=== PATIENT | male | born 1990 | race Caucasian/White ===

== ENCOUNTER 2021-02-02 08:26 | Emergency (ER) | payer OTHER, SELFPAY ==
--- NOTE | ~2021-02-02 | XR_ITS ---
EXAMINATION: XR CHEST CLINICAL INFORMATION: Cough. COMPARISON: Chest 01/11/2013. TECHNIQUE: 2 views of the chest were obtained. FINDINGS: The lungs are hyperinflated but clear of acute process at size and pulmonary vascularity is normal. No gross bony abnormality seen. XR/XR chest 2V IMPRESSION: Hyperinflated lungs without acute process.
[2021-02-02 08:33] VITALS: BP 107/57; PULSE 80; RESP 20; TEMP 36.8; O2SAT 98; BMI 20.1
--- NOTE | 2021-02-02 08:37 | ED_ITS ---
HPI - URI/Sore Throat General Chief Complaint: Upper Respiratory Symptoms Stated Complaint: covid symptoms Time Seen by Provider: 02/02/21 08:37 Source: patient Mode of arrival: ambulatory Limitations: no limitations History of Present Illness HPI Narrative: 30 yo male with longstanding GERD on 20mg omeprazole BID, HIV well controlled on Truvada also notes he takes ibuprofen 600mg BID for aches/pain c/o worsening GERD, chest wall ttp, acid in throat MD elicited complaint: other (increasing GERD symptoms) Pertinent past history: HIV Onset (ago): month(s) Consistency: intermittent Severity: severe Able to tolerate fluids by mouth: Yes Exacerbating factors: swallowing Relieving factors: nothing Associated symptoms: sore throat and chest pain Treatments prior to arrival: none Related Data Home Medications Medication Instructions Recorded Confirmed dolutegravir-lamivudine [Dovato] 1 tab PO DAILY 09/02/20 09/02/20 omeprazole 20 mg PO DAILY 09/02/20 09/02/20 Previous Rx's Medication Instructions Recorded sucralfate [Carafate] 10 ml PO TID 14 Days #420 ml 02/02/21 Allergies Allergy/AdvReac Type Severity Reaction Status Date / Time SEASONAL ALLERGIES Allergy Unknown HIVES Uncoded 07/10/20 15:55 Review of Systems Review of Systems: Constitutional : No Weight loss, No Fever, No Chills ENT/Mouth : pos sore throat, No Rhinorrhea Eyes: No Eye Pain, No Swelling Cardiovascular : pos Chest Pain, no SOB, no Dyspnea on Exertion, No Orthopnea, No Edema, No Palpitations Respiratory : No Cough, No Sputum Gastrointestinal : no Nausea, No Vomiting, No Diarrhea, No abdominal Pain, No Hematochezia, No Melena Genitourinary : No Dysuria, No Urinary Frequency Musculoskeletal : No joint pain, No Myalgias, No Joint Swelling Skin : No Skin Lesions, No rash Neuro : No Weakness, No Numbness, No Dizziness, No Headache Psych : No Anxiety/Panic, No Depression Heme/Lymph: No Bruising, No Lymphadenopathy Endocrine : No Polyuria, No Polydipsia All other systems reviewed and are negative [facility] Past Medical History Attestation statement: The following information was validated with the patient. Medical History GERD (gastroesophageal reflux disease) HIV (human immunodeficiency virus infection) Social History Social History Smoking Status: Current every day smoker Advance Directives: Yes Advance Directives Information Provided: Yes Advance Directives on File: No Physical Exam Vital Signs: Vital Signs: Last Vital Signs Temp 98.2 F 02/02/21 08:33 Pulse 80 02/02/21 08:33 Resp 20 02/02/21 08:33 BP 107/57 L 02/02/21 08:33 Pulse Ox 98 02/02/21 08:33 Body Mass Index 20.1 Appearance: Alert. Oriented X3. No acute distress. Eyes: Pupils equal, round and reactive to light. ENT: Pharynx normal. Neck: Normal inspection. Neck supple. CVS: Normal heart rate and rhythm. Pulses normal. Chest: ttp along entire chest wall Respiratory: No respiratory distress. Breath sounds normal. Abdomen: Soft and non-tender. Skin: Skin warm and dry. Normal skin color. Normal skin turgor. Extremities: No lower extremity edema. No calf ttp Neuro: Oriented X 3. No motor deficit. No sensory deficit. Course Course Course Narrative: COVID swab not sent off, chargemaster specialist to call patinet and notify if he wants testing to come back I have very low susp for COVID MDM - URI/Sore Throat MDM Narrative Medical decision making narrative: 30 yo male with GERD on omeprazole 20mg BID but also takes ibuprofen 600mg BID for various aches and pain has GI but did not get a recent endoscopy appointment, I suspect his symptoms are related to GERD exacerbated by NSAIDs, no other GI symptoms noted, not toxic, well controlled HIV doubt thrush - at this time will encourage no NSAIDs and start on carafate, CXR, COVID swab, GI cocktail ordered. Discharge Plan Discharge Clinical Impression: Chronic GERD Patient Disposition: Home, Self-Care Instructions: Diet for Stomach Ulcers and Gastritis (ED), Gastroesophageal Reflux Disease (ED) Additional Instructions: WE WILL CALL YOU WITH YOUR COVID RESULT YOUR CHEST XRAY WAS NORMAL STOP TAKING NSAIDS - IBUPROFEN, ASPIRIN, ALEVE, MOTRIN IT IS MAKING YOUR GERD WORSE PLEASE CALL YOUR MACHINE LOADER Prescriptions: New sucralfate [Carafate] 100 mg/mL suspension 10 ml PO TID 14 Days Qty: 420 RF: 0 No Action omeprazole 20 mg Tablet,Delayed Release (Dr/Ec) 20 mg PO DAILY RF: 0 Dovato 50-300 mg Tablet 1 tab PO DAILY RF: 0 Stand Alone Forms: Work/School Release Interventions: ED Discharge Assessment Last Done: 02/02/21 09:26 Discharge Date/Time: 02/02/21 09:26
[2021-02-02] MEDS: Lidocaine HCl Viscous 2 % 15 ML SOLUTION MUCOUS MEM (09:21)
[2021-02-02] MEDS: Magnesium Hydrox/Alum Hydrox 30 ML ORAL.SUSP PO (09:21)
== END 2021-02-02 09:26 | disposition home or self-care (01) ==
PROVIDERS: Emergency Provider Emergency Medicine
DX: K21.9 Gastro-esophageal reflux disease without esophagitis (principal); J02.9 Acute pharyngitis, unspecified; B20 Human immunodeficiency virus [HIV] disease; F17.200 Nicotine dependence, unspecified, uncomplicated; Z79.899 Other long term (current) drug therapy
CPT/HCPCS: 71046; 99283

== ENCOUNTER 2021-04-07 08:28 | Emergency (ER) | payer OTHER, SELFPAY ==
[2021-04-07 08:31] VITALS: BP 142/81; PULSE 63; RESP 18; TEMP 36.6; O2SAT 100; BMI 19.3
== END 2021-04-07 10:22 | disposition left against medical advice (07) ==
PROVIDERS: Emergency Provider Emergency Medicine; PCP Internal Medicine
DX: R07.9 Chest pain, unspecified (principal); R11.10 Vomiting, unspecified
CPT/HCPCS: 99281; 99282

== ENCOUNTER 2021-04-12 08:59 | Emergency (ER) | payer OTHER, SELFPAY ==
--- NOTE | 2021-04-12 | ECG_ITS ---
Test Reason : CHEST PAIN Blood Pressure : / mmHG Vent. Rate : 101 BPM Atrial Rate : 101 BPM P-R Int : 128 ms QRS Dur : 086 ms QT Int : 432 ms P-R-T Axes : 084 093 059 degrees QTc Int : 560 ms Sinus tachycardia Biatrial enlargement Rightward axis Prolonged QT Abnormal ECG No previous ECGs available Referred By: Generic ED Physician Electronically Signed By:ROWDY HENRIQUEZ
--- NOTE | ~2021-04-12 | XR_ITS ---
EXAMINATION: XR CHEST CLINICAL INFORMATION: Right-sided chest pain COMPARISON: Previous chest x-ray January 2021 TECHNIQUE: Frontal view of the chest was obtained. FINDINGS: No significant abnormality is noted involving the heart, lungs, mediastinum, bony thorax or soft tissues. XR/XR chest 1V IMPRESSION: Unremarkable examination.
[2021-04-12 09:19] VITALS: BP 124/77; PULSE 100; RESP 18; TEMP 35.8; O2SAT 100
[2021-04-12 09:52] VITALS: BP 144/85; PULSE 106; RESP 16; TEMP 36.6; O2SAT 100; BMI 18.3
[2021-04-12 09:54] VITALS: PULSE 101
--- NOTE | 2021-04-12 10:00 | ED.CHESTPAIN ---
HPI - Chest Pain General Chief Complaint: Chest Pain Stated Complaint: chest pain Time Seen by Provider: 04/12/21 09:12 Source: patient Mode of arrival: ambulatory Limitations: no limitations History of Present Illness HPI narrative: Patient presents to ED for vomiting, acid burning sensation in epigastric area going to the throat for the past 6 days and then for the past 2 days having right upper chest wall pain. Patient denies any fever or chills. Patient denies any blood in emesis, any diarrhea, blood in stool, dysuria, hematuria, flank pain, fever, chills, or any shortness of breath. Patient admits to cyclic vomiting due to smoking marijuana. Related Data Home Medications Medication Instructions Recorded Confirmed dolutegravir-lamivudine [Dovato] 1 tab PO DAILY 09/02/20 09/02/20 omeprazole 20 mg PO DAILY 09/02/20 09/02/20 Previous Rx's Medication Instructions Recorded sucralfate [Carafate] 10 ml PO TID 14 Days #420 ml 02/02/21 famotidine [Pepcid] 20 mg PO BID #40 tab 04/12/21 metoclopramide HCl [Reglan] 10 mg PO Q6H PRN #8 tab 04/12/21 Allergies Allergy/AdvReac Type Severity Reaction Status Date / Time SEASONAL ALLERGIES Allergy Unknown HIVES Uncoded 07/10/20 15:55 Review of Systems Review of Systems: Yes all other systems are reviewed and are negative Constitutional: Constitutional: Reports as per HPI and Reports no additional constitutional complaints Eyes: Eyes: Reports as per HPI and Reports no additional eye complaints ENT: Reports system reviewed and no additional complaints, except as documented and Reports as per HPI Cardiovascular: Cardiovascular: Reports as per HPI, Reports no additional cardiovascular complaints, Reports chest pain (Right-sided chest pain), Denies dyspnea and Denies dyspnea on exertion Respiratory: Respiratory: Reports as per HPI, Reports no additional respiratory complaints, Denies dyspnea and Denies dyspnea on exertion Gastrointestinal: Gastrointestinal: Reports as per HPI, Reports no additional gastrointestinal complaints, Reports heartburn, Reports nausea and Reports vomiting Genitourinary: Genitourinary: Reports no additional male genitourinary complaints and Reports as per HPI Musculoskeletal: Musculoskeletal: Reports no additional musculoskeletal complaints and Reports as per HPI Neurologic: Reports system reviewed and no additional complaints, except as documented and Reports as per HPI [facility] Past Medical History Medical History GERD (gastroesophageal reflux disease) HIV (human immunodeficiency virus infection) Social History Social History Patient Tobacco Use Status: Current everyday Tobacco user Use of substances other than those prescribed or required for medical reasons: Yes Substance Use Type: Marijuana Last Used Substance: Weeks (ago) Advance Directives: Yes Advance Directives Information Provided: Yes Advance Directives on File: No Physical Exam Vital Signs: Vital Signs: Last Vital Signs Temp 97.9 F 04/12/21 09:52 Pulse 93 04/12/21 10:36 Resp 18 04/12/21 10:36 BP 136/82 04/12/21 10:36 Pulse Ox 100 04/12/21 10:36 Body Mass Index 18.3 Const: General: cooperative, healthy appearing, comfortable, no acute distress, well developed, alert and awake Orientation/consciousness: patient oriented x3 HENMT: Head: Yes normal to inspection, Yes No palpable skull fracture present, Yes normocephalic and Yes atraumatic Eyes: General: appearance normal, both eyes and all related structures Neck: Neck: Yes normal visual inspection, Yes full ROM, Yes no lymphadenopathy, Yes no meningeal signs, Yes trachea midline, Yes supple and No tender Chest: Chest palpation & inspection: normal inspection of the chest and normal palpation of entire chest wall Chest/axillae images: 1. Area of tenderness on palpation. Negative for erythema, redness, mass on palpation, or crepitus. Pain also movement right upper extremity. Resp: Effort & Inspection: normal respiratory effort and able to speak in complete sentences Cardio: Jugular venous distension: no JVD Heart sounds: S1 normal heart sound present and S2 normal heart sound present GI: Inspection: Yes normal to inspection and No abdominal wall ecchymosis Palpation (GI): Soft to palpation, not firm, Tenderness to palpation present (GI) (mild) in the epigastrum; not in the LLQ, not in the RLQ, not in the LUQ, not in the RUQ, not at McBurney's point, not periumbilically, not suprapubicly, Fernandes's sign negative, obturator sign negative, psoas sign negative, with no rebound tenderness and Rovsing's sign negative, no guarding and not rigid : General: No CVA tenderness and Yes no CVA tenderness Back/Spine/Pelvis: Back: no CVA tenderness, No CVA tenderness and No back tenderness Skin: General skin exam: no rashes or lesions noted and elasticity normal Neuro: General: patient oriented x3, gait normal, no meningeal signs and CN's II-XI intact bilaterally Cranial nerves: Yes CN's II-XII intact bilaterally Extrem: General: Yes normal to inspection and Yes full ROM Psych: Appearance: grossly normal, well kempt and not disheveled Course Course Course Narrative: Right-sided chest pain most likely from continuous vomiting and vomiting heartburn but will do also cardiac evaluation and a D-dimer. Patient given GI cocktail. EKG shows prolonged QT wave will not give Zofran. Reevaluation(s) Reevaluation #1: Patient feeling better. LFTs are normal. Troponin 23. EKG negative for STEMI. Chest x-ray negative for pneumonia. Patient passed p.o. challenge. Anion gap is elevated slightly low potassium. Patient was infrorm due to troponin 23 will have to do a 2nd troponin out 1:30, but patient refused patient states he feels better like to be discharged. Patient informed due to troponin being slightly elevated he will have to sign out against medical advice. Patient informed risk of , dehydration, disability, decreased quality of life, or heart attack and patient still agreeable to sign against medical advice. Patient will come back to the ER immediately if he feels sick. D-dimer negative. Perc score 1. Bedside ultrasound negative for gallstones. Patient also refused repeat chemistry. Patient informed to eat bananas and drink plenty fluids at home. Time: 11:45 MDM - Chest Pain MDM Narrative Medical decision making narrative: GERD. Costochondritis Lab Data Result diagrams: 04/12/21 10:25 04/12/21 10:25 Labs: Lab Results 04/12/21 04/12/21 04/12/21 Range/Units 10:25 10:25 10:25 WBC 11.3 H (4.8-10.8) X10*3/uL RBC 5.52 (4.60-5.80) X10*6/uL Hgb 16.3 (14.0-18.0) g/dl Hct 46.1 (42-52) % MCV 83.5 (80-98) fL MCH 29.5 (27.0-33.0) pg MCHC 35.4 (31.0-36.0) g/dl RDW 12.3 (11.0-16.0) % Plt Count 275 (160-400) X10*3/uL MPV 10.9 (9.4-12.4) fL Immature Gran % (Auto) 0.4 (0.0-0.4) % Neut % (Auto) 79.3 H (45-73) % Lymph % (Auto) 12.3 L (20-40) % [place] % (Auto) 7.5 (2-11) % Eos % (Auto) 0.1 (0-4) % Baso % (Auto) 0.4 (0-2) % Lymph # (Auto) 1.4 (1.2-4.9) X10*3/uL [place] # (Auto) 0.9 (0.1-1.2) X10*3/uL Eos # (Auto) 0.0 (0.0-0.4) X10*3/uL Baso # (Auto) 0.0 (0.0-0.2) X10*3/uL Abs Immat Gran (auto) 0.05 H (0.00-0.03) X10*3/uL Absolute Neuts (auto) 8.9 H (2.0-8.3) X10*3/uL Absolute Nucleated RBC 0.000 (0.0-0.012) X10*3/uL Nucleated RBC % (auto) 0.0 (0.0-0.2) /100WBC PT (10.8-13.0) SEC INR (0.9-1.1) APTT (24.1-38.0) SEC D-Dimer NG/ML Sodium 136 (135-145) mmol/L Potassium 3.1 L (3.3-5.1) mmol/L Chloride 89 L (96-108) mmol/L Carbon Dioxide 24 (22-29) mmol/L Anion Gap 26 H (12-20) BUN 39 H (9-16) mg/dL Creatinine 1.40 (0.5-1.4) mg/dL Estim Creat Clear Calc 55.9 Estimated GFR 59 Random Glucose 113 (60-115) mg/dL Calcium 10.8 H (8.4-10.2) mg/dL Total Bilirubin 1.4 H (0.0-1.0) mg/dL Direct Bilirubin 0.5 (0.0-0.5) mg/dL AST 24 (5-37) U/L ALT 14 (0-40) U/L Alkaline Phosphatase 62 (39-117) U/L Troponin I High Sens 23.1 (<3.5-35.0) ng/L Total Protein 8.5 H (6.5-8.0) g/dL Albumin 5.5 H (3.5-5.0) g/dL Lipase 21 (8-78) U/L 04/12/21 Range/Units 10:25 WBC (4.8-10.8) X10*3/uL RBC (4.60-5.80) X10*6/uL Hgb (14.0-18.0) g/dl Hct (42-52) % MCV (80-98) fL MCH (27.0-33.0) pg MCHC (31.0-36.0) g/dl RDW (11.0-16.0) % Plt Count (160-400) X10*3/uL MPV (9.4-12.4) fL Immature Gran % (Auto) (0.0-0.4) % Neut % (Auto) (45-73) % Lymph % (Auto) (20-40) % [place] % (Auto) (2-11) % Eos % (Auto) (0-4) % Baso % (Auto) (0-2) % Lymph # (Auto) (1.2-4.9) X10*3/uL [place] # (Auto) (0.1-1.2) X10*3/uL Eos # (Auto) (0.0-0.4) X10*3/uL Baso # (Auto) (0.0-0.2) X10*3/uL Abs Immat Gran (auto) (0.00-0.03) X10*3/uL Absolute Neuts (auto) (2.0-8.3) X10*3/uL Absolute Nucleated RBC (0.0-0.012) X10*3/uL Nucleated RBC % (auto) (0.0-0.2) /100WBC PT 12.8 (10.8-13.0) SEC INR 1.1 (0.9-1.1) APTT 28.7 (24.1-38.0) SEC D-Dimer < 200 NG/ML Sodium (135-145) mmol/L Potassium (3.3-5.1) mmol/L Chloride (96-108) mmol/L Carbon Dioxide (22-29) mmol/L Anion Gap (12-20) BUN (9-16) mg/dL Creatinine (0.5-1.4) mg/dL Estim Creat Clear Calc Estimated GFR Random Glucose (60-115) mg/dL Calcium (8.4-10.2) mg/dL Total Bilirubin (0.0-1.0) mg/dL Direct Bilirubin (0.0-0.5) mg/dL AST (5-37) U/L ALT (0-40) U/L Alkaline Phosphatase (39-117) U/L Troponin I High Sens (<3.5-35.0) ng/L Total Protein (6.5-8.0) g/dL Albumin (3.5-5.0) g/dL Lipase (8-78) U/L ECG Data ECG #1: Interpretation: Sinus tachycardia. Ventricular rate 101. Pr interval 128. QRS 86. QTC 560. Discharge Plan Discharge Clinical Impression: Chronic GERD, Acute costochondritis Patient Disposition: Left Against Medical Advice Instructions: Costochondritis (ED), Gastroesophageal Reflux Disease (ED) Additional Instructions: Return to the ED for inability tolerate solid food/liquid, worsening chest pain, coughing up blood, vomiting blood, rectal bleeding, swelling of lower extremities, calf pain, shortness of breath, or any other concerning symptoms. Please follow-up with PCP Prescriptions: New famotidine [Pepcid] 20 mg tablet 20 mg PO BID Qty: 40 RF: 0 metoclopramide HCl [Reglan] 10 mg tablet 10 mg PO Q6H PRN (Reason: nausea) Qty: 8 RF: 0 No Action sucralfate [Carafate] 100 mg/mL suspension 10 ml PO TID 14 Days Qty: 420 RF: 0 omeprazole 20 mg Tablet,Delayed Release (Dr/Ec) 20 mg PO DAILY RF: 0 Dovato 50-300 mg Tablet 1 tab PO DAILY RF: 0 Stand Alone Forms: Against Medical Advice Interventions: ED Discharge Assessment Last Done: 04/12/21 12:00 Discharge Date/Time: 04/12/21 12:01 Print Language: [place]
[2021-04-12 10:31] LABS: MANUAL DIFF FLAG NO
[2021-04-12 10:34] LABS: Basophils Percent Auto 0.4 % (0-2); Eosinophils Percent Auto 0.1 % (0-4); Hematocrit 46.1 % (42-52); Hemoglobin 16.3 g/dl (14.0-18.0); Imm Gran Abs Auto 0.05 X10*3/uL (0.00-0.03); Imm Gran Pct Auto 0.4 % (0.0-0.4); Lymphocytes Absolute Auto 1.4 X10*3/uL (1.2-4.9); Lymphocytes Percent Auto 12.3 % (20-40); Mean Corpuscular HGB Conc 35.4 g/dl (31.0-36.0); Mean Corpuscular Hemoglobin 29.5 pg (27.0-33.0); Mean Corpuscular Volume 83.5 fL (80-98); Mean Platelet Volume 10.9 fL (9.4-12.4); Monocytes Absolute Auto 0.9 X10*3/uL (0.1-1.2); Monocytes Percent Auto 7.5 % (2-11); Neutrophils Absolute Auto 8.9 X10*3/uL (2.0-8.3); Neutrophils Percent Auto 79.3 % (45-73); Platelet Count 275 X10*3/uL (160-400); Red Blood Count 5.52 X10*6/uL (4.60-5.80); Red Cell Distribution Width 12.3 % (11.0-16.0); White Blood Count 11.3 X10*3/uL (4.8-10.8)
[2021-04-12] MEDS: Magnesium Hydrox/Alum Hydrox 30 ML ORAL.SUSP PO (10:34)
[2021-04-12] MEDS: Famotidine/PF 20 MG/2 ML VIAL IVPUSH (10:34)
[2021-04-12] MEDS: Lidocaine HCl Viscous 2 % 15 ML SOLUTION MUCOUS MEM (10:34)
[2021-04-12] MEDS: PHENobarb/Hyoscy/Atropine/Scop 10 ML ELIXIR PO (10:34)
[2021-04-12] MEDS: Metoclopramide HCl 10 MG/2 ML VIAL IVPUSH (10:34)
[2021-04-12] MEDS: 0.9 % Sodium Chloride 1,000 ML 999 ML IV (10:34)
[2021-04-12 10:36] VITALS: BP 136/82; PULSE 93; RESP 18; O2SAT 100
[2021-04-12 10:46] LABS: INTERNATIONAL NORM RATIO 1.1 (0.9-1.1); Prothrombin Time 12.8 SEC (10.8-13.0)
[2021-04-12 10:48] LABS: Partial Thromboplastin Time 28.7 SEC (24.1-38.0)
[2021-04-12 10:55] LABS: D Dimer < 200 NG/ML
[2021-04-12 11:04] LABS: Alanine Aminotransferase 14 U/L (0-40); Albumin Level 5.5 g/dL (3.5-5.0); Alkaline Phosphatase 62 U/L (39-117); Anion Gap 26 (12-20); Aspartate Amino Transferase 24 U/L (5-37); Bilirubin Direct 0.5 mg/dL (0.0-0.5); Bilirubin Total 1.4 mg/dL (0.0-1.0); Blood Urea Nitrogen 39 mg/dL (9-16); Calcium 10.8 mg/dL (8.4-10.2); Carbon Dioxide 24 mmol/L (22-29); Chloride 89 mmol/L (96-108); Creatinine Clr Calc Pharmacy 55.9; Estimated Glomerular Filt Rate 59; Glucose Random 113 mg/dL (60-115); Lipase 21 U/L (8-78); Potassium 3.1 mmol/L (3.3-5.1); Sodium 136 mmol/L (135-145); Total Protein 8.5 g/dL (6.5-8.0)
[2021-04-12 11:05] LABS: Troponin-I High Sensitivity 23.1 ng/L (<3.5-35.0)
== END 2021-04-12 12:01 | disposition left against medical advice (07) ==
PROVIDERS: Physician Assistant; Emergency Provider Emergency Medicine; PCP Internal Medicine
DX: M94.0 Chondrocostal junction syndrome [Tietze] (principal); K21.9 Gastro-esophageal reflux disease without esophagitis; E87.6 Hypokalemia; Z21 Asymptomatic human immunodeficiency virus [HIV] infection status; Z79.899 Other long term (current) drug therapy
CPT/HCPCS: 36415; 71045; 80053; 80076; 82248; 83690; 84484; 85025; 85379; 85610; 85730; 93005; 96361; 96374; 96375; 99284; 99285; J2765

== ENCOUNTER 2021-10-22 21:00 | Emergency (ER) | payer OTHER, SELFPAY ==
--- NOTE | 2021-10-22 21:29 | ECG_ITS ---
Test Reason : palpitation Blood Pressure : / mmHG Vent. Rate : 057 BPM Atrial Rate : 057 BPM P-R Int : 152 ms QRS Dur : 090 ms QT Int : 432 ms P-R-T Axes : 079 085 059 degrees QTc Int : 420 ms Sinus bradycardia Otherwise normal ECG When compared with ECG of 12-APR-2021 09:07, Vent. rate has decreased BY [address] no longer depressed in Inferior leads Nonspecific T wave abnormality now evident in Anterior leads QT has shortened Referred By: Generic ED Physician Electronically Signed By:Gary Hull
[2021-10-22 21:31] VITALS: BP 100/56; PULSE 63; RESP 18; TEMP 36.7; O2SAT 100; BMI 28.0
[2021-10-23 01:05] VITALS: BP 94/55; PULSE 63; RESP 63; TEMP 36.7; O2SAT 99
--- NOTE | 2021-10-23 02:37 | ED_ITS ---
HPI - General Adult General Chief complaint: General Medical Stated complaint: Palpitations Time Seen by Provider: 10/23/21 02:36 Source: patient Limitations: no limitations History of Present Illness HPI narrative: this is a 31-year-old male with history of HIV and GERD, who complains of hiccups for the last 5 days. The patient is on omeprazole 20 mg twice a day for GERD. He notes however he has had worsened GERD symptoms with feeling of burning in his chest at times. Has had hiccups for the consult a 4 5 days. He is also on gabapentin. He has tried using Tums without relief. He denies any vomiting, cough, shortness of breath, fever, abdominal pain. He does have some soreness in his lower chest which she believes is from hiccuping so much Related Data Home Medications Medication Instructions Recorded Confirmed dolutegravir 50 mg-lamivudine 300 1 tab PO DAILY 09/02/20 09/02/20 mg tablet (Dovato) omeprazole 20 mg tablet,delayed 20 mg PO DAILY 09/02/20 09/02/20 release Previous Rx's Medication Instructions Recorded sucralfate 100 mg/mL oral 10 ml PO TID 14 Days #420 ml 02/02/21 suspension (Carafate) famotidine 20 mg tablet (Pepcid) 20 mg PO BID #40 tab 04/12/21 metoclopramide HCl 10 mg tablet 10 mg PO Q6H PRN #8 tab 04/12/21 (Reglan) baclofen 10 mg tablet 10 mg PO TID #15 tab 10/23/21 Allergies Allergy/AdvReac Type Severity Reaction Status Date / Time SEASONAL ALLERGIES Allergy Unknown HIVES Uncoded 07/10/20 15:55 Review of Systems Constitutional: Constitutional: Denies chills and Denies fever(s) Cardiovascular: Cardiovascular: Reports chest pain Respiratory: Respiratory: Reports no additional respiratory complaints Gastrointestinal: Gastrointestinal: Reports nausea and Denies vomiting Neurologic: Denies Sensory deficit (Neuro) [facility] Past Medical History Medical History GERD (gastroesophageal reflux disease) HIV (human immunodeficiency virus infection) Social History Social History Patient Tobacco Use Status: Current everyday Tobacco user Substance Use Type: Marijuana Advance Directives: No Physical Exam Vital Signs: Vital Signs: Last Vital Signs Temp 98.1 F 10/23/21 01:05 Pulse 84 10/23/21 03:33 Resp 16 10/23/21 03:33 BP 112/67 10/23/21 03:33 Pulse Ox 98 10/23/21 03:33 BMI result Body Mass Index 28.0 Const: General: cooperative, no acute distress and alert Orientation/consciousness: patient oriented x3 HENMT: Head: Yes normal to inspection Eyes: General: appearance normal, both eyes and all related structures Eyelids: Yes eyelids normal Conjunctivae: conjunctivae normal Pupils: Equal, round and reactive pupils present Neck: Neck: Yes normal visual inspection and Yes supple Chest: Chest palpation & inspection: normal inspection of the chest Resp: Effort & Inspection: normal respiratory effort Auscultation: clear to auscultation bilaterally Cardio: Other: Mild lower chest wall tenderness Rate: regular rate Rhythm: regular rhythm Heart sounds: S1 normal heart sound present, S2 normal heart sound present, no gallops, no murmurs and no rubs GI: Palpation (GI): Soft to palpation, nontender and Other GI palpation findings present (Non-distended) Auscultation: normal bowel sounds Skin: General skin exam: no rashes or lesions noted Neuro: General: patient oriented x3, no focal motor deficits and CN's II-XI intact bilaterally Cranial nerves: Yes Equal, round and reactive pupils pr esent Cognition (Neuro): normal cognition Motor exam (neuro): 5/5 motor strength present throughout Sensory Exam: No Sensory deficit (Neuro) Extrem: General: Yes normal to inspection and Yes no pedal edema Psych: Appearance: grossly normal Affect: normal affect Medical Decision Making MDM Narrative Medical decision making narrative: Patient with intractable hiccups, does have a history of GERD and has GERD symptoms, which is likely contributing to the hiccups. Patient already is on gabapentin, as well as omeprazole 20 mg b.i.d.. Will start the patient on baclofen for 5 days to see if this resolves his hiccups. Patient was given Reglan 10 mg IM here in the ED. Patient with a benign abdomen, no concern for acute intra-abdominal pathology ECG Data Attestation: I personally reviewed and interpreted this ECG as follows: Interpretation: Sinus bradycardia with rate of 57. Otherwise normal EKG Discharge Plan Discharge Clinical Impression: Intractable hiccoughs Patient Disposition: Home, Self-Care Instructions: Hiccups (ED) Additional Instructions: Continue omeprazole and your other current medications. s hicups.Start the baclofen as prescribed to see if that will relieve your Hiccups. Follow-up with primary care physician. Prescriptions: New baclofen 10 mg tablet 10 mg PO TID Qty: 15 RF: 0 No Action sucralfate [Carafate] 100 mg/mL suspension 10 ml PO TID 14 Days Qty: 420 RF: 0 omeprazole 20 mg Tablet,Delayed Release (Dr/Ec) 20 mg PO DAILY RF: 0 Dovato 50-300 mg Tablet 1 tab PO DAILY RF: 0 famotidine [Pepcid] 20 mg tablet 20 mg PO BID Qty: 40 RF: 0 metoclopramide HCl [Reglan] 10 mg tablet 10 mg PO Q6H PRN (Reason: nausea) Qty: 8 RF: 0 Interventions: ED Discharge Assessment Last Done: 10/23/21 03:34 Discharge Date/Time: 10/23/21 03:34
[2021-10-23] MEDS: Famotidine 20 MG TABLET PO (03:05)
[2021-10-23] MEDS: Metoclopramide HCl 10 MG/2 ML VIAL IM (03:05)
[2021-10-23 03:33] VITALS: BP 112/67; PULSE 84; RESP 16; O2SAT 98
== END 2021-10-23 03:34 | disposition home or self-care (01) ==
PROVIDERS: Emergency Provider Emergency Medicine; PCP Internal Medicine
DX: R06.6 Hiccough (principal); B20 Human immunodeficiency virus [HIV] disease; K21.9 Gastro-esophageal reflux disease without esophagitis
CPT/HCPCS: 93005; 96372; 99284; J2765

== ENCOUNTER 2022-01-18 13:05 | Emergency (ER) | payer OTHER, SELFPAY ==
--- NOTE | ~2022-01-18 | XR_ITS ---
EXAMINATION: XR CHEST CLINICAL INFORMATION: Chest tightness COMPARISON: Previous chest x-ray March 2021 TECHNIQUE: Frontal view of the chest was obtained. FINDINGS: The cardiac and mediastinal contours are normal. The lungs are clear. The lungs are well inflated. There is no pleural effusion or pneumothorax. Bony structures are unremarkable. XR/XR chest 1V IMPRESSION: No evidence for acute disease in the chest.
[2022-01-18 14:08] VITALS: BP 127/74; PULSE 69; RESP 18; TEMP 36.6; O2SAT 99; BMI 19.3
--- NOTE | 2022-01-18 14:11 | ECG_ITS ---
Test Reason : PALPITATIONS Blood Pressure : / mmHG Vent. Rate : 063 BPM Atrial Rate : 063 BPM P-R Int : 144 ms QRS Dur : 084 ms QT Int : 412 ms P-R-T Axes : 077 084 068 degrees QTc Int : 421 ms Normal sinus rhythm Normal ECG When compared with ECG of 22-OCT-2021 21:47, No significant change was found Referred By: Generic ED Physician Electronically Signed By:ROWDY HENRIQUEZ
[2022-01-18 14:34] LABS: MANUAL DIFF FLAG NO
[2022-01-18 14:36] LABS: Basophils Percent Auto 0.3 % (0-2); Eosinophils Percent Auto 0.5 % (0-4); Hematocrit 36.2 % (42.0-52.0); Imm Gran Abs Auto 0.02 X10*3/uL (0.00-0.03); Imm Gran Pct Auto 0.3 % (0.0-0.4); Lymphocytes Percent Auto 26.8 % (20-40); Mean Corpuscular HGB Conc 33.1 g/dl (31.0-36.0); Mean Corpuscular Hemoglobin 29.6 pg (27.0-33.0); Mean Corpuscular Volume 89.4 fL (80.0-98.0); Mean Platelet Volume 9.8 fL (9.4-12.4); Monocytes Absolute Auto 0.5 X10*3/uL (0.1-1.2); Monocytes Percent Auto 6.3 % (2-11); Neutrophils Absolute Auto 4.9 x10*3/uL (2.0-8.3); Neutrophils Percent Auto 65.8 % (45-73); Platelet Count 252 X10*3/uL (160-400); Red Blood Count 4.05 X10*6/uL (4.60-5.80); Red Cell Distribution Width 13.7 % (11.0-16.0); White Blood Count 7.4 X10*3/uL (4.8-10.8)
[2022-01-18 14:51] LABS: Anion Gap 12 (12-20); Blood Urea Nitrogen 8 mg/dL (9-16); Calcium 9.4 mg/dL (8.4-10.2); Carbon Dioxide 22 mmol/L (22-29); Chloride 106 mmol/L (96-108); Creatinine Clr Calc Pharmacy 108.8; Estimated Glomerular Filt Rate > 60; Glucose Random 84 mg/dL (60-115); Potassium 4.1 mmol/L (3.3-5.1); Sodium 136 mmol/L (135-145)
[2022-01-18 14:59] LABS: Troponin-I High Sensitivity < 3.5 ng/L (<3.5-35.0)
== END 2022-01-18 19:50 | disposition left against medical advice (07) ==
PROVIDERS: Emergency Provider Emergency Medicine; PCP Internal Medicine
DX: R07.9 Chest pain, unspecified (principal); B20 Human immunodeficiency virus [HIV] disease; F17.200 Nicotine dependence, unspecified, uncomplicated; F12.90 Cannabis use, unspecified, uncomplicated
CPT/HCPCS: 36415; 71045; 80048; 84484; 85025; 93005; 99282; 99283

== ENCOUNTER 2022-01-26 05:51 | Emergency (ER) | payer OTHER, SELFPAY ==
[2022-01-26 06:10] VITALS: BP 142/85; PULSE 74; RESP 18; TEMP 35.8; O2SAT 100; BMI 19.3
[2022-01-26 07:15] VITALS: BP 121/99; PULSE 83; RESP 18; TEMP 36.6; O2SAT 99
--- NOTE | 2022-01-26 07:15 | PC.NURSE ---
contiues to complain of nausea. skin pwd. holding left lower back and abd. no vomiting noted by this rn while in wr.
[2022-01-26 08:05] LABS: Hematocrit 42.1 % (42.0-52.0); Hemoglobin 14.2 g/dl (14.0-18.0); Mean Corpuscular HGB Conc 33.7 g/dl (31.0-36.0); Mean Corpuscular Hemoglobin 30.1 pg (27.0-33.0); Mean Corpuscular Volume 89.2 fL (80.0-98.0); Mean Platelet Volume 11.5 fL (9.4-12.4); Platelet Count 299 X10*3/uL (160-400); Red Blood Count 4.72 X10*6/uL (4.60-5.80); Red Cell Distribution Width 13.6 % (11.0-16.0)
[2022-01-26 08:17] LABS: Alanine Aminotransferase 22 U/L (0-40); Albumin Level 6.1 g/dL (3.5-5.0); Alkaline Phosphatase 69 U/L (39-117); Anion Gap 24 (12-20); Aspartate Amino Transferase 23 U/L (5-37); Bilirubin Total 0.8 mg/dL (0.0-1.0); Blood Urea Nitrogen 21 mg/dL (9-16); Calcium 11.3 mg/dL (8.4-10.2); Carbon Dioxide 21 mmol/L (22-29); Chloride 100 mmol/L (96-108); Creatinine Clr Calc Pharmacy 51.3; Estimated Glomerular Filt Rate 51; Glucose Random 140 mg/dL (60-115); Potassium 3.9 mmol/L (3.3-5.1); Sodium 141 mmol/L (135-145); Total Protein 9.4 g/dL (6.5-8.0)
--- NOTE | 2022-01-26 08:39 | ED.NAVMDI ---
HPI - Nausea/Vomiting/Diarrhea General Chief complaint: Abdominal Pain Stated complaint: n/v Time Seen by Provider: 01/26/22 08:15 Source: patient Mode of arrival: ambulatory Limitations: no limitations History of Present Illness HPI Narrative: 31 y/o male with history of fibromyalgia, GERD, HIV, who presents to the ER with acute onset of nausea and vomiting that started last evening around 5pm after he ate a burger and fries at a restaurant. He thinks he has food poisoning. He states he has been vomiting all night. He has had several episodes of nonbloody, nonbilious vomiting. He has been unable to tolerate p.o.. He has not any bowel movements. He reports his last bowel movement was yesterday and was normal. He has intermittent diffuse abdominal pain and cramping usually right before he vomits. He denies any fever or chills. He denies any blood in his urine or stool. He feels weak and dehydrated. MD elicited complaint: nausea, vomiting and abdominal pain Onset (ago): hour(s) Description of vomiting: food contents Associated nausea: Yes Associated abdominal pain: Yes Location of pain: diffuse Radiation: diffuse Pain consistency: intermittent Severity: moderate Pain scale (0-10): 5 Quality: cramping and aching Exacerbating factors: eating Relieving factors: none Context: possible food poisoning Associated symptoms: loss of appetite, malaise, nausea/vomiting and weakness Related Data Home Medications Medication Instructions Recorded Confirmed dolutegravir 50 mg-lamivudine 300 1 tab PO DAILY 09/02/20 09/02/20 mg tablet (Dovato) omeprazole 20 mg tablet,delayed 20 mg PO DAILY 09/02/20 09/02/20 release Previous Rx's Medication Instructions Recorded sucralfate 100 mg/mL oral 10 ml PO TID 14 Days #420 ml 02/02/21 suspension (Carafate) famotidine 20 mg tablet (Pepcid) 20 mg PO BID #40 tab 04/12/21 metoclopramide HCl 10 mg tablet 10 mg PO Q6H PRN #8 tab 04/12/21 (Reglan) baclofen 10 mg tablet 10 mg PO TID #15 tab 10/23/21 ondansetron 4 mg disintegrating 4 mg PO Q8H PRN #7 tab 01/26/22 tablet Allergies Allergy/AdvReac Type Severity Reaction Status Date / Time SEASONAL ALLERGIES Allergy Unknown HIVES Uncoded 07/10/20 15:55 Review of Systems Review of Systems: Constitutional: No Fever, No Chills ENT/Mouth: No sore throat, No Rhinorrhea, No Swallowing Difficulty Eyes: No Eye Pain, No Swelling, No Redness Cardiovascular: No Chest Pain, No SOB, No Orthopnea, No Edema Respiratory: No Cough, No Sputum, No Wheezing, No dyspnea Gastrointestinal: + Nausea, + Vomiting, No Diarrhea, + abdominal Pain, No Hematochezia, No Melena Genitourinary: No Dysuria, No Urinary Frequency, No Hematuria Musculoskeletal: No joint pain, No Myalgias Skin: No Skin Lesions, No rash Neuro: + Weakness, No Numbness, + Dizziness, No Headache Psych: No Anxiety/Panic, No Depression Heme/Lymph: No Bruising, No Lymphadenopathy Endocrine: No Polyuria, No Polydipsia Gastrointestinal: Gastrointestinal: Reports nausea PMFSH Past Medical History Medical History GERD (gastroesophageal reflux disease) HIV (human immunodeficiency virus infection) Social History Social History Patient Tobacco Use Status: Current everyday Tobacco user Substance Use Type: Marijuana Advance Directives: No Advance Directives Information Provided: Yes Physical Exam Vital Signs: Vital Signs: Last Vital Signs Temp 97.6 F 01/26/22 12:20 Pulse 90 01/26/22 12:20 Resp 16 01/26/22 12:20 BP 134/80 01/26/22 12:20 Pulse Ox 98 01/26/22 12:20 BMI result Body Mass Index 19.3 Appearance: Alert. Oriented X3. No acute distress. Eyes: Pupils equal, round and reactive to light. ENT: Pharynx normal. Moist mucous membranes. Neck: Normal inspection. Neck supple. CVS: Normal heart rate and rhythm. Pulses normal. Respiratory: No respiratory distress. Breath sounds normal. Abdomen: Soft with mild diffuse tenderness throughout. No rebound or guarding. Hyperactive +BS x4 Skin: Skin warm and dry. Normal skin color. Normal skin turgor. No rashes. Extremities: No lower extremity edema. Neuro: Oriented X 3. No motor deficit. No sensory deficit. Course Course Course Narrative: 31 y/o male with history of HIV (viral load undetectable with CD4 1200) on HAART, hx GERD presents to the ER with what he feels is food poisoning. He developed acute onset N/V after eating a burger last evening with vomiting all night. No diarrhea. He reports diffuse abdominal discomfort, no focal pain. No fevers. Labs showing acute dehydration and anion gap of 24. Most likely due to elevated BUN. Will check lactic acid as well. WBC 19, most likely reactive from profuse vomiting. Will plan to hydrate with 2L IVF and repeat labs. IV zofran ordered as well. Reevaluation(s) Reevaluation #1: After 2L NS patient's LYSSA and dehydration improved, as did his leukocytosis. He is tolerating small sips of adilene samantha but still feels unwell. C/o ongoing nausea and was dry heaving prior, will give dose of IV reglan and reassess. 3rd liter of IVF ordered. Reevaluation #2: After 3 L fluid patient is feeling much better. He would like to be discharged home. He is tolerating p.o.. He is stable for DC, will prescribe p.r.n. Zofran. MDM - Nausea/Vomiting/Diarrhea Lab Data Result diagrams: 01/26/22 10:38 01/26/22 10:38 Labs: Lab Results 01/26/22 01/26/22 01/26/22 Range/Units 06:03 06:03 08:43 WBC 19.0 H (4.8-10.8) X10*3/uL RBC 4.72 (4.60-5.80) X10*6/uL Hgb 14.2 (14.0-18.0) g/dl Hct 42.1 (42.0-52.0) % MCV 89.2 (80.0-98.0) fL MCH 30.1 (27.0-33.0) pg MCHC 33.7 (31.0-36.0) g/dl RDW 13.6 (11.0-16.0) % Plt Count 299 (160-400) X10*3/uL MPV 11.5 (9.4-12.4) fL Immature Gran % (Auto) (0.0-0.4) % Neut % (Auto) (45-73) % Lymph % (Auto) (20-40) % Turner % (Auto) (2-11) % Eos % (Auto) (0-4) % Baso % (Auto) (0-2) % Lymph # (Auto) (1.2-4.9) X10*3/uL Turner # (Auto) (0.1-1.2) X10*3/uL Eos # (Auto) (0.0-0.4) X10*3/uL Baso # (Auto) (0.0-0.2) X10*3/uL Abs Immat Gran (auto) (0.00-0.03) X10*3/uL Absolute Neuts (auto) (2.0-8.3) x10*3/uL Absolute Nucleated RBC 0.000 (0.0-0.012) X10*3/uL Nucleated RBC % (auto) 0.0 (0.0-0.2) /100WBC Sodium 141 (135-145) mmol/L Potassium 3.9 (3.3-5.1) mmol/L Chloride 100 (96-108) mmol/L Carbon Dioxide 21 L (22-29) mmol/L Anion Gap 24 H (12-20) BUN 21 H D (9-16) mg/dL Creatinine 1.59 H (0.5-1.4) mg/dL Estim Creat Clear Calc 51.3 Estimated GFR 51 Random Glucose 140 H D (60-115) mg/dL Lactic Acid 1.2 (0.5-2.0) mmol/L Calcium 11.3 H D (8.4-10.2) mg/dL Total Bilirubin 0.8 (0.0-1.0) mg/dL AST 23 (5-37) U/L ALT 22 (0-40) U/L Alkaline Phosphatase 69 (39-117) U/L Total Protein 9.4 H (6.5-8.0) g/dL Albumin 6.1 H (3.5-5.0) g/dL COVID-19 (DEBORAH) (Negative) COVID-19 Clin Com 01/26/22 01/26/22 01/26/22 Range/Units 08:51 10:38 10:38 WBC 14.1 H (4.8-10.8) X10*3/uL RBC 4.16 L (4.60-5.80) X10*6/uL Hgb 12.2 L (14.0-18.0) g/dl Hct 36.7 L (42.0-52.0) % MCV 88.2 (80.0-98.0) fL MCH 29.3 (27.0-33.0) pg MCHC 33.2 (31.0-36.0) g/dl RDW 13.8 (11.0-16.0) % Plt Count 298 (160-400) X10*3/uL MPV 10.0 (9.4-12.4) fL Immature Gran % (Auto) 0.4 (0.0-0.4) % Neut % (Auto) 88.4 H (45-73) % Lymph % (Auto) 7.5 L (20-40) % Turner % (Auto) 3.5 (2-11) % Eos % (Auto) 0.1 (0-4) % Baso % (Auto) 0.1 (0-2) % Lymph # (Auto) 1.1 L (1.2-4.9) X10*3/uL Turner # (Auto) 0.5 (0.1-1.2) X10*3/uL Eos # (Auto) 0.0 (0.0-0.4) X10*3/uL Baso # (Auto) 0.0 (0.0-0.2) X10*3/uL Abs Immat Gran (auto) 0.05 H (0.00-0.03) X10*3/uL Absolute Neuts (auto) 12.5 H (2.0-8.3) x10*3/uL Absolute Nucleated RBC 0.000 (0.0-0.012) X10*3/uL Nucleated RBC % (auto) 0.0 (0.0-0.2) /100WBC Sodium 143 (135-145) mmol/L Potassium 4.2 (3.3-5.1) mmol/L Chloride 110 H (96-108) mmol/L Carbon Dioxide 22 (22-29) mmol/L Anion Gap 15 (12-20) BUN 22 H (9-16) mg/dL Creatinine 1.22 (0.5-1.4) mg/dL Estim Creat Clear Calc 66.9 Estimated GFR > 60 Random Glucose 109 (60-115) mg/dL Lactic Acid (0.5-2.0) mmol/L Calcium 9.2 D (8.4-10.2) mg/dL Total Bilirubin (0.0-1.0) mg/dL AST (5-37) U/L ALT (0-40) U/L Alkaline Phosphatase (39-117) U/L Total Protein (6.5-8.0) g/dL Albumin (3.5-5.0) g/dL COVID-19 (DEBORAH) Negative (Negative) COVID-19 Clin Com See Note Critical Care Time Critical Care Time Critical Care Time: Yes Total Critical Care Time: 35 Attestation: I have personally provided critical care time exclusive of time spent on separately billable procedures. Time includes review of lab data, radiology results, frequent bedside reassessment, trending of lab work and IVF resuscitation, and monitoring for potential decompensation. Intervention performed as documented. Discharge Plan Discharge Clinical Impression: Gastroenteritis, LYSSA (acute kidney injury), Acute dehydration Patient Disposition: Home, Self-Care Instructions: Dehydration (ED), Gastroenteritis (DC) Additional Instructions: You lab workup today showed dehydration that improved with IV fluids. You most likely have a viral GI bug also known as gastroenteritis vs possible food poisoning. Treatment is supportive care, symptoms usually resolve on their own in 48-72 hours. Recommend rest and plenty of oral hydration. Stick to a bland diet like soup and toast while you are not feeling well. Take the prescribed medication as needed for nausea. Recommend over the counter Pepto Bismol or Imodium for upset stomach and diarrhea. Follow up with your doctor as needed. If you develop new or worsening symptoms call 911 or come back to the ER for further evaluation. Prescriptions: New ondansetron 4 mg tablet,disintegrating 4 mg PO Q8H PRN (Reason: nausea and vomiting) Qty: 7 0RF No Action sucralfate [Carafate] 100 mg/mL suspension 10 ml PO TID 14 Days Qty: 420 0RF Rx Instructions: swish in mouth and swallow; use after food/drink omeprazole 20 mg Tablet,Delayed Release (Dr/Ec) 20 mg PO DAILY 0RF Dovato 50-300 mg Tablet 1 tab PO DAILY 0RF famotidine [Pepcid] 20 mg tablet 20 mg PO BID Qty: 40 0RF metoclopramide HCl [Reglan] 10 mg tablet 10 mg PO Q6H PRN (Reason: nausea) Qty: 8 0RF baclofen 10 mg tablet 10 mg PO TID Qty: 15 0RF Stand Alone Forms: Work/School Release
[2022-01-26] MEDS: ondansetron HCL 4 MG/2 ML VIAL IVPUSH (08:46)
[2022-01-26] MEDS: 0.9 % Sodium Chloride 1,000 ML 999 ML IVCONT ×2 (08:47)
[2022-01-26 08:58] LABS: Lactic Acid 1.2 mmol/L (0.5-2.0)
[2022-01-26 09:23] LABS: COVID-19 Test Negative (Negative)
[2022-01-26 10:00] VITALS: BP 144/68; PULSE 79; RESP 16; O2SAT 100
[2022-01-26 10:48] LABS: MANUAL DIFF FLAG NO
[2022-01-26 10:50] LABS: Basophils Percent Auto 0.1 % (0-2); Eosinophils Percent Auto 0.1 % (0-4); Hematocrit 36.7 % (42.0-52.0); Hemoglobin 12.2 g/dl (14.0-18.0); Imm Gran Abs Auto 0.05 X10*3/uL (0.00-0.03); Imm Gran Pct Auto 0.4 % (0.0-0.4); Lymphocytes Absolute Auto 1.1 X10*3/uL (1.2-4.9); Lymphocytes Percent Auto 7.5 % (20-40); Mean Corpuscular HGB Conc 33.2 g/dl (31.0-36.0); Mean Corpuscular Hemoglobin 29.3 pg (27.0-33.0); Mean Corpuscular Volume 88.2 fL (80.0-98.0); Monocytes Absolute Auto 0.5 X10*3/uL (0.1-1.2); Monocytes Percent Auto 3.5 % (2-11); Neutrophils Absolute Auto 12.5 x10*3/uL (2.0-8.3); Neutrophils Percent Auto 88.4 % (45-73); Platelet Count 298 X10*3/uL (160-400); Red Blood Count 4.16 X10*6/uL (4.60-5.80); Red Cell Distribution Width 13.8 % (11.0-16.0); White Blood Count 14.1 X10*3/uL (4.8-10.8)
[2022-01-26] MEDS: Metoclopramide HCl 10 MG/2 ML VIAL IVPUSH (10:54)
[2022-01-26 11:02] LABS: Anion Gap 15 (12-20); Blood Urea Nitrogen 22 mg/dL (9-16); Calcium 9.2 mg/dL (8.4-10.2); Carbon Dioxide 22 mmol/L (22-29); Chloride 110 mmol/L (96-108); Creatinine Clr Calc Pharmacy 66.9; Estimated Glomerular Filt Rate > 60; Glucose Random 109 mg/dL (60-115); Potassium 4.2 mmol/L (3.3-5.1); Sodium 143 mmol/L (135-145)
[2022-01-26] MEDS: Lactated Ringers 1,000 ML 999 ML IV (11:31)
[2022-01-26 12:20] VITALS: BP 134/80; PULSE 90; RESP 16; TEMP 36.4; O2SAT 98
== END 2022-01-26 12:45 | disposition home or self-care (01) ==
PROVIDERS: Physician Assistant; Emergency Provider Emergency Medicine
DX: K52.9 Noninfective gastroenteritis and colitis, unspecified (principal); N17.9 Acute kidney failure, unspecified; E86.0 Dehydration; Z20.822 Contact with and (suspected) exposure to COVID-19; R11.2 Nausea with vomiting, unspecified
CPT/HCPCS: 36415; 80048; 80053; 83605; 85025; 85027; 87040; 87147; 87205; 87635; 96361; 96374; 96375; 99284; 99291; J2405; J2765

== ENCOUNTER 2022-02-19 15:08 | Outpatient (REF) | payer OTHER, SELFPAY | END 2022-02-19 15:09 | disposition home or self-care (01) | LOC: HO.LNP 15:08 | PROVIDERS: Visit Provider Urology | DX: Z13.89 Encounter for screening for other disorder (principal) ==

== ENCOUNTER 2022-02-22 08:57 | Emergency (ER) | payer OTHER, SELFPAY ==
--- NOTE | ~2022-02-22 | XR_ITS ---
EXAMINATION: XR CHEST CLINICAL INFORMATION: Chest pain. Cough. COMPARISON: Chest x-ray 01/18/2022 TECHNIQUE: Frontal view of the chest was obtained. FINDINGS: Cardiac silhouette is normal in size. The lungs are well aerated. There is no lobar consolidation. No pleural effusion or pneumothorax. XR/XR chest 1V IMPRESSION: No acute pulmonary pathology.
[2022-02-22 09:02] VITALS: BP 119/75; PULSE 75; RESP 14; TEMP 36.5; O2SAT 99; BMI 19.3
[2022-02-22 09:31] LABS: COVID-19 Test Negative (Negative); IDNOW Serial# 16C4AD1C; Influenza A Negative (Negative); Influenza B2 Negative (Negative)
--- NOTE | 2022-02-22 11:09 | ED_ITS ---
HPI - URI/Sore Throat General Chief Complaint: Upper Respiratory Symptoms Stated Complaint: exposed to covid, throat pain body aches Time Seen by Provider: 02/22/22 10:20 Source: patient Mode of arrival: ambulatory History of Present Illness HPI Narrative: 31-year-old male with a past medical history of GERD, HIV, presenting to the ED complaining of body aches/diffuse myalgias, sore throat, productive cough, mild SOB since yesterday. Admits was in contact with COVID 19 positive person 2 days ago. Denies chest pain, fever, recent travel, ear pain, pedal edema MD elicited complaint: cough and sore throat Onset (ago): day(s) Related Data Home Medications Medication Instructions Recorded Confirmed dolutegravir 50 mg-lamivudine 300 1 tab PO DAILY 09/02/20 09/02/20 mg tablet (Dovato) omeprazole 20 mg tablet,delayed 20 mg PO DAILY 09/02/20 09/02/20 release Previous Rx's Medication Instructions Recorded sucralfate 100 mg/mL oral 10 ml PO TID 14 Days #420 ml 02/02/21 suspension (Carafate) famotidine 20 mg tablet (Pepcid) 20 mg PO BID #40 tab 04/12/21 metoclopramide HCl 10 mg tablet 10 mg PO Q6H PRN #8 tab 04/12/21 (Reglan) baclofen 10 mg tablet 10 mg PO TID #15 tab 10/23/21 ondansetron 4 mg disintegrating 4 mg PO Q8H PRN #7 tab 01/26/22 tablet amoxicillin 875 mg-potassium 1 tab PO BID 7 Days #14 tab 02/22/22 clavulanate 125 mg tablet Allergies Allergy/AdvReac Type Severity Reaction Status Date / Time SEASONAL ALLERGIES Allergy Unknown HIVES Uncoded 07/10/20 15:55 Review of Systems Review of Systems: Constitutional: No Fever, No Chills ENT/Mouth: No Ear Pain, No Nasal Congestion, No Sinus Pain, No Hoarseness, + sore throat, + Rhinorrhea, No Swallowing Difficulty Cardiovascular: No Chest Pain, + SOB Respiratory: + Cough, + Sputum, No Wheezing Gastrointestinal: No Nausea, No Vomiting, No Diarrhea, No Constipation, No Abdominal pain Genitourinary: No Dysuria, No Urinary Frequency, No Hematuria, No Flank Pain Musculoskeletal: No joint pain, + Myalgias, No Joint Swelling Skin: No Skin Lesions, No rash Neuro: No Weakness Yes all other systems are reviewed and are negative [facility] Past Medical History Attestation statement: The following information was validated with the patient. Medical History GERD (gastroesophageal reflux disease) HIV (human immunodeficiency virus infection) Social History Social History Patient Tobacco Use Status: Current everyday Tobacco user Substance Use Type: Marijuana Advance Directives: No Advance Directives Information Provided: No Physical Exam Vital Signs: Vital Signs: Last Vital Signs Temp 97.7 F 02/22/22 09:02 Pulse 75 02/22/22 09:02 Resp 14 02/22/22 09:02 BP 119/75 02/22/22 09:02 Pulse Ox 99 02/22/22 09:02 BMI result Body Mass Index 19.3 Const: General: cooperative, healthy appearing and no acute distress Orientation/consciousness: patient oriented x3 Limitations: no limitations HEENT: Other: + mild bilateral tonsillar erythema/swelling and exudates Head: Yes normal to inspection and Yes atraumatic Ears: hearing grossly normal bilaterally Gen eral nose exam: Normal external nose present Face and sinus: Yes normal facial exam Throat: No tonsils normal, Yes uvula midline, No uvula laterally displaced and No uvular edema Eyes: General: appearance normal, both eyes and all related structures EOM: EOMs intact bilaterally Neck: Neck: Yes normal visual inspection and Yes no meningeal signs Resp: Effort & Inspection: normal respiratory effort and no respiratory distress Cardio: Rate: regular rate Skin: Rashes: no rashes Wounds: no wounds Neuro: General: patient oriented x3, tone normal and no meningeal signs Gait exam (Neuro): Normal gait present Extrem: General: Yes normal to inspection Course Course Course Narrative: COVID-19/influenza negative. -rapid strep negative XR chest 1V IMPRESSION: No acute pulmonary pathology > results discussed with patient including worrisome signs and symptoms and strict return precautions and need to close follow-up with PCP MDM - URI/Sore Throat MDM Narrative Medical decision making narrative: 31-year-old male with a past medical history of GERD, HIV, presenting to the ED complaining of body aches/diffuse myalgias, sore throat, productive cough, mild SOB since yesterday. On exam vital signs stable, NAD/nontoxic-appearing, physical exam as above concerning for strep pharyngitis vs viral illness including COVID-19/influenza. Lower concern for pneumonia/ACS or PE Plan: CXR, influenza/COVID 19 testing, rapid strep Medical Records Attestation: I reviewed the patient's medical records. Lab Data Attestation: I reviewed the patient's lab results. Labs: Lab Results 02/22/22 02/22/22 02/22/22 Range/Units 09:07 09:07 10:40 COVID-19 (DEBORAH) Negative (Negative) COVID-19 Clin Com See Note Influenza Type A (HECTOR) Negative (Negative) Influenza Type B (HECTOR) Negative (Negative) Influenza A & B Note See Note S. pyogenes GrpA HECTOR Negative (Negative) Discharge Plan Discharge Clinical Impression: Viral infection, Pharyngitis Patient Disposition: Home, Self-Care Instructions: Pharyngitis (ED), Upper Respiratory Infection (DC) Additional Instructions: You tested negative for COVID-19 and the flu. Clinically you have strep throat. Augmentin is antibiotic please take as prescribed Take Tylenol and Motrin as needed. Rest. Please self isolate for 2 more days and get COVID-19 retested. If your symptoms persist or worsen, your shortness breath chest pain, or fever please return to the emergency department. Follow up with her doctor Prescriptions: New amoxicillin-pot clavulanate 875-125 mg tablet 1 tab PO BID 7 Days Qty: 14 0RF No Action sucralfate [Carafate] 100 mg/mL suspension 10 ml PO TID 14 Days Qty: 420 0RF Rx Instructions: swish in mouth and swallow; use after food/drink omeprazole 20 mg Tablet,Delayed Release (Dr/Ec) 20 mg PO DAILY 0RF Dovato 50-300 mg Tablet 1 tab PO DAILY 0RF famotidine [Pepcid] 20 mg tablet 20 mg PO BID Qty: 40 0RF metoclopramide HCl [Reglan] 10 mg tablet 10 mg PO Q6H PRN (Reason: nausea) Qty: 8 0RF baclofen 10 mg tablet 10 mg PO TID Qty: 15 0RF ondansetron 4 mg tablet,disintegrating 4 mg PO Q8H PRN (Reason: nausea and vomiting) Qty: 7 0RF Referrals: Physician,None [Primary Care Provider] - 3 days Stand Alone Forms: Work/School Release
[2022-02-22 11:17] LABS: Strep A Nucleic Acid Negative (Negative)
== END 2022-02-22 12:10 | disposition home or self-care (01) ==
PROVIDERS: Physician Assistant; Emergency Provider Emergency Medicine
DX: U07.1 COVID-19 (principal); R07.89 Other chest pain; R05.9 Cough, unspecified; M79.10 Myalgia, unspecified site; Z79.899 Other long term (current) drug therapy; F17.200 Nicotine dependence, unspecified, uncomplicated; Z71.6 Tobacco abuse counseling
CPT/HCPCS: 36415; 71045; 87502; 87635; 87651; 99283

== ENCOUNTER 2022-04-28 20:42 | Emergency (ER) | payer OTHER, SELFPAY ==
--- NOTE | ~2022-04-28 | XR_ITS ---
EXAMINATION: XR CHEST CLINICAL INFORMATION: Cough, chest pain. COMPARISON: 02/22/2022 chest radiograph. TECHNIQUE: Frontal view of the chest was obtained. FINDINGS: No significant abnormality is noted involving the heart, lungs, mediastinum, bony thorax or soft tissues. XR/XR chest 1V IMPRESSION: No acute cardiopulmonary process.
[2022-04-28 20:54] VITALS: BP 121/71; PULSE 75; RESP 18; TEMP 37.2; O2SAT 98; BMI 19.8
== END 2022-04-29 00:10 | disposition left against medical advice (07) ==
PROVIDERS: Emergency Provider Emergency Medicine
DX: R07.9 Chest pain, unspecified (principal); R51.9 Headache, unspecified; M79.10 Myalgia, unspecified site
CPT/HCPCS: 71045; 99281; 99283

== ENCOUNTER 2022-04-29 11:04 | Emergency (ER) | payer SELFPAY ==
[2022-04-29 11:10] VITALS: BP 121/69; PULSE 74; RESP 16; TEMP 36.7; O2SAT 98; BMI 18.6
[2022-04-29 11:47] LABS: COVID-19 Test Negative (Negative); IDNOW Serial# 9DB6401D
[2022-04-29] MEDS: Acetaminophen 325 MG TABLET 975 MG PO (14:02)
[2022-04-29 14:28] LABS: Strep A Nucleic Acid Negative (Negative)
[2022-04-29 14:33] LABS: IDNOW Serial# 16C4AD1C; Influenza A Negative (Negative); Influenza B2 Negative (Negative)
--- NOTE | 2022-04-29 19:45 | ED.URI ---
HPI - URI/Sore Throat General Chief Complaint: Upper Respiratory Symptoms Stated Complaint: chest pain, body aches, cough Time Seen by Provider: 04/29/22 13:35 Source: patient Mode of arrival: ambulatory Limitations: no limitations History of Present Illness HPI Narrative: 31-year-old male presents for 2 days of cough, headache, body aches, sweats and chills. No fevers, no nausea vomiting, no sore throat or ear pain. Patient is vaccinated for COVID. No sick contacts. Related Data Home Medications Medication Instructions Recorded Confirmed dolutegravir 50 mg-lamivudine 300 1 tab PO DAILY 09/02/20 09/02/20 mg tablet (Dovato) omeprazole 20 mg tablet,delayed 20 mg PO DAILY 09/02/20 09/02/20 release Previous Rx's Medication Instructions Recorded sucralfate 100 mg/mL oral 10 ml PO TID 14 days #420 mL 02/02/21 suspension (Carafate) famotidine 20 mg tablet (Pepcid) 20 mg PO BID #40 tabs 04/12/21 metoclopramide HCl 10 mg tablet 10 mg PO Q6H PRN nausea #8 tabs 04/12/21 (Reglan) baclofen 10 mg tablet 10 mg PO TID #15 tabs 10/23/21 ondansetron 4 mg disintegrating 4 mg PO Q8H PRN nausea and 01/26/22 tablet vomiting #7 tabs amoxicillin 875 mg-potassium 1 tab PO BID 7 days #14 tabs 02/22/22 clavulanate 125 mg tablet benzonatate 200 mg capsule 200 mg PO BID 5 days #10 caps 04/29/22 codeine 10 mg-guaifenesin 100 mg/5 5 ml PO Q4-6H PRN cough #120 mL 04/29/22 mL oral liquid Allergies Allergy/AdvReac Type Severity Reaction Status Date / Time SEASONAL ALLERGIES Allergy Unknown HIVES Uncoded 07/10/20 15:55 Review of Systems Constitutional: Constitutional: Reports body ache(s), Reports chills, Denies fatigue, Reports fever(s), Reports headache(s), Reports malaise and Denies weakness Eyes: Eyes: Denies diplopia ENT: Denies vertigo, Denies dizziness, Denies otalgia, Reports headache(s), Denies mouth pain, Reports nasal congestion, Denies post nasal drip, Denies sinus pain, Denies sinus pressure, Denies sore throat and Denies throat swelling Cardiovascular: Cardiovascular: Denies chest pain, Denies syncope, Denies leg edema, Denies lightheadedness, Denies Loss of Consciousness, Denies palpitations and Denies dyspnea Respiratory: Respiratory: Denies chest congestion, Reports cough and Denies dyspnea Gastrointestinal: Gastrointestinal: Denies abdominal pain, Denies hematochezia, Denies constipation, Denies diarrhea, Reports nausea and Denies vomiting Musculoskeletal: Musculoskeletal: Reports no additional musculoskeletal complaints Neurologic: Denies confusion, Denies vertigo, Denies dizziness, Denies syncope, Reports headache(s) and Denies weakness Psychiatric: Psychiatric: Denies anxiety, Denies confusion and Denies depression Endocrine: Endocrine: Denies fatigue and Denies palpitations Allergic/Immunologic: Allergic/Immunologic: Denies throat swelling PMFSH Past Medical History Medical History GERD (gastroesophageal reflux disease) HIV (human immunodeficiency virus infection) Social History Social History Patient Tobacco Use Status: Current everyday Tobacco user Substance Use Type: Marijuana Advance Directives: No Advance Directives Information Provided: No Physical Exam Vital Signs: Vital Signs: Last Vital Signs Temp 98.1 F 04/29/22 11:10 Pulse 74 04/29/22 11:10 Resp 16 04/29/22 11:10 BP 121/69 04/29/22 11:10 Pulse Ox 98 04/29/22 11:10 O2 Del Method 04/29/22 11:10 BMI result Body Mass Index 18.6 Const: General: No confusion Nutritional Appearance: well nourished Orientation/consciousness: No confusion Limitations: no limitations HEENT: Head: Yes normal to inspection, Yes normocephalic and Yes atraumatic Ears: hearing grossly normal bilaterally, external ears normal, TM's normal bilaterally and EAC's normal General nose exam: Normal external nose present Face and sinus: Yes normal facial exam and Yes sinuses nontender Mouth: Normal oral and palatal mucosa present Throat: Yes posterior oropharynx abnormal (Mild erythema) Eyes: Conjunctivae: conjunctivae normal Pupils: Equal, round and reactive pupils present EOM: EOMs intact bilaterally Neck: Neck: Yes full ROM, Yes no lymphadenopathy and Yes supple Resp: Effort & Inspection: normal respiratory effort and able to speak in complete sentences Auscultation: clear to auscultation bilaterally, no crackles, no rales, no rhonchi and no wheezes Cardio: Rate: regular rate Rhythm: regular rhythm Heart sounds: S1 normal heart sound present and S2 normal heart sound present GI: Inspection: Yes normal to inspection Palpation (GI): Soft to palpation, nontender, no guarding and not rigid Percussion: Yes normal to percussion Auscultation: normal bowel sounds Skin: General skin exam: no rashes or lesions noted Neuro: General: No confusion Cranial nerves: Yes Equal, round and reactive pupils present Extrem: General: Yes normal to inspection and Yes full ROM Psych: Appearance: grossly normal Affect: normal affect Attitude: cooperative Thought process: Normal thought process present Course Course Course Narrative: 31-year-old male presents for 2 days of viral-like symptoms. Patient is COVID, flu, strep negative. Lungs clear to auscultation bilaterally, no wheezes rales or rhonchi. Patient's physical is a exam is only remarkable for a mildly injected oropharynx. Will prescribe salt water gargles, Tessalon Perles, codeine cough syrup, alternating Tylenol and ibuprofen, increasing fluids. Patient verbalized agreement understanding of plan, return precautions given MDM - URI/Sore Throat Lab Data Labs: Lab Results 04/29/22 04/29/22 04/29/22 Range/Units 11:13 14:08 14:08 COVID-19 (DEBORAH) Negative (Negative) COVID-19 Clin Com See Note Influenza Type A (HECTOR) Negative (Negative) Influenza Type B (HECTOR) Negative (Negative) Influenza A & B Note See Note S. pyogenes GrpA HECTOR Negative (Negative) Discharge Plan Discharge Clinical Impression: Upper respiratory infection Patient Disposition: Home, Self-Care Instructions: Upper Respiratory Infection (ED) Additional Instructions: You tested negative for COVID today. If your symptoms persist, I would industrial relations counselor you to test herself for COVID again. Please push fluids, rest, take Tylenol and ibuprofen. I have prescribed benzonatate which is a cough medication for your cough, and codeine with cough syrup to take at night. Please return to the emergency room if you have worsening symptoms, chest pain, shortness of breath, abdominal pain, diarrhea vomiting, or any new or concerning symptoms Prescriptions: New benzonatate 200 mg capsule 200 mg PO BID 5 Days Qty: 10 0RF codeine-guaifenesin 10-100 mg/5 mL liquid 5 ml PO Q4-6H PRN (Reason: cough) Qty: 120 0RF No Action sucralfate [Carafate] 100 mg/mL suspension 10 ml PO TID 14 Days Qty: 420 0RF Rx Instructions: swish in mouth and swallow; use after food/drink omeprazole 20 mg Tablet,Delayed Release (Dr/Ec) 20 mg PO DAILY Dovato 50-300 mg Tablet 1 tab PO DAILY famotidine [Pepcid] 20 mg tablet 20 mg PO BID Qty: 40 0RF metoclopramide HCl [Reglan] 10 mg tablet 10 mg PO Q6H PRN (Reason: nausea) Qty: 8 0RF amoxicillin-pot clavulanate 875-125 mg tablet 1 tab PO BID 7 Days Qty: 14 0RF baclofen 10 mg tablet 10 mg PO TID Qty: 15 0RF ondansetron 4 mg tablet,disintegrating 4 mg PO Q8H PRN (Reason: nausea and vomiting) Qty: 7 0RF Stand Alone Forms: Work/School Release Interventions: ED Discharge Assessment Last Done: 04/29/22 15:13 Discharge Date/Time: 04/29/22 15:14
== END 2022-04-29 15:14 | disposition home or self-care (01) ==
PROVIDERS: Physician Assistant; Emergency Provider Emergency Medicine
DX: J06.9 Acute upper respiratory infection, unspecified (principal); R07.89 Other chest pain; M79.10 Myalgia, unspecified site; R05.9 Cough, unspecified; Z20.822 Contact with and (suspected) exposure to COVID-19; Z79.899 Other long term (current) drug therapy; F17.200 Nicotine dependence, unspecified, uncomplicated; Z71.6 Tobacco abuse counseling
CPT/HCPCS: 87502; 87635; 87651; 99283

== ENCOUNTER 2022-05-25 04:22 | Emergency (ER) | payer OTHER, SELFPAY ==
[2022-05-25 04:50] VITALS: BP 129/83; PULSE 58; RESP 18; O2SAT 99; BMI 19.3
[2022-05-25 05:04] LABS: Hematocrit 41.5 % (42.0-52.0); Hemoglobin 13.9 g/dl (14.0-18.0); Mean Corpuscular HGB Conc 33.5 g/dl (31.0-36.0); Mean Corpuscular Hemoglobin 29.8 pg (27.0-33.0); Mean Corpuscular Volume 89.1 fL (80.0-98.0); Mean Platelet Volume 10.7 fL (9.4-12.4); Platelet Count 276 X10*3/uL (160-400); Red Blood Count 4.66 X10*6/uL (4.60-5.80); Red Cell Distribution Width 13.6 % (11.0-16.0); White Blood Count 21.2 X10*3/uL (4.8-10.8)
[2022-05-25 05:18] LABS: Alanine Aminotransferase 10 U/L (0-40); Albumin Level 5.1 g/dL (3.5-5.0); Alkaline Phosphatase 71 U/L (39-117); Anion Gap 17 (12-20); Aspartate Amino Transferase 19 U/L (5-37); Bilirubin Total 0.4 mg/dL (0.0-1.0); Blood Urea Nitrogen 13 mg/dL (9-16); COVID-19 Test Negative (Negative); Carbon Dioxide 23 mmol/L (22-29); Chloride 105 mmol/L (96-108); Creatinine Clr Calc Pharmacy 78.5; Estimated Glomerular Filt Rate > 60; Glucose Random 141 mg/dL (60-115); Potassium 4.1 mmol/L (3.3-5.1); Sodium 141 mmol/L (135-145); Total Protein 7.9 g/dL (6.5-8.0)
== END 2022-05-25 07:10 | disposition left against medical advice (07) ==
PROVIDERS: Emergency Provider Emergency Medicine
DX: R11.10 Vomiting, unspecified (principal); Z20.822 Contact with and (suspected) exposure to COVID-19; R68.83 Chills (without fever)
CPT/HCPCS: 36415; 80053; 85025; 85027; 87635; 99281; 99283

== ENCOUNTER 2022-05-25 09:59 | Emergency (ER) | payer OTHER, SELFPAY ==
[2022-05-25 11:12] VITALS: BP 136/75; PULSE 55; RESP 18; TEMP 36.7; O2SAT 99; BMI 19.3
[2022-05-25] MEDS: Ondansetron ODT 4 MG TAB.RAPDIS SUBLINGUAL (11:17)
[2022-05-25 11:27] LABS: Basophils Percent Auto 0.2 % (0-2); Eosinophils Percent Auto 0.1 % (0-4); Hematocrit 43.7 % (42.0-52.0); Hemoglobin 14.4 g/dl (14.0-18.0); Imm Gran Abs Auto 0.08 X10*3/uL (0.00-0.03); Imm Gran Pct Auto 0.5 % (0.0-0.4); Lymphocytes Absolute Auto 0.9 X10*3/uL (1.2-4.9); MANUAL DIFF FLAG SCAN; Mean Corpuscular Hemoglobin 29.3 pg (27.0-33.0); Mean Platelet Volume 10.1 fL (9.4-12.4); Monocytes Absolute Auto 0.3 X10*3/uL (0.1-1.2); Monocytes Percent Auto 1.9 % (2-11); Neutrophils Percent Auto 92.3 % (45-73); Platelet Count 280 X10*3/uL (160-400); Red Blood Count 4.91 X10*6/uL (4.60-5.80); Red Cell Distribution Width 13.6 % (11.0-16.0); SCAN SMEAR FLAG 1; White Blood Count 17.3 X10*3/uL (4.8-10.8)
[2022-05-25 11:38] LABS: Alanine Aminotransferase 12 U/L (0-40); Albumin Level 5.7 g/dL (3.5-5.0); Alkaline Phosphatase 74 U/L (39-117); Anion Gap 20 (12-20); Aspartate Amino Transferase 16 U/L (5-37); Bilirubin Total 0.7 mg/dL (0.0-1.0); Blood Urea Nitrogen 15 mg/dL (9-16); Calcium 10.5 mg/dL (8.4-10.2); Carbon Dioxide 22 mmol/L (22-29); Chloride 105 mmol/L (96-108); Creatinine Clr Calc Pharmacy 71.6; Estimated Glomerular Filt Rate > 60; Glucose Random 145 mg/dL (60-115); Potassium 4.3 mmol/L (3.3-5.1); Sodium 143 mmol/L (135-145); Total Protein 8.7 g/dL (6.5-8.0)
[2022-05-25 11:51] LABS: SLIDE REVIEW VERIFIED
== END 2022-05-25 12:40 | disposition left against medical advice (07) ==
PROVIDERS: Emergency Provider Emergency Medicine
DX: R10.9 Unspecified abdominal pain (principal); R11.2 Nausea with vomiting, unspecified
CPT/HCPCS: 36415; 80053; 85025; 99281; 99283

== ENCOUNTER 2022-09-27 10:40 | Inpatient (IN) | payer OTHER, SELFPAY ==
--- NOTE | ~2022-09-27 | XR_ITS ---
EXAMINATION: XR CHEST CLINICAL INFORMATION: Shortness of breath, cough COMPARISON: Chest radiographs 04/28/2022, 02/22/2022 TECHNIQUE: Portable upright AP x2 views of the chest are obtained. FINDINGS: The lungs are clear. The vascularity is normal. There is no airspace consolidation or groundglass opacity or effusion. Heart size is normal. The costophrenic sulci are clear. The hilar and mediastinal contours and visualized bony structures are unremarkable. XR/XR chest 1V IMPRESSION: Lungs clear.
--- NOTE | ~2022-09-27 | CT_ITS ---
EXAMINATION: CT ABDOMEN AND PELVIS WITHOUT CONTRAST CLINICAL INFORMATION: Abdominal pain. Renal failure. COMPARISON: Previous CT of the abdomen and pelvis April 2020 TECHNIQUE: Multidetector volumetric imaging was performed from the superior aspect of the liver through the pubic symphysis. Sagittal and coronal reformatted images were obtained on the technologist's workstation. This CT examination was performed using dose optimization techniques as appropriate, variously including the following: *Automated exposure control *Adjustment of mA and/or kV according to patient size (this includes techniques or standardized protocols for targeted exams where dose is matched to indication/reason for exam; i.e. extremities or head) *Use of iterative reconstruction technique DLP: 247 mGy-cm FINDINGS: LUNG BASES: The visualized lung bases are unremarkable. LIVER, GALLBLADDER, AND BILIARY TREE: The liver is normal in size, shape, and attenuation. No focal hepatic lesion or biliary ductal dilatation is present. The gallbladder is unremarkable with no evidence of radiopaque gallstones, gallbladder wall thickening, or obvious pericholecystic inflammatory changes. PANCREAS: Unremarkable. SPLEEN: Unremarkable. ADRENAL GLANDS: Unremarkable. KIDNEYS AND URETERS: The kidneys are normal in size, shape, and attenuation. No hydronephrosis, hydroureter, or calculi seen. No perinephric stranding. BLADDER: Not optimally distended but appears unremarkable. GASTROINTESTINAL TRACT: There is stool throughout the colon suggestive of mild constipation. The small and large bowel are otherwise unremarkable. The appendix is not seen. No inflammatory changes in the right lower quadrant. ABDOMINAL WALL: No significant hernia is appreciated. LYMPH NODES: Normal. VASCULAR: Unremarkable. PELVIC VISCERA: Unremarkable. OSSEOUS STRUCTURES: Unremarkable. CT/CT abdomen pelvis wo IV con IMPRESSION: Stool throughout the colon suggestive of mild constipation otherwise unremarkable exam. Fleischner guidelines were followed.
[2022-09-27 10:55] VITALS: BP 106/66; PULSE 93; RESP 16; O2SAT 97; BMI 19.3
--- NOTE | 2022-09-27 10:57 | ECG_ITS ---
Test Reason : VOMITTING Blood Pressure : / mmHG Vent. Rate : 113 BPM Atrial Rate : 113 BPM P-R Int : 126 ms QRS Dur : 084 ms QT Int : 358 ms P-R-T Axes : 086 089 075 degrees QTc Int : 491 ms Sinus tachycardia Biatrial enlargement Nonspecific ST abnormality Abnormal ECG When compared with ECG of 18-JAN-2022 14:17, Vent. rate has increased BY [address] now depressed in Inferior leads T wave amplitude has increased in Anterior leads Referred By: Generic ED Physician Electronically Signed By:PAU ALEXANDRA MD
--- NOTE | 2022-09-27 11:48 | ED.GENADULT ---
HPI - General Adult General Chief complaint: General Medical Stated complaint: WEAKNESS, VOMITING Time Seen by Provider: 09/27/22 11:08 Source: EMS and old records reviewed Mode of arrival: EMS History of Present Illness HPI narrative: 32-year-old male with past medical history of HIV presents to the emergency department with nausea, vomiting, abdominal discomfort, fever and chills. Also complains of a cough and wheezing. This has been going on for approximately 24-36 hours. Went to a friend's house today to take a shower, and had some lightheadedness, possibly near syncope. Onset (ago): day(s) Severity: severe Relieving factors: none Exacerbating factors: none Related Data Home Medications Medication Instructions Recorded Confirmed dolutegravir 50 mg-lamivudine 300 1 tab PO DAILY 09/02/20 09/02/20 mg tablet (Dovato) omeprazole 20 mg tablet,delayed 20 mg PO DAILY 09/02/20 09/02/20 release Previous Rx's Medication Instructions Recorded sucralfate 100 mg/mL oral 10 ml PO TID 14 days #420 mL 02/02/21 suspension (Carafate) famotidine 20 mg tablet (Pepcid) 20 mg PO BID #40 tabs 04/12/21 metoclopramide HCl 10 mg tablet 10 mg PO Q6H PRN nausea #8 tabs 04/12/21 (Reglan) baclofen 10 mg tablet 10 mg PO TID #15 tabs 10/23/21 ondansetron 4 mg disintegrating 4 mg PO Q8H PRN nausea and 01/26/22 tablet vomiting #7 tabs amoxicillin 875 mg-potassium 1 tab PO BID 7 days #14 tabs 02/22/22 clavulanate 125 mg tablet benzonatate 200 mg capsule 200 mg PO BID 5 days #10 caps 04/29/22 codeine 10 mg-guaifenesin 100 mg/5 5 ml PO Q4-6H PRN cough #120 mL 04/29/22 mL oral liquid Allergies Allergy/AdvReac Type Severity Reaction Status Date / Time No Known Allergies Allergy Verified 09/27/22 11:58 Review of Systems Review of Systems: Constitutional: admits to chills and admits fever(s) Eyes: Denies blurry vision and Denies diplopia ENT: Denies nasal congestion and Denies sore throat Cardiovascular: Denies chest pain, Denies syncope and Denies rapid heart rate Respiratory: Admits to cough and Denies wheezing Gastrointestinal: Admits to diarrhea, Admits to nausea and Admits to vomiting Genitourinary: No dysuria, frequency or urgency. Musculoskeletal: Denies back pain and Denies myalgias Neuro: Admits to dizziness and Denies syncope Allergic/Immunologic: Denies wheezing, rash Neurologic: Denies Abnormal speech present [facility] Past Medical History Attestation statement: The following information was validated with the patient. Medical History GERD (gastroesophageal reflux disease) HIV (human immunodeficiency virus infection) Social History Social History Patient Tobacco Use Status: Current everyday Tobacco user Substance Use Type: Marijuana Advance Directives: No Advance Directives Information Provided: No Physical Exam ED Vital Signs: Vital Signs - 24 hr 09/27/22 10:55 09/27/22 14:11 Temperature 98.8 F Pulse Rate 93 88 Respiratory Rate 16 15 Blood Pressure 106/66 115/78 Pulse Oximetry 97 97 Oxygen Delivery Method Room Air Room Air BMI result Body Mass Index 19.3 Vital signs reviewed, within normal limits Const General: cooperative, acute distress, ill appearing and tired appearing Nutritional Appearance: underweight Orientation/consciousness: patient oriented x3 HENRI Head: Yes normal to inspection, Yes normocephalic and Yes atraumatic Ears: external ears normal General nose exam: Normal external nose present Face and sinus: Yes normal facial exam Mouth: mucous membranes dry Eyes Conjunctivae: conjunctivae normal Sclerae: sclerae normal Pupils: Equal, round and reactive pupils present EOM: EOMs intact bilaterally Neck Neck: Yes normal visual inspection and Yes full ROM Chest Chest palpation & inspection: normal inspection of the chest Resp Effort & Inspection: normal respiratory effort and no cough Auscultation: clear to auscultation bilaterally Cardio Rate: regular rate Rhythm: regular rhythm GI Inspection: Yes normal to inspection Palpation (GI): Tenderness to palpation present (GI) (generalized) Back/Spine/Pelvis Cervical Spine: normal cervical lordosis and cervical ROM normal Skin General skin exam: no jaundice, no mottling and no pallor Neuro General: patient oriented x3 and CN's II-XI intact bilaterally Cranial nerves: Yes Equal, round and reactive pupils present Speech: No Abnormal speech present Extrem General: Yes normal to inspection and Yes no clubbing, cyanosis or edema Medications Administered Discontinued Medications Generic Name Dose Route Start Last Admin Trade Name Sita PRN Reason Stop Dose Admin Sodium Chloride 1,000 mls @ 1,000 mls/hr 09/27/22 11:58 09/27/22 13:05 Ns IV 09/27/22 12:57 Infused .Q1H ONE Infusion Sodium Chloride 1,000 mls @ 1,000 mls/hr 09/27/22 13:37 09/27/22 13:55 Ns IV 09/27/22 14:36 1,000 mls/hr .Q1H ONE Administration Morphine Sulfate 4 mg 09/27/22 12:29 09/27/22 12:41 Morphine Sulfate 4 Mg/Ml Cartridge IVPUSH 09/27/22 12:30 4 mg ONCE ONE Administration Protocol Medical Decision Making Medical Decision Making MDM Narrative: 32-year-old male, history of HIV, presents with 1-2 days of gastrointestinal and respiratory illness, including vomiting, diarrhea cough and wheezing. Patient had lab work done here which is notable for a significantly elevated creatinine, elevated WBC, and elevated hematocrit (presumably indicating dehydration). The patient also has a positive COVID test. He will be given IV fluids. He is not hypoxic. He will be undergoing a CT of the abdomen secondary to abdominal pain. Independent interpretation of EKG, rhythm strip, radiology study: Independent interp EKG,rhythm strip, radiology study I performed an independent interpretation of the: Plain X-Ray My interpretation is no acute abnormalities noted Radiologist interpretation FINDINGS: The lungs are clear. The vascularity is normal. There is no airspace consolidation or groundglass opacity or effusion. Heart size is normal. The costophrenic sulci are clear. The hilar and mediastinal contours and visualized bony structures are unremarkable Discharge Plan Discharge Prescriptions: No Action sucralfate [Carafate] 100 mg/mL suspension 10 ml PO TID 14 Days Qty: 420 0RF Rx Instructions: swish in mouth and swallow; use after food/drink omeprazole 20 mg Tablet,Delayed Release (Dr/Ec) 20 mg PO DAILY Dovato 50-300 mg Tablet 1 tab PO DAILY famotidine [Pepcid] 20 mg tablet 20 mg PO BID Qty: 40 0RF metoclopramide HCl [Reglan] 10 mg tablet 10 mg PO Q6H PRN (Reason: nausea) Qty: 8 0RF amoxicillin-pot clavulanate 875-125 mg tablet 1 tab PO BID 7 Days Qty: 14 0RF benzonatate 200 mg capsule 200 mg PO BID 5 Days Qty: 10 0RF codeine-guaifenesin 10-100 mg/5 mL liquid 5 ml PO Q4-6H PRN (Reason: cough) Qty: 120 0RF baclofen 10 mg tablet 10 mg PO TID Qty: 15 0RF ondansetron 4 mg tablet,disintegrating 4 mg PO Q8H PRN (Reason: nausea and vomiting) Qty: 7 0RF
[2022-09-27 11:49] LABS: Hematocrit 52.4 % (42.0-52.0); Hemoglobin 17.6 g/dl (14.0-18.0); Mean Corpuscular HGB Conc 33.6 g/dl (31.0-36.0); Mean Corpuscular Hemoglobin 29.3 pg (27.0-33.0); Mean Corpuscular Volume 87.3 fL (80.0-98.0); Mean Platelet Volume 11.3 fL (9.4-12.4); NRBC Pct Auto 0.1 /100WBC (0.0-0.2); Platelet Count 255 X10*3/uL (160-400); Red Cell Distribution Width 14.4 % (11.0-16.0)
[2022-09-27 11:54] LABS: WBC ABN SCTR FOR CBC 1
[2022-09-27] MEDS: 0.9 % Sodium Chloride 1,000 ML 1000 ML IV ×2 (12:04→13:55)
[2022-09-27 12:18] LABS: Alanine Aminotransferase 21 U/L (0-40); Alkaline Phosphatase 87 U/L (39-117); Anion Gap 35 (12-20); Aspartate Amino Transferase 33 U/L (5-37); Bilirubin Total 0.4 mg/dL (0.0-1.0); Blood Urea Nitrogen 42 mg/dL (9-16); Calcium 11.3 mg/dL (8.4-10.2); Carbon Dioxide 18 mmol/L (22-29); Chloride 98 mmol/L (96-108); Creatinine Clr Calc Pharmacy 12.6; Estimated Glomerular Filt Rate 10; Glucose Random 180 mg/dL (60-115); Potassium 4.2 mmol/L (3.3-5.1); Sodium 147 mmol/L (135-145); Total Protein 11.6 g/dL (6.5-8.0)
[2022-09-27 12:19] LABS: Band Neutrophils Percent 8 % (3-5); Lymphocytes Percent Manual 8 % (20-40); Monocytes Percent Manual 4 % (2-11); Neutrophils Percent Manual 80 % (45-73); Nucleated Red Blood Cells 1 /100WBC (0-0)
[2022-09-27 12:20] LABS: Platelet Estimate NORMAL (NORMAL); Platelet Morphology Comment NORMAL; RBC Morphology NORMAL; Toxic Vacuolation PRESENT
[2022-09-27] MEDS: Morphine Sulfate 4 MG/ML CARTRIDGE IVPUSH (12:41)
[2022-09-27 12:50] LABS: Influenza A PCR NEGATIVE (Negative); Influenza B PCR NEGATIVE (Negative); Resp Syncy Virus RNA Qual PCR NEGATIVE (Negative); SARS COV2 PCR INHOUSE POSITIVE (Negative)
[2022-09-27 12:54] LABS: Lymphocytes Absolute Manual 1.8 X10*3/uL (1.2-4.9); Monocytes Absolute Manual 0.9 X10*3/uL (0.1-1.2); White Blood Count 22.7 X10*3/uL (4.8-10.8)
--- NOTE | 2022-09-27 13:47 | PC.NURSE ---
David Campbell called for update
[2022-09-27 14:11] VITALS: BP 115/78; PULSE 88; RESP 15; TEMP 37.1; O2SAT 97
--- NOTE | 2022-09-27 14:46 | PHA.MEDREC ---
Pharmacy Consult ? Medication Reconciliation Pharmacy has completed the medication reconciliation.
--- NOTE | 2022-09-27 16:03 | PM.IMHP ---
History of Present Illness Date of Service: 09/27/22 Chief Complaint: n/v 32M pmh HIV, presented with nausea vomiting, poor appetite, myalgias, subjective fevers, feeling unwell. Symptoms began 2 days prior to presentation. On day of presentation patient was at a friend's house and move felt very lightheaded so he came to the ED. he has also been complaining of sharp abdominal pain, diffuse, nonradiating, 8 of 10, relieved by morphine. Denies diarrhea. In ED lab significant for severe acute kidney injury with creatinine of 6.38, signs of severe dehydration with total protein of 11.6, albumin 7, calcium 11.3, hematocrit 52.4. COVID positive, Review of Systems Review of Systems: Constitutional: See HPI Eyes: denies blurry vision ENT: denies sore throat CVS: denies chest pain Respiratory: Denies dyspnea GI: abdominal pain : denies dysuria MSK: Myalgias Skin: denies rash Neuro: denies specific motor weakness Psych: denies suicidal ideation Endocrine: denies heat/cold intolerance Hematologic: denies easy bleeding Allergy: denies hives [facility] Medical History GERD (gastroesophageal reflux disease) HIV (human immunodeficiency virus infection) Family History Mother HIV (human immunodeficiency virus infection) Social History Alcohol intake: never Patient Tobacco Use Status: Current everyday Tobacco user Substance Use Type: Marijuana Advance Directives: No Advance Directives Information Provided: No Meds Allergies Allergy/AdvReac Type Severity Reaction Status Date / Time No Known Allergies Allergy Verified 09/27/22 11:58 Active Medications: Current Medications Dolutegravir Sodium (Dolutegravir Sodium 50 Mg Tablet) 50 mg PO DAILY WAYNE Lactated Ringer's (Lr) 1,000 mls @ 125 mls/hr IVCONT .Q8H WAYNE Lamivudine (Lamivudine 150 Mg Tablet) 300 mg PO DAILY WAYNE Morphine Sulfate (Morphine Sulfate 2 Mg/Ml Cartridge) 2 mg IVPUSH Q4H PRN; Protocol PRN Reason: moderate pain Pharmacy Consult (Consult Rx Perform Med Rec) 1 each MISCELLANE ONCE PRN PRN Reason: Consult order Sodium Chloride (0.9 % Sodium Chloride Flush 3 Ml Syringe) 3 ml IVFLUSH QSHIFT [facility] Home Medications Medication Instructions Recorded Confirmed Last Taken Type dolutegravir 50 mg-lamivudine 300 1 tab PO DAILY 09/02/20 09/27/22 09/26/22 History mg tablet (Dovato) Physical Exam Vital Signs and Narrative: Vital Signs: Last Vital Signs Temp 98.8 F 09/27/22 14:11 Pulse 88 09/27/22 14:11 Resp 15 09/27/22 14:11 BP 115/78 09/27/22 14:11 Pulse Ox 97 09/27/22 14:11 O2 Del Method 09/27/22 14:11 BMI result Body Mass Index 19.3 General: no acute distress HEENT: atraumatic Neck: normal to visual inspection CVS: S1, S2, RRR Resp: CTA bilateral Chest: non tender GI: soft, non tender, non distended : no CVA tenderness Skin: no rashes Extremities: no edema Neuro: Oriented X3, grossly intact Psych: cooperative Results Labs CBC and Chem 7: 09/27/22 11:41 09/27/22 11:41 Labs: Laboratory Results - last 24 hr 09/27/22 09/27/22 09/27/22 11:41 11:41 11:41 MCV 87.3 MCH 29.3 MCHC 33.6 RDW 14.4 Plt Count 255 MPV 11.3 Immature Gran % (Auto) Cancelled Neut % (Auto) Cancelled Lymph % (Auto) Cancelled Nance % (Auto) Cancelled Eos % (Auto) Cancelled Baso % (Auto) Cancelled Lymph # (Auto) Cancelled Nance # (Auto) Cancelled Eos # (Auto) Cancelled Baso # (Auto) Cancelled Abs Immat Gran (auto) Cancelled Absolute Neuts (auto) Cancelled Absolute Nucleated RBC 0.030 H Nucleated RBC % (auto) 0.1 Neutrophils % (Manual) 80 H Band Neutrophils % 8 H Lymphocytes % (Manual) 8 L Monocytes % (Manual) 4 Abs Neuts (Manual) 20.0 H Lymphocytes # (Manual) 1.8 Monocytes # (Manual) 0.9 Nucleated RBCs 1 H Toxic Vacuolation PRESENT Platelet Estimate NORMAL Plt Morphology Comment NORMAL RBC Morphology NORMAL Anion Gap 35 H Estim Creat Clear Calc 12.6 Estimated GFR 10 Random Glucose 180 H Calcium 11.3 H D Total Bilirubin 0.4 AST 33 ALT 21 Alkaline Phosphatase 87 Total Creatine Kinase 332 H Total Protein 11.6 H Albumin 7.0 H Influenza Type A (PCR) NEGATIVE Influenza Type B (PCR) NEGATIVE RSV RNA Qual (PCR) NEGATIVE SARS-CoV-2 RNA (RT-PCR) POSITIVE A Imaging Radiologist's Impressions: Impressions Chest X-Ray 09/27/22 12:05 IMPRESSION: Lungs clear. Abdomen/Pelvis CT 09/27/22 13:58 IMPRESSION: Stool throughout the colon suggestive of mild constipation otherwise unremarkable exam. Fleischner guidelines were followed. Assessment and Plan (1) HIV (human immunodeficiency virus infection): Status: Acute Plan 32-year-old male with past medical history of HIV presented with nausea vomiting found to have severe acute kidney injury and positive COVID Acute kidney injury Due to severe dehydration in setting of poor intake and nausea vomiting due to COVID Aggressive IV hydration, monitor labs, no indication for emergent dialysis Nephrology eval No evidence of urinary retention Check UA HIV Continue haart Low risk for DVT - encourage ambulation Full code Patient with severe acute kidney injury and large volume deficit, needs aggressive IV hydration and close lab monitoring, therefore, will require least 2 midnights inpatient in the hospital Quality Stroke Does the patient have a stroke diagnosis?: No VTE Prior VTE?: No VTE Risk Level:: Medical - low VTE Device Contraindication: Treatment Not Indicated VTE Drug Contraindication: Treatment Not Indicated
[2022-09-27] MEDS: Lactated Ringers 1,000 ML 125 ML IVCONT (16:55)
[2022-09-27] MEDS: Morphine Sulfate 2 MG/ML CARTRIDGE IVPUSH (16:59)
[2022-09-27 19:50] VITALS: BP 117/68; PULSE 91; RESP 20; TEMP 36.7; O2SAT 96
[2022-09-27 20:26] LABS: Appearance Urine Turbid; Color Urine Yellow; Glucose Urine UA Negative (Negative); Leukocyte Esterase Urine Negative (Negative); Nitrite Urine Negative (Negative); UMIC TRIGGER UA YES; Urine Blood Large (3+) (Negative); Urine Ketones Trace mg/dL (Negative); Urine Protein 300 (3+) mg/dL (Neg-Trace)
--- NOTE | 2022-09-27 20:38 | MHC.CM.PN ---
Attempted to meet with patient. Pt sleeping soundly. Covid positive. HIV positive. Admitted with [facility]. Employed. [employer]. No need for IMM. Will assess when patient wakes. CM to follow for d/c needs.
--- NOTE | 2022-09-27 20:41 | PC.NURSE ---
Report called to overflow RN.
[2022-09-27 20:46] LABS: Bacteria Urine None Seen (None Seen); Granular Casts Urine Present; Hyaline Casts Urine >20 /LPF (0-2); RBC Urine 0-2 /HPF (0-2)
[2022-09-27] MEDS: ondansetron HCL 4 MG/2 ML VIAL IVPUSH (23:33)
[2022-09-28] MEDS: Lactated Ringers 1,000 ML 125 ML IVCONT ×2 (04:15→14:32)
[2022-09-28 06:30] LABS: Hematocrit 41.7 % (42.0-52.0); Hemoglobin 14.1 g/dl (14.0-18.0); Mean Corpuscular HGB Conc 33.8 g/dl (31.0-36.0); Mean Corpuscular Hemoglobin 29.4 pg (27.0-33.0); Mean Corpuscular Volume 86.9 fL (80.0-98.0); Mean Platelet Volume 12.1 fL (9.4-12.4); Platelet Count 187 X10*3/uL (160-400); Red Cell Distribution Width 13.7 % (11.0-16.0); White Blood Count 16.6 X10*3/uL (4.8-10.8)
[2022-09-28 06:47] LABS: Anion Gap 15 (12-20); Blood Urea Nitrogen 46 mg/dL (9-16); Calcium 9.5 mg/dL (8.4-10.2); Carbon Dioxide 24 mmol/L (22-29); Chloride 106 mmol/L (96-108); Creatinine Clr Calc Pharmacy 27.2; Estimated Glomerular Filt Rate 25; Glucose Fasting 122 mg/dL (60-99); Potassium 4.1 mmol/L (3.3-5.1); Sodium 141 mmol/L (135-145)
[2022-09-28] MEDS: lamiVUDine 150 MG TABLET 300 MG PO (09:18)
[2022-09-28] MEDS: Dolutegravir Sodium 50 MG TABLET PO (09:25)
--- NOTE | 2022-09-28 10:03 | MHC.CM.PN ---
This script writer meet with patient @ bedside. From home, Independent @ [facility] [employer]. Currently employed @ [employer]. Vax'd not boosted. PCP @ [facility] but doesn't know the name, has up coming appt. Friend to transport @ d/c. D/C plan- [facility] no services. HCP completed and sent to medical records.
[2022-09-28 11:30] VITALS: BP 121/70; PULSE 86; RESP 17; TEMP 36.8; O2SAT 98
--- NOTE | 2022-09-28 11:54 | P.PNIM_ITS ---
Subjective Subjective Date of Service: 09/28/22 Interval History: cc: lethargy interval history:improving Cardiovascular Cardiovascular: Reports no additional cardiovascular complaints Respiratory Respiratory: Reports no additional respiratory complaints Physical Exam Vital Signs: Vital Signs: Last Vital Signs Temp 98.2 F 09/28/22 11:30 Pulse 86 09/28/22 11:30 Resp 17 09/28/22 11:30 BP 121/70 09/28/22 11:30 Pulse Ox 98 09/28/22 11:30 O2 Del Method 09/28/22 11:30 BMI result Body Mass Index 19.3 General: AO X 3, no acute distress Resp: CTA bilateral, no accessory muscles used CVS: S1,S2,RRR GI: soft, non tender, non distended Neuro: motor grossly intact, alert Psych: appropriate affect, appropriate insight Objective Data Active Medications Dolutegravir Sodium (Dolutegravir Sodium 50 Mg Tablet) 50 mg PO DAILY [facility] [place] Last Admin: 09/28/22 09:25 Dose: 50 mg Documented By: IQRA Lactated Ringer's (Lr) 1,000 mls @ 125 mls/hr IVCONT .Q8H [facility] [place] Last Admin: 09/28/22 04:15 Dose: 125 mls/hr Documented By: SATNAM Lamivudine (Lamivudine 150 Mg Tablet) 300 mg PO DAILY [facility] [place] Last Admin: 09/28/22 09:18 Dose: 300 mg Documented By: IQRA Morphine Sulfate (Morphine Sulfate 2 Mg/Ml Cartridge) 2 mg IVPUSH Q4H PRN; Protocol PRN Reason: moderate pain Last Admin: 09/27/22 16:59 Dose: 2 mg Documented By: EVELINE Ondansetron HCl (Ondansetron Hcl 4 Mg/2 Ml Vial) 4 mg IVPUSH Q8H PRN PRN Reason: nausea Last Admin: 09/27/22 23:33 Dose: 4 mg Documented By: SATNAM Pharmacy Consult (Consult Rx Perform Med Rec) 1 each MISCELLANE ONCE PRN PRN Reason: Consult order Sodium Chloride (0.9 % Sodium Chloride Flush 3 Ml Syringe) 3 ml IVFLUSH QSHIFT [facility] [place] Last Admin: 09/28/22 07:17 Dose: Not Given Documented By: IQRA Non-Admin Reason: IV Running Labs CBC & Chem 7: 09/28/22 05:46 12/06/22 05:46 Labs: Laboratory Results - last 24 hr 09/27/22 09/27/22 09/27/22 11:41 11:41 11:41 MCV 87.3 MCH 29.3 MCHC 33.6 RDW 14.4 Plt Count 255 MPV 11.3 Immature Gran % (Auto) Cancelled Neut % (Auto) Cancelled Lymph % (Auto) Cancelled [place] % (Auto) Cancelled Eos % (Auto) Cancelled Baso % (Auto) Cancelled Lymph # (Auto) Cancelled [place] # (Auto) Cancelled Eos # (Auto) Cancelled Baso # (Auto) Cancelled Abs Immat Gran (auto) Cancelled Absolute Neuts (auto) Cancelled Absolute Nucleated RBC 0.030 H Nucleated RBC % (auto) 0.1 Neutrophils % (Manual) 80 H Band Neutrophils % 8 H Lymphocytes % (Manual) 8 L Monocytes % (Manual) 4 Abs Neuts (Manual) 20.0 H Lymphocytes # (Manual) 1.8 Monocytes # (Manual) 0.9 Nucleated RBCs 1 H Toxic Vacuolation PRESENT Platelet Estimate NORMAL Plt Morphology Comment NORMAL RBC Morphology NORMAL Smear Path Review SEE NOTE Anion Gap 35 H Estim Creat Clear Calc 12.6 Estimated GFR 10 Random Glucose 180 H Fasting Glucose Lactic Acid Calcium 11.3 H D Total Bilirubin 0.4 AST 33 ALT 21 Alkaline Phosphatase 87 Total Creatine Kinase 332 H Total Protein 11.6 H Albumin 7.0 H Urine Color Urine Appearance Urine pH Ur Specific [place] Urine Protein Urine Glucose (UA) Urine Ketones Urine Blood Urine Nitrite Ur Leukocyte Esterase Urine RBC Urine WBC Ur Squamous Epith Cells Urine Bacteria Hyaline Casts Granular Casts Influenza Type A (PCR) NEGATIVE Influenza Type B (PCR) NEGATIVE RSV RNA Qual (PCR) NEGATIVE SARS-CoV-2 RNA (RT-PCR) POSITIVE A 09/27/22 09/27/22 09/28/22 18:14 20:16 05:46 MCV 86.9 MCH 29.4 MCHC 33.8 RDW 13.7 Plt Count 187 D MPV 12.1 Immature Gran % (Auto) Neut % (Auto) Lymph % (Auto) [place] % (Auto) Eos % (Auto) Baso % (Auto) Lymph # (Auto) [place] # (Auto) Eos # (Auto) Baso # (Auto) Abs Immat Gran (auto) Absolute Neuts (auto) Absolute Nucleated RBC 0.000 Nucleated RBC % (auto) 0.0 Neutrophils % (Manual) Band Neutrophils % Lymphocytes % (Manual) Monocytes % (Manual) Abs Neuts (Manual) Lymphocytes # (Manual) Monocytes # (Manual) Nucleated RBCs Toxic Vacuolation Platelet Estimate Plt Morphology Comment RBC Morphology Smear Path Review Anion Gap Estim Creat Clear Calc Estimated GFR Random Glucose Fasting Glucose Lactic Acid 1.0 Calcium Total Bilirubin AST ALT Alkaline Phosphatase Total Creatine Kinase Total Protein Albumin Urine Color Yellow Urine Appearance Turbid Urine pH 5.0 Ur Specific [place] 1.020 Urine Protein 300 (3+) H Urine Glucose (UA) Negative Urine Ketones Trace Urine Blood Large (3+) H Urine Nitrite Negative Ur Leukocyte Esterase Negative Urine RBC 0-2 Urine WBC 6-10 H Ur Squamous Epith Cells 6-10 Urine Bacteria None Seen Hyaline Casts >20 Granular Casts Present Influenza Type A (PCR) Influenza Type B (PCR) RSV RNA Qual (PCR) SARS-CoV-2 RNA (RT-PCR) 09/28/22 05:46 MCV MCH MCHC RDW Plt Count MPV Immature Gran % (Auto) Neut % (Auto) Lymph % (Auto) [place] % (Auto) Eos % (Auto) Baso % (Auto) Lymph # (Auto) [place] # (Auto) Eos # (Auto) Baso # (Auto) Abs Immat Gran (auto) Absolute Neuts (auto) Absolute Nucleated RBC Nucleated RBC % (auto) Neutrophils % (Manual) Band Neutrophils % Lymphocytes % (Manual) Monocytes % (Manual) Abs Neuts (Manual) Lymphocytes # (Manual) Monocytes # (Manual) Nucleated RBCs Toxic Vacuolation Platelet Estimate Plt Morphology Comment RBC Morphology Smear Path Review Anion Gap 15 Estim Creat Clear Calc 27.2 Estimated GFR 25 Random Glucose Fasting Glucose 122 H Lactic Acid Calcium 9.5 D Total Bilirubin AST ALT Alkaline Phosphatase Total Creatine Kinase Total Protein Albumin Urine Color Urine Appearance Urine pH Ur Specific [place] Urine Protein Urine Glucose (UA) Urine Ketones Urine Blood Urine Nitrite Ur Leukocyte Esterase Urine RBC Urine WBC Ur Squamous Epith Cells Urine Bacteria Hyaline Casts Granular Casts Influenza Type A (PCR) Influenza Type B (PCR) RSV RNA Qual (PCR) SARS-CoV-2 RNA (RT-PCR) Assessment and Plan (1) HIV (human immunodeficiency virus infection): Status: Acute Plan 32-year-old male with past medical history of HIV presented with nausea vomiting found to have severe acute kidney injury and positive COVID Acute kidney injury Due to severe dehydration in setting of poor intake and nausea vomiting due to COVID Aggressive IV hydration, monitor labs, improving Nephrology eval No evidence of urinary retention HIV Continue haart Low risk for DVT - encourage ambulation Full code reason for continued hospitalization: iv hydration Quality Stroke Does the patient have a stroke diagnosis?: No VTE Prior VTE?: No VTE Risk Level:: Medical - low VTE Device Contraindication: Treatment Not Indicated VTE Drug Contraindication: Treatment Not Indicated
--- NOTE | 2022-09-28 12:34 | PC.NURSE ---
Neurology office called to notify that nephrology consult was faxed to neurology office rather than nephrology. Dr. Garsia made aware.
[2022-09-28] MEDS: ondansetron HCL 4 MG/2 ML VIAL IVPUSH (14:32)
[2022-09-28 16:00] VITALS: BP 110/71; PULSE 74; RESP 16; TEMP 37.5; O2SAT 97
[2022-09-28 18:34] VITALS: BP 115/65; PULSE 78; RESP 19; TEMP 36.1; O2SAT 96
[2022-09-28 19:47] VITALS: BP 115/65; PULSE 80; RESP 19; TEMP 36.1; O2SAT 96
[2022-09-29 03:16] VITALS: BP 92/60; PULSE 62; RESP 18; TEMP 37; O2SAT 97
[2022-09-29] MEDS: Lactated Ringers 1,000 ML 125 ML IVCONT ×2 (04:24→09:07)
[2022-09-29 05:54] LABS: Hematocrit 38.8 % (42.0-52.0); Hemoglobin 13.1 g/dl (14.0-18.0); Mean Corpuscular HGB Conc 33.8 g/dl (31.0-36.0); Mean Corpuscular Hemoglobin 29.6 pg (27.0-33.0); Mean Corpuscular Volume 87.6 fL (80.0-98.0); Mean Platelet Volume 11.6 fL (9.4-12.4); Platelet Count 190 X10*3/uL (160-400); Red Blood Count 4.43 X10*6/uL (4.60-5.80); Red Cell Distribution Width 13.9 % (11.0-16.0); White Blood Count 10.6 X10*3/uL (4.8-10.8)
[2022-09-29 06:12] LABS: Anion Gap 11 (12-20); Blood Urea Nitrogen 20 mg/dL (9-16); Calcium 9.1 mg/dL (8.4-10.2); Carbon Dioxide 27 mmol/L (22-29); Chloride 107 mmol/L (96-108); Creatinine Clr Calc Pharmacy 81.7; Estimated Glomerular Filt Rate > 60; Glucose Fasting 88 mg/dL (60-99); Potassium 4.2 mmol/L (3.3-5.1); Sodium 141 mmol/L (135-145)
[2022-09-29 07:34] VITALS: BP 121/62; PULSE 64; RESP 14; TEMP 37.3; O2SAT 98
[2022-09-29] MEDS: Dolutegravir Sodium 50 MG TABLET PO (09:02)
[2022-09-29] MEDS: 0.9 % Sodium Chloride Flush 3 ML SYRINGE IVFLUSH (09:02)
[2022-09-29] MEDS: lamiVUDine 150 MG TABLET 300 MG PO (09:02)
--- NOTE | 2022-09-29 09:46 | PM.DS ---
DS: Providers Provider Date of Service: 09/29/22 Date of admission: 09/27/22 16:01 Primary care physician: None Physician DS: Diagnosis Discharge Diagnosis (1) HIV (human immunodeficiency virus infection): Status: Acute DS: Summary Hospital Course Hospital Course: from initial hpi: Chief Complaint: n/v 32M pmh HIV, presented with nausea vomiting, poor appetite, myalgias, subjective fevers, feeling unwell.? Symptoms began 2 days prior to presentation.? On day of presentation patient was at a friend's house and move felt very lightheaded so he came to the ED. he has also been complaining of sharp abdominal pain, diffuse, nonradiating, 8 of 10, relieved by morphine.? Denies diarrhea.? In ED lab significant for severe acute kidney injury with creatinine of 6.38, signs of severe dehydration with total protein of 11.6, albumin 7, calcium 11.3, hematocrit 52.4.? COVID positive, hospital course: Patient was admitted for acute kidney injury due to severe dehydration in the setting of poor intake and nausea vomiting due to COVID infection. Patient was treated with aggressive IV hydration and his renal function improved to normal. He is now feeling much better and having adequate p.o. intake. For his HIV he was continued on his HAART. Patient is feeling better will be discharged home. Time Spent with Patient Time attestation: Total time spent providing and/or coordinating discharge services: Discharge coordination time: Greater than 30 minutes Quality: Safe Use of Opioids Does Pt have an Active Cancer Diagnosis on the Problem List?: No Quality: Stroke Does the patient have a stroke diagnosis?: No Physical Exam Vital Signs: Vital Signs: Last Vital Signs Temp 99.2 F 09/29/22 07:34 Pulse 64 09/29/22 07:34 Resp 14 09/29/22 07:34 BP 121/62 09/29/22 07:34 Pulse Ox 98 09/29/22 07:34 O2 Del Method 09/29/22 07:34 BMI result Body Mass Index 19.3 General: AO X 3, no acute distress Resp: CTA bilateral, no accessory muscles used CVS: S1,S2,RRR GI: soft, non tender, non distended Neuro: motor grossly intact, alert Psych: appropriate affect, appropriate insight DS: Data Data Completed and Pending Labs on day of discharge: Laboratory Results - last 24 hr 09/27/22 09/29/22 09/29/22 11:41 05:34 05:34 WBC 10.6 RBC 4.43 L Hgb 13.1 L Hct 38.8 L MCV 87.6 MCH 29.6 MCHC 33.8 RDW 13.9 Plt Count 190 MPV 11.6 Absolute Nucleated RBC 0.000 Nucleated RBC % (auto) 0.0 Smear Path Review SEE NOTE Sodium 141 Potassium 4.2 Chloride 107 Carbon Dioxide 27 Anion Gap 11 L BUN 20 H Creatinine 0.99 Estim Creat Clear Calc 81.7 Estimated GFR > 60 Fasting Glucose 88 Calcium 9.1 Discharge Plan Discharge Anticipated Discharge Date/Time: 09/29/22 09:42 Patient Disposition: Home, Self-Care Discharge Diagnosis: jefe Referrals: Physician,None [Primary Care Provider] - 1 Week Discharge Medications: Continued Dovato 50-300 mg Tablet 1 tab PO DAILY Discharge Orders: Discharge Order (Routine); Ordered 09/29/22 Ordered By: Sunny Garsia Diet: Advance to usual diet Activity on Discharge: As tolerated Stand Alone Forms: Patient Portal Discharge page, Work/School Release Care Plan Goals: recovery Health Concerns: jefe Plan of Treatment: symptomatic management, avoid dehydration, isolation per cdc guidelines Assessment: see above
--- NOTE | 2022-09-29 10:58 | PM.PNNEP ---
Subjective Subjective Date of Service: 09/30/22 Interval history: cc: lethargy interval history:improving Events noted Physical Exam Vital Signs: Vital Signs: Last Vital Signs Temp 99.2 F 09/29/22 07:34 Pulse 64 09/29/22 07:34 Resp 14 09/29/22 07:34 BP 121/62 09/29/22 07:34 Pulse Ox 98 09/29/22 07:34 O2 Del Method 09/29/22 07:34 BMI result Body Mass Index 19.3 Objective Data Labs CBC & Chem 7: 09/29/22 05:34 09/29/22 05:34 Labs: Laboratory Results - last 24 hr 09/29/22 09/29/22 05:34 05:34 WBC 10.6 RBC 4.43 L Hgb 13.1 L Hct 38.8 L MCV 87.6 MCH 29.6 MCHC 33.8 RDW 13.9 Plt Count 190 MPV 11.6 Absolute Nucleated RBC 0.000 Nucleated RBC % (auto) 0.0 Sodium 141 Potassium 4.2 Chloride 107 Carbon Dioxide 27 Anion Gap 11 L BUN 20 H Creatinine 0.99 Estim Creat Clear Calc 81.7 Estimated GFR > 60 Fasting Glucose 88 Calcium 9.1 Procedures Date of Service Date of Service: 09/29/22 Assessment & Plan Assessment and plan (1) LYSSA (acute kidney injury): Status: Acute Plan LYSSA due to dehydratioin Renal function has significantly improved Keep I > O for now Time Spent With Patient Time: Total time spent is greater than 50% in coordination of care (as documented) at patient's floor/unit and/or counseling patient: Progress Note: Quality Stroke Does the patient have a stroke diagnosis?: No
[2022-09-29] MEDS: polyethylene glycoL 3350 17 GM POWD.PACK PO (11:14)
--- NOTE | 2022-09-29 11:26 | MHC.CM.PN ---
Patient is discharged today. Dispo Home self-care. The patient has arranged for transportation home.
--- NOTE | 2022-09-29 11:55 | CONS_ITS ---
DATE OF SERVICE: 09/28/2022 REASON FOR CONSULT: I was called to see this patient to assist in management of CVA and LYSSA. HISTORY OF PRESENT ILLNESS: To summarize, Darvin is a 32-year-old man with a history of HIV and essentially normal renal function, comes in because of nausea, vomiting, poor intake, and diffuse myalgia. He tested positive for COVID. At the time of an admission, he had a serum creatinine of 6.38 with a serum calcium of 11.3 and elevated hematocrit. He was given IV hydration. The creatinine is promptly decreased to 2.9. Consult has been requested for management of acute kidney injury. ONGOING MEDICAL PROBLEMS: Include CVA, GERD, and HIV. FAMILY HISTORY: Mother has HIV. SOCIAL HISTORY: No history of alcohol abuse. He uses marijuana. He also smokes cigarettes. ALLERGIES: NO KNOWN DRUG ALLERGIES HAVE BEEN DOCUMENTED. MEDICATIONS: At the time of admission included dolutegravir, lamivudine. REVIEW OF SYSTEMS: Positive for nausea, vomiting, poor p.o. intake. No urinary symptoms. No diarrhea or constipation. All other systems were reviewed. PHYSICAL EXAMINATION: GENERAL: Patient is a middle-aged man who appears ill. NECK: Supple. Mucosa dry. LUNGS: Air entry equal bilaterally. Scattered rhonchi. HEART: S1, S2 heard. No gallop. ABDOMEN: Soft, nontender. No edema. No new rash. VITAL SIGNS: Blood pressure was 117/68, pulse 91 per minute. LABORATORY DATA: Sodium 141, potassium 4.1, BUN 46, creatinine 2.97, calcium of 11.[address] abdomen and pelvis on admission showed mild constipation, otherwise unremarkable. Hemoglobin was 17.6 on admission, WBC 10.7. PROBLEMS: 1. Acute kidney injury, most likely due to severe volume depletion. Renal function improved with IV hydration. No signs or symptoms of anemia. No indication for dialysis. 2. Hypernatremia due to free water deficit. This is resolving with dehydration. 3. Hypercalcemia due to severe dehydration and this has also improved with hydration. 4. From a renal standpoint, we will continue IV hydration. Watch the urine output. No indication for dialysis. We will follow him as needed. Dell Odom MD BPA/MODL / [id number] [email or web address]
== END 2022-09-29 11:47 | disposition home or self-care (01) | DRG 469 ==
LOC: HO.ED 14:45 → HO.EDOVER 16:36 → HO.IMC 09-28 16:32
PROVIDERS: Admitting Provider Internal Medicine; Emergency Provider Emergency Medicine; Visit Provider Internal Medicine
DX: N17.9 Acute kidney failure, unspecified (principal); U07.1 COVID-19; E87.1 Hypo-osmolality and hyponatremia; E86.0 Dehydration; Z21 Asymptomatic human immunodeficiency virus [HIV] infection status; R63.6 Underweight; K21.9 Gastro-esophageal reflux disease without esophagitis; F17.210 Nicotine dependence, cigarettes, uncomplicated; Z71.6 Tobacco abuse counseling; Z68.1 Body mass index [BMI] 19.9 or less, adult; E83.52 Hypercalcemia; Z79.899 Other long term (current) drug therapy
CPT/HCPCS: 0241U; 36415; 71045; 74176; 80048; 80053; 81001; 82550; 83605; 85007; 85027; 93005; 99285; J2270; J2405

== ENCOUNTER 2022-11-03 19:10 | Inpatient (IN) | payer OTHER, SELFPAY ==
--- NOTE | 2022-11-03 | ECG_ITS ---
Test Reason : CHEST PAIN Blood Pressure : / mmHG Vent. Rate : 132 BPM Atrial Rate : 132 BPM P-R Int : 122 ms QRS Dur : 074 ms QT Int : 322 ms P-R-T Axes : 089 093 073 degrees QTc Int : 477 ms Sinus tachycardia Biatrial enlargement Rightward axis Pulmonary disease pattern Abnormal ECG When compared with ECG of 27-SEP-2022 11:09, No significant change was found Referred By: Virginie Henry Electronically Signed By:Gary Hull
--- NOTE | ~2022-11-03 | XR_ITS ---
EXAMINATION: XR CHEST CLINICAL INFORMATION: Chest pain COMPARISON: 09/27/2022 TECHNIQUE: Frontal view of the chest was obtained. FINDINGS: No significant abnormality is noted involving the heart, lungs, mediastinum, bony thorax or soft tissues. XR/XR chest 1V IMPRESSION: Unremarkable examination.
--- NOTE | ~2022-11-03 | NM_ITS ---
PULMONARY PERFUSION ONLY STUDY: CLINICAL INDICATION: Tachypnea. Chest pain. PROCEDURE: Following the intravenous administration of 4.0 millicuries technetium 99m MAA, images of the chest were obtained in multiple projections using a gamma scintiphotographic camera. COMPARISON: Chest radiograph done on 11/03/2022. PERFUSION IMAGES: No segmental perfusion defects or other perfusion abnormalities are noted. NM/NM pul perfusion IMPRESSION: Based on perfusion only modified PIOPED 2 criteria, pulmonary thromboembolism is considered absent.
--- NOTE | ~2022-11-03 | CT_ITS ---
EXAMINATION: CT ABDOMEN AND PELVIS WITHOUT CONTRAST CLINICAL INFORMATION: Abdominal pain COMPARISON: CT abdomen pelvis 09/27/2022 TECHNIQUE: Multidetector volumetric imaging was performed from the superior aspect of the liver through the pubic symphysis. Sagittal and coronal reformatted images were obtained on the technologist's workstation. Oral contrast was administered. This CT examination was performed using dose optimization techniques as appropriate, variously including the following: *Automated exposure control *Adjustment of mA and/or kV according to patient size (this includes techniques or standardized protocols for targeted exams where dose is matched to indication/reason for exam; i.e. extremities or head) *Use of iterative reconstruction technique DLP: 248 mGy-cm FINDINGS: LUNG BASES: The visualized lung bases are unremarkable. LIVER, GALLBLADDER, AND BILIARY TREE: The liver is normal in size, shape, and attenuation. No focal hepatic lesion or biliary ductal dilatation is present. The gallbladder is unremarkable with no evidence of radiopaque gallstones, gallbladder wall thickening, or obvious pericholecystic inflammatory changes. PANCREAS: Unremarkable. SPLEEN: Unremarkable. ADRENAL GLANDS: Unremarkable. KIDNEYS AND URETERS: The kidneys are normal in size, shape, and attenuation. No hydronephrosis, hydroureter, or calculi seen. No perinephric stranding. BLADDER: Unremarkable. GASTROINTESTINAL TRACT: The posterior gastric fundal diverticulum containing a small amount of contrast. Administered oral contrast has transited into the colon down to the level of the rectum. No dilated bowel loops are seen. Moderate colonic stool burden. The appendix is opacified with oral contrast and normal. No bowel wall thickening. No free air or ascites. ABDOMINAL WALL: No significant hernia is appreciated. LYMPH NODES: No lymphadenopathy identified. VASCULAR: Unremarkable. PELVIC VISCERA: Unremarkable. OSSEOUS STRUCTURES: Unremarkable. CT/CT abdomen pelvis wo IV con IMPRESSION: No acute intra-abdominal process identified.
[2022-11-03 19:17] VITALS: BP 136/84; BP 97/62; PULSE 136; RESP 32; TEMP 36.5; O2SAT 99; BMI 18.0
[2022-11-03] MEDS: 0.9 % Sodium Chloride 1,000 ML 999 ML IV ×2 (19:31→19:38)
[2022-11-03] MEDS: ondansetron HCL 4 MG/2 ML VIAL IVPUSH ×2 (19:32→21:47)
[2022-11-03] MEDS: Magnesium Hydrox/Alum Hydrox 30 ML ORAL.SUSP PO (19:32)
[2022-11-03] MEDS: Famotidine/PF 20 MG/2 ML VIAL IVPUSH (19:32)
--- NOTE | 2022-11-03 19:40 | ED_ITS ---
HPI - Chest Pain General Chief Complaint: Chest Pain Stated Complaint: SOB Time Seen by Provider: 11/03/22 19:17 Source: patient and EMS Mode of arrival: EMS Limitations: no limitations History of Present Illness HPI narrative: 32-year-old male past medical history significant for HIV came in for evaluation of flu-like symptoms and vomiting with possible dehydration. Patient been having nausea vomiting with epigastric pain when he vomits, patient been having also chest pain for the past 2 days, patient feels generalized body ache, generalized joint pain, feels like flu or COVID infection that the patient had in the past, no sick contacts, no recent travel. Patient had similar presentation in the past that required hospitalization for dehydration and acute renal failure. Related Data Home Medications Medication Instructions Recorded Confirmed dolutegravir 50 mg-lamivudine 300 1 tab PO DAILY 09/02/20 11/03/22 mg tablet (Dovato) Allergies Allergy/AdvReac Type Severity Reaction Status Date / Time No Known Allergies Allergy Verified 09/27/22 11:58 Review of Systems Review of Systems: All other systems are reviewed and are negative Constitutional: Reports as per HPI and Reports no additional constitutional complaints Eyes: Reports as per HPI and Reports no additional eye complaints Reports system reviewed and no additional complaints, except as documented Cardiovascular: Reports as per HPI and Reports no additional cardiovascular complaints Respiratory: Reports as per HPI and Reports no additional respiratory complaints Gastrointestinal: Reports as per HPI and Reports no additional gastrointestinal complaints Genitourinary: Reports no additional female genitourinary complaints Musculoskeletal: Reports no additional musculoskeletal complaints Skin/Breast: Reports system reviewed and no additional complaints, except as docu Psychiatric: Reports no additional psychiatric complaints Endocrine: Reports no additional endocrine complaints Hematologic/Lymphatic: Reports no additional hematologic/lymphatic complaints Allergic/Immunologic: Reports no additional allergic/immunologic complaints Reports system reviewed and no additional complaints, except as documented and Reports Abnormal speech present [facility] Past Medical History Medical History GERD (gastroesophageal reflux disease) HIV (human immunodeficiency virus infection) Family History Family History Mother HIV (human immunodeficiency virus infection) Social History Social History Household Members: None Housing: Apartment Do you presently have visiting nurse or other home services: No Alcohol intake: never Patient Tobacco Use Status: Former Tobacco user Tobacco use type: Cigarette Cigarettes Per Day: 0.5 Smoked in Last 30 Days: Yes e-Cigarette/Vaping Use: Never Used Second Hand Smoke Exposure: Yes Use of substances other than those prescribed or required for medical reasons: No Substance Use Type: Marijuana Advance Directives: Yes Advance Directives on File: Yes Advance Directives Date on File: 09/28/22 service: No Current occupational status: employed Physical Exam Vital Signs: Vital Signs: Last Vital Signs Temp 97.7 F 11/03/22 19:17 Pulse 108 H 11/03/22 21:35 Resp 20 11/03/22 21:35 BP 159/93 H 11/03/22 21:35 Pulse Ox 98 11/03/22 19:43 O2 Del Method 11/03/22 19:43 BMI result Body Mass Index 18.0 Vital signs have been reviewed as appeared to be correct. Blood pressure normal. Heart rate normal. Respiration rate normal. Temperature normal. Oxygen saturation normal. Appearance: Alert. Oriented X3. No acute distress. Mildly cachectic and dehydrated. Head: Normal external exam. Normocephalic. Atraumatic. No Whitney signs noted. No raccoon eyes noted Eyes: PERRLA. EOMI. Conjunctiva and sclera normal. Eyelids normal. ENT: TM's Normal. Pharynx normal. Uvula midline. Dry mucous membranes. No trismus noted. No drooling noted. No muffled voice noted. Neck: Normal inspection. Neck supple. FROM. No adenopathy. Thyroid Normal. No meningeal signs. No neck mass noted. CVS: Normal heart rate and rhythm. Heart sound normal. No murmurs noted. Pulses normal throughout. Respiratory: No respiratory distress. Painless inspiration. Breath sounds normal. No wheezes/rales/rhonchi noted. Chest nontender. No accessory muscle usage noted or decreased air movement noted. Abdomen: Soft, epigastric tenderness, no rebound tenderness, no guarding.. Bowel sounds normal in all 4 quadrants. No distention noted. No organomegaly noted. No visible injury noted. Back: No CVA tenderness. Full range of motion noted. Skin: Skin warm and dry. Normal skin color. Normal skin turgor. No rashes/lesions/lacerations noted. Extremities: No lower extremity edema. Extremities exhibit normal range of motion. Extremities nontender. Neuro: Oriented X 3. Cranial nerve exam: II-XII are grossly intact No motor deficit. No sensory deficit. Reflexes normal. Course Reevaluation(s) Reevaluation #1: Came in dehydrated, with a flu-like symptoms tachycardic, elevated troponin, AK I. 1. Elevated troponin repeat troponin is improving after IV hydration, the EKG was reviewed with Dr. Hull there is no ST-T change concern is more toward PE since the patient is revealing acute renal failure CT angio of the lungs is not indicated at this point will start the patient anticoagulation heparin until we rule PE by V/Q scan in the a.m. once the test is available in this facility. 2. Patient meet criteria for source with no source of infection patient still unable to give a urine sample show severe dehydration at this point there is no indication septic shock or severe sepsis patient received a dose of empirical Zosyn. 3. Lactic acidosis/elevated troponin due to dehydration and Lyssa will continue with IV hydration. 4. Repeat EKG showing much improvement of the tachycardia. Time: 22:30 Medications Administered Discontinued Medications Generic Name Dose Route Start Last Admin Trade Name Freq PRN Reason Stop Dose Admin Al Hydroxide/Mg Hydroxide 30 ml 11/03/22 19:25 11/03/22 19:32 Magnesium Hydrox/Alum Hydrox 30 Ml Oral.Susp PO 11/03/22 19:26 30 ml ONCE ONE Administration Famotidine 20 mg 11/03/22 19:25 11/03/22 19:32 Famotidine/Pf 20 Mg/2 Ml Vial IVPUSH 11/03/22 19:26 20 mg ONCE ONE Administration Sodium Chloride 1,000 mls @ 999 mls/hr 11/03/22 19:21 11/03/22 20:53 Ns IV 11/03/22 20:21 Infused .Q1H1M ONE Infusion Sodium Chloride 1,000 mls @ 999 mls/hr 11/03/22 19:26 11/03/22 20:53 Ns IV 11/03/22 20:26 Infused .Q1H1M ONE Infusion Sodium Chloride 1,518 mls @ 1,518 mls/hr 11/03/22 20:34 11/03/22 20:53 Ns 30 ml/kg infuse over 1 hr (1518 ml) 11/03/22 21:33 1,518 mls/hr IV Administration .Q1H STA Piperacillin Sod/Tazobactam 50 mls @ 100 mls/hr 11/03/22 20:34 11/03/22 21:11 Sod 3.375 gm/ Sodium Chloride IV 11/03/22 21:03 Infused ONCE ONE Infusion Ondansetron HCl 4 mg 11/03/22 19:25 11/03/22 19:32 Ondansetron Hcl 4 Mg/2 Ml Vial IVPUSH 11/03/22 19:26 4 mg ONCE ONE Administration Ondansetron HCl 4 mg 11/03/22 21:43 11/03/22 21:47 Ondansetron Hcl 4 Mg/2 Ml Vial IVPUSH 11/03/22 21:44 4 mg ONCE ONE Administration Medical Decision Making Differential Diagnosis Differential Diagnoses: The differential diagnosis associated with the presentation includes (Chest pain, ACS, pulmonary embolism, pneumonia, viral pneumonia, dehydration, severe sepsis.) Admission/Observation Consideration of admission/observation: Escalation of care including admission/observation considered Consult Healthcare Provider Management of the patient was discussed with: Hospitalist Lab Data MDM Lab Attestation statement: I reviewed the patient's lab results. 11/03/22 19:29 11/03/22 19:29 Labs: Lab Results 11/03/22 11/03/22 11/03/22 Range/Units 19:29 19:29 19:29 WBC 26.7 H (4.8-10.8) X10*3/uL RBC 6.19 H D (4.60-5.80) X10*6/uL Hgb 18.6 H D (14.0-18.0) g/dl Hct 53.3 H D (42.0-52.0) % MCV 86.1 (80.0-98.0) fL MCH 30.0 (27.0-33.0) pg MCHC 34.9 (31.0-36.0) g/dl RDW 14.0 (11.0-16.0) % Plt Count 366 D (160-400) X10*3/uL MPV 11.0 (9.4-12.4) fL Immature Gran % (Auto) 2.1 H (0.0-0.4) % Neut % (Auto) 87.5 H (45-73) % Lymph % (Auto) 4.2 L (20-40) % Sheridan % (Auto) 5.6 (2-11) % Eos % (Auto) 0.3 (0-4) % Baso % (Auto) 0.3 (0-2) % Lymph # (Auto) 1.1 L (1.2-4.9) X10*3/uL Sheridan # (Auto) 1.5 H (0.1-1.2) X10*3/uL Eos # (Auto) 0.1 (0.0-0.4) X10*3/uL Baso # (Auto) 0.1 (0.0-0.2) X10*3/uL Abs Immat Gran (auto) 0.55 H (0.00-0.03) X10*3/uL Absolute Neuts (auto) 23.4 H (2.0-8.3) x10*3/uL Absolute Nucleated RBC 0.000 (0.0-0.012) X10*3/uL Nucleated RBC % (auto) 0.0 (0.0-0.2) /100WBC Smear Tech's Comments VERIFIED Sodium (135-145) mmol/L Potassium (3.3-5.1) mmol/L Chloride (96-108) mmol/L Carbon Dioxide (22-29) mmol/L Anion Gap (12-20) BUN (9-16) mg/dL Creatinine (0.5-1.4) mg/dL Estim Creat Clear Calc Estimated GFR Random Glucose (60-115) mg/dL Lactic Acid (0.5-2.0) mmol/L Calcium (8.4-10.2) mg/dL Total Bilirubin (0.0-1.0) mg/dL Direct Bilirubin (0.0-0.5) mg/dL AST (5-37) U/L ALT (0-40) U/L Alkaline Phosphatase (39-117) U/L Total Creatine Kinase (38-174) U/L Troponin I High Sens 2717.3 H* D (<3.5-35.0) ng/L B-Natriuretic Peptide 121 H (<100) pg/mL Total Protein (6.5-8.0) g/dL Albumin (3.5-5.0) g/dL Lipase (8-78) U/L Influenza Type A (PCR) (Negative) Influenza Type B (PCR) (Negative) RSV RNA Qual (PCR) (Negative) SARS-CoV-2 RNA (RT-PCR) (Negative) 11/03/22 11/03/22 11/03/22 Range/Units 19:29 19:35 20:27 WBC (4.8-10.8) X10*3/uL RBC (4.60-5.80) X10*6/uL Hgb (14.0-18.0) g/dl Hct (42.0-52.0) % MCV (80.0-98.0) fL MCH (27.0-33.0) pg MCHC (31.0-36.0) g/dl RDW (11.0-16.0) % Plt Count (160-400) X10*3/uL MPV (9.4-12.4) fL Immature Gran % (Auto) (0.0-0.4) % Neut % (Auto) (45-73) % Lymph % (Auto) (20-40) % Sheridan % (Auto) (2-11) % Eos % (Auto) (0-4) % Baso % (Auto) (0-2) % Lymph # (Auto) (1.2-4.9) X10*3/uL Sheridan # (Auto) (0.1-1.2) X10*3/uL Eos # (Auto) (0.0-0.4) X10*3/uL Baso # (Auto) (0.0-0.2) X10*3/uL Abs Immat Gran (auto) (0.00-0.03) X10*3/uL Absolute Neuts (auto) (2.0-8.3) x10*3/uL Absolute Nucleated RBC (0.0-0.012) X10*3/uL Nucleated RBC % (auto) (0.0-0.2) /100WBC Smear Tech's Comments Sodium 142 (135-145) mmol/L Potassium 4.0 (3.3-5.1) mmol/L Chloride 97 (96-108) mmol/L Carbon Dioxide 20 L (22-29) mmol/L Anion Gap 29 H (12-20) BUN 51 H (9-16) mg/dL Creatinine 6.07 H* (0.5-1.4) mg/dL Estim Creat Clear Calc 12.3 Estimated GFR 11 Random Glucose 147 H (60-115) mg/dL Lactic Acid 7.0 H* (0.5-2.0) mmol/L Calcium 10.5 H D (8.4-10.2) mg/dL Total Bilirubin 0.3 (0.0-1.0) mg/dL Direct Bilirubin < 0.2 (0.0-0.5) mg/dL AST 32 (5-37) U/L ALT 19 (0-40) U/L Alkaline Phosphatase 80 (39-117) U/L Total Creatine Kinase 874 H (38-174) U/L Troponin I High Sens (<3.5-35.0) ng/L B-Natriuretic Peptide (<100) pg/mL Total Protein 9.7 H (6.5-8.0) g/dL Albumin 5.9 H (3.5-5.0) g/dL Lipase 26 (8-78) U/L Influenza Type A (PCR) NEGATIVE (Negative) Influenza Type B (PCR) NEGATIVE (Negative) RSV RNA Qual (PCR) NEGATIVE (Negative) SARS-CoV-2 RNA (RT-PCR) NEGATIVE (Negative) 11/03/22 11/03/22 11/03/22 Range/Units 21:28 21:28 21:28 WBC (4.8-10.8) X10*3/uL RBC (4.60-5.80) X10*6/uL Hgb (14.0-18.0) g/dl Hct (42.0-52.0) % MCV (80.0-98.0) fL MCH (27.0-33.0) pg MCHC (31.0-36.0) g/dl RDW (11.0-16.0) % Plt Count (160-400) X10*3/uL MPV (9.4-12.4) fL Immature Gran % (Auto) (0.0-0.4) % Neut % (Auto) (45-73) % Lymph % (Auto) (20-40) % Sheridan % (Auto) (2-11) % Eos % (Auto) (0-4) % Baso % (Auto) (0-2) % Lymph # (Auto) (1.2-4.9) X10*3/uL Sheridan # (Auto) (0.1-1.2) X10*3/uL Eos # (Auto) (0.0-0.4) X10*3/uL Baso # (Auto) (0.0-0.2) X10*3/uL Abs Immat Gran (auto) (0.00-0.03) X10*3/uL Absolute Neuts (auto) (2.0-8.3) x10*3/uL Absolute Nucleated RBC (0.0-0.012) X10*3/uL Nucleated RBC % (auto) (0.0-0.2) /100WBC Smear Tech's Comments Sodium 144 (135-145) mmol/L Potassium 4.0 (3.3-5.1) mmol/L Chloride 104 (96-108) mmol/L Carbon Dioxide 20 L (22-29) mmol/L Anion Gap 24 H (12-20) BUN 50 H (9-16) mg/dL Creatinine 5.65 H* (0.5-1.4) mg/dL Estim Creat Clear Calc 13.3 Estimated GFR 12 Random Glucose 91 (60-115) mg/dL Lactic Acid 3.4 H* (0.5-2.0) mmol/L Calcium 8.6 D (8.4-10.2) mg/dL Total Bilirubin (0.0-1.0) mg/dL Direct Bilirubin (0.0-0.5) mg/dL AST (5-37) U/L ALT (0-40) U/L Alkaline Phosphatase (39-117) U/L Total Creatine Kinase (38-174) U/L Troponin I High Sens 1810.1 H* (<3.5-35.0) ng/L B-Natriuretic Peptide (<100) pg/mL Total Protein (6.5-8.0) g/dL Albumin (3.5-5.0) g/dL Lipase (8-78) U/L Influenza Type A (PCR) (Negative) Influenza Type B (PCR) (Negative) RSV RNA Qual (PCR) (Negative) SARS-CoV-2 RNA (RT-PCR) (Negative) Independent Interpretation I performed an independent interpretation of an: EKG (Sinus tachycardia at 132 beats per minutes, normal intervals, no ST-T changes.) and Plain X-Ray (Chest: No acute intrathoracic pathology.) Radiology Impression Discussion of test interpretation with radiology: I have reviewed the radiologist's reading. Critical Care Time Critical Care Time Critical Care Time: Yes Total Critical Care Time: 60 Attestation: I spent 60 minutes providing critical care service to the patient, this inclu ding time spent at the bedside to evaluate the patient, reassess the patient, monitoring vital signs, review labs, and radiographic studies, counseling the patient/family, discussing the case with consultants, disposition the patient. Discharge Plan Discharge Clinical Impression: LYSSA (acute kidney injury), HIV (human immunodeficiency virus infection), Chest pain, Acidosis, lactic Patient Disposition: Admitted As Inpatient Prescriptions: No Action Dovato 50-300 mg Tablet 1 tab PO DAILY
[2022-11-03 19:43] VITALS: BP 115/67; PULSE 119; PULSE 124; RESP 18; O2SAT 98
[2022-11-03 19:46] LABS: Basophils Absolute Auto 0.1 X10*3/uL (0.0-0.2); Basophils Percent Auto 0.3 % (0-2); Eosinophils Absolute Auto 0.1 X10*3/uL (0.0-0.4); Eosinophils Percent Auto 0.3 % (0-4); Hematocrit 53.3 % (42.0-52.0); Hemoglobin 18.6 g/dl (14.0-18.0); Imm Gran Abs Auto 0.55 X10*3/uL (0.00-0.03); Imm Gran Pct Auto 2.1 % (0.0-0.4); Lymphocytes Absolute Auto 1.1 X10*3/uL (1.2-4.9); Lymphocytes Percent Auto 4.2 % (20-40); MANUAL DIFF FLAG SCAN; Mean Corpuscular HGB Conc 34.9 g/dl (31.0-36.0); Mean Corpuscular Volume 86.1 fL (80.0-98.0); Monocytes Absolute Auto 1.5 X10*3/uL (0.1-1.2); Monocytes Percent Auto 5.6 % (2-11); Neutrophils Absolute Auto 23.4 x10*3/uL (2.0-8.3); Neutrophils Percent Auto 87.5 % (45-73); Platelet Count 366 X10*3/uL (160-400); Red Blood Count 6.19 X10*6/uL (4.60-5.80); SCAN SMEAR FLAG 1; White Blood Count 26.7 X10*3/uL (4.8-10.8)
[2022-11-03 20:05] LABS: B Type Natriuretic Peptide 121 pg/mL (<100)
[2022-11-03 20:15] LABS: SLIDE REVIEW VERIFIED
[2022-11-03 20:17] LABS: Influenza A PCR NEGATIVE (Negative); Influenza B PCR NEGATIVE (Negative); Resp Syncy Virus RNA Qual PCR NEGATIVE (Negative); SARS COV2 PCR INHOUSE NEGATIVE (Negative)
[2022-11-03] MEDS: Piperacillin Sodium/Tazobactam 3.375 GM in 0.9 % Sodium Chloride 50 ML IV (20:49)
[2022-11-03] MEDS: SODIUM CHLORIDE 1518 ML IV (20:53)
[2022-11-03 21:02] LABS: Alanine Aminotransferase 19 U/L (0-40); Albumin Level 5.9 g/dL (3.5-5.0); Alkaline Phosphatase 80 U/L (39-117); Anion Gap 29 (12-20); Aspartate Amino Transferase 32 U/L (5-37); Bilirubin Direct < 0.2 mg/dL (0.0-0.5); Bilirubin Total 0.3 mg/dL (0.0-1.0); Blood Urea Nitrogen 51 mg/dL (9-16); Calcium 10.5 mg/dL (8.4-10.2); Carbon Dioxide 20 mmol/L (22-29); Chloride 97 mmol/L (96-108); Creatinine Clr Calc Pharmacy 12.3; Estimated Glomerular Filt Rate 11; Glucose Random 147 mg/dL (60-115); Lipase 26 U/L (8-78); Sodium 142 mmol/L (135-145); Total Protein 9.7 g/dL (6.5-8.0)
--- NOTE | 2022-11-03 21:02 | PC.NURSE ---
Pt aox3. Reports chest pain with N/V, 06/02. Sinus tach on monitor with HR 120. BP 137/99. MD aware.
--- NOTE | 2022-11-03 21:05 | PC.NURSE ---
Med req completed.
[2022-11-03 21:35] VITALS: BP 159/93; PULSE 108; RESP 20
[2022-11-03 21:38] LABS: Reflex Lactate? Lactic Acid Added
[2022-11-03 21:55] LABS: Lactic Acid 3.4 mmol/L (0.5-2.0)
[2022-11-03 21:56] LABS: Anion Gap 24 (12-20); Blood Urea Nitrogen 50 mg/dL (9-16); Calcium 8.6 mg/dL (8.4-10.2); Carbon Dioxide 20 mmol/L (22-29); Chloride 104 mmol/L (96-108); Creatinine Clr Calc Pharmacy 13.3; Estimated Glomerular Filt Rate 12; Glucose Random 91 mg/dL (60-115); Sodium 144 mmol/L (135-145)
[2022-11-03 22:01] LABS: Troponin-I High Sensitivity 1810.1 ng/L (<3.5-35.0)
--- NOTE | 2022-11-03 22:29 | ECG_ITS ---
Test Reason : REPEAT Blood Pressure : / mmHG Vent. Rate : 102 BPM Atrial Rate : 102 BPM P-R Int : 142 ms QRS Dur : 082 ms QT Int : 342 ms P-R-T Axes : 078 084 056 degrees QTc Int : 445 ms Sinus tachycardia Otherwise normal ECG When compared with ECG of 03-NOV-2022 19:13, Nonspecific T wave abnormality now evident in Inferior leads Referred By: Brayan Mejia Electronically Signed By:Gary Hull
[2022-11-03 22:36] VITALS: BMI 19.2
[2022-11-03 22:42] VITALS: BP 145/95; PULSE 95; RESP 18; O2SAT 98
[2022-11-03 22:47] LABS: Hematocrit 38.8 % (42.0-52.0); Hemoglobin 13.3 g/dl (14.0-18.0); Mean Corpuscular HGB Conc 34.3 g/dl (31.0-36.0); Mean Corpuscular Hemoglobin 30.2 pg (27.0-33.0); Mean Platelet Volume 10.3 fL (9.4-12.4); Platelet Count 261 X10*3/uL (160-400); Red Blood Count 4.41 X10*6/uL (4.60-5.80); Red Cell Distribution Width 13.9 % (11.0-16.0); White Blood Count 24.7 X10*3/uL (4.8-10.8)
[2022-11-03 22:54] LABS: INTERNATIONAL NORM RATIO 1.1 (0.9-1.1); Prothrombin Time 12.3 SEC (10.0-13.1)
[2022-11-03] MEDS: Heparin Sodium,Porcine/1/2NS 25,000 UNIT/250 ML IV.SOLN 7.8 UNIT IVCONT (23:27)
[2022-11-03 23:31] LABS: Reflex Lactate? Lactic Acid Added
--- NOTE | 2022-11-03 23:41 | PC.NURSE ---
Pt aox4. Heparin drip started at 14u on left ac. Pt aware of plan of care. Will continue to monitor.
[2022-11-03 23:43] LABS: Appearance Urine Cloudy; Color Urine Yellow; Glucose Urine UA Negative (Negative); Leukocyte Esterase Urine Negative (Negative); Nitrite Urine Negative (Negative); PH 5.5 (5.0-9.0); Specific Gravity - Urine >= 1.030 (1.005-1.025); UMIC TRIGGER UACC YES; Urine Blood Large (3+) (Negative); Urine Ketones 15 mg/dL (Negative); Urine Protein 100 (2+) mg/dL (Neg-Trace)
[2022-11-03 23:56] LABS: Bacteria Urine None Seen (None Seen); Granular Casts Urine Present; Hyaline Casts Urine >20 /LPF (0-2); Other Crystals Urine Present; RBC Urine >20 /HPF (0-2); UACC Culture Trigger YES
[2022-11-04] MEDS: Lactated Ringers 1,000 ML 150 ML IVCONT ×4 (00:25→20:08)
[2022-11-04 00:31] VITALS: BP 131/80; PULSE 81; RESP 15; TEMP 36.8; O2SAT 98
--- NOTE | 2022-11-04 00:59 | PC.NURSE ---
Pt aox4. Resting at the bedside in no apparent distress. Breaths are even and unlabored. NSR on the monitor. Reports chest pain 01/31, which has improved from earlier 06/02. Heparin running at 14u on the left ac. LR running on the right ac at 150ml/hr. Pt waiting for a bed assignment and aware of plan of care.
[2022-11-04 02:47] LABS: ~Lactic Acid-LAB USE ONLY 0.9 mmol/L (0.5-2.0)
--- NOTE | 2022-11-04 04:05 | PC.NURSE ---
pt sleeping in no apparent distress. Breaths are even and unlabored with equal chest rises. NSR on monitor with HR 90. Heparin running on left ac at 14u. LR running on right ac at 150ml/hr. Will continue to monitor.
--- NOTE | 2022-11-04 05:02 | P.HPHOSP_ITS ---
History of Present Illness Date of Service: 11/04/22 Chief Complaint: upper respiratory symptoms this is a 32-year-old male with past medical history of HIV, GERD who presents to the hospital with complaints of not feeling well for the past 2 days. Patient reports that he has been having upper respiratory symptoms including nasal congestion, runny nose, cough, And just feeling generally unwell for the past 2 days, has had nausea vomiting, pain in the abdomen specially when his vomiting, as well as chest pain that is reproducible on pressing on his chest for the same onetime, as well as poor oral intake has not been eating or drinking for the past 2 days as he is unable to keep anything down. Patient r eports no fever has chills, reports compliance with his HIV medications and reports no aids. Patient denies any diarrhea, no urinary symptoms and no lower extremity edema. On arrival to the ED patient found to have a heart rate of 119, vitals otherwise stable Labs are sig for WBC count of 24.7, hemoglobin of 13.3, hematocrit 38.3, has increased left shift on CBC, Initial BUN of 51 with a creatinine of 6.07 with a baseline of 1 in September, lactic acid of 7.0, improved after IV fluids, troponin of 2717, CPK of 874, BNP of 121, troponin dropped to 18 10 on repeat, COVID-19 RSV as well as influenza negative Chest x-ray is unremarkable EKG shows sinus tachycardia with a heart rate of 102, no significant abnormality in the T-wave or ST segment suggestive of ACS Review of Systems Review of Systems: Yes all other systems are reviewed and are negative [facility] Medical History GERD (gastroesophageal reflux disease) HIV (human immunodeficiency virus infection) Family History Mother HIV (human immunodeficiency virus infection) Social History Household Members: None Housing: Apartment Do you presently have visiting nurse or other home services: No Alcohol intake: never Patient Tobacco Use Status: Former Tobacco user Tobacco use type: Cigarette Cigarettes Per Day: 0.5 Smoked in Last 30 Days: Yes e-Cigarette/Vaping Use: Never Used Second Hand Smoke Exposure: Yes Use of substances other than those prescribed or required for medical reasons: No Substance Use Type: Marijuana Advance Directives: Yes Advance Directives on File: Yes Advance Directives Date on File: 09/28/22 service: No Current occupational status: employed Meds Allergies Allergy/AdvReac Type Severity Reaction Status Date / Time No Known Allergies Allergy Verified 09/27/22 11:58 Active Medications: Current Medications Acetaminophen (Acetaminophen 325 Mg Tablet) 650 mg PO Q6H PRN PRN Reason: Pain, Mild (Pain Scale 1-3) Heparin Sodium (Porcine) (Heparin Sodium,Porcine 5,000 Unit/Ml Vial) 2,200 unit 40 unit/kg (2200 unit) IVPUSH PROTOCOL BOLUS PRN; Protocol PRN Reason: 40 unit/kg - Heparin Protocol Heparin Sodium (Porcine) (Heparin Sodium,Porcine 5,000 Unit/Ml Vial) 4,500 unit 80 unit/kg (4500 unit) IVPUSH PROTOCOL BOLUS PRN; Protocol PRN Reason: 80 unit/kg - Heparin Protocol Heparin Sodium/Sodium Chloride (Heparin Sodium,Porcine/1/2ns) 25,000 unit in 250 mls @ 0 mls/hr IVCONT .Q0M [facility]; Protocol Last Admin: 11/03/22 23:27 Dose: 14 units/kg/hr, 7.8 mls/hr Lactated Ringer's (Lr) 1,000 mls @ 150 mls/hr IVCONT .Q6H40M [facility] Last Admin: 11/04/22 00:25 Dose: 150 mls/hr Ondansetron HCl (Ondansetron Hcl 4 Mg/2 Ml Vial) 4 mg IVPUSH Q8H PRN PRN Reason: Nausea and Vomiting Sodium Chloride (0.9 % Sodium Chloride Flush 3 Ml Syringe) [facility] Admin: 11/04/22 00:26 Dose: Not Given Home Medications Medication Instructions Recorded Confirmed Last Taken Type dolutegravir 50 mg-lamivudine 300 1 tab PO DAILY 09/02/20 11/03/22 11/03/22 05:30 History mg tablet (Dovato) Physical Exam Vital Signs and Narrative: Vital Signs: Last Vital Signs Temp 98.3 F 11/04/22 00:31 Pulse 81 11/04/22 00:31 Resp 15 11/04/22 00:31 BP 131/80 11/04/22 00:31 Pulse Ox 98 11/04/22 00:31 O2 Del Method 11/04/22 00:31 BMI result Body Mass Index 19.2 Const: General: cooperative and no acute distress Orientation/consciousness: patient oriented x3 HEENT: Other: rhinorrhea, upper respiratory congestion Eyes: General: appearance normal, both eyes and all related structures Resp: Effort & Inspection: normal respiratory effort Auscultation: clear to auscultation bilaterally Cardio: Rate: regular rate Rhythm: regular rhythm GI: Palpation (GI): Soft to palpation Auscultation: normal bowel sounds Skin: General skin exam: no rashes or lesions noted Neuro: General: patient oriented x3 Cognition (Neuro): normal cognition Extrem: General: Yes normal to inspection and Yes no pedal edema Results Labs 11/03/22 22:43 11/03/22 21:28 Labs: Laboratory Results - last 24 hr 11/03/22 11/03/22 11/03/22 19:29 19:29 19:29 MCV 86.1 MCH 30.0 MCHC 34.9 RDW 14.0 Plt Count 366 D MPV 11.0 Immature Gran % (Auto) 2.1 H Neut % (Auto) 87.5 H Lymph % (Auto) 4.2 L [place] % (Auto) 5.6 Eos % (Auto) 0.3 Baso % (Auto) 0.3 Lymph # (Auto) 1.1 L [place] # (Auto) 1.5 H Eos # (Auto) 0.1 Baso # (Auto) 0.1 Abs Immat Gran (auto) 0.55 H Absolute Neuts (auto) 23.4 H Absolute Nucleated RBC 0.000 Nucleated RBC % (auto) 0.0 Smear Tech's Comments VERIFIED PT INR aPTT Heparin Protocol Anion Gap Estim Creat Clear Calc Estimated GFR Random Glucose Lactic Acid Lactic Acid F/U @ 2Hr Calcium Total Bilirubin Direct Bilirubin AST ALT Alkaline Phosphatase Total Creatine Kinase Troponin I High Sens 2717.3 H* D B-Natriuretic Peptide 121 H Total Protein Albumin Lipase Urine Color Urine Appearance Urine pH Ur Specific [place] Urine Protein Urine Glucose (UA) Urine Ketones Urine Blood Urine Nitrite Ur Leukocyte Esterase Urine RBC Urine WBC Ur Squamous Epith Cells Other Crystals Urine Bacteria Hyaline Casts Granular Casts Influenza Type A (PCR) Influenza Type B (PCR) RSV RNA Qual (PCR) SARS-CoV-2 RNA (RT-PCR) 11/03/22 11/03/22 11/03/22 19:29 19:35 20:27 MCV MCH MCHC RDW Plt Count MPV Immature Gran % (Auto) Neut % (Auto) Lymph % (Auto) [place] % (Auto) Eos % (Auto) Baso % (Auto) Lymph # (Auto) [place] # (Auto) Eos # (Auto) Baso # (Auto) Abs Immat Gran (auto) Absolute Neuts (auto) Absolute Nucleated RBC Nucleated RBC % (auto) Smear Tech's Comments PT INR aPTT Heparin Protocol Anion Gap 29 H Estim Creat Clear Calc 12.3 Estimated GFR 11 Random Glucose 147 H Lactic Acid 7.0 H* Lactic Acid F/U @ 2Hr Calcium 10.5 H D Total Bilirubin 0.3 Direct Bilirubin < 0.2 AST 32 ALT 19 Alkaline Phosphatase 80 Total Creatine Kinase 874 H Troponin I High Sens B-Natriuretic Peptide Total Protein 9.7 H Albumin 5.9 H Lipase 26 Urine Color Urine Appearance Urine pH Ur Specific [place] Urine Protein Urine Glucose (UA) Urine Ketones Urine Blood Urine Nitrite Ur Leukocyte Esterase Urine RBC Urine WBC Ur Squamous Epith Cells Other Crystals Urine Bacteria Hyaline Casts Granular Casts Influenza Type A (PCR) NEGATIVE Influenza Type B (PCR) NEGATIVE RSV RNA Qual (PCR) NEGATIVE SARS-CoV-2 RNA (RT-PCR) NEGATIVE 11/03/22 11/03/22 11/03/22 21:28 21:28 21:28 MCV MCH MCHC RDW Plt Count MPV Immature Gran % (Auto) Neut % (Auto) Lymph % (Auto) [place] % (Auto) Eos % (Auto) Baso % (Auto) Lymph # (Auto) [place] # (Auto) Eos # (Auto) Baso # (Auto) Abs Immat Gran (auto) Absolute Neuts (auto) Absolute Nucleated RBC Nucleated RBC % (auto) Smear Tech's Comments PT INR aPTT Heparin Protocol Anion Gap 24 H Estim Creat Clear Calc 13.3 Estimated GFR 12 Random Glucose 91 Lactic Acid 3.4 H* Lactic Acid F/U @ 2Hr Calcium 8.6 D Total Bilirubin Direct Bilirubin AST ALT Alkaline Phosphatase Total Creatine Kinase Troponin I High Sens 1810.1 H* B-Natriuretic Peptide Total Protein Albumin Lipase Urine Color Urine Appearance Urine pH Ur Specific [place] Urine Protein Urine Glucose (UA) Urine Ketones Urine Blood Urine Nitrite Ur Leukocyte Esterase Urine RBC Urine WBC Ur Squamous Epith Cells Other Crystals Urine Bacteria Hyaline Casts Granular Casts Influenza Type A (PCR) Influenza Type B (PCR) RSV RNA Qual (PCR) SARS-CoV-2 RNA (RT-PCR) 11/03/22 11/03/22 11/03/22 22:43 22:43 23:32 MCV 88.0 MCH 30.2 MCHC 34.3 RDW 13.9 Plt Count 261 D MPV 10.3 Immature Gran % (Auto) Neut % (Auto) Lymph % (Auto) [place] % (Auto) Eos % (Auto) Baso % (Auto) Lymph # (Auto) [place] # (Auto) Eos # (Auto) Baso # (Auto) Abs Immat Gran (auto) Absolute Neuts (auto) Absolute Nucleated RBC 0.000 Nucleated RBC % (auto) 0.0 Smear Tech's Comments PT 12.3 INR 1.1 aPTT Heparin Protocol 31.0 L Anion Gap Estim Creat Clear Calc Estimated GFR Random Glucose Lactic Acid Lactic Acid F/U @ 2Hr Calcium Total Bilirubin Direct Bilirubin AST ALT Alkaline Phosphatase Total Creatine Kinase Troponin I High Sens B-Natriuretic Peptide Total Protein Albumin Lipase Urine Color Yellow Urine Appearance Cloudy Urine pH 5.5 Ur Specific [place] >= 1.030 H Urine Protein 100 (2+) H Urine Glucose (UA) Negative Urine Ketones 15 Urine Blood Large (3+) H Urine Nitrite Negative Ur Leukocyte Esterase Negative Urine RBC >20 H Urine WBC 6-10 H Ur Squamous Epith Cells 3-5 Other Crystals Present Urine Bacteria None Seen Hyaline Casts >20 Granular Casts Present Influenza Type A (PCR) Influenza Type B (PCR) RSV RNA Qual (PCR) SARS-CoV-2 RNA (RT-PCR) 11/04/22 02:30 MCV MCH MCHC RDW Plt Count MPV Immature Gran % (Auto) Neut % (Auto) Lymph % (Auto) [place] % (Auto) Eos % (Auto) Baso % (Auto) Lymph # (Auto) [place] # (Auto) Eos # (Auto) Baso # (Auto) Abs Immat Gran (auto) Absolute Neuts (auto) Absolute Nucleated RBC Nucleated RBC % (auto) Smear Tech's Comments PT INR aPTT Heparin Protocol Anion Gap Estim Creat Clear Calc Estimated GFR Random Glucose Lactic Acid Lactic Acid F/U @ 2Hr 0.9 Calcium Total Bilirubin Direct Bilirubin AST ALT Alkaline Phosphatase Total Creatine Kinase Troponin I High Sens B-Natriuretic Peptide Total Protein Albumin Lipase Urine Color Urine Appearance Urine pH Ur Specific [place] Urine Protein Urine Glucose (UA) Urine Ketones Urine Blood Urine Nitrite Ur Leukocyte Esterase Urine RBC Urine WBC Ur Squamous Epith Cells Other Crystals Urine Bacteria Hyaline Casts Granular Casts Influenza Type A (PCR) Influenza Type B (PCR) RSV RNA Qual (PCR) SARS-CoV-2 RNA (RT-PCR) Imaging Radiologist's Impressions: Impressions Chest X-Ray 11/03/22 20:05 IMPRESSION: Unremarkable examination. Assessment and Plan (1) Chest pain: Qualifiers: Chest pain type: intercostal pain Qualified Code(s): R07.82 - Inte rcostal pain Status: Acute (2) Elevated troponin: Status: Acute (3) Acidosis, lactic: Status: Acute (4) LYSSA (acute kidney injury): Status: Acute (5) Upper respiratory infection: Status: Acute (6) Nausea & vomiting: Status: Acute (7) Gastroenteritis: Status: Acute Plan 32-year-old male with past medical history of HIV compliant with his HIV medications presents to the hospital with complaints of dehydration, and upper respiratory symptoms as well as nausea vomiting for the past 2 days. # acute Nausea and vomiting - likely secondary to gastroenteritis - with evidence of dehydration, - will treat with antiemetics, IV fluids - monitor symptoms # LYSSA - likely secondary to dehydration - will treat with IV fluids - follow BMP # lactic acidosis - likely secondary to dehydration - continue IV fluids - trend # elevated CPK - secondary to above - IV fluids - follow CPK level # elevated troponin - possibly type 2 in the setting of dehydration versus PE less likely - no EKG changes suggestive of ACS - chest pain not typical of cardiac origin - will obtain nuclear medicine in a.m. to rule out PE - this case was discussed with Cardiology by ED physician who felt this possibly can be secondary to PE, - given high suspicion for PE in the setting of high troponin will start patient on heparin pending nuclear medicine study # chest pain - noncardiac - elevated troponin as above - pain medication - heparin started for possible PE # HIV - continue Dovato DVT ppx: Heparin ggt Time Spent With Patient Time: Total time managing care of this patient today ____ minutes. Quality Stroke Does the patient have a stroke diagnosis?: No VTE Prior VTE?: No VTE Risk Level:: Medical - moderate - high VTE Device Contraindication: Treatment Not Indicated VTE Drug Contraindication: N/A - Med Ordered
[2022-11-04 05:35] VITALS: BP 126/87; PULSE 92; RESP 15; TEMP 37.4; O2SAT 99; BMI 19.2
--- NOTE | 2022-11-04 05:36 | PC.NURSE ---
Pt aox3. Breaths even and unlabored. NSR on monitor with HR 92. Reports improvement in abd and chest pain, 3/10. Heparin and LR running as ordered. Pt aware of plan of care.
[2022-11-04 06:10] VITALS: BP 126/68; PULSE 103; RESP 16; O2SAT 98
[2022-11-04 06:42] LABS: Hematocrit 37.7 % (42.0-52.0); Mean Corpuscular HGB Conc 34.5 g/dl (31.0-36.0); Mean Corpuscular Hemoglobin 29.7 pg (27.0-33.0); Mean Corpuscular Volume 86.3 fL (80.0-98.0); Mean Platelet Volume 11.4 fL (9.4-12.4); Platelet Count 284 X10*3/uL (160-400); Red Blood Count 4.37 X10*6/uL (4.60-5.80); Red Cell Distribution Width 13.8 % (11.0-16.0); White Blood Count 27.6 X10*3/uL (4.8-10.8)
[2022-11-04 06:48] LABS: Alanine Aminotransferase 16 U/L (0-40); Albumin Level 4.3 g/dL (3.5-5.0); Alkaline Phosphatase 66 U/L (39-117); Anion Gap 17 (12-20); Aspartate Amino Transferase 37 U/L (5-37); Bilirubin Total 0.3 mg/dL (0.0-1.0); Blood Urea Nitrogen 45 mg/dL (9-16); Calcium 8.9 mg/dL (8.4-10.2); Carbon Dioxide 21 mmol/L (22-29); Chloride 108 mmol/L (96-108); Creatinine Clr Calc Pharmacy 22.4; Estimated Glomerular Filt Rate 19; Glucose Random 90 mg/dL (60-115); Potassium 3.6 mmol/L (3.3-5.1); Sodium 142 mmol/L (135-145); Total Protein 6.9 g/dL (6.5-8.0)
[2022-11-04 06:55] LABS: Prothrombin Time 11.4 SEC (10.0-13.1)
[2022-11-04] MEDS: 0.9 % Sodium Chloride Flush 3 ML SYRINGE IVFLUSH (07:16)
--- NOTE | 2022-11-04 07:32 | ECG_ITS ---
Test Reason : CP Blood Pressure : / mmHG Vent. Rate : 083 BPM Atrial Rate : 083 BPM P-R Int : 140 ms QRS Dur : 084 ms QT Int : 354 ms P-R-T Axes : 080 083 068 degrees QTc Int : 415 ms Normal sinus rhythm Normal ECG When compared with ECG of 03-NOV-2022 22:29, Fusion complexes are no longer Present Referred By: Virginie Henry Electronically Signed By:Gary Hull
--- NOTE | 2022-11-04 07:33 | PC.NURSE ---
Patient resting comfortably no distress noted reports improvement in symptoms chest pain has improved. Patient ambulatory to bathroom independently. Continues on IVF and heparin drip with no ill effect will CTM
[2022-11-04 07:39] LABS: Partial Thromboplastin Time 32.1 SEC (26.0-36.4)
[2022-11-04] MEDS: Heparin Sodium,Porcine 5,000 UNIT/ML VIAL 4500 UNIT IVPUSH (07:53)
[2022-11-04] MEDS: Heparin Sodium,Porcine/1/2NS 25,000 UNIT/250 ML IV.SOLN 10.03 UNIT IVCONT (07:54)
[2022-11-04] MEDS: ondansetron HCL 4 MG/2 ML VIAL IVPUSH ×2 (07:57→18:43)
--- NOTE | 2022-11-04 07:57 | PHA.MEDREC ---
Pharmacy Consult ? Medication Reconciliation Pharmacy has completed the medication reconciliation. Reviewed med rec done by nursing (Vesta).
--- NOTE | 2022-11-04 08:01 | PC.NURSE ---
Heparin drip verified with Wendy VIEIRA will CTM
[2022-11-04 09:04] LABS: Adenovirus PCR Not Detected (Not Detect.); Bordetella parapertussis PCR Not Detected (Not Detect.); Bordetella pertussis PCR Not Detected (Not Detect.); Chlamydia pneumoniae PCR Not Detected (Not Detect.); Coronavirus 229E PCR Not Detected (Not Detect.); Coronavirus HKU1 PCR Not Detected (Not Detect.); Coronavirus NL63 PCR Not Detected (Not Detect.); Coronavirus OC43 PCR Not Detected (Not Detect.); Human metapneumovirus PCR Not Detected (Not Detect.); Influenza A PCR Not Detected (Not Detect.); Influenza B PCR Not Detected (Not Detect.); Mycoplasma pneumoniae PCR Not Detected (Not Detect.); Parainfluenza 1 PCR Not Detected (Not Detect.); Parainfluenza 2 PCR Not Detected (Not Detect.); Parainfluenza 3 PCR Not Detected (Not Detect.); Parainfluenza 4 PCR Not Detected (Not Detect.); RSV PCR Not Detected (Not Detect.); Rhino/Enterovirus PCR Not Detected (Not Detect.); SARS-CoV-2 PCR Not Detected (Not Detect.)
[2022-11-04 09:43] VITALS: BP 117/73; PULSE 96; RESP 15; TEMP 37.4; O2SAT 96
--- NOTE | 2022-11-04 10:44 | P.CONCA_ITS ---
History of Present Illness History of Present Illness Date of Service: 11/04/22 Requesting physician: Brayan Mejia Chief complaint: LYSSA, Elevated Trop Narrative: 32-year-old gentleman who we are consulted for acute kidney injury and elevated troponin. Patient was having body aches and had diarrhea vomiting and dehydration. He also had leg weakness and was quite dehydrated. With these symptoms he presented to the emergency department. He was noticed to have acute kidney injury and had elevated troponin levels. He was complaining of chest pain which was sharp sensation over his chest and he said his chest felt sensitive to touch. He is also complaining abdominal pain. He said he also had some hematemesis at home. He is saying he had some blood streaked vomiting this morning too. It appears overnight his troponins were elevated and he was started on heparin drip and given tachycardia and positive troponin levels he was waiting to undergo V/Q scan to rule out PE. His creatinine has improved little bit with hydration. FOR[facility]LY [facility], LATER [facility] Past Medical History Medical History GERD (gastroesophageal reflux disease) HIV (human immunodeficiency virus infection) Family History Family History Mother HIV (human immunodeficiency virus infection) Social History Social History Household Members: None Housing: Apartment Do you presently have visiting nurse or other home services: No Alcohol intake: never Patient Tobacco Use Status: Former Tobacco user Tobacco use type: Cigarette Cigarettes Per Day: 0.5 Smoked in Last 30 Days: Yes e-Cigarette/Vaping Use: Never Used Second Hand Smoke Exposure: Yes Use of substances other than those prescribed or required for medical reasons: No Substance Use Type: Marijuana Advance Directives: Yes Advance Directives on File: Yes Advance Directives Date on File: 09/28/22 service: No Current occupational status: employed Meds Allergies Allergy/AdvReac Type Severity Reaction Status Date / Time No Known Allergies Allergy Verified 09/27/22 11:58 Active Medications: Current Medications Acetaminophen (Acetaminophen 325 Mg Tablet) 650 mg PO Q6H PRN PRN Reason: Pain, Mild (Pain Scale 1-3) Heparin Sodium (Porcine) (Heparin Sodium,Porcine 5,000 Unit/Ml Vial) 2,200 unit 40 unit/kg (2200 unit) IVPUSH PROTOCOL BOLUS PRN; Protocol PRN Reason: 40 unit/kg - Heparin Protocol Heparin Sodium (Porcine) (Heparin Sodium,Porcine 5,000 Unit/Ml Vial) 4,500 unit 80 unit/kg (4500 unit) IVPUSH PROTOCOL BOLUS PRN; Protocol PRN Reason: 80 unit/kg - Heparin Protocol Last Admin: 11/04/22 07:53 Dose: 4,500 unit Heparin Sodium/Sodium Chloride (Heparin Sodium,Porcine/1/2ns) 25,000 unit in 250 mls @ 0 mls/hr IVCONT .Q0M [facility]; Protocol Last Admin: 11/04/22 07:54 Dose: 18 units/kg/hr, 10.03 mls/hr Lactated Ringer's (Lr) 1,000 mls @ 150 mls/hr IVCONT .Q6H40M [facility] Last Admin: 11/04/22 06:41 Dose: 150 mls/hr Ondansetron HCl (Ondansetron Hcl 4 Mg/2 Ml Vial) 4 mg IVPUSH Q8H PRN PRN Reason: Nausea and Vomiting Last Admin: 11/04/22 07:57 Dose: 4 mg Sodium Chloride (0.9 % Sodium Chloride Flush 3 Ml Syringe) [facility] Admin: 11/04/22 07:16 Dose: 3 ml Home Medications Medication Instructions Recorded Confirmed Last Taken Type dolutegravir 50 mg-lamivudine 300 1 tab PO DAILY 09/02/20 11/03/22 11/03/22 05:30 History mg tablet (Dovato) Physical Exam Vital Signs: Vital Signs: Last Vital Signs Temp 99.3 F 11/04/22 09:43 Pulse 96 11/04/22 09:43 Resp 15 11/04/22 09:43 BP 117/73 11/04/22 09:43 Pulse Ox 96 11/04/22 09:43 O2 Del Method 11/04/22 09:43 BMI result Body Mass Index 19.2 GENERAL APPEARANCE: in no acute distress, pleasant. NECK: no carotid bruit, no jugular venous distention. SKIN: no suspicious lesions, warm and dry. HEART: no murmurs, regular rate and rhythm. LUNGS: clear to auscultation bilaterally. Chest wall tenderness. ABDOMEN: soft, nontender. EXTREMITIES: no edema. PERIPHERAL PULSES: equal. NEUROLOGIC: No gross deficits, AAO X 3 Objective Labs and Meds 11/04/22 05:28 11/04/22 05:28 Lab results: Laboratory Results - last 24 hr 11/03/22 11/03/22 11/03/22 19:29 19:29 19:29 WBC 26.7 H RBC 6.19 H D Hgb 18.6 H D Hct 53.3 H D MCV 86.1 MCH 30.0 MCHC 34.9 RDW 14.0 Plt Count 366 D MPV 11.0 Immature Gran % (Auto) 2.1 H Neut % (Auto) 87.5 H Lymph % (Auto) 4.2 L [place] % (Auto) 5.6 Eos % (Auto) 0.3 Baso % (Auto) 0.3 Lymph # (Auto) 1.1 L [place] # (Auto) 1.5 H Eos # (Auto) 0.1 Baso # (Auto) 0.1 Abs Immat Gran (auto) 0.55 H Absolute Neuts (auto) 23.4 H Absolute Nucleated RBC 0.000 Nucleated RBC % (auto) 0.0 Smear Tech's Comments VERIFIED PT INR APTT aPTT Heparin Protocol Sodium Potassium Chloride Carbon Dioxide Anion Gap BUN Creatinine Estim Creat Clear Calc Estimated GFR Random Glucose Lactic Acid Lactic Acid F/U @ 2Hr Calcium Total Bilirubin Direct Bilirubin AST ALT Alkaline Phosphatase Total Creatine Kinase Troponin I High Sens 2717.3 H* D B-Natriuretic Peptide 121 H Total Protein Albumin Lipase Urine Color Urine Appearance Urine pH Ur Specific [place] Urine Protein Urine Glucose (UA) Urine Ketones Urine Blood Urine Nitrite Ur Leukocyte Esterase Urine RBC Urine WBC Ur Squamous Epith Cells Other Crystals Urine Bacteria Hyaline Casts Granular Casts Respiratory Panel Tello Adenovirus (Rapid PCR) B.pert (TEM-PCR) B.parapertussis DNA PCR C. pneumoniae DNA (PCR) Coronavirus OC43 (PCR) Coronavirus HKU1 (PCR) Coronavirus 229E (PCR) Coronavirus NL63 (PCR) Human Metapneumovir PCR Influenza A (RT-PCR) Influenza Type A (PCR) Influenza B (RT-PCR) Influenza Type B (PCR) M. pneumoniae (PCR) Parainfluenza 1 (PCR) Parainfluenza 2 (PCR) Parainfluenza 3 (PCR) Parainfluenza 4 (PCR) RSV (PCR) RSV RNA Qual (PCR) Entero/Rhino (PCR) SARS-CoV-2 RNA (RT-PCR) 11/03/22 11/03/22 11/03/22 19:29 19:35 20:27 WBC RBC Hgb Hct MCV MCH MCHC RDW Plt Count MPV Immature Gran % (Auto) Neut % (Auto) Lymph % (Auto) [place] % (Auto) Eos % (Auto) Baso % (Auto) Lymph # (Auto) [place] # (Auto) Eos # (Auto) Baso # (Auto) Abs Immat Gran (auto) Absolute Neuts (auto) Absolute Nucleated RBC Nucleated RBC % (auto) Smear Tech's Comments PT INR APTT aPTT Heparin Protocol Sodium 142 Potassium 4.0 Chloride 97 Carbon Dioxide 20 L Anion Gap 29 H BUN 51 H Creatinine 6.07 H* Estim Creat Clear Calc 12.3 Estimated GFR 11 Random Glucose 147 H Lactic Acid 7.0 H* Lactic Acid F/U @ 2Hr Calcium 10.5 H D Total Bilirubin 0.3 Direct Bilirubin < 0.2 AST 32 ALT 19 Alkaline Phosphatase 80 Total Creatine Kinase 874 H Troponin I High Sens B-Natriuretic Peptide Total Protein 9.7 H Albumin 5.9 H Lipase 26 Urine Color Urine Appearance Urine pH Ur Specific [place] Urine Protein Urine Glucose (UA) Urine Ketones Urine Blood Urine Nitrite Ur Leukocyte Esterase Urine RBC Urine WBC Ur Squamous Epith Cells Other Crystals Urine Bacteria Hyaline Casts Granular Casts Respiratory Panel Tello Adenovirus (Rapid PCR) B.pert (TEM-PCR) B.parapertussis DNA PCR C. pneumoniae DNA (PCR) Coronavirus OC43 (PCR) Coronavirus HKU1 (PCR) Coronavirus 229E (PCR) Coronavirus NL63 (PCR) Human Metapneumovir PCR Influenza A (RT-PCR) Influenza Type A (PCR) NEGATIVE Influenza B (RT-PCR) Influenza Type B (PCR) NEGATIVE M. pneumoniae (PCR) Parainfluenza 1 (PCR) Parainfluenza 2 (PCR) Parainfluenza 3 (PCR) Parainfluenza 4 (PCR) RSV (PCR) RSV RNA Qual (PCR) NEGATIVE Entero/Rhino (PCR) SARS-CoV-2 RNA (RT-PCR) NEGATIVE 11/03/22 11/03/22 11/03/22 21:28 21:28 21:28 WBC RBC Hgb Hct MCV MCH MCHC RDW Plt Count MPV Immature Gran % (Auto) Neut % (Auto) Lymph % (Auto) [place] % (Auto) Eos % (Auto) Baso % (Auto) Lymph # (Auto) [place] # (Auto) Eos # (Auto) Baso # (Auto) Abs Immat Gran (auto) Absolute Neuts (auto) Absolute Nucleated RBC Nucleated RBC % (auto) Smear Tech's Comments PT INR APTT aPTT Heparin Protocol Sodium 144 Potassium 4.0 Chloride 104 Carbon Dioxide 20 L Anion Gap 24 H BUN 50 H Creatinine 5.65 H* Estim Creat Clear Calc 13.3 Estimated GFR 12 Random Glucose 91 Lactic Acid 3.4 H* Lactic Acid F/U @ 2Hr Calcium 8.6 D Total Bilirubin Direct Bilirubin AST ALT Alkaline Phosphatase Total Creatine Kinase Troponin I High Sens 1810.1 H* B-Natriuretic Peptide Total Protein Albumin Lipase Urine Color Urine Appearance Urine pH Ur Specific [place] Urine Protein Urine Glucose (UA) Urine Ketones Urine Blood Urine Nitrite Ur Leukocyte Esterase Urine RBC Urine WBC Ur Squamous Epith Cells Other Crystals Urine Bacteria Hyaline Casts Granular Casts Respiratory Panel Tello Adenovirus (Rapid PCR) B.pert (TEM-PCR) B.parapertussis DNA PCR C. pneumoniae DNA (PCR) Coronavirus OC43 (PCR) Coronavirus HKU1 (PCR) Coronavirus 229E (PCR) Coronavirus NL63 (PCR) Human Metapneumovir PCR Influenza A (RT-PCR) Influenza Type A (PCR) Influenza B (RT-PCR) Influenza Type B (PCR) M. pneumoniae (PCR) Parainfluenza 1 (PCR) Parainfluenza 2 (PCR) Parainfluenza 3 (PCR) Parainfluenza 4 (PCR) RSV (PCR) RSV RNA Qual (PCR) Entero/Rhino (PCR) SARS-CoV-2 RNA (RT-PCR) 11/03/22 11/03/22 11/03/22 22:43 22:43 23:32 WBC 24.7 H RBC 4.41 L D Hgb 13.3 L D Hct 38.8 L D MCV 88.0 MCH 30.2 MCHC 34.3 RDW 13.9 Plt Count 261 D MPV 10.3 Immature Gran % (Auto) Neut % (Auto) Lymph % (Auto) [place] % (Auto) Eos % (Auto) Baso % (Auto) Lymph # (Auto) [place] # (Auto) Eos # (Auto) Baso # (Auto) Abs Immat Gran (auto) Absolute Neuts (auto) Absolute Nucleated RBC 0.000 Nucleated RBC % (auto) 0.0 Smear Tech's Comments PT 12.3 INR 1.1 APTT aPTT Heparin Protocol 31.0 L Sodium Potassium Chloride Carbon Dioxide Anion Gap BUN Creatinine Estim Creat Clear Calc Estimated GFR Random Glucose Lactic Acid Lactic Acid F/U @ 2Hr Calcium Total Bilirubin Direct Bilirubin AST ALT Alkaline Phosphatase Total Creatine Kinase Troponin I High Sens B-Natriuretic Peptide Total Protein Albumin Lipase Urine Color Yellow Urine Appearance Cloudy Urine pH 5.5 Ur Specific [place] >= 1.030 H Urine Protein 100 (2+) H Urine Glucose (UA) Negative Urine Ketones 15 Urine Blood Large (3+) H Urine Nitrite Negative Ur Leukocyte Esterase Negative Urine RBC >20 H Urine WBC 6-10 H Ur Squamous Epith Cells 3-5 Other Crystals Present Urine Bacteria None Seen Hyaline Casts >20 Granular Casts Present Respiratory Panel Tello Adenovirus (Rapid PCR) B.pert (TEM-PCR) B.parapertussis DNA PCR C. pneumoniae DNA (PCR) Coronavirus OC43 (PCR) Coronavirus HKU1 (PCR) Coronavirus 229E (PCR) Coronavirus NL63 (PCR) Human Metapneumovir PCR Influenza A (RT-PCR) Influenza Type A (PCR) Influenza B (RT-PCR) Influenza Type B (PCR) M. pneumoniae (PCR) Parainfluenza 1 (PCR) Parainfluenza 2 (PCR) Parainfluenza 3 (PCR) Parainfluenza 4 (PCR) RSV (PCR) RSV RNA Qual (PCR) Entero/Rhino (PCR) SARS-CoV-2 RNA (RT-PCR) 11/04/22 11/04/22 11/04/22 02:30 05:28 05:28 WBC 27.6 H RBC 4.37 L Hgb 13.0 L Hct 37.7 L MCV 86.3 MCH 29.7 MCHC 34.5 RDW 13.8 Plt Count 284 MPV 11.4 Immature Gran % (Auto) Neut % (Auto) Lymph % (Auto) [place] % (Auto) Eos % (Auto) Baso % (Auto) Lymph # (Auto) [place] # (Auto) Eos # (Auto) Baso # (Auto) Abs Immat Gran (auto) Absolute Neuts (auto) Absolute Nucleated RBC 0.000 Nucleated RBC % (auto) 0.0 Smear Tech's Comments PT 11.4 INR 1.0 APTT 32.1 aPTT Heparin Protocol Sodium Potassium Chloride Carbon Dioxide Anion Gap BUN Creatinine Estim Creat Clear Calc Estimated GFR Random Glucose Lactic Acid Lactic Acid F/U @ 2Hr 0.9 Calcium Total Bilirubin Direct Bilirubin AST ALT Alkaline Phosphatase Total Creatine Kinase Troponin I High Sens B-Natriuretic Peptide Total Protein Albumin Lipase Urine Color Urine Appearance Urine pH Ur Specific [place] Urine Protein Urine Glucose (UA) Urine Ketones Urine Blood Urine Nitrite Ur Leukocyte Esterase Urine RBC Urine WBC Ur Squamous Epith Cells Other Crystals Urine Bacteria Hyaline Casts Granular Casts Respiratory Panel Tello Adenovirus (Rapid PCR) B.pert (TEM-PCR) B.parapertussis DNA PCR C. pneumoniae DNA (PCR) Coronavirus OC43 (PCR) Coronavirus HKU1 (PCR) Coronavirus 229E (PCR) Coronavirus NL63 (PCR) Human Metapneumovir PCR Influenza A (RT-PCR) Influenza Type A (PCR) Influenza B (RT-PCR) Influenza Type B (PCR) M. pneumoniae (PCR) Parainfluenza 1 (PCR) Parainfluenza 2 (PCR) Parainfluenza 3 (PCR) Parainfluenza 4 (PCR) RSV (PCR) RSV RNA Qual (PCR) Entero/Rhino (PCR) SARS-CoV-2 RNA (RT-PCR) 11/04/22 11/04/22 05:28 07:22 WBC RBC Hgb Hct MCV MCH MCHC RDW Plt Count MPV Immature Gran % (Auto) Neut % (Auto) Lymph % (Auto) [place] % (Auto) Eos % (Auto) Baso % (Auto) Lymph # (Auto) [place] # (Auto) Eos # (Auto) Baso # (Auto) Abs Immat Gran (auto) Absolute Neuts (auto) Absolute Nucleated RBC Nucleated RBC % (auto) Smear Tech's Comments PT INR APTT aPTT Heparin Protocol Sodium 142 Potassium 3.6 Chloride 108 Carbon Dioxide 21 L Anion Gap 17 BUN 45 H Creatinine 3.69 H Estim Creat Clear Calc 22.4 Estimated GFR 19 Random Glucose 90 Lactic Acid Lactic Acid F/U @ 2Hr Calcium 8.9 Total Bilirubin 0.3 Direct Bilirubin AST 37 ALT 16 Alkaline Phosphatase 66 Total Creatine Kinase Troponin I High Sens B-Natriuretic Peptide Total Protein 6.9 Albumin 4.3 Lipase Urine Color Urine Appearance Urine pH Ur Specific [place] Urine Protein Urine Glucose (UA) Urine Ketones Urine Blood Urine Nitrite Ur Leukocyte Esterase Urine RBC Urine WBC Ur Squamous Epith Cells Other Crystals Urine Bacteria Hyaline Casts Granular Casts Respiratory Panel Tello See Note Adenovirus (Rapid PCR) Not Detected B.pert (TEM-PCR) Not Detected B.parapertussis DNA PCR Not Detected C. pneumoniae DNA (PCR) Not Detected Coronavirus OC43 (PCR) Not Detected Coronavirus HKU1 (PCR) Not Detected Coronavirus 229E (PCR) Not Detected Coronavirus NL63 (PCR) Not Detected Human Metapneumovir PCR Not Detected Influenza A (RT-PCR) Not Detected Influenza Type A (PCR) Influenza B (RT-PCR) Not Detected Influenza Type B (PCR) M. pneumoniae (PCR) Not Detected Parainfluenza 1 (PCR) Not Detected Parainfluenza 2 (PCR) Not Detected Parainfluenza 3 (PCR) Not Detected Parainfluenza 4 (PCR) Not Detected RSV (PCR) Not Detected RSV RNA Qual (PCR) Entero/Rhino (PCR) Not Detected SARS-CoV-2 RNA (RT-PCR) Not Detected Imaging Radiologist's impression: Impressions Chest X-Ray 11/03/22 20:05 IMPRESSION: Unremarkable examination. Assessment and Plan (1) Elevated troponin: Status: Acute (2) Gastroenteritis: Status: Acute Plan 32-year-old gentleman who is presenting with positive troponin in the setting of dehydration from potential gastroenteritis. He has HIV and has been taking anti-retroviral therapy. I think his presentation is due to kidney injury from dehydration. He has elevated troponin levels in this setting. He is waiting to get V/Q scan. If the V/Q scan is normal then I think happen can be discontinued. We will do an echocardiogram to rule out any wall motion abnormality. He has epigastric pain and is complaining of hematemesis and I think GI should be involved. Continue hydration and monitor creatinine closely. If there is any concerns on echocardiography we will relate this to the medical team and give specific recommendation for that. For now stop heparin drip. Thank you for allowing me to participate in the care of your patient. Please feel free to contact me if you have any questions. Time Spent With Patient Time: Total time managing care of this patient today ____ minutes. Procedures Date of Service Date of Service: 11/04/22
--- NOTE | 2022-11-04 11:48 | PC.NURSE ---
Heparin held per cariology
--- NOTE | 2022-11-04 12:05 | PC.NURSE ---
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
[2022-11-04 12:42] LABS: PTT Heparin Drip 77.1 SEC (53-77.9)
--- NOTE | 2022-11-04 13:00 | CA_ITS ---
Transthoracic Echocardiogram Patient (Last, First, Middle): Darvin Loewry G Gender: Male Date of : 1990 Age: 32 Procedure Date: 11/04/2022 Procedure Type: Transthoracic Echocardiogram Location: ER Height: 170.18 cm Weight: 55.34 kg BSA: 1.64 m2 Heart Rate: bpm BP: 117 / 73 mmHg Fender Finisher: HANY Valdes MD: Gary Hull MD Symptoms: NSTEMI Study Quality: Fair Conclusions: - Normal left ventricular size, thickness, and systolic function. The visually estimated ejection fraction is between 55-60%. - Regional wall motion abnormalities can not be excluded due to suboptimal endocardial definition. Specifically cannot exclude inferior wall hypokinesis in some views. - Normal right ventricular cavity size and systolic function. Findings Left Ventricle Normal left ventricular size, thickness, and systolic function. The visually estimated ejection fraction is between 55-60%. Regional wall motion abnormalities can not be excluded due to suboptimal endocardial definition. Diastolic function is normal for age. Right Ventricle Normal right ventricular cavity size and systolic function. Atria Both atria are normal in size. Aortic Valve Normal aortic valve structure and function. There is no aortic valve stenosis. There is no aortic valve regurgitation. Mitral Valve Normal mitral valve structure and function. There is no mitral valve regurgitation. There is no mitral valve stenosis. Pulmonic Valve Normal pulmonic valve structure and function. Tricuspid Valve Normal tricuspid valve structure and function. There is no tricuspid valve regurgitation. Tricuspid regurgitation envelope is inadequate for calculation of right ventricular systolic pressure. Normal right atrial pressure. Great Vessels All visible segments of the aorta are normal in size. The visualized portions of the pulmonary artery and branches are normal. Venous The inferior vena cava is normal in size and collapses greater than 50% with inspiration. Pericardium/Pleural There is no evidence of pericardial effusion. Prior Study Comparison No prior study available for comparison. Measurements 2D Linear Measurements IVSd: 0.76 0.6-0.9/0.6-1.0 cm LVIDd: 4.64 3.9-5.3/4.2-5.9 cm LVIDd Index: 2.83 2.4-3.2/2.2-3.1 cm/m2 LVIDs: 3.38 2.0-3.6 cm LVPWd: 0.70 0.7-1.1 cm LA Diam: 2.70 2.7-3.8/3.0-4.0 cm LAIDs Index: 1.65 1.5-2.3 cm/m2 LV Mass: 132.05 67-162/88-224 g LV Mass Index: 80.52 43-95/49-115 g/m2 LVOT Diam: 2.20 3.0+(-)1.3 cm 2D Systolic Function EF 4C: 66.90 >55% EF 2C: 54.60 >55% EF BiP: 61.10 >55% Mitral Valve MV Pk E: 0.65 MV PK A: 0.53 MV Decel Time: 234.00 E/A: 1.20 E'Lateral: 10.80 E'Medial: 12.00 E/E' Med: 5.40 E/E' Lat: 6.00 PHT: 69.00 MVA PHT: 3.19 Decel Jennings: 2.78 Aortic Valve AoV Pk Hunter: 1.24 AoV Mn Hunter: 0.92 AoV VTI: 0.24 AoV Pk Grad: 6.00 Aov Mn Grad: 4.00 MELVIN Cont.VTI: 2.69 LVOT LVOT Pk [place]: 1.00 LVOT Mn Hunter: 0.71 LVOT VTI: 0.17 LVOT Pk Grad: 4.00 LVOT Mn Grad: 2.00 LVOT Diam: 2.20 LVOT Area: 3.80 Diastolic Function MV Pk E: 0.65 MV Pk A: 0.53 E/A: 1.20 E'Medial: 12.00 E/E' Med: 5.40 E' Laterial: 10.80 E/E' Lat: 6.00 Right Ventricle TAPSE (mm): 21.60 TVS' Hunter: 13.70 Tricuspid Valve RA Press: 3.00 Great Vessels Aorta Sinus of Valsalva: 3.30 2.0-3.5 cm Ao Asc: 3.30 2.1-3.4 cm Pulmonary Valve PV Pk Hunter: 0.88 Peak PV Grad: 3.00 Updated in Other Vendor System with Status of Final Gary Hull MD electronically signed on 11/04/2022 7:08:43 PM with status of Final
--- NOTE | 2022-11-04 13:12 | PC.NURSE ---
Inpatient provider messaged inquiring about heparin drip will await orders
[2022-11-04] MEDS: Pantoprazole Sodium 40 MG/10 ML VIAL IVPUSH (13:58)
--- NOTE | 2022-11-04 16:16 | PC.NURSE ---
Spoke with overflow RN. Pt does not currently have heparin drip running. drip dc'd. Drip stopped in computer
--- NOTE | 2022-11-04 17:03 | HO.PM.IMPN ---
Subjective Subjective Date of Service: 11/04/22 Interval History: seen and examined this morning Follow-up for LYSSA, vomiting, elevated troponin Vomiting resolved, feeling much better today no chest pain or shortness of breath at this time Review of Systems Review of Systems: Yes all other systems are reviewed and are negative Constitutional Constitutional: Denies chills and Denies fever(s) Cardiovascular Cardiovascular: Denies chest pain, Denies palpitations and Denies dyspnea Respiratory Respiratory: Denies cough and Denies dyspnea Gastrointestinal Gastrointestinal: Denies abdominal pain, Denies nausea and Denies vomiting Endocrine Endocrine: Denies palpitations Physical Exam Vital Signs: Vital Signs: Last Vital Signs Temp 99.3 F 11/04/22 09:43 Pulse 96 11/04/22 09:43 Resp 15 11/04/22 09:43 BP 117/73 11/04/22 09:43 Pulse Ox 96 11/04/22 09:43 O2 Del Method 11/04/22 09:43 BMI result Body Mass Index 19.2 Const: General: cooperative, comfortable, alert and awake Nutritional Appearance: average body habitus Orientation/consciousness: patient oriented x3 Resp: Effort & Inspection: normal respiratory effort and able to speak in complete sentences Cardio: Rate: regular rate Heart sounds: S1 normal heart sound present and S2 normal heart sound present GI: Inspection: No distended Palpation (GI): Soft to palpation and nontender Neuro: General: patient oriented x3 and CN's II-XI intact bilaterally Extrem: General: Yes no pedal edema Objective Data Active Medications Acetaminophen (Acetaminophen 325 Mg Tablet) 650 mg PO Q6H PRN PRN Reason: Pain, Mild (Pain Scale 1-3) Dolutegravir Sodium (Dolutegravir Sodium 50 Mg Tablet) 50 mg PO DAILY [facility] Lactated Ringer's (Lr) 1,000 mls @ 150 mls/hr IVCONT .Q6H40M [facility] Last Admin: 11/04/22 13:58 Dose: 150 mls/hr Documented By: RENETTA Lamivudine (Lamivudine 150 Mg Tablet) 150 mg PO DAILY [facility] Ondansetron HCl (Ondansetron Hcl 4 Mg/2 Ml Vial) 4 mg IVPUSH Q8H PRN PRN Reason: Nausea and Vomiting Last Admin: 11/04/22 07:57 Dose: 4 mg Documented By: RENETTA Pantoprazole Sodium (Pantoprazole Sodium 40 Mg/10 Ml Vial) 40 mg IVPUSH DAILY@0630 [facility] Last Admin: 11/04/22 13:58 Dose: 40 mg Documented By: RENETTA Sodium Chloride (0.9 % Sodium Chloride Flush 3 Ml Syringe) 3 ml IVFLUSH QSHIFT [facility] Last Admin: 11/04/22 16:17 Dose: Not Given Documented By: JIM Non-Admin Reason: IV Running Labs 11/04/22 05:28 11/04/22 05:28 Labs: Laboratory Results - last 24 hr 11/03/22 11/03/22 11/03/22 19:29 19:29 19:29 MCV 86.1 MCH 30.0 MCHC 34.9 RDW 14.0 Plt Count 366 D MPV 11.0 Immature Gran % (Auto) 2.1 H Neut % (Auto) 87.5 H Lymph % (Auto) 4.2 L [place] % (Auto) 5.6 Eos % (Auto) 0.3 Baso % (Auto) 0.3 Lymph # (Auto) 1.1 L [place] # (Auto) 1.5 H Eos # (Auto) 0.1 Baso # (Auto) 0.1 Abs Immat Gran (auto) 0.55 H Absolute Neuts (auto) 23.4 H Absolute Nucleated RBC 0.000 Nucleated RBC % (auto) 0.0 Smear Tech's Comments VERIFIED PT INR APTT aPTT Heparin Protocol Anion Gap Estim Creat Clear Calc Estimated GFR Random Glucose Lactic Acid Lactic Acid F/U @ 2Hr Calcium Total Bilirubin Direct Bilirubin AST ALT Alkaline Phosphatase Total Creatine Kinase Troponin I High Sens 2717.3 H* D B-Natriuretic Peptide 121 H Total Protein Albumin Lipase Urine Color Urine Appearance Urine pH Ur Specific [place] Urine Protein Urine Glucose (UA) Urine Ketones Urine Blood Urine Nitrite Ur Leukocyte Esterase Urine RBC Urine WBC Ur Squamous Epith Cells Other Crystals Urine Bacteria Hyaline Casts Granular Casts Respiratory Panel Tello Adenovirus (Rapid PCR) B.pert (TEM-PCR) B.parapertussis DNA PCR C. pneumoniae DNA (PCR) Coronavirus OC43 (PCR) Coronavirus HKU1 (PCR) Coronavirus 229E (PCR) Coronavirus NL63 (PCR) Human Metapneumovir PCR Influenza A (RT-PCR) Influenza Type A (PCR) Influenza B (RT-PCR) Influenza Type B (PCR) M. pneumoniae (PCR) Parainfluenza 1 (PCR) Parainfluenza 2 (PCR) Parainfluenza 3 (PCR) Parainfluenza 4 (PCR) RSV (PCR) RSV RNA Qual (PCR) Entero/Rhino (PCR) SARS-CoV-2 RNA (RT-PCR) 11/03/22 11/03/22 11/03/22 19:29 19:35 20:27 MCV MCH MCHC RDW Plt Count MPV Immature Gran % (Auto) Neut % (Auto) Lymph % (Auto) [place] % (Auto) Eos % (Auto) Baso % (Auto) Lymph # (Auto) [place] # (Auto) Eos # (Auto) Baso # (Auto) Abs Immat Gran (auto) Absolute Neuts (auto) Absolute Nucleated RBC Nucleated RBC % (auto) Smear Tech's Comments PT INR APTT aPTT Heparin Protocol Anion Gap 29 H Estim Creat Clear Calc 12.3 Estimated GFR 11 Random Glucose 147 H Lactic Acid 7.0 H* Lactic Acid F/U @ 2Hr Calcium 10.5 H D Total Bilirubin 0.3 Direct Bilirubin < 0.2 AST 32 ALT 19 Alkaline Phosphatase 80 Total Creatine Kinase 874 H Troponin I High Sens B-Natriuretic Peptide Total Protein 9.7 H Albumin 5.9 H Lipase 26 Urine Color Urine Appearance Urine pH Ur Specific [place] Urine Protein Urine Glucose (UA) Urine Ketones Urine Blood Urine Nitrite Ur Leukocyte Esterase Urine RBC Urine WBC Ur Squamous Epith Cells Other Crystals Urine Bacteria Hyaline Casts Granular Casts Respiratory Panel Tello Adenovirus (Rapid PCR) B.pert (TEM-PCR) B.parapertussis DNA PCR C. pneumoniae DNA (PCR) Coronavirus OC43 (PCR) Coronavirus HKU1 (PCR) Coronavirus 229E (PCR) Coronavirus NL63 (PCR) Human Metapneumovir PCR Influenza A (RT-PCR) Influenza Type A (PCR) NEGATIVE Influenza B (RT-PCR) Influenza Type B (PCR) NEGATIVE M. pneumoniae (PCR) Parainfluenza 1 (PCR) Parainfluenza 2 (PCR) Parainfluenza 3 (PCR) Parainfluenza 4 (PCR) RSV (PCR) RSV RNA Qual (PCR) NEGATIVE Entero/Rhino (PCR) SARS-CoV-2 RNA (RT-PCR) NEGATIVE 11/03/22 11/03/22 11/03/22 21:28 21:28 21:28 MCV MCH MCHC RDW Plt Count MPV Immature Gran % (Auto) Neut % (Auto) Lymph % (Auto) [place] % (Auto) Eos % (Auto) Baso % (Auto) Lymph # (Auto) [place] # (Auto) Eos # (Auto) Baso # (Auto) Abs Immat Gran (auto) Absolute Neuts (auto) Absolute Nucleated RBC Nucleated RBC % (auto) Smear Tech's Comments PT INR APTT aPTT Heparin Protocol Anion Gap 24 H Estim Creat Clear Calc 13.3 Estimated GFR 12 Random Glucose 91 Lactic Acid 3.4 H* Lactic Acid F/U @ 2Hr Calcium 8.6 D Total Bilirubin Direct Bilirubin AST ALT Alkaline Phosphatase Total Creatine Kinase Troponin I High Sens 1810.1 H* B-Natriuretic Peptide Total Protein Albumin Lipase Urine Color Urine Appearance Urine pH Ur Specific [place] Urine Protein Urine Glucose (UA) Urine Ketones Urine Blood Urine Nitrite Ur Leukocyte Esterase Urine RBC Urine WBC Ur Squamous Epith Cells Other Crystals Urine Bacteria Hyaline Casts Granular Casts Respiratory Panel Tello Adenovirus (Rapid PCR) B.pert (TEM-PCR) B.parapertussis DNA PCR C. pneumoniae DNA (PCR) Coronavirus OC43 (PCR) Coronavirus HKU1 (PCR) Coronavirus 229E (PCR) Coronavirus NL63 (PCR) Human Metapneumovir PCR Influenza A (RT-PCR) Influenza Type A (PCR) Influenza B (RT-PCR) Influenza Type B (PCR) M. pneumoniae (PCR) Parainfluenza 1 (PCR) Parainfluenza 2 (PCR) Parainfluenza 3 (PCR) Parainfluenza 4 (PCR) RSV (PCR) RSV RNA Qual (PCR) Entero/Rhino (PCR) SARS-CoV-2 RNA (RT-PCR) 11/03/22 11/03/22 11/03/22 22:43 22:43 23:32 MCV 88.0 MCH 30.2 MCHC 34.3 RDW 13.9 Plt Count 261 D MPV 10.3 Immature Gran % (Auto) Neut % (Auto) Lymph % (Auto) [place] % (Auto) Eos % (Auto) Baso % (Auto) Lymph # (Auto) [place] # (Auto) Eos # (Auto) Baso # (Auto) Abs Immat Gran (auto) Absolute Neuts (auto) Absolute Nucleated RBC 0.000 Nucleated RBC % (auto) 0.0 Smear Tech's Comments PT 12.3 INR 1.1 APTT aPTT Heparin Protocol 31.0 L Anion Gap Estim Creat Clear Calc Estimated GFR Random Glucose Lactic Acid Lactic Acid F/U @ 2Hr Calcium Total Bilirubin Direct Bilirubin AST ALT Alkaline Phosphatase Total Creatine Kinase Troponin I High Sens B-Natriuretic Peptide Total Protein Albumin Lipase Urine Color Yellow Urine Appearance Cloudy Urine pH 5.5 Ur Specific [place] >= 1.030 H Urine Protein 100 (2+) H Urine Glucose (UA) Negative Urine Ketones 15 Urine Blood Large (3+) H Urine Nitrite Negative Ur Leukocyte Esterase Negative Urine RBC >20 H Urine WBC 6-10 H Ur Squamous Epith Cells 3-5 Other Crystals Present Urine Bacteria None Seen Hyaline Casts >20 Granular Casts Present Respiratory Panel Tello Adenovirus (Rapid PCR) B.pert (TEM-PCR) B.parapertussis DNA PCR C. pneumoniae DNA (PCR) Coronavirus OC43 (PCR) Coronavirus HKU1 (PCR) Coronavirus 229E (PCR) Coronavirus NL63 (PCR) Human Metapneumovir PCR Influenza A (RT-PCR) Influenza Type A (PCR) Influenza B (RT-PCR) Influenza Type B (PCR) M. pneumoniae (PCR) Parainfluenza 1 (PCR) Parainfluenza 2 (PCR) Parainfluenza 3 (PCR) Parainfluenza 4 (PCR) RSV (PCR) RSV RNA Qual (PCR) Entero/Rhino (PCR) SARS-CoV-2 RNA (RT-PCR) 11/04/22 11/04/22 11/04/22 02:30 05:28 05:28 MCV 86.3 MCH 29.7 MCHC 34.5 RDW 13.8 Plt Count 284 MPV 11.4 Immature Gran % (Auto) Neut % (Auto) Lymph % (Auto) [place] % (Auto) Eos % (Auto) Baso % (Auto) Lymph # (Auto) [place] # (Auto) Eos # (Auto) Baso # (Auto) Abs Immat Gran (auto) Absolute Neuts (auto) Absolute Nucleated RBC 0.000 Nucleated RBC % (auto) 0.0 Smear Tech's Comments PT 11.4 INR 1.0 APTT 32.1 aPTT Heparin Protocol Anion Gap Estim Creat Clear Calc Estimated GFR Random Glucose Lactic Acid Lactic Acid F/U @ 2Hr 0.9 Calcium Total Bilirubin Direct Bilirubin AST ALT Alkaline Phosphatase Total Creatine Kinase Troponin I High Sens B-Natriuretic Peptide Total Protein Albumin Lipase Urine Color Urine Appearance Urine pH Ur Specific [place] Urine Protein Urine Glucose (UA) Urine Ketones Urine Blood Urine Nitrite Ur Leukocyte Esterase Urine RBC Urine WBC Ur Squamous Epith Cells Other Crystals Urine Bacteria Hyaline Casts Granular Casts Respiratory Panel Tello Adenovirus (Rapid PCR) B.pert (TEM-PCR) B.parapertussis DNA PCR C. pneumoniae DNA (PCR) Coronavirus OC43 (PCR) Coronavirus HKU1 (PCR) Coronavirus 229E (PCR) Coronavirus NL63 (PCR) Human Metapneumovir PCR Influenza A (RT-PCR) Influenza Type A (PCR) Influenza B (RT-PCR) Influenza Type B (PCR) M. pneumoniae (PCR) Parainfluenza 1 (PCR) Parainfluenza 2 (PCR) Parainfluenza 3 (PCR) Parainfluenza 4 (PCR) RSV (PCR) RSV RNA Qual (PCR) Entero/Rhino (PCR) SARS-CoV-2 RNA (RT-PCR) 11/04/22 11/04/22 11/04/22 05:28 07:22 12:17 MCV MCH MCHC RDW Plt Count MPV Immature Gran % (Auto) Neut % (Auto) Lymph % (Auto) [place] % (Auto) Eos % (Auto) Baso % (Auto) Lymph # (Auto) [place] # (Auto) Eos # (Auto) Baso # (Auto) Abs Immat Gran (auto) Absolute Neuts (auto) Absolute Nucleated RBC Nucleated RBC % (auto) Smear Tech's Comments PT INR APTT aPTT Heparin Protocol 77.1 D Anion Gap 17 Estim Creat Clear Calc 22.4 Estimated GFR 19 Random Glucose 90 Lactic Acid Lactic Acid F/U @ 2Hr Calcium 8.9 Total Bilirubin 0.3 Direct Bilirubin AST 37 ALT 16 Alkaline Phosphatase 66 Total Creatine Kinase Troponin I High Sens B-Natriuretic Peptide Total Protein 6.9 Albumin 4.3 Lipase Urine Color Urine Appearance Urine pH Ur Specific [place] Urine Protein Urine Glucose (UA) Urine Ketones Urine Blood Urine Nitrite Ur Leukocyte Esterase Urine RBC Urine WBC Ur Squamous Epith Cells Other Crystals Urine Bacteria Hyaline Casts Granular Casts Respiratory Panel Tello See Note Adenovirus (Rapid PCR) Not Detected B.pert (TEM-PCR) Not Detected B.parapertussis DNA PCR Not Detected C. pneumoniae DNA (PCR) Not Detected Coronavirus OC43 (PCR) Not Detected Coronavirus HKU1 (PCR) Not Detected Coronavirus 229E (PCR) Not Detected Coronavirus NL63 (PCR) Not Detected Human Metapneumovir PCR Not Detected Influenza A (RT-PCR) Not Detected Influenza Type A (PCR) Influenza B (RT-PCR) Not Detected Influenza Type B (PCR) M. pneumoniae (PCR) Not Detected Parainfluenza 1 (PCR) Not Detected Parainfluenza 2 (PCR) Not Detected Parainfluenza 3 (PCR) Not Detected Parainfluenza 4 (PCR) Not Detected RSV (PCR) Not Detected RSV RNA Qual (PCR) Entero/Rhino (PCR) Not Detected SARS-CoV-2 RNA (RT-PCR) Not Detected Microbiology Microbiology Results: Microbiology 11/03/22 19:40 Blood Culture - Final Blood - Venous 11/03/22 19:40 Blood Culture - Final Blood - Venous Assessment and Plan (1) Elevated troponin: Status: Acute (2) Gastroenteritis: Status: Acute Plan 32-year-old male with past medical history of HIV compliant with his HIV medications presents to the hospital with complaints of dehydration, and upper respiratory symptoms as well as nausea vomiting for the past 2 days. # acute Nausea and vomiting resolved - likely secondary to gastroenteritis - will treat with antiemetics, IV fluids - monitor symptoms ? episode of hematemsis, not witnessed by nurse or any provider. no further episodes noted H/H stable IV PPI if has further episodes will consider GI consult at that time PE study negative, will DC heparin drip # LYSSA - likely secondary to dehydration creatinine down from 3.07 to 3.69 can not IV fluids - follow BMP # lactic acidosis - likely secondary to dehydration resolved with IV fluid # elevated CPK - secondary to above - IV fluids - follow CPK level # elevated troponin - possibly type 2 in the setting of dehydration/renal failure - no EKG changes suggestive of ACS - chest pain not typical of cardiac origin - perfusion scan negative for PE - seen by Cardiology -echo pending to assess for wall motion # HIV - continue formulary equivalent for home medication DVT ppx: mechanical devices attending-Dr. Castellanos Time Spent With Patient Time: Total time managing care of this patient today ____ minutes. Quality Stroke Does the patient have a stroke diagnosis?: No VTE Prior VTE?: No VTE Risk Level:: Medical - moderate - high VTE Device Contraindication: Treatment Not Indicated VTE Drug Contraindication: N/A - Med Ordered
[2022-11-04 18:28] LABS: PTT Heparin Drip 25.5 SEC (53-77.9)
[2022-11-04 19:48] VITALS: BP 120/80; PULSE 86; RESP 16; TEMP 36.9; O2SAT 94
[2022-11-04 23:53] VITALS: BP 102/55; PULSE 97; RESP 14; TEMP 37.2; O2SAT 96
[2022-11-05] MEDS: Lactated Ringers 1,000 ML 150 ML IVCONT ×2 (02:46→09:19)
[2022-11-05] MEDS: Pantoprazole Sodium 40 MG/10 ML VIAL IVPUSH (04:53)
[2022-11-05 06:34] LABS: Hemoglobin 11.3 g/dl (14.0-18.0); Mean Corpuscular HGB Conc 34.2 g/dl (31.0-36.0); Mean Corpuscular Hemoglobin 30.5 pg (27.0-33.0); Mean Corpuscular Volume 88.9 fL (80.0-98.0); Mean Platelet Volume 10.7 fL (9.4-12.4); Platelet Count 224 X10*3/uL (160-400); Red Blood Count 3.71 X10*6/uL (4.60-5.80); Red Cell Distribution Width 14.1 % (11.0-16.0); White Blood Count 13.2 X10*3/uL (4.8-10.8)
[2022-11-05 06:55] LABS: Anion Gap 12 (12-20); Blood Urea Nitrogen 25 mg/dL (9-16); Calcium 8.7 mg/dL (8.4-10.2); Carbon Dioxide 24 mmol/L (22-29); Chloride 109 mmol/L (96-108); Creatinine Clr Calc Pharmacy 70.1; Estimated Glomerular Filt Rate > 60; Glucose Random 106 mg/dL (60-115); Potassium 4.2 mmol/L (3.3-5.1); Sodium 141 mmol/L (135-145)
[2022-11-05 07:49] VITALS: BP 114/73; PULSE 72; RESP 17; TEMP 37.5; O2SAT 100
--- NOTE | 2022-11-05 08:23 | P.CNGI_ITS ---
History of Present Illness Data of Consult Service Date: 11/05/22 Requesting physician: Virginie Henry Primary Care Provider: Unknown Physician HPI Reason for consult: abdominal pain 32-year-old male with past medical history of HIV, GERD who I am seeing for assessment for abdominal pain. He had 2 d of runny nose, nasal congestion, dry cough and poor appetite with malaise. He also noted worsening acute on chronic epigastric pain which is like a bruise sensation. He has had epigastric pain for few yeas most days but this was worse than normal for last 4 days. The pain is worse with food and better with hot water. He has also had chronic nausea and vomiting for last few years u sually of undigested food several hours after ingestion, He also noted on and off black stools. Of note he has also noted left flank discomfort. He admits to heartburn but no dysphagia. Never really tried PPI. Patient reports no fever has chills, reports compliance with his HIV medications ? Denies urinary symptoms and no lower extremity edema.? TESTS: Labs: WBC count of 24.7, hemoglobin of 13.3, hematocrit 38.3, BUN of 51 with a creatinine of 6.07 now 1.18, lactic acid of 7.0, improved after IV fluids, troponin of 2717, CPK of 874, BNP of 121, troponin dropped to? 18 10 on repeat, COVID-19 RSV as well as influenza negative, lipase neg, LFT nml UA with large blood with 2+ protein ?EKG shows? sinus tachycardia with a heart rate of 102, no significant abnormality in the T-wave or ST segment suggestive of ACS Imaging: Chest x-ray is? unremarkable ECHO with no acute changes. CT A/P; no acute changes Review of Systems Review of Systems: Constitutional : + Weight loss, No Fever, No Chills ENT/Mouth : No sore throat, + Rhinorrhea Eyes: No Swelling, No Redness Cardiovascular : No Chest Pain, No SOB, No Edema Respiratory : + Cough, No Sputum, No Wheezing Gastrointestinal : see HPI Genitourinary : NO Dysuria, No Urinary Frequency, No Hematuria, No Urgency Musculoskeletal : No joint pain, No Myalgias, No Joint Swelling Skin : No Skin Lesions, No rash Neuro : No Weakness, No Numbness, No Dizziness, No Headache Psych : No Anxiety/Panic, No Depression Heme/Lymph: No Bruising, No Lymphadenopathy Endocrine : No Polyuria, No Polydipsia All other systems reviewed and are negative. [facility] Past Medical History Medical History GERD (gastroesophageal reflux disease) HIV (human immunodeficiency virus infection) Family History Family History Mother HIV (human immunodeficiency virus infection) Social History Social History Household Members: None Housing: Apartment Do you presently have visiting nurse or other home services: No Alcohol intake: never Patient Tobacco Use Status: Former Tobacco user Tobacco use type: Cigarette Cigarettes Per Day: 0.5 e-Cigarette/Vaping Use: Never Used Second Hand Smoke Exposure: Yes Substance Use Type: Marijuana Advance Directives Date on File: 09/28/22 service: No Current occupational status: employed Meds Allergies Allergy/AdvReac Type Severity Reaction Status Date / Time No Known Allergies Allergy Verified 09/27/22 11:58 Active Medications: Current Medications Acetaminophen (Acetaminophen 325 Mg Tablet) 650 mg PO Q6H PRN PRN Reason: Pain, Mild (Pain Scale 1-3) Dolutegravir Sodium (Dolutegravir Sodium 50 Mg Tablet) 50 mg PO DAILY [facility] Lactated Ringer's (Lr) 1,000 mls @ 150 mls/hr IVCONT .Q6H40M [facility] Last Admin: 11/05/22 02:46 Dose: 150 mls/hr Lamivudine (Lamivudine 150 Mg Tablet) 150 mg PO DAILY [facility] Ondansetron HCl (Ondansetron Hcl 4 Mg/2 Ml Vial) 4 mg IVPUSH Q8H PRN PRN Reason: Nausea and Vomiting Last Admin: 11/04/22 18:43 Dose: 4 mg Pantoprazole Sodium (Pantoprazole Sodium 40 Mg/10 Ml Vial) 40 mg IVPUSH ANDREA Y@0630 [facility] Last Admin: 11/05/22 04:53 Dose: 40 mg Sodium Chloride (0.9 % Sodium Chloride Flush 3 Ml Syringe) 3 ml IVFLUSH QSHIFT [facility] Last Admin: 11/04/22 23:44 Dose: Not Given Home Medications Medication Instructions Recorded Confirmed Last Taken Type dolutegravir 50 mg-lamivudine 300 1 tab PO DAILY 09/02/20 11/03/22 11/03/22 0 5:30 History mg tablet (Dovato) Physical Exam Vital Signs: Vital Signs: Last Vital Signs Temp 99.5 F 11/05/22 07:49 Pulse 72 11/05/22 07:49 Resp 17 11/05/22 07:49 BP 114/73 11/05/22 07:49 Pulse Ox 100 11/05/22 07:49 O2 Del Method 11/05/22 07:49 BMI result Body Mass Index 19.2 EXAM: GENERAL: The patient is well developed and nontoxic. VITAL SIGNS:see workflow HEENT: Nonicteric sclerae, PERRLA, EOMI. Oropharynx clear. Moist mucous membranes. Conjunctivae appear well perfused. No thyroid mass. CHEST: Chest wall is nontender. HEART: Regular rate and rhythm without murmurs. LUNGS: Clear to auscultation bilaterally. ABDOMEN: Soft, positive bowel sounds, tender epigastrium, no organomegaly.no flank tenderness SKIN: No rash, no excessive bruising, petechiae, or purpura. NEUROLOGIC: Cranial nerves II-XII intact without motor/sensory deficit. Results Labs 11/05/22 05:48 11/05/22 05:48 Labs: Short CBC 11/05/22 Range/Units 05:48 WBC 13.2 H (4.8-10.8) X10*3/uL Hgb 11.3 L (14.0-18.0) g/dl Hct 33.0 L (42.0-52.0) % Plt Count 224 (160-400) X10*3/uL BMP 11/05/22 05:48 Sodium 141 Potassium 4.2 Chloride 109 H Carbon Dioxide 24 BUN 25 H Creatinine 1.18 Calcium 8.7 Cardiac Enzymes 11/05/22 Range/Units 05:48 Total Creatine Kinase 711 H (38-174) U/L Microbiology Microbiology Results: Microbiology 11/03/22 19:51 Blood - Venous Blood Culture - Preliminary No growth after 24 hours. 11/03/22 19:35 Blood - Venous Blood Culture - Preliminary No growth after 24 hours. 11/03/22 19:40 Blood - Venous Blood Culture - Final 11/03/22 19:40 Blood - Venous Blood Culture - Final Imaging CT scan - abdomen: Attestation: I personally reviewed and interpreted this imaging study as follows: (bulky kidneys, stool++ with distended colon) Assessment and Plan (1) LYSSA (acute kidney injury): Status: Acute (2) Nausea & vomiting: Status: Acute (3) Hematuria: Status: Acute Plan 1/ Acute on chronic abdominal pain with nausea and vomiting possibly exacerbated by viral syndrome, lab indices have improved with hydration and he feels improved. He may have underlying gastroparesis, PUD, gastritis, medication related pain and SE, vascular syndromes 2/ Chronic microscopic hematuria, maybe related to interstitial nephritis, vascular syndrome e.g nutcracker syndrome, myoglobinuria bladder lesion, amyloidosis PLAN: 1/ EGD as outpatient after his nasal and URTI sx have improved, maybe colonoscopy as well 2/ US kidneys and Duplex of renal veins, SMA< celiac art axis 3/ urine eosinophils 4/ check BHAVANA and ANCA< ant GBM Ab, urine cytology Time Spent With Patient Time: Total time managing care of this patient today ____ minutes. Procedures Date of Service Date of Service: 11/05/22
--- NOTE | 2022-11-05 09:17 | MHC.CM.PN ---
CM met with Patient at bedside. 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 Home self care is the goal and CM has initiated and will follow for dc planning. Patient has received Moderna/Covid vax x2 and his new PCP is from [facility]- Dr. West.
[2022-11-05] MEDS: lamiVUDine 150 MG TABLET PO (09:18)
[2022-11-05] MEDS: Dolutegravir Sodium 50 MG TABLET PO (09:18)
[2022-11-05 11:42] VITALS: BP 112/68; PULSE 73; RESP 16; TEMP 37.6; O2SAT 98
--- NOTE | 2022-11-05 12:15 | MHC.CLN ---
RE; CONSULT PREVIOUS WT HX REVEALS WT IS STABLE X 6 MONTHS NO SIGNIFICANT CHANGES WILL ADD ENSURE BID TO INCREASE KCALS MONITOR PO
[2022-11-05] MEDS: Barium Sulfate Oral (Vanilla) 450 ML ORAL.SUSP 900 ML PO (13:54)
[2022-11-05] MEDS: ondansetron HCL 4 MG/2 ML VIAL IVPUSH (13:58)
--- NOTE | 2022-11-05 14:33 | HO.PM.IMPN ---
Subjective Subjective Date of Service: 11/05/22 Interval History: seen and examined this morning follow up for lyssa tolerating diet, no chest pain, no further vomiting Review of Systems Review of Systems: Yes all other systems are reviewed and are negative Constitutional Constitutional: Denies chills and Denies fever(s) Cardiovascular Cardiovascular: Denies chest pain, Denies palpitations and Denies dyspnea Respiratory Respiratory: Denies cough and Denies dyspnea Gastrointestinal Gastrointestinal: Denies diarrhea, Denies nausea and Denies vomiting Endocrine Endocrine: Denies palpitations Physical Exam Vital Signs: Vital Signs: Last Vital Signs Temp 99.6 F 11/05/22 11:42 Pulse 73 11/05/22 11:42 Resp 16 11/05/22 11:42 BP 112/68 11/05/22 11:42 Pulse Ox 98 11/05/22 11:42 O2 Del Method 11/05/22 11:42 BMI result Body Mass Index 19.2 Const: General: cooperative, comfortable, alert and awake Nutritional Appearance: average body habitus Orientation/consciousness: patient oriented x3 Resp: Effort & Inspection: normal respiratory effort and able to speak in complete sentences Cardio: Rate: regular rate Heart sounds: S1 normal heart sound present and S2 normal heart sound present GI: Inspection: No distended Palpation (GI): Soft to palpation and nontender Neuro: General: patient oriented x3 and CN's II-XI intact bilaterally Extrem: General: Yes no pedal edema Objective Data Active Medications Acetaminophen (Acetaminophen 325 Mg Tablet) 650 mg PO Q6H PRN PRN Reason: Pain, Mild (Pain Scale 1-3) Dolutegravir Sodium (Dolutegravir Sodium 50 Mg Tablet) 50 mg PO DAILY [facility] Last Admin: 11/05/22 09:18 Dose: 50 mg Documented By: GARTH Lactated Ringer's (Lr) 1,000 mls @ 150 mls/hr IVCONT .Q6H40M [facility] Last Admin: 11/05/22 09:19 Dose: 150 mls/hr Documented By: GARTH Lamivudine (Lamivudine 150 Mg Tablet) 150 mg PO DAILY [facility] Last Admin: 11/05/22 09:18 Dose: 150 mg Documented By: GARTH Metoprolol Tartrate (Metoprolol Tartrate 12.5 Mg Halftab) 12.5 mg PO BID [facility]; Protocol Ondansetron HCl (Ondansetron Hcl 4 Mg/2 Ml Vial) 4 mg IVPUSH Q8H PRN PRN Reason: Nausea and Vomiting Last Admin: 11/05/22 13:58 Dose: 4 mg Documented By: GARTH Pantoprazole Sodium (Pantoprazole Sodium 40 Mg/10 Ml Vial) 40 mg IVPUSH DAILY@0630 [facility] Last Admin: 11/05/22 04:53 Dose: 40 mg Documented By: BYRON Sodium Chloride (0.9 % Sodium Chloride Flush 3 Ml Syringe) 3 ml IVFLUSH QSHIFT [facility] Last Admin: 11/05/22 09:05 Dose: Not Given Documented By: GARTH Non-Admin Reason: IV Running Labs 11/05/22 05:48 11/05/22 05:48 Labs: Laboratory Results - last 24 hr 11/04/22 11/05/22 11/05/22 18:02 05:48 05:48 MCV 88.9 MCH 30.5 MCHC 34.2 RDW 14.1 Plt Count 224 MPV 10.7 Absolute Nucleated RBC 0.000 Nucleated RBC % (auto) 0.0 aPTT Heparin Protocol 25.5 L D Anion Gap 12 Estim Creat Clear Calc 70.1 Estimated GFR > 60 Random Glucose 106 Calcium 8.7 Total Creatine Kinase 711 H Microbiology Microbiology Results: Microbiology 11/03/22 00:00 Urine Culture - Final Urine clean catch - Urine diaz top No growth. 11/03/22 19:51 Blood Culture - Preliminary Blood - Venous No growth after 24 hours. 11/03/22 19:35 Blood Culture - Preliminary Blood - Venous No growth after 24 hours. Assessment and Plan (1) Elevated troponin: Status: Acute (2) Gastroenteritis: Status: Acute Plan 32-year-old male with past medical history of HIV compliant with his HIV medications presents to the hospital with complaints of dehydration, and upper respiratory symptoms as well as nausea vomiting for the past 2 days. acute Nausea and vomiting resolved likely secondary to gastroenteritis episode of hematemsis likely r/t vomiting ?neptali sofia. no further episodes seen by GI - chronic abdominal pain, plan for ct abdomen now and outpatient EGD continue IV PPI elevated troponin PE study negative no EKG changes suggestive of ACS echo done, can't rule out WMA seen by Cardiology ?mild myocarditis - plan to start BB and outpatient workup no exercise until follow up with cardiology LYSSA prerenal likely secondary to dehydration creatinine down from 3.07 to 1.18 lactic acidosis likely secondary to dehydration resolved with IV fluid elevated CPK secondary to above continue IV fluids trending down somewhat microscopic hematuria no gross hematuria no urinary symptoms recommend repeat UA as outpatient after acute illness has resolved HIV continue formulary equivalent for home medication DVT ppx: mechanical devices attending-Dr. Castellanos Time Spent With Patient Time: Total time managing care of this patient today ____ minutes. Quality Stroke Does the patient have a stroke diagnosis?: No VTE Prior VTE?: No VTE Risk Level:: Medical - moderate - high VTE Device Contraindication: Treatment Not Indicated VTE Drug Contraindication: N/A - Med Ordered
--- NOTE | 2022-11-05 14:56 | PM.PNCARD ---
Subjective Subjective Date of Service: 11/05/22 Interval history: Seen and examined at bedside. Clinically improving. Creatinine has normalized. Atypical sharp chest pain still present. Physical Exam Vital Signs: Last Vital Signs Temp 99.6 F 11/05/22 11:42 Pulse 73 11/05/22 11:42 Resp 16 11/05/22 11:42 BP 112/68 11/05/22 11:42 Pulse Ox 98 11/05/22 11:42 O2 Del Method 11/05/22 11:42 BMI result Body Mass Index 19.2 GENERAL APPEARANCE: in no acute distress, pleasant. NECK: no carotid bruit, no jugular venous distention. SKIN: no suspicious lesions, warm and dry. HEART: no murmurs, regular rate and rhythm. LUNGS: clear to auscultation bilaterally. Chest wall tenderness. ABDOMEN: soft, nontender. EXTREMITIES: no edema. PERIPHERAL PULSES: equal. NEUROLOGIC: No gross deficits, AAO X 3 Objective Labs and Meds 11/05/22 05:48 11/05/22 05:48 Lab results: Laboratory Results - last 24 hr 11/04/22 11/05/22 11/05/22 18:02 05:48 05:48 WBC 13.2 H RBC 3.71 L Hgb 11.3 L Hct 33.0 L MCV 88.9 MCH 30.5 MCHC 34.2 RDW 14.1 Plt Count 224 MPV 10.7 Absolute Nucleated RBC 0.000 Nucleated RBC % (auto) 0.0 aPTT Heparin Protocol 25.5 L D Sodium 141 Potassium 4.2 Chloride 109 H Carbon Dioxide 24 Anion Gap 12 BUN 25 H Creatinine 1.18 Estim Creat Clear Calc 70.1 Estimated GFR > 60 Random Glucose 106 Calcium 8.7 Total Creatine Kinase 711 H Progress Note: A&P Assessment and plan (1) Chest pain: Status: Acute (2) Elevated troponin: Status: Acute Plan 32-year-old gentleman presenting with gastroenteritis and acute renal failure. He was noticed to have significantly elevated troponin levels. Echocardiography has shown normal ejection fraction but in some views the inferior wall appears mildly hypokinetic. With this presentation with viral gastroenteritis it is possible that he had mild myocarditis at the same time. He does not have any features of pericarditis currently. In any case if no bleeding concerns then baby aspirin is recommended till we can do ischemic evaluation which I plan to do as outpatient with stress testing. Start low-dose beta-ce. We will do outpatient echocardiography with contrast and reassess the wall motion. May consider MRI in the future. Thank you for allowing me to participate in the care of your patient. Please feel free to contact me if you have any questions. Time Spent With Patient Time: Total time managing care of this patient today ____ minutes. Progress Note: Quality Stroke Does the patient have a stroke diagnosis?: No Procedures Date of Service Date of Service: 11/05/22
[2022-11-05 15:35] VITALS: BP 130/84; PULSE 91; RESP 15; TEMP 36.9; O2SAT 94
--- NOTE | 2022-11-05 16:01 | PM.DS ---
DS: Providers Provider Date of Service: 11/05/22 Date of admission: 11/03/22 23:51 Date of discharge: 11/05/22 Primary care physician: Unknown Physician Consults: 11/04/22 08:44 Consult to Cardiology Routine Consulting Provider: Gary Hull Reason for consultation: elevated trop, chest pain Has provider been notified: No 11/05/22 07:37 Consult to Gastroenterology Routine Consulting Provider: Violet Avila Reason for consultation: abdominal pain, hemetemesis Has provider been notified: No Attending physician on discharge: Nicolas Castellanos Discharging clinician: Virginie Henry DS: Diagnosis Discharge Diagnosis (1) Chest pain: Status: Acute (2) Elevated troponin: Status: Acute (3) Nausea & vomiting: Status: Acute (4) LYSSA (acute kidney injury): Status: Acute DS: Summary Hospital Course Hospital Course: From H&P on day of admission ?this is a 32-year-old male with past medical history of HIV, GERD who presents to the hospital with complaints of not feeling well for the past 2 days.? Patient reports that he has been having upper respiratory symptoms including nasal congestion, runny nose, cough,? And just feeling generally unwell for the past 2 days, has had nausea vomiting, pain in the abdomen specially when his vomiting, as well as chest pain that is reproducible on pressing on his chest for the same onetime, as well as poor oral intake has not been eating or drinking for the past 2 days as he is unable to keep anything down.? Patient reports no fever has chills, reports compliance with his HIV medications and reports no aids. ? Patient denies any diarrhea, no urinary symptoms and no lower extremity edema.? On arrival to the ED patient found to have a heart rate of 119, vitals otherwise stable Labs are sig for WBC count of 24.7, hemoglobin of 13.3, hematocrit 38.3, has increased left shift on CBC, Initial BUN of 51 with a creatinine of 6.07 with a baseline of 1 in September, lactic acid of 7.0, improved after IV fluids, troponin of 2717, CPK of 874, BNP of 121, troponin dropped to 1810 on repeat, COVID-19 RSV as well as influenza negative Chest x-ray is? unremarkable EKG shows? sinus tachycardia with a heart rate of 102, no significant abnormality in the T-wave or ST segment suggestive of ACS Hospital course by problem: acute Nausea and vomiting resolved likely secondary to gastroenteritis episode of hematemsis likely r/t vomiting ?neptali sofia. no further episodes seen by GI - chronic abdominal pain, plan for ct abdomen now and outpatient EGD. CT scan was completed however, the patient requested to leave AMA prior to results returning. recommended to follow up in outpatient setting to review results. elevated troponin PE study negative no EKG changes suggestive of ACS echo done, can't rule out WMA seen by Cardiology ?mild myocarditis - plan to start low dose BB and follow up with cardiology for further outpatient workup including possible stress test no exercise until follow up with cardiology LYSSA prerenal likely secondary to dehydration creatinine down from 3.07 to 1.18 lactic acidosis likely secondary to dehydration resolved with IV fluid elevated CPK secondary to above continue IV fluids trending down somewhat microscopic hematuria no gross hematuria no urinary symptoms recommend repeat UA as outpatient after acute illness has resolved Time Spent with Patient Time attestation: Total time managing care of this patient today ____ minutes. Discharge coordination time: Greater than 30 minutes Quality: Safe Use of Opioids Does Pt have an Active Cancer Diagnosis on the Problem List?: No Quality: Stroke Does the patient have a stroke diagnosis?: No Physical Exam Vital Signs: Vital Signs: Last Vital Signs Temp 98.4 F 11/05/22 15:35 Pulse 91 11/05/22 15:35 Resp 15 11/05/22 15:35 BP 130/84 11/05/22 15:35 Pulse Ox 94 11/05/22 15:35 O2 Del Method 11/05/22 15:35 BMI result Body Mass Index 19.2 Const: General: cooperative, comfortable, alert and awake Nutritional Appearance: average body habitus Orientation/consciousness: patient oriented x3 Resp: Effort & Inspection: normal respiratory effort and able to speak in complete sentences Cardio: Rate: regular rate Heart sounds: S1 normal heart sound present and S2 normal heart sound present GI: Inspection: No distended Palpation (GI): Soft to palpation and nontender Neuro: General: patient oriented x3 and CN's II-XI intact bilaterally Extrem: General: Yes no pedal edema DS: Data Data Completed and Pending Labs on day of discharge: Laboratory Results - last 24 hr 11/04/22 11/05/22 11/05/22 18:02 05:48 05:48 WBC 13.2 H RBC 3.71 L Hgb 11.3 L Hct 33.0 L MCV 88.9 MCH 30.5 MCHC 34.2 RDW 14.1 Plt Count 224 MPV 10.7 Absolute Nucleated RBC 0.000 Nucleated RBC % (auto) 0.0 aPTT Heparin Protocol 25.5 L D Sodium 141 Potassium 4.2 Chloride 109 H Carbon Dioxide 24 Anion Gap 12 BUN 25 H Creatinine 1.18 Estim Creat Clear Calc 70.1 Estimated GFR > 60 Random Glucose 106 Calcium 8.7 Total Creatine Kinase 711 H Preliminary micro results at discharge 11/03/22 19:51 Blood Culture - Preliminary Blood - Venous No growth after 24 hours. 11/03/22 19:35 Blood Culture - Preliminary Blood - Venous No growth after 24 hours. Discharge Plan Discharge Patient Disposition: Left Against Medical Advice Discharge Diagnosis: LYSSA N/V abdominal pain chest pain Referrals: Violet Avila MD [Physician] - 1 Week Gary Hull MD [Physician] - 1 Week Physician,Gerson J [Primary Care Provider] - 1 Week Discharge Medications: New metoprolol tartrate 25 mg tablet 12.5 mg PO BID 30 Days Qty: 30 0RF Continued Dovato 50-300 mg Tablet 1 tab PO DAILY Discharge Orders: Discharge Order (Routine); Ordered 11/05/22 Ordered By: Virginie Henry Care Plan Goals: see below Health Concerns: LYSSA possible myocarditis N/V abdominal pain elevated cardiac enzymes microscopic hematuria Plan of Treatment: start taking metoprolol as prescribed call to schedule follow-up with GI to schedule outpatient EGD call to schedule follow-up appointment with Cardiology for further workup. do NOT exercise/do any strenuous activity until follow up with cardiology will need repeat urinalysis to follow up on microscopic hematuria - call PCP Assessment: admitted for dehydration, LYSSA related to nausea, vomiting found to have elevated cardiac enzymes and CPK. CT scan of the abdomen is pending - opted to leave AMA prior to results of CT scan - please follow up with GI to review results
--- NOTE | 2022-11-05 16:13 | PC.NURSE ---
Expected discharge home today depending on abd CT results which are pending at this time.Patient is alert and oriented, anxious, stating can only get a ride home within next one hr and will leave AMA because he does not want to be here for the weekend. Virginie JAY at bedside explaining the situation and can not safely discharge patient with out CT results. Nursing breakfast supervisor Cierra aware, patient signed AMA form and informed to follow up with cardiology and GI . pvc monitor and IV removed, patient aware of risks of leaving AMA.
--- NOTE | 2022-11-05 16:20 | MHC.CM.PN ---
Patient left AMA.
[2022-11-08 04:40] LABS: HBc Num1 0.12 S/CO (0.00-0.79); HBsAGNum1 0.42 S/CO (0.00-0.99); Hepatitis A Antibody IgM 0.22 Index (0-0.79); Hepatitis B Core Antibody Nonreactive (Nonreactive); Hepatitis B Surface Antigen Negative (Negative); ~HepC Num1 0.09 S/CO (0.00-0.79); ~Hepatitis A Antibody IgM Nonreactive (Nonreactive); ~Hepatitis B Surface Antibody REACTIVE (Nonreactive); ~Hepatitis C Antibody Nonreactive (Nonreactive)
== END 2022-11-05 16:10 | disposition left against medical advice (07) | DRG 249 ==
LOC: HO.ED 22:38 → HO.EDOVER 11-04 05:16 → HO.IMC 11-04 15:31
PROVIDERS: Internal Medicine Gastroenterology; Student in an Organized Health Care Education/Training Program; Admitting Provider Internal Medicine; Emergency Provider Emergency Medicine; Visit Provider Physician Assistant Medical
DX: K52.9 Noninfective gastroenteritis and colitis, unspecified (principal); N17.9 Acute kidney failure, unspecified; K22.6 Gastro-esophageal laceration-hemorrhage syndrome; E87.20 Acidosis, unspecified; I51.4 Myocarditis, unspecified; E86.0 Dehydration; Z21 Asymptomatic human immunodeficiency virus [HIV] infection status; K21.9 Gastro-esophageal reflux disease without esophagitis; R31.29 Other microscopic hematuria; Z87.891 Personal history of nicotine dependence; Z20.822 Contact with and (suspected) exposure to COVID-19; Z79.899 Other long term (current) drug therapy
CPT/HCPCS: 0241U; 36415; 71045; 74176; 78580; 80048; 80053; 80076; 81001; 82550; 83605; 83690; 83880; 84484; 85025; 85027; 85610; 85730; 86704; 86706; 86709; 86803; 87040; 87086; 87340; 87633; 93005; 93306; 99285; A9540; J1643; J2405; J2543; Q9957

== ENCOUNTER 2023-01-16 09:43 | Emergency (ER) | payer MEDICAID, SELFPAY ==
[2023-01-16 09:50] VITALS: BP 141/75; PULSE 96; RESP 18; TEMP 36.6; O2SAT 98; BMI 19.3
[2023-01-16] MEDS: Ondansetron ODT 4 MG TAB.RAPDIS TRANSLINGU (10:31)
[2023-01-16 10:32] VITALS: BP 126/79; PULSE 84; RESP 22; O2SAT 100
[2023-01-16 10:55] LABS: MANUAL DIFF FLAG NO
[2023-01-16 10:57] LABS: Basophils Absolute Auto 0.1 X10*3/uL (0.0-0.2); Basophils Percent Auto 0.4 % (0-2); Eosinophils Percent Auto 0.1 % (0-4); Hematocrit 41.3 % (42.0-52.0); Hemoglobin 14.2 g/dl (14.0-18.0); Imm Gran Abs Auto 0.04 X10*3/uL (0.00-0.03); Imm Gran Pct Auto 0.3 % (0.0-0.4); Lymphocytes Percent Auto 16.8 % (20-40); Mean Corpuscular HGB Conc 34.4 g/dl (31.0-36.0); Mean Corpuscular Hemoglobin 29.3 pg (27.0-33.0); Mean Corpuscular Volume 85.2 fL (80.0-98.0); Mean Platelet Volume 10.3 fL (9.4-12.4); Monocytes Absolute Auto 0.6 X10*3/uL (0.1-1.2); Monocytes Percent Auto 5.4 % (2-11); Neutrophils Absolute Auto 9.1 x10*3/uL (2.0-8.3); Platelet Count 343 X10*3/uL (160-400); Red Blood Count 4.85 X10*6/uL (4.60-5.80); White Blood Count 11.8 X10*3/uL (4.8-10.8)
[2023-01-16 11:26] LABS: Alanine Aminotransferase 12 U/L (0-40); Albumin Level 4.9 g/dL (3.5-5.0); Alkaline Phosphatase 61 U/L (39-117); Anion Gap 21 (12-20); Aspartate Amino Transferase 18 U/L (5-37); Bilirubin Direct 0.3 mg/dL (0.0-0.5); Blood Urea Nitrogen 21 mg/dL (9-16); Calcium 10.6 mg/dL (8.4-10.2); Carbon Dioxide 17 mmol/L (22-29); Chloride 104 mmol/L (96-108); Creatinine Clr Calc Pharmacy 88.8; Estimated Glomerular Filt Rate > 60; Glucose Random 175 mg/dL (60-115); Lipase 21 U/L (8-78); Potassium 3.4 mmol/L (3.3-5.1); Sodium 139 mmol/L (135-145); Total Protein 7.8 g/dL (6.5-8.0)
[2023-01-16 12:15] LABS: Influenza A PCR NEGATIVE (Negative); Influenza B PCR NEGATIVE (Negative); Resp Syncy Virus RNA Qual PCR NEGATIVE (Negative); SARS COV2 PCR INHOUSE NEGATIVE (Negative)
== END 2023-01-16 14:15 | disposition left against medical advice (07) ==
PROVIDERS: Emergency Provider Emergency Medicine
DX: R07.89 Other chest pain (principal); R06.02 Shortness of breath; Z20.822 Contact with and (suspected) exposure to COVID-19; Z20.828 Contact with and (suspected) exposure to other viral communicable diseases; Z79.899 Other long term (current) drug therapy
CPT/HCPCS: 0241U; 36415; 80048; 80076; 83690; 85025; 99282

== ENCOUNTER 2023-01-18 11:49 | Emergency (ER) | payer MEDICAID, SELFPAY ==
--- NOTE | ~2023-01-18 | XR_ITS ---
EXAMINATION: XR CHEST CLINICAL INFORMATION: Chest pain. COMPARISON: 11/03/2022 chest radiograph. TECHNIQUE: 2 views of the chest were obtained. FINDINGS: No significant abnormality is noted involving the heart, lungs, mediastinum, bony thorax or soft tissues. XR/XR chest 2V IMPRESSION: No acute cardiopulmonary process.
[2023-01-18 12:01] VITALS: BP 130/82; PULSE 75; RESP 18; TEMP 36.9; O2SAT 100; BMI 19.3
--- NOTE | 2023-01-18 12:10 | ED.NAVMDI ---
HPI - Nausea/Vomiting/Diarrhea General Chief complaint: Nausea/Vomiting/Diarrhea Stated complaint: nausea vomiting Time Seen by Provider: 01/18/23 12:00 Source: patient, RN notes reviewed and old records reviewed Mode of arrival: EMS Limitations: no limitations History of Present Illness HPI Narrative: This is a 32-year-old male, with a past medical history of HIV and GERD, who presents emergency department today, via EMS, with complaints of ongoing nausea, vomiting, and abdominal pain x 5 days. Patient reports that he was seen at [facility]'s Emergency Department because of these symptoms, was given IV fluids, and antiemetics, felt better and was discharged. He states that his symptoms resolved until Tuesday where he developed these symptoms again. Patient reports that he woke up this morning at 6:00 a.m. with abdominal pain, chest pain, nausea and vomiting. He states that he is unable to quantify how many episodes of vomiting he has had since this morning. He describes his chest pain as a burning midsternal chest pain that is constant radiates into his right axilla. He reports that the chest pain occurs prior to and after vomiting. Last bowel movement was yesterday and was normal. He was then seen at [facility]'s ER on tuesday (01/16/23) where he was given IV fluids and was discharged yesterday morning. Denies any hematuria, dysuria, bloody or black stool. He admits to feeling anxious. No other complaints or concerns at this time. MD elicited complaint: nausea and vomiting Onset (ago): day(s) Description of vomiting: watery Associated nausea: Yes Associated abdominal pain: Yes Location of pain: diffuse Radiation: does not radiate Pain consistency: constant Severity: moderate Exacerbating factors: none Relieving factors: none Associated symptoms: loss of appetite and nausea/vomiting Treatment prior to arrival: none Related Data Home Medications Medication Instructions Recorded Confirmed dolutegravir 50 mg-lamivudine 300 1 tab PO DAILY 09/02/20 11/03/22 mg tablet (Dovato) Previous Rx's Medication Instructions Recorded hydroxyzine HCl 25 mg tablet 25 mg PO TID PRN anxiety #15 tabs 01/18/23 ondansetron 4 mg disintegrating 4 mg PO Q6H PRN nausea and 01/18/23 tablet vomiting #10 tabs pantoprazole 40 mg tablet,delayed 40 mg PO DAILY #30 tabs 01/18/23 release (Protonix) sucralfate 1 gram tablet (Carafate) 1 g PO TID #90 tabs 01/18/23 Allergies Allergy/AdvReac Type Severity Reaction Status Date / Time No Known Allergies Allergy Verified 09/27/22 11:58 Review of Systems Constitutional: Constitutional: Reports chills and Denies fever(s) ENT: Denies dysphagia and Denies facial pain Gastrointestinal: Gastrointestinal: Denies dysphagia and Reports nausea PMFSH Past Medical History Medical History GERD (gastroesophageal reflux disease) HIV (human immunodeficiency virus infection) Family History Family History Mother HIV (human immunodeficiency virus infection) Social History Social History Household Members: None Housing: Apartment Do you presently have visiting nurse or other home services: No Alcohol intake: never Patient Tobacco Use Status: Former Tobacco user Tobacco use type: Cigarette Cigarettes Per Day: 0.5 e-Cigarette/Vaping Use: Never Used Second Hand Smoke Exposure: Yes Substance Use Type: Marijuana Advance Directives: Yes Advance Directives on File: Yes Advance Directives Date on File: 09/28/22 service: No Current occupational status: employed Physical Exam Vital Signs: Vital Signs: Last Vital Signs Temp 98.5 F 01/18/23 12:01 Pulse 75 01/18/23 12:01 Resp 18 01/18/23 12:01 BP 130/82 01/18/23 12:01 Pulse Ox 100 01/18/23 12:01 O2 Del Method Room Air 01/18/23 12:01 BMI result Body Mass Index 19.3 Const: General: cooperative, alert and awake Orientation/consciousness: patient oriented x3 Limitations: no limitations HEENT: Head: Yes normal to inspection, Yes normocephalic and Yes atraumatic Ears: external ears normal and TM's normal bilaterally General nose exam: Normal external nose present and Normal nares present Face and sinus: Yes normal facial exam Mouth: mucous membranes dry (dry) Teeth and gingiva: dentition normal Throat: Yes posterior oropharynx normal Eyes: General: appearance normal, both eyes and all related structures Conjunctivae: conjunctivae normal Sclerae: sclerae normal Pupils: Equal, round and reactive pupils present EOM: EOMs intact bilaterally Neck: Neck: Yes full ROM and Yes no lymphadenopathy Chest: Chest palpation & inspection: normal inspection of the chest Resp: Effort & Inspection: normal respiratory effort and able to speak in complete sentences Auscultation: clear to auscultation bilaterally, no crackles, no rales, no rhonchi and no wheezes Cardio: Rate: regular rate Rhythm: regular rhythm Heart sounds: S1 normal heart sound present and S2 normal heart sound present GI: Other: Abdomen is soft, diffuse tenderness throughout the abdomen with no point tenderness. No rebound or guarding. Normal active bowel sounds. Inspection: Yes normal to inspection and No abdominal wall ecchymosis Skin: General skin exam: no rashes or lesions noted Neuro: General: patient oriented x3 Cranial nerves: Yes Equal, round and reactive pupils present Extrem: General: Yes normal to inspection Right upper extremity: normal to inspection and full ROM Course Reevaluation(s) Reevaluation #1: Patient is resting comfortably in stretcher. Currently receiving 1 L of IV fluids. Reviewed patient's [facility] emergency department visit from 01/16, and his presentation was very similar. Patient had received IV fluids and IV Ativan and was discharged as he was feeling much better. Time: 13:56 Reevaluation #2: Patient re-evaluated. Patient is feeling much better and wanting to go home. P.o. trial, patient able to tolerate fluids and crackers without any difficulty. He denies any abdominal pain or chest pain as they had resolved with fluid hydration and zofran, morphine. Patient requesting to go home. Will treat as a gastroenteritis with zofran, protonix, and carafate. Patient requesting anxiety medications, discharged with hydroxyzine. Advised to return with any new or worsening symptoms. Patient understands and agrees with plan. Time: 14:45 Medications Administered Discontinued Medications Generic Name Dose Route Start Last Admin Trade Name Freq PRN Reason Stop Dose Admin Sodium Chloride 1,000 mls @ 999 mls/hr 01/18/23 12:21 01/18/23 12:42 Ns IV 01/18/23 13:21 999 mls/hr .Q1H1M STA Administration Morphine Sulfate 4 mg 01/18/23 12:21 01/18/23 12:41 Morphine Sulfate 4 Mg/Ml Cartridge IVPUSH 01/18/23 12:22 4 mg ONCE ONE Administration Protocol Ondansetron HCl 4 mg 01/18/23 12:21 01/18/23 12:41 Ondansetron Hcl 4 Mg/2 Ml Vial IVPUSH 01/18/23 12:22 4 mg ONCE ONE Administration Medical Decision Making Medical Decision Making [facility] Narrative: 32 yo M, hx of HIV and GERD, presents today with nausea, vomiting, diarrhea, abdominal pain, chest pain and shortness of breath since this morning. Was seen at [facility]'s ER on 01/12 and [facility]'s ER on 01/16 for these symptoms, was given fluids and symptoms improved. On examination, patient's mucus membranes are dry. Abdomen is soft, but diffusely tender. Normoactive bowel sounds appreciated. Plan: Labs, EKG, chest x-ray, UA ordered. Patient medicated with 1L IV fluids, zofran 4mg and morphine 4mg. Pt placed on monitor. VSS in department. Will try to obtain records from [facility] and [facility]. Differential Diagnosis Differential Diagnoses: The differential diagnosis associated with the presentation includes Gastritis, gastroentritis, LYSSA, UTI, boorhave's, ACS unlikely Lab Data [facility] Lab Attestation statement: I reviewed the patient's lab results. 01/18/23 12:33 01/18/23 12:33 Labs: Lab Results 01/18/23 01/18/23 01/18/23 Range/Units 12:31 12:32 12:33 WBC 13.2 H (4.8-10.8) X10*3/uL RBC 4.78 (4.60-5.80) X10*6/uL Hgb 14.1 (14.0-18.0) g/dl Hct 41.5 L (42.0-52.0) % MCV 86.8 (80.0-98.0) fL MCH 29.5 (27.0-33.0) pg MCHC 34.0 (31.0-36.0) g/dl RDW 13.2 (11.0-16.0) % Plt Count 362 (160-400) X10*3/uL MPV 10.2 (9.4-12.4) fL Immature Gran % (Auto) 0.6 H (0.0-0.4) % Neut % (Auto) 80.5 H (45-73) % Lymph % (Auto) 15.1 L (20-40) % Grainger % (Auto) 3.2 (2-11) % Eos % (Auto) 0.2 (0-4) % Baso % (Auto) 0.4 (0-2) % Lymph # (Auto) 2.0 (1.2-4.9) X10*3/uL Grainger # (Auto) 0.4 (0.1-1.2) X10*3/uL Eos # (Auto) 0.0 (0.0-0.4) X10*3/uL Baso # (Auto) 0.1 (0.0-0.2) X10*3/uL Abs Immat Gran (auto) 0.08 H (0.00-0.03) X10*3/uL Absolute Neuts (auto) 10.6 H (2.0-8.3) x10*3/uL Absolute Nucleated RBC 0.000 (0.0-0.012) X10*3/uL Nucleated RBC % (auto) 0.0 (0.0-0.2) /100WBC Sodium (135-145) mmol/L Potassium (3.3-5.1) mmol/L Chloride (96-108) mmol/L Carbon Dioxide (22-29) mmol/L Anion Gap (12-20) BUN (9-16) mg/dL Creatinine (0.5-1.4) mg/dL Estim Creat Clear Calc Estimated GFR Random Glucose (60-115) mg/dL Calcium (8.4-10.2) mg/dL Magnesium (1.6-2.6) mg/dL Total Bilirubin (0.0-1.0) mg/dL Direct Bilirubin (0.0-0.5) mg/dL AST (5-37) U/L ALT (0-40) U/L Alkaline Phosphatase (39-117) U/L Troponin I High Sens (<3.5-35.0) ng/L Total Protein (6.5-8.0) g/dL Albumin (3.5-5.0) g/dL Lipase (8-78) U/L Urine Color Yellow Urine Appearance Clear Urine pH >= 9.0 (5.0-9.0) Ur Specific [place] 1.025 (1.005-1.025) Urine Protein 100 (2+) H (Neg-Trace) mg/dL Urine Glucose (UA) 100 H (Negative) mg/dL Urine Ketones 15 (Negative) mg/dL Urine Blood Negative (Negative) Urine Nitrite Negative (Negative) Ur Leukocyte Esterase Negative (Negative) Urine RBC 3-5 H (0-2) /HPF Urine WBC 0-5 (0-5) /HPF Ur Squamous Epith Cells 0-2 (0-2) /HPF Urine Bacteria None Seen (None Seen) Hyaline Casts 0-2 (0-2) /LPF Influenza Type A (PCR) NEGATIVE (Negative) Influenza Type B (PCR) NEGATIVE (Negative) RSV RNA Qual (PCR) NEGATIVE (Negative) SARS-CoV-2 RNA (RT-PCR) NEGATIVE (Negative) 01/18/23 01/18/23 Range/Units 12:33 12:33 WBC (4.8-10.8) X10*3/uL RBC (4.60-5.80) X10*6/uL Hgb (14.0-18.0) g/dl Hct (42.0-52.0) % MCV (80.0-98.0) fL MCH (27.0-33.0) pg MCHC (31.0-36.0) g/dl RDW (11.0-16.0) % Plt Count (160-400) X10*3/uL MPV (9.4-12.4) fL Immature Gran % (Auto) (0.0-0.4) % Neut % (Auto) (45-73) % Lymph % (Auto) (20-40) % Grainger % (Auto) (2-11) % Eos % (Auto) (0-4) % Baso % (Auto) (0-2) % Lymph # (Auto) (1.2-4.9) X10*3/uL Grainger # (Auto) (0.1-1.2) X10*3/uL Eos # (Auto) (0.0-0.4) X10*3/uL Baso # (Auto) (0.0-0.2) X10*3/uL Abs Immat Gran (auto) (0.00-0.03) X10*3/uL Absolute Neuts (auto) (2.0-8.3) x10*3/uL Absolute Nucleated RBC (0.0-0.012) X10*3/uL Nucleated RBC % (auto) (0.0-0.2) /100WBC Sodium 142 (135-145) mmol/L Potassium 3.5 (3.3-5.1) mmol/L Chloride 106 (96-108) mmol/L Carbon Dioxide 24 (22-29) mmol/L Anion Gap 16 (12-20) BUN 16 (9-16) mg/dL Creatinine 0.99 (0.5-1.4) mg/dL Estim Creat Clear Calc 81.7 Estimated GFR > 60 Random Glucose 113 (60-115) mg/dL Calcium 10.4 H (8.4-10.2) mg/dL Magnesium 1.9 (1.6-2.6) mg/dL Total Bilirubin 0.5 (0.0-1.0) mg/dL Direct Bilirubin 0.2 (0.0-0.5) mg/dL AST 17 (5-37) U/L ALT 13 (0-40) U/L Alkaline Phosphatase 69 (39-117) U/L Troponin I High Sens < 3.5 D (<3.5-35.0) ng/L Total Protein 7.7 (6.5-8.0) g/dL Albumin 4.9 (3.5-5.0) g/dL Lipase 22 (8-78) U/L Urine Color Urine Appearance Urine pH (5.0-9.0) Ur Specific [place] (1.005-1.025) Urine Protein (Neg-Trace) mg/dL Urine Glucose (UA) (Negative) mg/dL Urine Ketones (Negative) mg/dL Urine Blood (Negative) Urine Nitrite (Negative) Ur Leukocyte Esterase (Negative) Urine RBC (0-2) /HPF Urine WBC (0-5) /HPF Ur Squamous Epith Cells (0-2) /HPF Urine Bacteria (None Seen) Hyaline Casts (0-2) /LPF Influenza Type A (PCR) (Negative) Influenza Type B (PCR) (Negative) RSV RNA Qual (PCR) (Negative) SARS-CoV-2 RNA (RT-PCR) (Negative) Independent Interpretation I performed an independent interpretation of an: EKG Interpretation: EKG is normal sinus rhythm at a ventricular rate of 72 BPM, normal FL interval, normal QRS duration, QT/QTC 410/448. Radiology Impression Discussion of test interpretation with radiology: I have reviewed the radiologist's reading. Radiologist Impression: FINDINGS: No significant abnormality is noted involving the heart, lungs, mediastinum, bony thorax or soft tissues. XR/XR chest 2V IMPRESSION: No acute cardiopulmonary process. Independent Historian Clinical information obtained from an independent historian. History obtained from or confirmed by: EMS External Record Review External record reviewed: Outpatient record, Prior outpatient labs and Outside ED record Review of [facility] ER visit. Critical Care Time Critical Care Time Critical Care Time: No Discharge Plan Discharge Clinical Impression: Gastroenteritis Patient Disposition: Home, Self-Care Instructions: Gastroenteritis (ED) Additional Instructions: Take prescribed medications as directed. Please drink plenty of fluids and get plenty of rest. Eat a bland diet for the next several days (rice, bananas, toast, etc.) Please follow up with your primary care physician regarding this visit. If any new or worsening symptoms occur, please return for re-evaluation. Prescriptions: New ondansetron 4 mg tablet,disintegrating 4 mg PO Q6H PRN (Reason: nausea and vomiting) Qty: 10 0RF sucralfate [Carafate] 1 gram tablet 1 g PO TID Qty: 90 0RF pantoprazole [Protonix] 40 mg tablet,delayed release (DR/EC) 40 mg PO DAILY Qty: 30 0RF hydroxyzine HCl 25 mg tablet 25 mg PO TID PRN (Reason: anxiety) Qty: 15 0RF No Action Dovato 50-300 mg Tablet 1 tab PO DAILY Referrals: Physician,None [Primary Care Provider] - Interventions: ED Discharge Assessment Last Done: 01/18/23 15:15 Discharge Date/Time: 01/18/23 15:16
--- NOTE | 2023-01-18 12:11 | ECG_ITS ---
Test Reason : CHEST PAIN Blood Pressure : / mmHG Vent. Rate : 072 BPM Atrial Rate : 072 BPM P-R Int : 146 ms QRS Dur : 086 ms QT Int : 410 ms P-R-T Axes : 000 086 062 degrees QTc Int : 448 ms Artifact in tracing Normal sinus rhythm Cannot assess anteroseptal T wave changes due to artifact When compared with ECG of 04-NOV-2022 07:37, due to quality, cannot compare Referred By: Azalea Nguyen Electronically Signed By:ROWDY HENRIQUEZ
[2023-01-18 12:38] LABS: MANUAL DIFF FLAG NO
[2023-01-18 12:40] LABS: Basophils Absolute Auto 0.1 X10*3/uL (0.0-0.2); Basophils Percent Auto 0.4 % (0-2); Eosinophils Percent Auto 0.2 % (0-4); Hematocrit 41.5 % (42.0-52.0); Hemoglobin 14.1 g/dl (14.0-18.0); Imm Gran Abs Auto 0.08 X10*3/uL (0.00-0.03); Imm Gran Pct Auto 0.6 % (0.0-0.4); Lymphocytes Percent Auto 15.1 % (20-40); Mean Corpuscular Hemoglobin 29.5 pg (27.0-33.0); Mean Corpuscular Volume 86.8 fL (80.0-98.0); Mean Platelet Volume 10.2 fL (9.4-12.4); Monocytes Absolute Auto 0.4 X10*3/uL (0.1-1.2); Monocytes Percent Auto 3.2 % (2-11); Neutrophils Absolute Auto 10.6 x10*3/uL (2.0-8.3); Neutrophils Percent Auto 80.5 % (45-73); Platelet Count 362 X10*3/uL (160-400); Red Blood Count 4.78 X10*6/uL (4.60-5.80); Red Cell Distribution Width 13.2 % (11.0-16.0); White Blood Count 13.2 X10*3/uL (4.8-10.8)
[2023-01-18 12:41] LABS: Appearance Urine Clear; Color Urine Yellow; Glucose Urine UA 100 mg/dL (Negative); Leukocyte Esterase Urine Negative (Negative); Nitrite Urine Negative (Negative); PH >= 9.0 (5.0-9.0); Specific Gravity - Urine 1.025 (1.005-1.025); UMIC TRIGGER UACC YES; Urine Blood Negative (Negative); Urine Ketones 15 mg/dL (Negative); Urine Protein 100 (2+) mg/dL (Neg-Trace)
[2023-01-18] MEDS: ondansetron HCL 4 MG/2 ML VIAL IVPUSH (12:41)
[2023-01-18] MEDS: Morphine Sulfate 4 MG/ML CARTRIDGE IVPUSH (12:41)
[2023-01-18] MEDS: 0.9 % Sodium Chloride 1,000 ML 999 ML IV (12:42)
[2023-01-18 12:43] LABS: Bacteria Urine None Seen (None Seen); Hyaline Casts Urine 0-2 /LPF (0-2); Squamous Epithelial Cell Urine 0-2 /HPF (0-2); WBC Urine 0-5 /HPF (0-5)
[2023-01-18 12:58] LABS: Alanine Aminotransferase 13 U/L (0-40); Albumin Level 4.9 g/dL (3.5-5.0); Alkaline Phosphatase 69 U/L (39-117); Anion Gap 16 (12-20); Aspartate Amino Transferase 17 U/L (5-37); Bilirubin Direct 0.2 mg/dL (0.0-0.5); Bilirubin Total 0.5 mg/dL (0.0-1.0); Blood Urea Nitrogen 16 mg/dL (9-16); Calcium 10.4 mg/dL (8.4-10.2); Carbon Dioxide 24 mmol/L (22-29); Chloride 106 mmol/L (96-108); Creatinine Clr Calc Pharmacy 81.7; Estimated Glomerular Filt Rate > 60; Glucose Random 113 mg/dL (60-115); Lipase 22 U/L (8-78); Magnesium 1.9 mg/dL (1.6-2.6); Potassium 3.5 mmol/L (3.3-5.1); Sodium 142 mmol/L (135-145); Total Protein 7.7 g/dL (6.5-8.0)
[2023-01-18 13:02] LABS: Troponin-I High Sensitivity < 3.5 ng/L (<3.5-35.0)
[2023-01-18 13:19] LABS: Influenza A PCR NEGATIVE (Negative); Influenza B PCR NEGATIVE (Negative); Resp Syncy Virus RNA Qual PCR NEGATIVE (Negative); SARS COV2 PCR INHOUSE NEGATIVE (Negative)
== END 2023-01-18 15:16 | disposition home or self-care (01) ==
PROVIDERS: Physician Assistant Medical; Emergency Provider Emergency Medicine
DX: K52.9 Noninfective gastroenteritis and colitis, unspecified (principal); R11.2 Nausea with vomiting, unspecified; Z20.822 Contact with and (suspected) exposure to COVID-19; Z20.828 Contact with and (suspected) exposure to other viral communicable diseases; Z87.891 Personal history of nicotine dependence
CPT/HCPCS: 0241U; 71046; 80048; 80076; 81001; 83690; 83735; 84484; 85025; 93005; 96374; 96375; 99284; J2270; J2405

== ENCOUNTER 2023-08-30 22:37 | Inpatient (IN) | payer OTHER, SELFPAY ==
--- NOTE | 2023-08-30 | ECG_ITS ---
Test Reason : CP Blood Pressure : / mmHG Vent. Rate : 089 BPM Atrial Rate : 089 BPM P-R Int : 140 ms QRS Dur : 092 ms QT Int : 374 ms P-R-T Axes : 087 095 080 degrees QTc Int : 455 ms Normal sinus rhythm Right atrial enlargement Rightward axis Pulmonary disease pattern Abnormal ECG When compared with ECG of 18-JAN-2023 12:22, T wave amplitude has increased in Inferior leads Nonspecific T wave abnormality no longer evident in Anterior leads Referred By: Generic ED Physician Electronically Signed By:LATASHA JOHNSON MD
--- NOTE | ~2023-08-30 | XR_ITS ---
EXAMINATION: XR CHEST CLINICAL INFORMATION: Pain. COMPARISON: 01/18/2023. TECHNIQUE: Frontal view of the chest was obtained. FINDINGS: No significant abnormality is noted involving the heart, lungs, mediastinum, bony thorax or soft tissues. XR/XR chest 1V IMPRESSION: Unremarkable examination.
[2023-08-30 22:42] VITALS: BP 110/70; PULSE 116; O2SAT 98; BMI 19.5
[2023-08-30 22:46] VITALS: BP 122/86; PULSE 100; RESP 20; O2SAT 99
--- NOTE | 2023-08-30 22:57 | ED.NAVMDI ---
HPI - Nausea/Vomiting/Diarrhea General Chief complaint: Nausea/Vomiting/Diarrhea Stated complaint: FLU LIKE SYMPTOMS,WEAKNESS,VOMITING Time Seen by Provider: 08/30/23 22:45 Source: patient and old records reviewed Mode of arrival: EMS Limitations: no limitations History of Present Illness HPI Narrative: 33 yo male with PMH of HIV and GERD who has been seen here, [facility] for vomiting, chest pain, abdominal pain in the past - hx of LYSSA and elevated troponin during these episodes responds to fluids and medications last admitted for same complaint back in Oct 2022. He comes in with abdominal pain n/v, weakness, abdominal pain, chest tightness and inability to eat or drink after eating fried fish on Tuesday. He states this feels similar to prior episodes in the past MD elicited complaint: nausea, vomiting and abdominal pain Pertinent past history: other (hx of recurrent vomiting in the past) Onset (ago): day(s) (3) Description of vomiting: food contents, watery and bilious Associated nausea: Yes Associated abdominal pain: Yes Location of pain: diffuse Radiation: diffuse Pain consistency: intermittent Severity: moderate Quality: aching Exacerbating factors: eating Relieving factors: none Context: possible food poisoning Associated symptoms: myalgias, headaches, loss of appetite, malaise, nausea/vomiting, weakness and other (chest pain) Related Data Home Medications Medication Instructions Recorded Confirmed dolutegravir 50 mg-lamivudine 300 1 tab PO DAILY 09/02/20 11/03/22 mg tablet (Dovato) Previous Rx's Medication Instructions Recorded hydroxyzine HCl 25 mg tablet 25 mg PO TID PRN anxiety #15 tabs 01/18/23 ondansetron 4 mg disintegrating 4 mg PO Q6H PRN nausea and 01/18/23 tablet vomiting #10 tabs pantoprazole 40 mg tablet,delayed 40 mg PO DAILY #30 tabs 01/18/23 release (Protonix) sucralfate 1 gram tablet (Carafate) 1 g PO TID #90 tabs 01/18/23 Allergies Allergy/AdvReac Type Severity Reaction Status Date / Time No Known Allergies Allergy Verified 09/27/22 11:58 Review of Systems Review of Systems: Constitutional : No Weight loss, No Fever, No Chills ENT/Mouth : No sore throat, No Rhinorrhea Eyes: No Swelling, No Redness Cardiovascular : pos Chest Pain, No SOB, NoEdema Respiratory : No Cough, No Sputum, No Wheezing Gastrointestinal : Positive Nausea, Positive Vomiting, no Diarrhea, positive abdominal Pain, No Hematochezia, No Melena Genitourinary : No Dysuria, No Urinary Frequency, No Hematuria, No Urgency Musculoskeletal : No joint pain, No Myalgias, No Joint Swelling Skin : No Skin Lesions, No rash Neuro : pos Weakness, No Numbness, No Dizziness, No Headache Psych : No Anxiety/Panic, No Depression Heme/Lymph: No Bruising, No Lymphadenopathy Endocrine : No Polyuria, No Polydipsia All other systems reviewed and are negative. Gastrointestinal: Gastrointestinal: Reports nausea PMFSH Past Medical History Medical History GERD (gastroesophageal reflux disease) HIV (human immunodeficiency virus infection) Family History Family History Mother HIV (human immunodeficiency virus infection) Social History Social History Household Members: None Housing: Apartment Do you presently have visiting nurse or other home services: No Alcohol intake: never Patient Tobacco Use Status: Former Tobacco user Tobacco use type: Cigarette Cigarettes Per Day: 0.5 Smoked in Last 30 Days: Yes e-Cigarette/Vaping Use: Never Used Second Hand Smoke Exposure: Yes Use of substances other than those prescribed or required for medical reasons: No Substance Use Type: Marijuana Advance Directives Date on File: 09/28/22 service: No Current occupational status: employed Physical Exam Vital Signs: Vital Signs: Last Vital Signs Temp 97.9 F 08/31/23 00:10 Pulse 115 H 08/31/23 00:10 Resp 12 08/31/23 00:10 BP 125/80 08/31/23 00:10 Pulse Ox 97 08/31/23 00:10 O2 Del Method Room Air 08/31/23 00:10 BMI result Body Mass Index 19.5 Appearance: Alert. Oriented X3. Mild acute distress. Eyes: Pupils equal, round and reactive to light. ENT: Pharynx moderately dry MM Neck: Normal inspection. Neck supple. CVS: Normal heart rate and rhythm. Pulses normal. Respiratory: No respiratory distress. Breath sounds normal. Abdomen: Soft and mild diffuse ttp no rebound or guarding Skin: Skin warm and dry. pale skin color. poor skin turgor. Extremities: No lower extremity edema. No calf ttp Neuro: Oriented X 3. No motor deficit. No sensory deficit. Course Course Course Narrative: WBC elevated due to vomiting and not infection or severe sepsis Cr elevated due to dehydration and not infection or severe sepsis Medications Administered Discontinued Medications Generic Name Dose Route Start Last Admin Trade Name Errolq PRN Reason Stop Dose Admin Droperidol 1.25 mg 08/30/23 22:46 08/30/23 23:18 Droperidol 5 Mg/2 Ml Vial IVPUSH 08/30/23 22:47 1.25 mg ONCE ONE Administration Sodium Chloride 1,000 mls @ 999 mls/hr 08/30/23 23:00 08/30/23 23:18 Ns IVCONT 08/31/23 00:00 999 mls/hr .Q1H1M WAYNE Administration Sodium Chloride 1,000 mls @ 999 mls/hr 08/30/23 23:15 08/30/23 23:18 Ns IV 08/31/23 00:15 999 mls/hr .Q1H1M WAYNE Administration Medical Decision Making Medical Decision Making [facility] Narrative: 33 yo male with PMH of HIV compliant with medications, GERD, hx of vomiting in the past here with c/o n/v abdominal pain and chest pain after eating fried fish. He has hx of vomiting like this in the past with chest pain adn abdominal pain - hx of LYSSA. At this time will need basic labs, IVF x 2L, CXR, EKG, anti-emetics, possible admission pending labs and PO challenge. Has hx of elevated troponin in this setting. Differential Diagnosis Differential Diagnoses: The differential diagnosis associated with the presentation includes viral syndrome, food toxicity, THC use, cyclical vomiting, LYSSA Admission/Observation Consideration of admission/observation: Escalation of care including admission/observation considered given LYSSA will admit for further management Consult Healthcare Provider Management of the patient was discussed with: Hospitalist (agrees to admit) Lab Data [facility] Lab Attestation statement: I reviewed the patient's lab results. 08/30/23 23:16 08/30/23 23:39 Labs: Lab Results 08/30/23 08/30/23 Range/Units 23:16 23:39 WBC 18.8 H (4.8-10.8) X10*3/uL RBC 6.21 H D (4.60-5.80) X10*6/uL Hgb 17.9 D (14.0-18.0) g/dl Hct 52.7 H D (42.0-52.0) % MCV 84.9 (80.0-98.0) fL MCH 28.8 (27.0-33.0) pg MCHC 34.0 (31.0-36.0) g/dl RDW 13.4 (11.0-16.0) % Plt Count 327 (160-400) X10*3/uL MPV 10.8 (9.4-12.4) fL Immature Gran % (Auto) Cancelled Neut % (Auto) Cancelled Lymph % (Auto) Cancelled [place] % (Auto) Cancelled Eos % (Auto) Cancelled Baso % (Auto) Cancelled Lymph # (Auto) Cancelled [place] # (Auto) Cancelled Eos # (Auto) Cancelled Baso # (Auto) Cancelled Abs Immat Gran (auto) Cancelled Absolute Neuts (auto) Cancelled Absolute Nucleated RBC 0.000 (0.0-0.012) X10*3/uL Nucleated RBC % (auto) 0.0 (0.0-0.2) /100WBC Neutrophils % (Manual) 84 H (45-73) % Band Neutrophils % 3 (3-5) % Lymphocytes % (Manual) 9 L (20-40) % Atypical Lymphs % (Man) 2 (0-6) % Monocytes % (Manual) 2 (2-11) % Abs Neuts (Manual) 16.4 H (2.0-8.3) X10*3/uL Lymphocytes # (Manual) 1.7 (1.2-4.9) X10*3/uL Atyp Lymphs # (Manual) 0.4 x10*3/uL Monocytes # (Manual) 0.4 (0.1-1.2) X10*3/uL Toxic Vacuolation PRESENT Platelet Estimate NORMAL (NORMAL) Large Platelets PRESENT Plt Morphology Comment NORMAL RBC Morphology NOTED Ovalocytes 1+ (5-14) /OIF Sodium 141 (135-145) mmol/L Potassium 3.3 (3.3-5.1) mmol/L Chloride 97 (96-108) mmol/L Carbon Dioxide 18 L (22-29) mmol/L Anion Gap 29 H (12-20) BUN 45 H (9-16) mg/dL Creatinine 3.74 H (0.5-1.4) mg/dL Estim Creat Clear Calc 21.6 Estimated GFR 19 Random Glucose 240 H (60-115) mg/dL Calcium 12.0 H D (8.4-10.2) mg/dL Magnesium 2.8 H (1.6-2.6) mg/dL Total Bilirubin 0.5 (0.0-1.0) mg/dL Direct Bilirubin 0.3 (0.0-0.5) mg/dL AST 21 (5-37) U/L ALT 15 (0-40) U/L Alkaline Phosphatase 95 (39-117) U/L Troponin I High Sens 4.6 (<3.5-35.0) ng/L Total Protein 11.8 H (6.5-8.0) g/dL Albumin 6.6 H (3.5-5.0) g/dL Lipase 30 (8-78) U/L COVID-19 (DEBORAH) Negative (Negative) COVID-19 Clin Com See Note Independent Interpretation I performed an independent interpretation of an: EKG and Plain X-Ray (no pneumonia) Interpretation: Rate: 89 Rhythm: NSR [place]: normal Normal P waves. Normal HUNTER. Normal QRS complex. ST T wave : inverted t waves aVL, no RAUL qTC: normal prior studies: no acute ischemia The study has been interpreted contemporaneously by me. . Radiology Impression Discussion of test interpretation with radiology: I have reviewed the radiologist's reading. External Record Review External record reviewed: Inpatient record Critical Care Time Critical Care Time Critical Care Time: Yes Total Critical Care Time: 45 Attestation: 2L of IVF, admission, review of records I attest to this time spent taking care of the patient Discharge Plan Discharge Clinical Impression: LYSSA (acute kidney injury) Vomiting Qualifiers: Vomiting type: unspecified Nausea presence: with nausea Qualified Code(s): R11.2 - Nausea with vomiting, unspecified Elevated WBC count Qualifiers: Leukocytosis type: unspecified Qualified Code(s): D72.829 - Elevated white blood cell count, unspecified Patient Disposition: Admitted As Inpatient Prescriptions: No Action Dovato 50-300 mg Tablet 1 tab PO DAILY ondansetron 4 mg tablet,disintegrating 4 mg PO Q6H PRN (Reason: nausea and vomiting) Qty: 10 0RF sucralfate [Carafate] 1 gram tablet 1 g PO TID Qty: 90 0RF pantoprazole [Protonix] 40 mg tablet,delayed release (DR/EC) 40 mg PO DAILY Qty: 30 0RF hydroxyzine HCl 25 mg tablet 25 mg PO TID PRN (Reason: anxiety) Qty: 15 0RF
[2023-08-30] MEDS: droPERidol 5 MG/2 ML VIAL 1.25 MG IVPUSH (23:18)
[2023-08-30] MEDS: 0.9 % Sodium Chloride 1,000 ML 999 ML IV (23:18)
[2023-08-30] MEDS: 0.9 % Sodium Chloride 1,000 ML 999 ML IVCONT (23:18)
[2023-08-30 23:28] LABS: Hematocrit 52.7 % (42.0-52.0); Hemoglobin 17.9 g/dl (14.0-18.0); Mean Corpuscular Hemoglobin 28.8 pg (27.0-33.0); Mean Corpuscular Volume 84.9 fL (80.0-98.0); Mean Platelet Volume 10.8 fL (9.4-12.4); Platelet Count 327 X10*3/uL (160-400); Red Blood Count 6.21 X10*6/uL (4.60-5.80); Red Cell Distribution Width 13.4 % (11.0-16.0)
[2023-08-30 23:29] LABS: WBC ABN SCTR FOR CBC 1
[2023-08-30 23:46] LABS: COVID-19 Test Negative (Negative); IDNOW Serial# 08D9AD1C
[2023-08-30 23:57] LABS: Atypical Lymphs Percent Manual 2 % (0-6); Band Neutrophils Percent 3 % (3-5); Lymphocytes Percent Manual 9 % (20-40); Monocytes Percent Manual 2 % (2-11); Neutrophils Percent Manual 84 % (45-73)
[2023-08-30 23:58] LABS: Large Platelet PRESENT; Ovalocytes 1+ (5-14) /OIF; Platelet Estimate NORMAL (NORMAL); Platelet Morphology Comment NORMAL; RBC Morphology NOTED; Toxic Vacuolation PRESENT
[2023-08-30 23:59] LABS: Atypical Lymph Absolute Manual 0.4 x10*3/uL; Lymphocytes Absolute Manual 1.7 X10*3/uL (1.2-4.9); Monocytes Absolute Manual 0.4 X10*3/uL (0.1-1.2); Neutrophils Absolute Manual 16.4 X10*3/uL (2.0-8.3); White Blood Count 18.8 X10*3/uL (4.8-10.8)
[2023-08-31 00:01] LABS: Anion Gap 29 (12-20)
[2023-08-31 00:08] LABS: Troponin-I High Sensitivity 4.6 ng/L (<3.5-35.0)
[2023-08-31 00:10] VITALS: BP 125/80; PULSE 115; RESP 12; TEMP 36.6; O2SAT 97
[2023-08-31 00:15] LABS: Alanine Aminotransferase 15 U/L (0-40); Albumin Level 6.6 g/dL (3.5-5.0); Alkaline Phosphatase 95 U/L (39-117); Aspartate Amino Transferase 21 U/L (5-37); Bilirubin Direct 0.3 mg/dL (0.0-0.5); Bilirubin Total 0.5 mg/dL (0.0-1.0); Blood Urea Nitrogen 45 mg/dL (9-16); Carbon Dioxide 18 mmol/L (22-29); Chloride 97 mmol/L (96-108); Glucose Random 240 mg/dL (60-115); Lipase 30 U/L (8-78); Magnesium 2.8 mg/dL (1.6-2.6); Potassium 3.3 mmol/L (3.3-5.1); Sodium 141 mmol/L (135-145); Total Protein 11.8 g/dL (6.5-8.0)
[2023-08-31 00:59] LABS: Creatinine Clr Calc Pharmacy 21.6; Estimated Glomerular Filt Rate 19
--- NOTE | 2023-08-31 01:16 | P.HPHOSP_ITS ---
History of Present Illness Date of Service: 08/31/23 Chief Complaint: Nausea/vomiting This is a 33-year-old male with pertinent history of HIV on dovato, unknown CD4 count who presents to the emergency department for nausea and vomiting. Patient states it started on the day of presentation. He had 3-4 episodes of nonbloody emesis. Also has been having nonbloody diarrhea. States he started having stomach upset after he ate fried fish 2 days prior to presentation. Previous UDS positive for marijuana but denies smoking marijuana or IV drug use. Denies alcohol use. Also has been having generalized abdominal discomfort, intermittent and not without any relief. No fever, chills, chest discomfort, palpitations, shortness of breath, changes in urinary habits. In the emergency department, creatinine found to be elevated Review of Systems 2 Constitutional: Constitutional: Reports fatigue and Reports lethargy Cardiovascular: Cardiovascular: Reports no additional cardiovascular complaints Respiratory: Respiratory: Reports no additional respiratory complaints Gastrointestinal: Gastrointestinal: Reports loose stools, Reports nausea and Reports vomiting Genitourinary: Genitourinary: Reports no additional male genitourinary complaints Endocrine: Endocrine: Reports fatigue [facility] Medical History HIV (human immunodeficiency virus infection) GERD (gastroesophageal reflux disease) Family History Mother HIV (human immunodeficiency virus infection) Social History Household Members: None Housing: Apartment Do you presently have visiting nurse or other home services: No Alcohol intake: never Patient Tobacco Use Status: Former Tobacco user Tobacco use type: Cigarette Cigarettes Per Day: 0.5 Smoked in Last 30 Days: Yes e-Cigarette/Vaping Use: Never Used Second Hand Smoke Exposure: Yes Use of substances other than those prescribed or required for medical reasons: No Substance Use Type: Marijuana Advance Directives: Yes Advance Directives on File: Yes Advance Directives Date on File: 09/28/22 service: No Current occupational status: employed Meds Allergies Allergy/AdvReac Type Severity Reaction Status Date / Time No Known Allergies Allergy Verified 09/27/22 11:58 Home Medications Medication Instructions Recorded Confirmed Last Taken Type dolutegravir 50 mg-lamivudine 300 1 tab PO DAILY 09/02/20 11/03/22 11/03/22 05:30 History mg tablet (Dovato) Physical Exam 2 Vital Signs and Narrative: Vital Signs: Last Vital Signs Temp 97.9 F 08/31/23 00:10 Pulse 115 H 08/31/23 00:10 Resp 12 08/31/23 00:10 BP 125/80 08/31/23 00:10 Pulse Ox 97 08/31/23 00:10 O2 Del Method Room Air 08/31/23 00:10 BMI result Body Mass Index 19.5 Middle-aged male lying in bed in no distress Neck supple, no JVD Tachycardic with regular rhythm, S1-S2 heard Regular breath sounds bilaterally, no wheezing or crackles appreciated Abdomen soft nontender, no guarding, no rigidity Patient is awake, alert and oriented to self, place, time and person ; no focal motor deficit Psych: Normal mood No pedal edema Results Labs 08/30/23 23:16 08/30/23 23:39 Labs: Laboratory Results - last 24 hr 08/30/23 08/30/23 23:16 23:39 MCV 84.9 MCH 28.8 MCHC 34.0 RDW 13.4 Plt Count 327 MPV 10.8 Immature Gran % (Auto) Cancelled Neut % (Auto) Cancelled Lymph % (Auto) Cancelled [place] % (Auto) Cancelled Eos % (Auto) Cancelled Baso % (Auto) Cancelled Lymph # (Auto) Cancelled [place] # (Auto) Cancelled Eos # (Auto) Cancelled Baso # (Auto) Cancelled Abs Immat Gran (auto) Cancelled Absolute Neuts (auto) Cancelled Absolute Nucleated RBC 0.000 Nucleated RBC % (auto) 0.0 Neutrophils % (Manual) 84 H Band Neutrophils % 3 Lymphocytes % (Manual) 9 L Atypical Lymphs % (Man) 2 Monocytes % (Manual) 2 Abs Neuts (Manual) 16.4 H Lymphocytes # (Manual) 1.7 Atyp Lymphs # (Manual) 0.4 Monocytes # (Manual) 0.4 Toxic Vacuolation PRESENT Platelet Estimate NORMAL Large Platelets PRESENT Plt Morphology Comment NORMAL RBC Morphology NOTED Ovalocytes 1+ (5-14) Anion Gap 29 H Estim Creat Clear Calc 21.6 Estimated GFR 19 Random Glucose 240 H Calcium 12.0 H D Magnesium 2.8 H Total Bilirubin 0.5 Direct Bilirubin 0.3 AST 21 ALT 15 Alkaline Phosphatase 95 Total Protein 11.8 H Albumin 6.6 H Lipase 30 COVID-19 (DEBORAH) Negative COVID-19 Clin Com See Note Imaging Radiologist's Impressions: Impressions Chest X-Ray 08/30/23 22:52 IMPRESSION: Unremarkable examination. Assessment and Plan (1) LYSSA (acute kidney injury): Status: Acute (2) Vomiting: Qualifiers: Nausea presence: with nausea Vomiting type: unspecified Qualified Code(s): R11.2 - Nausea with vomiting, unspecified Status: Acute Plan This is a 33-year-old male with pertinent history of HIV on dovato, unknown CD4 count who presents to the emergency department for nausea and vomiting. #. Intractable nausea/vomiting and diarrhea: ?gastroenteritis. Symptomatic treatment with IV crystalloid resuscitation and antiemetics. Defer antibiotics. GI panel pending #. Acute kidney injury, stage III: Likely prerenal in the setting of above. Monitor creatinine and urine output with crystalloid resuscitation. Avoid nephrotoxins #. History of marijuana use disorder: Denies smoking marijuana currently. UDS pending #. HIV: Continue dovato. Unknown last CD4 count #. Reactive leukocytosis #. Hyperglycemia: Initiating Accu-Cheks with sliding scale insulin. Obtain A1c Med rec pending DVT prophylaxis: Lovenox Admit as inpatient and will require two night minimum hospital stay for close monitoring of kidney function and GI symptoms which is not possible in a lesser acute setting Quality Stroke Does the patient have a stroke diagnosis?: No VTE Prior VTE?: No VTE Risk Level:: Medical - moderate - high VTE Device Contraindication: Treatment Not Indicated VTE Drug Contraindication: N/A - Med Ordered
[2023-08-31] MEDS: Lactated Ringers 1,000 ML 125 ML IVCONT (02:17)
[2023-08-31 03:39] LABS: Appearance Urine Cloudy; Color Urine Yellow; Glucose Urine UA Negative (Negative); Leukocyte Esterase Urine Negative (Negative); Nitrite Urine Negative (Negative); PH 5.5 (5.0-9.0); Specific Gravity - Urine 1.025 (1.005-1.025); UMIC TRIGGER UACC YES; Urine Blood Large (3+) (Negative); Urine Ketones Trace mg/dL (Negative); Urine Protein 100 (2+) mg/dL (Neg-Trace)
[2023-08-31 03:46] LABS: Amphetamine Screen Urine Not Detected (Not Detect); Barbiturates, Urine Not Detected (Not Detect); Benzodiazepines Screen Urine Not Detected (Not Detect); Cannabinoid Screen Urine POSITIVE (Not Detect); Cocaine Screen Urine Not Detected (Not Detect); Fentanyl, urine Not Detected (Not Detect); Opiate Screen Urine Not Detected (Not Detect); Phencyclidine Screen Urine Not Detected (Not Detect)
[2023-08-31 03:55] LABS: Bacteria Urine None Seen (None Seen); Hyaline Casts Urine >20 /LPF (0-2); WBC Urine 0-5 /HPF (0-5)
[2023-08-31 05:37] LABS: Estimated Average Glucose 100 mg/dL; Hemoglobin A1c % 5.1 % (<6.0)
[2023-08-31 06:14] LABS: Basophils Percent Auto 0.2 % (0-2); Eosinophils Percent Auto 0.1 % (0-4); Hematocrit 43.3 % (42.0-52.0); Hemoglobin 14.5 g/dl (14.0-18.0); Imm Gran Abs Auto 0.16 X10*3/uL (0.00-0.03); Imm Gran Pct Auto 0.8 % (0.0-0.4); Lymphocytes Absolute Auto 0.7 X10*3/uL (1.2-4.9); Lymphocytes Percent Auto 3.3 % (20-40); MANUAL DIFF FLAG SCAN; Mean Corpuscular HGB Conc 33.5 g/dl (31.0-36.0); Mean Corpuscular Hemoglobin 28.9 pg (27.0-33.0); Mean Corpuscular Volume 86.3 fL (80.0-98.0); Mean Platelet Volume 10.6 fL (9.4-12.4); Monocytes Absolute Auto 0.6 X10*3/uL (0.1-1.2); Monocytes Percent Auto 2.8 % (2-11); Neutrophils Absolute Auto 18.5 x10*3/uL (2.0-8.3); Neutrophils Percent Auto 92.8 % (45-73); Platelet Count 320 X10*3/uL (160-400); Red Blood Count 5.02 X10*6/uL (4.60-5.80); Red Cell Distribution Width 13.4 % (11.0-16.0); SCAN SMEAR FLAG 1
--- NOTE | 2023-08-31 06:17 | PM.EVENT ---
Event Note Date of Service: 08/31/23 Event Note: Was informed by the nurse that patient eloped. Time Spent With Patient Time: Total time managing care of this patient today ____ minutes.
--- NOTE | 2023-08-31 06:17 | PM.DS ---
DS: Providers Provider Date of Service: 08/31/23 Date of admission: 08/31/23 01:15 Date of discharge: 08/31/23 Primary care physician: Unknown Physician DS: Diagnosis Discharge Diagnosis (1) LYSSA (acute kidney injury): Status: Acute (2) Vomiting: Status: Acute DS: Summary Hospital Course Hospital Course: HPI: This is a 33-year-old male with pertinent history of HIV on dovato, unknown CD4 count who presents to the emergency department for nausea and vomiting. Patient states it started on the day of presentation. He had 3-4 episodes of nonbloody emesis. Also has been having nonbloody diarrhea. States he started having stomach upset after he ate fried fish 2 days prior to presentation. Previous UDS positive for marijuana but denies smoking marijuana or IV drug use. Denies alcohol use. Also has been having generalized abdominal discomfort, intermittent and not without any relief. No fever, chills, chest discomfort, palpitations, shortness of breath, changes in urinary habits. In the emergency department, creatinine found to be elevated Hospital course: Patient was being resuscitated with IV crystalloids in the ER. UDS positive for marijuana. Intractable nausea and vomiting likely due to marijuana use disorder. Was informed by the nurse that patient eloped soon after admission. Status at Discharge Functional status at discharge: independent ambulation Time Attestation Discharge coordination time: Less than 30 minutes Quality: Safe Use of Opioids Does Pt have an Active Cancer Diagnosis on the Problem List?: No Quality: Stroke Does the patient have a stroke diagnosis?: No Physical Exam Vital Signs: Vital Signs: Last Vital Signs Temp 97.9 F 08/31/23 00:10 Pulse 115 H 08/31/23 00:10 Resp 12 08/31/23 00:10 BP 125/80 08/31/23 00:10 Pulse Ox 97 08/31/23 00:10 O2 Del Method Room Air 08/31/23 00:10 BMI result Body Mass Index 19.5 Middle-aged male lying in bed in no distress Neck supple, no JVD Tachycardic with regular rhythm, S1-S2 heard Regular breath sounds bilaterally, no wheezing or crackles appreciated Abdomen soft nontender, no guarding, no rigidity Patient is awake, alert and oriented to self, place, time and person ; no focal motor deficit Psych: Normal mood No pedal edema DS: Data Data Completed and Pending Labs on day of discharge: Laboratory Results - last 24 hr 08/30/23 08/30/23 08/30/23 02:01 23:16 23:39 WBC 18.8 H RBC 6.21 H D Hgb 17.9 D Hct 52.7 H D MCV 84.9 MCH 28.8 MCHC 34.0 RDW 13.4 Plt Count 327 MPV 10.8 Immature Gran % (Auto) Cancelled Neut % (Auto) Cancelled Lymph % (Auto) Cancelled [place] % (Auto) Cancelled Eos % (Auto) Cancelled Baso % (Auto) Cancelled Lymph # (Auto) Cancelled [place] # (Auto) Cancelled Eos # (Auto) Cancelled Baso # (Auto) Cancelled Abs Immat Gran (auto) Cancelled Absolute Neuts (auto) Cancelled Absolute Nucleated RBC 0.000 Nucleated RBC % (auto) 0.0 Neutrophils % (Manual) 84 H Band Neutrophils % 3 Lymphocytes % (Manual) 9 L Atypical Lymphs % (Man) 2 Monocytes % (Manual) 2 Abs Neuts (Manual) 16.4 H Lymphocytes # (Manual) 1.7 Atyp Lymphs # (Manual) 0.4 Monocytes # (Manual) 0.4 Toxic Vacuolation PRESENT Platelet Estimate NORMAL Large Platelets PRESENT Plt Morphology Comment NORMAL RBC Morphology NOTED Ovalocytes 1+ (5-14) Sodium 141 Potassium 3.3 Chloride 97 Carbon Dioxide 18 L Anion Gap 29 H BUN 45 H Creatinine 3.74 H Estim Creat Clear Calc 21.6 Estimated GFR 19 Random Glucose 240 H Estimat Average Glucose 100 Hemoglobin A1c % 5.1 Calcium 12.0 H D Magnesium 2.8 H Total Bilirubin 0.5 Direct Bilirubin 0.3 AST 21 ALT 15 Alkaline Phosphatase 95 Troponin I High Sens 4.6 Total Protein 11.8 H Albumin 6.6 H Lipase 30 Urine Color Urine Appearance Urine pH Ur Specific [place] Urine Protein Urine Glucose (UA) Urine Ketones Urine Blood Urine Nitrite Ur Leukocyte Esterase Urine RBC Urine WBC Ur Squamous Epith Cells Urine Bacteria Hyaline Casts Urine Opiates Screen Urine Fentanyl Screen Ur Barbiturates Screen Ur Phencyclidine Scrn Ur Amphetamines Screen U Benzodiazepines Scrn Urine Cocaine Screen U Marijuana (THC) Screen COVID-19 (DEBORAH) Negative COVID-19 Clin Com See Note 08/31/23 08/31/23 03:33 04:43 WBC 20.0 H RBC 5.02 Hgb 14.5 Hct 43.3 MCV 86.3 MCH 28.9 MCHC 33.5 RDW 13.4 Plt Count 320 MPV 10.6 Immature Gran % (Auto) Neut % (Auto) Lymph % (Auto) [place] % (Auto) Eos % (Auto) Baso % (Auto) Lymph # (Auto) [place] # (Auto) Eos # (Auto) Baso # (Auto) Abs Immat Gran (auto) Absolute Neuts (auto) Absolute Nucleated RBC Nucleated RBC % (auto) Neutrophils % (Manual) Band Neutrophils % Lymphocytes % (Manual) Atypical Lymphs % (Man) Monocytes % (Manual) Abs Neuts (Manual) Lymphocytes # (Manual) Atyp Lymphs # (Manual) Monocytes # (Manual) Toxic Vacuolation Platelet Estimate Large Platelets Plt Morphology Comment RBC Morphology Ovalocytes Sodium Potassium Chloride Carbon Dioxide Anion Gap BUN Creatinine Estim Creat Clear Calc Estimated GFR Random Glucose Estimat Average Glucose Hemoglobin A1c % Calcium Magnesium Total Bilirubin Direct Bilirubin AST ALT Alkaline Phosphatase Troponin I High Sens Total Protein Albumin Lipase Urine Color Yellow Urine Appearance Cloudy Urine pH 5.5 Ur Specific [place] 1.025 Urine Protein 100 (2+) H Urine Glucose (UA) Negative Urine Ketones Trace Urine Blood Large (3+) H Urine Nitrite Negative Ur Leukocyte Esterase Negative Urine RBC 6-10 H Urine WBC 0-5 Ur Squamous Epith Cells 11-20 Urine Bacteria None Seen Hyaline Casts >20 Urine Opiates Screen Not Detected Urine Fentanyl Screen Not Detected Ur Barbiturates Screen Not Detected Ur Phencyclidine Scrn Not Detected Ur Amphetamines Screen Not Detected U Benzodiazepines Scrn Not Detected Urine Cocaine Screen Not Detected U Marijuana (THC) Screen POSITIVE H COVID-19 (DEBORAH) COVID-19 Clin Com Imaging Chest x-ray: Radiologist's impression: ITS Impressions Chest X-Ray 08/30/23 22:52 IMPRESSION: Unremarkable examination. Discharge Plan Discharge Patient Disposition: Left Against Medical Advice Discharge Diagnosis: Intractable nausea and vomiting likely due to marijuana use disorder Referrals: Physician,Unknown J [Primary Care Provider] - 1 Week Discharge Medications: No Action Dovato 50-300 mg Tablet 1 tab PO DAILY Discharge Orders: Discharge Order (Routine); Ordered 08/31/23 Ordered By: Jamil Wang Diet: Advance to usual diet Activity on Discharge: As tolerated Care Plan Goals: Follow-up with PCP to monitor creatinine Health Concerns: Marijuana use disorder Plan of Treatment: Patient left AMA Assessment: As above
--- NOTE | 2023-08-31 06:19 | PC.NURSE ---
This nurse was informed by the Marcio eastman, that pt is not at the bedside. Charge nurse and Dr. Wang made aware. Dr. Wang, Marcio, and this nurse searched for the pt. No sign of pt in the ED. Multiple attempts made by charge nurse and this RN to reach pt via telephone with no success. Voicemail left for pt to return to the ED or return the phone call. This report writer called [facility] and notified that pt is no longer in the ED and left without informing anyone. Pt has a 20G IV line on the R AC that needs to be removed. [facility] will visit pt at his home. Dr Wang and charge nurse aware.
[2023-08-31 06:29] LABS: Anion Gap 19 (12-20); Blood Urea Nitrogen 37 mg/dL (9-16); Calcium 9.6 mg/dL (8.4-10.2); Carbon Dioxide 19 mmol/L (22-29); Chloride 108 mmol/L (96-108); Creatinine Clr Calc Pharmacy 43.2; Estimated Glomerular Filt Rate 42; Glucose Random 196 mg/dL (60-115); Potassium 3.8 mmol/L (3.3-5.1); Sodium 142 mmol/L (135-145)
--- NOTE | 2023-08-31 07:13 | PHA.MEDREC ---
Pharmacy Consult ? Medication Reconciliation Pharmacy has reviewed the medication reconciliation completed by RN, no issues Elliot
[2023-08-31 08:12] LABS: SLIDE REVIEW VERIFIED
--- NOTE | 2023-09-01 08:47 | MHC.CM.PN ---
Patient left AMA before being seen by case management.
== END 2023-08-31 07:00 | disposition left against medical advice (07) | DRG 249 ==
LOC: HO.ED 08-31 01:08 → HO.EDOVER 08-31 01:19
PROVIDERS: Admitting Provider Student in an Organized Health Care Education/Training Program; Emergency Provider Emergency Medicine; PCP Internal Medicine; Visit Provider Internal Medicine
DX: R11.2 Nausea with vomiting, unspecified (principal); N17.9 Acute kidney failure, unspecified; F12.90 Cannabis use, unspecified, uncomplicated; Z20.822 Contact with and (suspected) exposure to COVID-19; Z21 Asymptomatic human immunodeficiency virus [HIV] infection status; Z87.81 Personal history of (healed) traumatic fracture; Z79.899 Other long term (current) drug therapy
CPT/HCPCS: 36415; 71045; 80048; 80076; 80307; 81001; 83036; 83690; 83735; 84484; 85007; 85025; 85027; 87635; 92950; 93005; 99285; J1790

== ENCOUNTER → 2023-08-31 01:15 | Outpatient (BNV) | payer OTHER, SELFPAY | PROVIDERS: Admitting Provider Student in an Organized Health Care Education/Training Program; Emergency Provider Emergency Medicine; Visit Provider Student in an Organized Health Care Education/Training Program | DX: N17.9 Acute kidney failure, unspecified (principal); R11.2 Nausea with vomiting, unspecified; Z53.29 Procedure and treatment not carried out because of patient's decision for other reasons | CPT/HCPCS: 99222; 99499 ==

== ENCOUNTER 2023-10-17 17:05 | Inpatient (IN) | payer OTHER, SELFPAY ==
--- NOTE | ~2023-10-17 | CT_ITS ---
EXAMINATION: CT ABDOMEN AND PELVIS WITHOUT CONTRAST CLINICAL INFORMATION: Right lower quadrant abdominal pain COMPARISON: CT abdomen pelvis 11/05/2022 TECHNIQUE: Multidetector volumetric imaging was performed from the superior aspect of the liver through the pubic symphysis. Sagittal and coronal reformatted images were obtained on the technologist's workstation. This CT examination was performed using dose optimization techniques as appropriate, variously including the following: *Automated exposure control *Adjustment of mA and/or kV according to patient size (this includes techniques or standardized protocols for targeted exams where dose is matched to indication/reason for exam; i.e. extremities or head) *Use of iterative reconstruction technique DLP: 277 mGy-cm FINDINGS: LUNG BASES: The visualized lung bases are unremarkable. LIVER, GALLBLADDER, AND BILIARY TREE: The liver is normal in size, shape, and attenuation. No focal hepatic lesion or biliary ductal dilatation is present. The gallbladder is unremarkable with no evidence of radiopaque gallstones, gallbladder wall thickening, or obvious pericholecystic inflammatory changes. PANCREAS: Unremarkable. SPLEEN: Unremarkable. ADRENAL GLANDS: Unremarkable. KIDNEYS AND URETERS: The kidneys are normal in size, shape, and attenuation. No hydronephrosis, hydroureter, or calculi seen. No perinephric stranding. BLADDER: Unremarkable. GASTROINTESTINAL TRACT: The small and large bowel are unremarkable. The appendix is identified and there is no evidence of appendicitis. ABDOMINAL WALL: No significant hernia is appreciated. LYMPH NODES: No retroperitoneal lymphadenopathy. VASCULAR: Unremarkable. PELVIC VISCERA: The prostate and seminal vesicles are unremarkable. No free intraperitoneal fluid. OSSEOUS STRUCTURES: Unremarkable. CT/CT abdomen pelvis wo IV con IMPRESSION: No significant abnormality. A cause for the patient's right lower quadrant pain has not been found. The appendix is identified and there is no evidence of appendicitis. Fleischner guidelines were followed.
[2023-10-17 17:15] VITALS: BP 108/60; BP 116/73; PULSE 120; PULSE 128; RESP 18; TEMP 37.1; O2SAT 100; O2SAT 98; BMI 19.4
--- NOTE | 2023-10-17 17:19 | ECG_ITS ---
Test Reason : CP Blood Pressure : / mmHG Vent. Rate : 088 BPM Atrial Rate : 088 BPM P-R Int : 140 ms QRS Dur : 090 ms QT Int : 398 ms P-R-T Axes : 000 148 146 degrees QTc Int : 481 ms Artifact in tracing Normal sinus rhythm Left posterior fascicular block Nonspecific ST and T wave abnormality Prolonged QT Abnormal ECG When compared with ECG of 30-AUG-2023 22:47, No significant changes seen Referred By: Brayan Mejia Electronically Signed By:ROWDY HENRIQUEZ
[2023-10-17] MEDS: 0.9 % Sodium Chloride 1,000 ML 999 ML IV ×2 (17:21→19:07)
--- NOTE | 2023-10-17 17:23 | ED_ITS ---
HPI - Abdominal Pain General Chief Complaint: Abdominal Pain Stated Complaint: ABD PAIN Time Seen by Provider: 10/17/23 17:14 Source: patient and EMS Mode of arrival: EMS Limitations: no limitations History of Present Illness HPI narrative: 33-year-old male came in by ambulance for evaluation of abdominal pain with nausea and vomiting. Patient's symptoms started since this morning with abdominal pain nausea, vomiting, becoming diaphoresis, no clear aggravating or relieving factors, no associated diarrhea, no fever, no chills. Patient also feels generalized weakness and generalized body ache. Decline using alcohol recently, no exposure to a bad food, no recent travel. Related Data Home Medications Medication Instructions Recorded Confirmed dolutegravir 50 mg-lamivudine 300 1 tab PO DAILY 09/02/20 08/31/23 mg tablet (Dovato) Allergies Allergy/AdvReac Type Severity Reaction Status Date / Time No Known Allergies Allergy Verified 10/17/23 17:19 Review of Systems Review of Systems All other systems are reviewed and are negative Constitutional: Reports as per HPI and Reports no additional constitutional complaints Eyes: Reports as per HPI and Reports no additional eye complaints Reports system reviewed and no additional complaints, except as documented Cardiovascular: Reports as per HPI and Reports no additional cardiovascular complaints Respiratory: Reports as per HPI and Reports no additional respiratory complaints Gastrointestinal: Reports as per HPI and Reports no additional gastrointestinal complaints Genitourinary: Reports no additional female genitourinary complaints Musculoskeletal: Reports no additional musculoskeletal complaints Skin/Breast: Reports system reviewed and no additional complaints, except as docu Psychiatric: Reports no additional psychiatric complaints Endocrine: Reports no additional endocrine complaints Hematologic/Lymphatic: Reports no additional hematologic/lymphatic complaints Allergic/Immunologic: Reports no additional allergic/immunologic complaints Reports system reviewed and no additional complaints, except as documented and Reports Abnormal speech present [facility] Past Medical History Medical History HIV (human immunodeficiency virus infection) GERD (gastroesophageal reflux disease) Family History Family History Mother HIV (human immunodeficiency virus infection) Social History Social History Household Members: None Housing: Apartment Do you presently have visiting nurse or other home services: No Alcohol intake: never Patient Tobacco Use Status: Former Tobacco user Tobacco use type: Cigarette Cigarettes Per Day: 0.5 Smoked in Last 30 Days: No e-Cigarette/Vaping Use: Never Used Second Hand Smoke Exposure: Yes Use of substances other than those prescribed or required for medical reasons: No Substance Use Type: Marijuana Advance Directives: Yes Advance Directives on File: Yes Advance Directives Date on File: 09/29/22 service: No Current occupational status: employed Physical Exam ED Vital Signs: Vital Signs - 24 hr 10/17/23 17:15 Temperature 98.7 F Pulse Rate 120 H Respiratory Rate 18 Blood Pressure 116/73 Pulse Oximetry 100 Oxygen Delivery Method Room Air BMI result Body Mass Index 19.4 Vital signs have been reviewed and appear to be correct. Blood pressure elevated. Heart rate normal. Respiratory rate normal. Temperature normal. Oxygen saturation normal. Appearance: Alert. Oriented X3. No acute distress. Head: Normal external exam. Normocephalic. Atraumatic. No Whitney signs noted. No raccoon eyes noted Eyes: PERRLA. EOMI. Conjunctiva and sclera normal. Eyelids normal. ENT: TM's Normal. Pharynx normal. Uvula midline. Moist mucous membranes. No trismus noted. No drooling noted. No muffled voice noted. Neck: Normal inspection. Neck supple. FROM. No adenopathy. Thyroid Normal. No meningeal signs. No neck mass noted. CVS: Normal heart rate and rhythm. Heart sound normal. No murmurs noted. Pulses normal throughout. Respiratory: No respiratory distress. Painless inspiration. Breath sounds normal. No wheezes/rales/rhonchi noted. Chest nontender. No accessory muscle usage noted or decreased air movement noted. Abdomen: Soft and nontender. Bowel sounds normal in all 4 quadrants. No distention noted. No organomegaly noted. No visible injury noted. Back: No CVA tenderness. Full range of motion noted. Skin: Skin warm and dry. Normal skin color. Normal skin turgor. No rashes/lesions/lacerations noted. Extremities: No lower extremity edema. Extremities exhibit normal range of motion. Extremities nontender. Neuro: Oriented X 3. Cranial nerve exam: II-XII are grossly intact No motor deficit. No sensory deficit. Reflexes normal. Course Reevaluation(s) Reevaluation #1: 33-year-old male came in with abdominal pain, nausea vomiting, labs revealed hypercalcemia patient received 2 L of fluid and pamidronate, the case also discussed with Dr. Odom. PTH to check her and will admit for further hydration and serial calcium check. Time: 19:33 Medical Decision Making Differential Diagnosis Differential Diagnoses: The differential diagnosis associated with the presentation includes (Acute appendicitis, colitis, small-bowel obstruction, electrolyte abnormality, dehydration, severe anemia.) Admission/Observation Consideration of admission/observation: Escalation of care including admission/observation considered Consult Healthcare Provider Management of the patient was discussed with: Hospitalist (Dr. De La Fuente) and Medical Office Supervisor (Dr. Dell Odom) Lab Data MDM Lab Attestation statement: I reviewed the patient's lab results. 10/17/23 17:25 10/17/23 17:25 Labs: Lab Results 10/17/23 Range/Units 17:25 WBC 19.2 H (4.8-10.8) X10*3/uL RBC 6.35 H D (4.60-5.80) X10*6/uL Hgb 19.1 H D (14.0-18.0) g/dl Hct 54.7 H D (42.0-52.0) % MCV 86.1 (80.0-98.0) fL MCH 30.1 (27.0-33.0) pg MCHC 34.9 (31.0-36.0) g/dl RDW 14.3 (11.0-16.0) % Plt Count 320 (160-400) X10*3/uL MPV 10.9 (9.4-12.4) fL Immature Gran % (Auto) 0.8 H (0.0-0.4) % Neut % (Auto) 80.6 H (45-73) % Lymph % (Auto) 13.0 L (20-40) % [place] % (Auto) 5.0 (2-11) % Eos % (Auto) 0.1 (0-4) % Baso % (Auto) 0.5 (0-2) % Lymph # (Auto) 2.5 (1.2-4.9) X10*3/uL [place] # (Auto) 1.0 (0.1-1.2) X10*3/uL Eos # (Auto) 0.0 (0.0-0.4) X10*3/uL Baso # (Auto) 0.1 (0.0-0.2) X10*3/uL Abs Immat Gran (auto) 0.16 H (0.00-0.03) X10*3/uL Absolute Neuts (auto) 15.5 H (2.0-8.3) x10*3/uL Absolute Nucleated RBC 0.000 (0.0-0.012) X10*3/uL Nucleated RBC % (auto) 0.0 (0.0-0.2) /100WBC Sodium 140 (135-145) mmol/L Potassium 3.1 L (3.3-5.1) mmol/L Chloride 97 (96-108) mmol/L Carbon Dioxide 17 L (22-29) mmol/L Anion Gap 29 H (12-20) BUN 38 H (9-16) mg/dL Creatinine 3.62 H (0.5-1.4) mg/dL Estim Creat Clear Calc 22.1 Estimated GFR 19 Random Glucose 211 H (60-115) mg/dL Calcium 13.0 H* D (8.4-10.2) mg/dL Total Bilirubin 1.0 (0.0-1.0) mg/dL Direct Bilirubin 0.3 (0.0-0.5) mg/dL AST 26 (5-37) U/L ALT 17 (0-40) U/L Alkaline Phosphatase 99 (39-117) U/L Troponin I High Sens 16.8 D (<3.5-35.0) ng/L Total Protein 12.5 H (6.5-8.0) g/dL Albumin 7.1 H (3.5-5.0) g/dL Lipase 37 (8-78) U/L Independent Interpretation I performed an independent interpretation of an: CT Scan (Abdomen pelvis:No significant abnormality. A cause for the patient's right lower quadrant pain has not been found. The appendix is identified and there is no evidence of appendicitis.) Radiology Impression Discussion of test interpretation with radiology: I have reviewed the radiologist's reading. Medications Administered Generic Name Dose Route Start Last Admin Trade Name Freq PRN Reason Stop Dose Admin Sodium Chloride 1,000 mls @ 999 mls/hr 10/17/23 18:38 10/17/23 19:07 Ns IV 10/17/23 19:38 999 mls/hr .Q1H1M ONE Administration Discontinued Medications Generic Name Dose Route Start Last Admin Trade Name Sita PRN Reason Stop Dose Admin Al Hydroxide/Mg Hydroxide 30 ml 10/17/23 17:21 10/17/23 17:34 Magnesium Hydrox/Alum Hydrox 30 Ml Oral.Susp PO 10/17/23 17:22 30 ml ONCE ONE Administration Famotidine 20 mg 10/17/23 17:21 10/17/23 17:34 Famotidine/Pf 20 Mg/2 Ml Vial IVPUSH 10/17/23 17:22 20 mg ONCE ONE Administration Sodium Chloride 1,000 mls @ 999 mls/hr 10/17/23 17:19 10/17/23 19:05 Ns IV 10/17/23 18:19 Infused .Q1H1M ONE Infusion Morphine Sulfate 2 mg 10/17/23 18:38 10/17/23 19:07 Morphine Sulfate 2 Mg/Ml Cartridge IVPUSH 10/17/23 18:39 2 mg ONCE ONE Administration Protocol Ondansetron HCl 4 mg 10/17/23 17:21 10/17/23 17:34 Ondansetron Hcl 4 Mg/2 Ml Vial IVPUSH 10/17/23 17:22 4 mg ONCE ONE Administration Ondansetron HCl 4 mg 10/17/23 18:38 10/17/23 19:08 Ondansetron Hcl 4 Mg/2 Ml Vial IVPUSH 10/17/23 18:39 4 mg ONCE ONE Administration Discharge Plan Discharge Clinical Impression: Hypercalcemia, Acute kidney injury, Dehydration Patient Disposition: Admitted As Inpatient
[2023-10-17] MEDS: Famotidine/PF 20 MG/2 ML VIAL IVPUSH (17:34)
[2023-10-17] MEDS: Magnesium Hydrox/Alum Hydrox 30 ML ORAL.SUSP PO (17:34)
[2023-10-17] MEDS: ondansetron HCL 4 MG/2 ML VIAL IVPUSH ×2 (17:34→19:08)
[2023-10-17 17:35] LABS: MANUAL DIFF FLAG NO
[2023-10-17 17:38] LABS: Basophils Absolute Auto 0.1 X10*3/uL (0.0-0.2); Basophils Percent Auto 0.5 % (0-2); Eosinophils Percent Auto 0.1 % (0-4); Hematocrit 54.7 % (42.0-52.0); Hemoglobin 19.1 g/dl (14.0-18.0); Imm Gran Abs Auto 0.16 X10*3/uL (0.00-0.03); Imm Gran Pct Auto 0.8 % (0.0-0.4); Lymphocytes Absolute Auto 2.5 X10*3/uL (1.2-4.9); Mean Corpuscular HGB Conc 34.9 g/dl (31.0-36.0); Mean Corpuscular Hemoglobin 30.1 pg (27.0-33.0); Mean Corpuscular Volume 86.1 fL (80.0-98.0); Mean Platelet Volume 10.9 fL (9.4-12.4); Neutrophils Absolute Auto 15.5 x10*3/uL (2.0-8.3); Neutrophils Percent Auto 80.6 % (45-73); Platelet Count 320 X10*3/uL (160-400); Red Blood Count 6.35 X10*6/uL (4.60-5.80); Red Cell Distribution Width 14.3 % (11.0-16.0); White Blood Count 19.2 X10*3/uL (4.8-10.8)
[2023-10-17 18:00] LABS: Troponin-I High Sensitivity 16.8 ng/L (<3.5-35.0)
[2023-10-17 18:02] LABS: Alanine Aminotransferase 17 U/L (0-40); Albumin Level 7.1 g/dL (3.5-5.0); Alkaline Phosphatase 99 U/L (39-117); Anion Gap 29 (12-20); Aspartate Amino Transferase 26 U/L (5-37); Bilirubin Direct 0.3 mg/dL (0.0-0.5); Blood Urea Nitrogen 38 mg/dL (9-16); Carbon Dioxide 17 mmol/L (22-29); Chloride 97 mmol/L (96-108); Creatinine Clr Calc Pharmacy 22.1; Estimated Glomerular Filt Rate 19; Glucose Random 211 mg/dL (60-115); Lipase 37 U/L (8-78); Potassium 3.1 mmol/L (3.3-5.1); Sodium 140 mmol/L (135-145); Total Protein 12.5 g/dL (6.5-8.0)
[2023-10-17] MEDS: Morphine Sulfate 2 MG/ML CARTRIDGE IVPUSH ×2 (19:07→21:18)
--- NOTE | 2023-10-17 19:16 | PC.NURSE ---
spoke with Gisel in pharmacy will mix pamidronate for admin as it is not in the ED pykenys
[2023-10-17 19:32] VITALS: BP 151/59; PULSE 75; RESP 16; TEMP 36.8; O2SAT 99
[2023-10-17 19:51] LABS: Magnesium 3.1 mg/dL (1.6-2.6)
[2023-10-17] MEDS: Pamidronate Disodium 60 MG in 0.9 % Sodium Chloride 250 ML 130 MG IV (20:01)
[2023-10-17 20:07] LABS: Magnesium 2.4 mg/dL (1.6-2.6)
[2023-10-17 20:13] LABS: Influenza A PCR NEGATIVE (Negative); Influenza B PCR NEGATIVE (Negative); Resp Syncy Virus RNA Qual PCR NEGATIVE (Negative); SARS COV2 PCR INHOUSE NEGATIVE (Negative)
--- NOTE | 2023-10-17 20:40 | PM.EVENT ---
Event Note Date of Service: 10/18/23 Event Note: 33 yr old man with h/o HIV and multiple episodes of GUY Now with severe hypercalcemia /Guy / and Elevated Hemoglobin and serum Albumin of 7.1 !! Clinically volume depleted Has already received Pamidronate Check iPTH /Spep IV hydration with NS at 100 cc/hr Follow calcium. Repeat Hct and Albumin Replace K and recheck Monitor I/O s closely No indication for dialysis yet Shall follow with team Thank you Time Spent With Patient Time: Total time managing care of this patient today ____ minutes.
[2023-10-17] MEDS: diphenhydrAMINE HCL 50 MG/ML VIAL 25 MG IVPUSH (21:19)
[2023-10-17] MEDS: HYDROmorphone HCl 0.5 MG/0.5 ML SYRINGE IVPUSH (21:21)
--- NOTE | 2023-10-17 21:32 | P.HPHOSP_ITS ---
History of Present Illness Date of Service: 10/17/23 Attending physician on admission: Filemon De La Fuente Chief Complaint: Abdominal pain with nausea and vomiting x1 day Patient is a 33-year-old male with history of GERD, fibromyalgia, HIV (on Dovato) and previous episode of acute kidney injury who presented to the ED via EMS complaining of abdominal pain with associated nausea,vomiting, diaphoresis and generalized body aches since this morning. No clear cause of his symptoms. He has not smoked marijuana in months and reports eating a meal of rice and beans that he prepared at home last night. He denies any recent travel or sick contacts. Initial work up in the ED was notable for elevated WBC count at 19.2 k/mm3, acute renal failure with a BUN of 38 and creatinine of 3.62 and hypercalcemia with a serum calcium of 13k. He was started on anti-emetics, analgesics, IV fluids and IV Pamidronate and admission requested for further care. Review of Systems 2 Review of Systems: Yes all other systems are reviewed and are negative [facility] Medical History Acute renal failure Fibromyalgia HIV (human immunodeficiency virus infection) GERD (gastroesophageal reflux disease) Family History Mother HIV (human immunodeficiency virus infection) Social History Household Members: None Housing: Apartment Do you presently have visiting nurse or other home services: No Alcohol intake: never Patient Tobacco Use Status: Former Tobacco user Tobacco use type: Cigarette Cigarettes Per Day: 0.5 Smoked in Last 30 Days: No e-Cigarette/Vaping Use: Never Used Second Hand Smoke Exposure: Yes Use of substances other than those prescribed or required for medical reasons: No Substance Use Type: Marijuana Advance Directives: Yes Advance Directives on File: Yes Advance Directives Date on File: 09/29/22 Nutrition Risks: No Nutritional Risk service: No Current occupational status: employed Meds Allergies Allergy/AdvReac Type Severity Reaction Status Date / Time No Known Allergies Allergy Verified 10/17/23 17:19 Home Medications Medication Instructions Recorded Confirmed Last Taken Type dolutegravir 50 mg-lamivudine 300 1 tab PO DAILY 09/02/20 08/31/23 11/03/22 05:30 History mg tablet (Dovato) Physical Exam 2 Vital Signs and Narrative: Vital Signs: Last Vital Signs Temp 98.3 F 10/17/23 19:32 Pulse 75 10/17/23 19:32 Resp 16 10/17/23 19:32 BP 151/59 H 10/17/23 19:32 Pulse Ox 99 10/17/23 19:32 O2 Del Method Room Air 10/17/23 19:32 BMI result Body Mass Index 19.4 General: Thin appearing male. Awake and alert in bed. In no apparent distress Eyes: No pallor or jaundice. PERRLA, EOMI HENT: Moist oral mucus membranes. No oropharyngeal lesions. Neck: Supple. No cervical adenopathy. No JVD Cardiovascular: Regular rate and rhythm. Normal heart sounds. No murmurs, rubs or gallops. No JVD. No peripheral edema. Respiratory: Normal respiratory effort with no accessory muscle use. CTAB. Gastrointestinal: Abdomen is soft, non-tender, non-distended. NABS. No hepatosplenomegaly Extremities: No edema. No calf tenderness. Good peripheral pulses Skin: Warm/Dry. No rashes. No mottling. Capillary refill is < 2 seconds Neurological: AAOx4. Intact speech & cognition. Normal gait & balance. CN II - XII grossly intact but not individually tested. No motor or sensory deficits Hematologic: No bleeding. No ecchymosis. No swollen or tender lymph nodes. Psychiatric: Cooperative. Appropriate mood and affect. Results Labs 10/17/23 17:25 10/17/23 17:25 Labs: Laboratory Results - last 24 hr 10/17/23 10/17/23 10/17/23 17:25 19:30 19:37 MCV 86.1 MCH 30.1 MCHC 34.9 RDW 14.3 Plt Count 320 MPV 10.9 Immature Gran % (Auto) 0.8 H Neut % (Auto) 80.6 H Lymph % (Auto) 13.0 L [place] % (Auto) 5.0 Eos % (Auto) 0.1 Baso % (Auto) 0.5 Lymph # (Auto) 2.5 [place] # (Auto) 1.0 Eos # (Auto) 0.0 Baso # (Auto) 0.1 Abs Immat Gran (auto) 0.16 H Absolute Neuts (auto) 15.5 H Absolute Nucleated RBC 0.000 Nucleated RBC % (auto) 0.0 Anion Gap 29 H Estim Creat Clear Calc 22.1 Estimated GFR 19 Random Glucose 211 H Calcium 13.0 H* D Magnesium 3.1 H 2.4 Total Bilirubin 1.0 Direct Bilirubin 0.3 AST 26 ALT 17 Alkaline Phosphatase 99 Total Protein 12.5 H Albumin 7.1 H Lipase 37 Influenza Type A (PCR) NEGATIVE Influenza Type B (PCR) NEGATIVE RSV RNA Qual (PCR) NEGATIVE SARS-CoV-2 RNA (RT-PCR) NEGATIVE ECG ECG interpretation date: 10/18/23 ECG interpretation time: 02:42 Interpretation: NSR at 88 bpm with prolonged QTc but with no acute ischemic changes Imaging Radiologist's Impressions: Impressions Abdomen/Pelvis CT 10/17/23 17:51 IMPRESSION: No significant abnormality. A cause for the patient's right lower quadrant pain has not been found. The appendix is identified and there is no evidence of appendicitis. Fleischner guidelines were followed. Assessment and Plan (1) Acute kidney injury: Status: Acute (2) Hypercalcemia: Status: Acute (3) Dehydration: Status: Acute (4) Elevated WBC count: Qualifiers: Leukocytosis type: unspecified Qualified Code(s): D72.829 - Elevated white blood cell count, unspecified Status: Acute Plan 33-year-old male with history of GERD, fibromyalgia, HIV (on Dovato) and previous episode of acute kidney injury here with 1. Acute (on chronic) renal failure - with BUN of 38 and Creatinine of 3.62 - last creatinine was 1.87 mg/dl - likely pre-renal due to volume loss through vomiting - admit and continue with IV hydration 2. Hypercalcemia - unclear cause - s/p IV Pamidronate - continue to rehydrate 3. Dehydration - appears to be clinically dehydrated - continue with IV fluids 4. Gastroenteritis - symptoms appear to be improving - monitor 5. Hypokalemia - mild at 3.1 - already repleted - recheck DVT: SC Lovenox CODE STATUS: Full code Admission for at least 2 midnights for management of acute renal failure and hypercalcemia Total time managing care of this patient today: 75 minutes. Quality Stroke Does the patient have a stroke diagnosis?: No VTE Prior VTE?: No VTE Risk Level:: Medical - moderate - high VTE Device Contraindication: Treatment Not Indicated VTE Drug Contraindication: N/A - Med Ordered
--- NOTE | 2023-10-17 21:57 | PC.NURSE ---
belongings list complete
[2023-10-17 22:28] VITALS: BP 124/77; PULSE 86; RESP 14; TEMP 36.8; O2SAT 99
[2023-10-17] MEDS: KCl 20 mEq in 0.9 % Sodium ChL 20 MEQ/1,000 ML IV.SOLN 500 MEQ IVCONT (22:53)
--- NOTE | 2023-10-17 23:14 | PC.NURSE ---
Pt is A/OX3 and ambulatory at baseline . Came in with N/V and abd pain along with weakness. PMH HIV and GERD. CT of ABD was wnl Labs- wbd 19.2 Calcium 13.0 ( Pamidronate Disodium ) given BUN 38 Creatinine 3.6 IV 20 RAC.
[2023-10-17] MEDS: 0.9 % Sodium Chloride Flush 3 ML SYRINGE IVFLUSH (23:54)
[2023-10-17] MEDS: Temazepam 15 MG CAPSULE PO (23:59)
[2023-10-18 00:05] LABS: Appearance Urine Cloudy; Color Urine Yellow; Glucose Urine UA Negative (Negative); Leukocyte Esterase Urine Negative (Negative); Nitrite Urine Negative (Negative); Specific Gravity - Urine >= 1.030 (1.005-1.025); UMIC TRIGGER UACC YES; Urine Blood Moderate (2+) (Negative); Urine Ketones 15 mg/dL (Negative); Urine Protein 300 (3+) mg/dL (Neg-Trace)
[2023-10-18 00:13] LABS: Amphetamine Screen Urine Not Detected (Not Detect); Barbiturates, Urine Not Detected (Not Detect); Benzodiazepines Screen Urine Not Detected (Not Detect); Cannabinoid Screen Urine POSITIVE (Not Detect); Cocaine Screen Urine POSITIVE (Not Detect); Fentanyl, urine Not Detected (Not Detect); Opiate Screen Urine POSITIVE (Not Detect); Phencyclidine Screen Urine Not Detected (Not Detect)
[2023-10-18 00:17] LABS: Bacteria Urine None Seen (None Seen); Hyaline Casts Urine >20 /LPF (0-2); Squamous Epithelial Cell Urine 0-2 /HPF (0-2); WBC Urine 0-5 /HPF (0-5)
[2023-10-18] MEDS: KCl 20 mEq in 0.9 % Sodium ChL 20 MEQ/1,000 ML IV.SOLN 500 MEQ IVCONT (00:59)
[2023-10-18] MEDS: LORazepam 1 MG TABLET 2 MG PO (01:25)
[2023-10-18 01:27] VITALS: BP 152/76; PULSE 82; RESP 16; O2SAT 100
--- NOTE | 2023-10-18 02:16 | PC.NURSE ---
pt would like to to sign out AMA as he states feeling better and getting claustrophobic . Administered 2 mg Ativan at 0121 and Pt denies relief. Messaged the provider and he wrote back to let him sign out AMA if that is what the patient still requests after multiple conversations of the importance of him staying to monitor his health.
--- NOTE | 2023-10-18 02:26 | PC.NURSE ---
pt sign ama form, self removed his IV
--- NOTE | 2023-10-18 02:52 | MHC.EDTECH ---
Patient refused EKG at this time RN is notified Plan of care is ongoing
[2023-10-18 03:19] LABS: MANUAL DIFF FLAG NO
[2023-10-18 03:22] LABS: Basophils Percent Auto 0.1 % (0-2); Eosinophils Percent Auto 0.2 % (0-4); Hematocrit 43.2 % (42.0-52.0); Hemoglobin 14.7 g/dl (14.0-18.0); Imm Gran Abs Auto 0.06 X10*3/uL (0.00-0.03); Imm Gran Pct Auto 0.4 % (0.0-0.4); Lymphocytes Absolute Auto 1.1 X10*3/uL (1.2-4.9); Lymphocytes Percent Auto 7.9 % (20-40); Mean Corpuscular Hemoglobin 29.1 pg (27.0-33.0); Mean Corpuscular Volume 85.5 fL (80.0-98.0); Mean Platelet Volume 10.4 fL (9.4-12.4); Monocytes Absolute Auto 0.6 X10*3/uL (0.1-1.2); Monocytes Percent Auto 4.5 % (2-11); Neutrophils Absolute Auto 12.4 x10*3/uL (2.0-8.3); Neutrophils Percent Auto 86.9 % (45-73); Platelet Count 274 X10*3/uL (160-400); Red Blood Count 5.05 X10*6/uL (4.60-5.80); Red Cell Distribution Width 13.9 % (11.0-16.0); White Blood Count 14.3 X10*3/uL (4.8-10.8)
[2023-10-18 03:49] LABS: Alanine Aminotransferase 14 U/L (0-40); Albumin Level 5.2 g/dL (3.5-5.0); Alkaline Phosphatase 67 U/L (39-117); Anion Gap 21 (12-20); Aspartate Amino Transferase 18 U/L (5-37); Bilirubin Total 0.4 mg/dL (0.0-1.0); Blood Urea Nitrogen 42 mg/dL (9-16); Carbon Dioxide 18 mmol/L (22-29); Chloride 107 mmol/L (96-108); Creatinine Clr Calc Pharmacy 39.4; Estimated Glomerular Filt Rate 38; Glucose Random 129 mg/dL (60-115); Potassium 3.8 mmol/L (3.3-5.1); Sodium 142 mmol/L (135-145); Total Protein 8.7 g/dL (6.5-8.0)
--- NOTE | 2023-10-18 06:51 | P.DS_ITS ---
DS: Providers Provider Date of Service: 10/18/23 Date of admission: 10/17/23 21:17 Primary care physician: Unknown Physician DS: Diagnosis Discharge Diagnosis (1) Acute kidney injury: Status: Acute (2) Hypercalcemia: Status: Acute (3) Dehydration: Status: Acute (4) Elevated WBC count: Status: Acute DS: Summary Hospital Course Hospital Course: Initial HPI 33-year-old male with history of GERD, fibromyalgia, HIV (on Dovato) and previous episode of acute kidney injury who presented to the ED via EMS complaining of abdominal pain with associated nausea,vomiting, diaphoresis and generalized body aches since this morning. No clear cause of his symptoms. He has not smoked marijuana in months and reports eating a meal of rice and beans that he prepared at home last night. He denies any recent travel or sick contacts. Initial work up in the ED was notable for elevated WBC count at 19.2 k/mm3, acute renal failure with a BUN of 38 and creatinine of 3.62 and hypercalcemia with a serum calcium of 13k. He was started on anti-emetics, analgesics, IV fluids and IV Pamidronate and admission requested for further ca re. Hospital Course Patient received symptomatic care with antiemetics, analgesics, IV fluids and IV Pamidronate while he was in the emergency room. He felt well and decided to leave the hospital against medical advice. He was cautioned on the seriousness of his ailment and risk of serious adverse outocomes including (this was riley by myself and Dr. Mejia the ED provider) but he still chose to leave the facility. No prescriptions or follow up appointments were made. Time spent discussing smoking cessation with patient: more than 10 minutes Status at Discharge Functional status at discharge: independent ambulation Overall status at discharge: patient is not back to baseline Time Attestation Total time managing care of this patient today: 35 mintues. Discharge coordination time: Greater than 30 minutes Quality: Safe Use of Opioids Does Pt have an Active Cancer Diagnosis on the Problem List?: No Quality: Stroke Does the patient have a stroke diagnosis?: No Physical Exam Vital Signs: Vital Signs: Last Vital Signs Temp 98.3 F 10/17/23 22:28 Pulse 82 10/18/23 01:27 Resp 16 10/18/23 01:27 BP 152/76 H 10/18/23 01:27 Pulse Ox 100 10/18/23 01:27 O2 Del Method Room Air 10/18/23 01:27 BMI result Body Mass Index 19.4 General: Thin appearing male. Awake and alert in bed. In no apparent distress Eyes: No pallor or jaundice. PERRLA, EOMI HENT: Moist oral mucus membranes. No oropharyngeal lesions. Neck: Supple. No cervical adenopathy. No JVD Cardiovascular: Regular rate and rhythm. Normal heart sounds. No murmurs, rubs or gallops. No JVD. No peripheral edema. Respiratory: Normal respiratory effort with no accessory muscle use. CTAB. Gastrointestinal: Abdomen is soft, non-tender, non-distended. NABS. No hepatosplenomegaly Extremities: No edema. No calf tenderness. Good peripheral pulses Skin: Warm/Dry. No rashes. No mottling. Capillary refill is < 2 seconds Neurological: AAOx4. Intact speech & cognition. Normal gait & balance. CN II - XII grossly intact but not individually tested. No motor or sensory deficits Hematologic: No bleeding. No ecchymosis. No swollen or tender lymph nodes. Psychiatric: Cooperative. Appropriate mood and affect. DS: Data Data Completed and Pending Labs on day of discharge: Laboratory Results - last 24 hr 10/17/23 10/17/23 10/17/23 00:00 17:25 19:30 WBC 19.2 H RBC 6.35 H D Hgb 19.1 H D Hct 54.7 H D MCV 86.1 MCH 30.1 MCHC 34.9 RDW 14.3 Plt Count 320 MPV 10.9 Immature Gran % (Auto) 0.8 H Neut % (Auto) 80.6 H Lymph % (Auto) 13.0 L [place] % (Auto) 5.0 Eos % (Auto) 0.1 Baso % (Auto) 0.5 Lymph # (Auto) 2.5 [place] # (Auto) 1.0 Eos # (Auto) 0.0 Baso # (Auto) 0.1 Abs Immat Gran (auto) 0.16 H Absolute Neuts (auto) 15.5 H Absolute Nucleated RBC 0.000 Nucleated RBC % (auto) 0.0 Sodium 140 Potassium 3.1 L Chloride 97 Carbon Dioxide 17 L Anion Gap 29 H BUN 38 H Creatinine 3.62 H Estim Creat Clear Calc 22.1 Estimated GFR 19 Random Glucose 211 H Calcium 13.0 H* D Magnesium 3.1 H Total Bilirubin 1.0 Direct Bilirubin 0.3 AST 26 ALT 17 Alkaline Phosphatase 99 Troponin I High Sens 16.8 D Total Protein 12.5 H Albumin 7.1 H Lipase 37 Urine Color Urine Appearance Urine pH Ur Specific [place] Urine Protein Urine Glucose (UA) Urine Ketones Urine Blood Urine Nitrite Ur Leukocyte Esterase Urine RBC Urine WBC Ur Squamous Epith Cells Urine Bacteria Hyaline Casts Urine Opiates Screen POSITIVE H Urine Fentanyl Screen Not Detected Ur Barbiturates Screen Not Detected Ur Phencyclidine Scrn Not Detected Ur Amphetamines Screen Not Detected U Benzodiazepines Scrn Not Detected Urine Cocaine Screen POSITIVE H U Marijuana (THC) Screen POSITIVE H Influenza Type A (PCR) NEGATIVE Influenza Type B (PCR) NEGATIVE RSV RNA Qual (PCR) NEGATIVE SARS-CoV-2 RNA (RT-PCR) NEGATIVE 10/17/23 10/17/23 10/18/23 19:37 23:53 03:14 WBC 14.3 H RBC 5.05 D Hgb 14.7 D Hct 43.2 D MCV 85.5 MCH 29.1 MCHC 34.0 RDW 13.9 Plt Count 274 MPV 10.4 Immature Gran % (Auto) 0.4 Neut % (Auto) 86.9 H Lymph % (Auto) 7.9 L [place] % (Auto) 4.5 Eos % (Auto) 0.2 Baso % (Auto) 0.1 Lymph # (Auto) 1.1 L [place] # (Auto) 0.6 Eos # (Auto) 0.0 Baso # (Auto) 0.0 Abs Immat Gran (auto) 0.06 H Absolute Neuts (auto) 12.4 H Absolute Nucleated RBC 0.000 Nucleated RBC % (auto) 0.0 Sodium 142 Potassium 3.8 D Chloride 107 Carbon Dioxide 18 L Anion Gap 21 H BUN 42 H Creatinine 2.03 H Estim Creat Clear Calc 39.4 Estimated GFR 38 Random Glucose 129 H Calcium 10.0 D Magnesium 2.4 Total Bilirubin 0.4 Direct Bilirubin AST 18 ALT 14 Alkaline Phosphatase 67 Troponin I High Sens Total Protein 8.7 H Albumin 5.2 H Lipase Urine Color Yellow Urine Appearance Cloudy Urine pH 5.0 Ur Specific Gilman >= 1.030 H Urine Protein 300 (3+) H Urine Glucose (UA) Negative Urine Ketones 15 Urine Blood Moderate (2+) H Urine Nitrite Negative Ur Leukocyte Esterase Negative Urine RBC 3-5 H Urine WBC 0-5 Ur Squamous Epith Cells 0-2 Urine Bacteria None Seen Hyaline Casts >20 Urine Opiates Screen Urine Fentanyl Screen Ur Barbiturates Screen Ur Phencyclidine Scrn Ur Amphetamines Screen U Benzodiazepines Scrn Urine Cocaine Screen U Marijuana (THC) Screen Influenza Type A (PCR) Influenza Type B (PCR) RSV RNA Qual (PCR) SARS-CoV-2 RNA (RT-PCR) Discharge Plan Discharge Patient Disposition: Left Against Medical Advice Discharge Diagnosis: Acut renal failure; Hypercalcemia; Dehydration; Gastreoenteritis Referrals: Physician,Unknown J [Primary Care Provider] - 1 Week Discharge Medications: No Action Dovato 50-300 mg Tablet 1 tab PO DAILY Discharge Orders: Discharge Order (Routine); Ordered 10/18/23 Ordered By: Filemon De La Fuente Diet: Not discussed Activity on Discharge: Not discussed Care Plan Goals: N/A Health Concerns: N/A Plan of Treatment: N/A Assessment: N/A Discharge Date/Time: 10/18/23 04:00
[2023-10-18 07:12] LABS: Parathyroid Hormone Intact 161.2 pg/mL (8.7-77.1)
--- NOTE | 2023-10-18 08:34 | MHC.CM.ED ---
Patient left AMA before being seen by case management.
[2023-10-20 16:03] LABS: Calcium, Ionized 4.9 mg/dL (4.7-5.5)
== END 2023-10-18 04:00 | disposition left against medical advice (07) | DRG 425 ==
LOC: HO.ED 19:30 → HO.EDOVER 21:34
PROVIDERS: Admitting Provider Internal Medicine; Emergency Provider Emergency Medicine; PCP Internal Medicine; Visit Provider Internal Medicine
DX: E83.52 Hypercalcemia (principal); N17.9 Acute kidney failure, unspecified; E86.0 Dehydration; M79.7 Fibromyalgia; E87.6 Hypokalemia; K52.9 Noninfective gastroenteritis and colitis, unspecified; Z21 Asymptomatic human immunodeficiency virus [HIV] infection status; Z20.822 Contact with and (suspected) exposure to COVID-19; Z79.82 Long term (current) use of aspirin; Z87.891 Personal history of nicotine dependence; Z79.899 Other long term (current) drug therapy
CPT/HCPCS: 0241U; 36415; 74176; 80048; 80053; 80076; 80307; 81001; 82330; 83690; 83735; 83970; 84484; 85025; 93005; 99285; J1170; J1200; J2270; J2405; J2430; J3480

== ENCOUNTER → 2023-10-17 17:19 | Outpatient (BNV) | payer OTHER, SELFPAY | PROVIDERS: Admitting Provider Internal Medicine; Emergency Provider Emergency Medicine; PCP Internal Medicine; Visit Provider Internal Medicine | DX: I45.81 Long QT syndrome (principal) | CPT/HCPCS: 93010 ==

== ENCOUNTER → 2023-10-17 21:17 | Outpatient (BNV) | payer OTHER, SELFPAY | PROVIDERS: Admitting Provider Internal Medicine; Emergency Provider Emergency Medicine; Visit Provider Internal Medicine | DX: N17.9 Acute kidney failure, unspecified (principal); E83.52 Hypercalcemia; E86.0 Dehydration; D72.829 Elevated white blood cell count, unspecified | CPT/HCPCS: 99223 ==

== ENCOUNTER 2023-10-18 17:58 | Observation (INO) | payer OTHER, SELFPAY ==
--- NOTE | ~2023-10-18 | XR_ITS ---
EXAMINATION: XR CHEST CLINICAL INFORMATION: Chest pain COMPARISON: 08/30/2023 TECHNIQUE: 2 views of the chest were obtained. FINDINGS: No significant abnormality is noted involving the heart, lungs, mediastinum, bony thorax or soft tissues. XR/XR chest 2V IMPRESSION: Unremarkable examination.
--- NOTE | 2023-10-18 18:00 | ECG_ITS ---
Test Reason : CHEST PAIN Blood Pressure : / mmHG Vent. Rate : 096 BPM Atrial Rate : 096 BPM P-R Int : 132 ms QRS Dur : 086 ms QT Int : 338 ms P-R-T Axes : 086 088 034 degrees QTc Int : 427 ms Normal sinus rhythm Possible Left atrial enlargement Borderline ECG When compared with ECG of 17-OCT-2023 19:15, No significant changes seen Referred By: Meghan Maldonado Electronically Signed By:ROWDY HENRIQUEZ
[2023-10-18 18:06] VITALS: BP 120/82; PULSE 110; RESP 20; TEMP 36.8; O2SAT 97; BMI 20.2
--- NOTE | 2023-10-18 18:08 | ED.GENADULT ---
HPI - General Adult General Chief complaint: Chest Pain Stated complaint: chest pains Time Seen by Provider: 10/18/23 18:43 Source: patient Mode of arrival: ambulatory Limitations: no limitations History of Present Illness HPI narrative: Patient is a 33-year-old male who presents emergency department reporting sudden onset of diffuse anterior chest pain described as a pressure that radiates from the substernal region to the left and right side. Onset upon awakening from a nap at 17:00 and has been constant since then. It is reproducible to movement, deep inspiration. Denies dizziness, lightheadedness, neck pain, shortness of breath, URI symptoms, abdominal pain nausea, vomiting, numbness or tingling of the extremities, extremity edema. He states that he left AMA from the hospital earlier this morning as he was feeling well, states he was told he needed to stay because he was dehydrated and his kidney labs were abnormal. He reports going home drinking water throughout the day and eating without complication and overall feeling well until awakening this evening. Related Data Home Medications Medication Instructions Recorded Confirmed dolutegravir 50 mg-lamivudine 300 1 tab PO DAILY 09/02/20 08/31/23 mg tablet (Dovato) Allergies Allergy/AdvReac Type Severity Reaction Status Date / Time No Known Allergies Allergy Verified 10/18/23 18:10 Review of Systems Review of Systems: Yes all other systems are reviewed and are negative PMFSH Past Medical History Attestation statement: The following information was validated with the patient. Source: old records reviewed Medical History Acute renal failure Fibromyalgia HIV (human immunodeficiency virus infection) GERD (gastroesophageal reflux disease) Family History Family History Mother HIV (human immunodeficiency virus infection) Social History Social History Household Members: None Housing: Apartment Do you presently have visiting nurse or other home services: No Alcohol intake: never Patient Tobacco Use Status: Former Tobacco user Tobacco use type: Cigarette Cigarettes Per Day: 0.5 Smoked in Last 30 Days: Yes e-Cigarette/Vaping Use: Never Used Second Hand Smoke Exposure: Yes Use of substances other than those prescribed or required for medical reasons: No Substance Use Type: Marijuana Advance Directives: Yes Advance Directives on File: Yes Advance Directives Date on File: 09/29/22 service: No Current occupational status: employed Physical Exam ED Vital Signs: Vital Signs - 24 hr 10/18/23 18:06 10/18/23 18:24 10/18/23 20:25 Temperature 98.2 F 98 F 99.0 F Pulse Rate 110 H 98 100 Respiratory Rate 20 18 14 Blood Pressure 120/82 111/75 114/65 Pulse Oximetry 97 97 98 Oxygen Delivery Method Room Air Room Air Room Air 10/18/23 21:20 Temperature Pulse Rate Respiratory Rate 18 Blood Pressure Pulse Oximetry Oxygen Delivery Method BMI result Body Mass Index 20.2 Appearance: Alert.?Oriented to person, place and time. No acute distress.?Normal affect. Eyes: Pupils equal, round and reactive to light.? ENT: Pharynx normal.?? Neck: Normal inspection.? Neck supple.?? CVS: Heart sounds normal. Normal heart rate and rhythm.? Pulses normal.?? Respiratory: No respiratory distress.? Lung sounds clear to auscultation bilaterally?? Abdomen: Soft and non-tender. Normoactive bowel sounds. No pulsatile mass.?? Skin: Skin warm and dry.? Normal skin color.? Extremities: No lower extremity edema.? No calf ttp? Neuro: Moves all extremities spontaneously. Sensation intact bilaterally. No focal neuro deficits. Ambulates with normal steady gait. Course Course Course Narrative: RME:?33 yo male hx of cocaine use here w/ chest pain. Seen here yesterday with hypercalcemia and LYSSA pending admission. States he left AMA this morning as he was feeling anxious. Took a nap and woke up with substernal chest pains radiating across the chest. Positive cocaine use. Initial calcium 15 yesterday. Calcium this morning 10. Plan for ekg, trop, labs Full HPI, ROS and PE to be performed by the primary ED provider. Reevaluation(s) Reevaluation #1: CBC reveals a leukocytosis with a left shift down trending when compared to yesterday. Renal function at this time appears to have normalized with BUN 31 creatinine 1.10, and calcium of 9.8. Hypokalemia 3.1 High sensitive troponin elevated at 46.5, given symptom onset will obtain delta troponin for comparison, EKG revealing 96, QTC 427, no ST elevation, no ST depression, no T-wave inversion. Time: 19:22 Reevaluation #2: Delta troponin flat. Review this case with ED attending Dr. Mejia who took care patient yesterday. He also of evaluated patient at bedside. Reports chest pain only with unchanged despite aspirin and morphine. He began actively vomiting again while in the emergency department, received Zofran as well as Reglan without significant improvement. At this time plan for admission to medicine service for intractable vomiting and further evaluation/management. Accepted for admission by hospitalist Dr. De La Fuente Medications Administered Generic Name Dose Route Start Last Admin Trade Name Freq PRN Reason Stop Dose Admin Dextrose/Sodium Chloride 1,000 mls @ 100 mls/hr 10/18/23 23:45 10/19/23 00:25 D5ns IVCONT 100 mls/hr .Q10H WAYNE Administration Sodium Chloride 3 ml 10/19/23 00:00 10/19/23 00:15 0.9 % Sodium Chloride Flush 3 Ml Syringe IVFLUSH 3 ml QSHIFT WAYNE Administration Discontinued Medications Generic Name Dose Route Start Last Admin Trade Name Freq PRN Reason Stop Dose Admin Aspirin 324 mg 10/18/23 20:49 10/18/23 21:14 Aspirin 81 Mg Tab.Chew PO 10/18/23 20:50 324 mg ONCE ONE Administration Metoclopramide HCl 10 mg 10/18/23 23:57 10/19/23 00:15 Metoclopramide Hcl 10 Mg/2 Ml Vial IVPUSH 10/18/23 23:58 10 mg ONCE ONE Administration Morphine Sulfate 2 mg 10/18/23 21:13 10/18/23 21:20 Morphine Sulfate 2 Mg/Ml Cartridge IVPUSH 10/18/23 21:14 2 mg ONCE ONE Administration Protocol Ondansetron HCl 4 mg 10/18/23 23:14 10/18/23 23:22 Ondansetron Hcl 4 Mg/2 Ml Vial IVPUSH 10/18/23 23:15 4 mg ONCE ONE Administration Medical Decision Making Medical Decision Making [facility] Narrative: Patient is a 33-year-old male presents emergency department for evaluation of chest pain as per HPI. Patient was seen in the emergency department yesterday 10/17/2023, he was noted to have hypercalcemia for which he was treated with 2 L of IV fluid and pamidronate Nephrology was consulted, advised to have PTH checked as well and admission for hydration and serial calcium levels. He was admitted and last against medical advice earlier this morning reporting that he was feeling well. Will obtain CBC to evaluate for leukocytosis/ anemia, CMP and lipase to evaluate for abnormal electrolytes /abnormal renal function/ abnormal hepatic/biliary function, EKG and troponin to evaluate for ischemia/ACS. Chest x-ray to evaluate for consolidation/ infiltrate/ mass/ pulmonary congestion. Differential Diagnosis Differential Diagnoses: The differential diagnosis associated with the presentation includes (ACS, electrolyte abnormality, dehydration, LYSSA) Admission/Observation Consideration of admission/observation: Escalation of care including admission/observation considered (See narrative above and course narrative for further detail) Lab Data MDM Lab Attestation statement: I reviewed the patient's lab results. (See course narrative for further detail) 10/18/23 18:30 10/18/23 18:30 Labs: Lab Results 10/18/23 10/18/23 Range/Units 18:30 20:29 WBC 13.0 H (4.8-10.8) X10*3/uL RBC 5.00 (4.60-5.80) X10*6/uL Hgb 14.8 (14.0-18.0) g/dl Hct 43.2 (42.0-52.0) % MCV 86.4 (80.0-98.0) fL MCH 29.6 (27.0-33.0) pg MCHC 34.3 (31.0-36.0) g/dl RDW 13.9 (11.0-16.0) % Plt Count 269 (160-400) X10*3/uL MPV 10.9 (9.4-12.4) fL Immature Gran % (Auto) 0.5 H (0.0-0.4) % Neut % (Auto) 82.6 H (45-73) % Lymph % (Auto) 11.3 L (20-40) % Person % (Auto) 4.8 (2-11) % Eos % (Auto) 0.3 (0-4) % Baso % (Auto) 0.5 (0-2) % Lymph # (Auto) 1.5 (1.2-4.9) X10*3/uL Person # (Auto) 0.6 (0.1-1.2) X10*3/uL Eos # (Auto) 0.0 (0.0-0.4) X10*3/uL Baso # (Auto) 0.1 (0.0-0.2) X10*3/uL Abs Immat Gran (auto) 0.06 H (0.00-0.03) X10*3/uL Absolute Neuts (auto) 10.8 H (2.0-8.3) x10*3/uL Absolute Nucleated RBC 0.000 (0.0-0.012) X10*3/uL Nucleated RBC % (auto) 0.0 (0.0-0.2) /100WBC Sodium 136 (135-145) mmol/L Potassium 3.1 L (3.3-5.1) mmol/L Chloride 102 (96-108) mmol/L Carbon Dioxide 23 (22-29) mmol/L Anion Gap 14 (12-20) BUN 31 H (9-16) mg/dL Creatinine 1.10 (0.5-1.4) mg/dL Estim Creat Clear Calc 75.8 Estimated GFR > 60 Random Glucose 116 H (60-115) mg/dL Calcium 9.8 (8.4-10.2) mg/dL Magnesium 2.7 H (1.6-2.6) mg/dL Total Bilirubin 0.8 (0.0-1.0) mg/dL AST 21 (5-37) U/L ALT 14 (0-40) U/L Alkaline Phosphatase 64 (39-117) U/L Troponin I High Sens 46.5 H D 45.2 H (<3.5-35.0) ng/L Total Protein 8.6 H (6.5-8.0) g/dL Albumin 5.1 H (3.5-5.0) g/dL Lipase 24 (8-78) U/L Independent Interpretation I performed an independent interpretation of an: Plain X-Ray (I personally interpreted chest x-ray and agree with radiologist impression.) Radiology Impression Discussion of test interpretation with radiology: I have reviewed the radiologist's reading. External Record Review External record reviewed: Inpatient record Discharge Plan Discharge Clinical Impression: Intractable vomiting, Chest pain Patient Disposition: Admitted As Inpatient
[2023-10-18 18:21] VITALS: PULSE 100
[2023-10-18 18:24] VITALS: BP 111/75; PULSE 98; RESP 18; TEMP 36.6; O2SAT 97
--- NOTE | 2023-10-18 18:33 | PC.NURSE ---
Patient reports he left ama this am thinking he would go home and feel better. Reports he then started having chest pain that extended across his entire chest. Patient anxious stating he hopes nothing is wrong. Denies sob or other pain. NSR on monitor vss. 20g IV placed in right arm, bloodwork obtained
[2023-10-18 18:37] LABS: MANUAL DIFF FLAG NO
[2023-10-18 18:54] LABS: Alanine Aminotransferase 14 U/L (0-40); Albumin Level 5.1 g/dL (3.5-5.0); Alkaline Phosphatase 64 U/L (39-117); Anion Gap 14 (12-20); Aspartate Amino Transferase 21 U/L (5-37); Bilirubin Total 0.8 mg/dL (0.0-1.0); Blood Urea Nitrogen 31 mg/dL (9-16); Calcium 9.8 mg/dL (8.4-10.2); Carbon Dioxide 23 mmol/L (22-29); Chloride 102 mmol/L (96-108); Creatinine Clr Calc Pharmacy 75.8; Estimated Glomerular Filt Rate > 60; Glucose Random 116 mg/dL (60-115); Lipase 24 U/L (8-78); Magnesium 2.7 mg/dL (1.6-2.6); Potassium 3.1 mmol/L (3.3-5.1); Sodium 136 mmol/L (135-145); Total Protein 8.6 g/dL (6.5-8.0)
[2023-10-18 18:57] LABS: Basophils Absolute Auto 0.1 X10*3/uL (0.0-0.2); Basophils Percent Auto 0.5 % (0-2); Eosinophils Percent Auto 0.3 % (0-4); Hematocrit 43.2 % (42.0-52.0); Hemoglobin 14.8 g/dl (14.0-18.0); Imm Gran Abs Auto 0.06 X10*3/uL (0.00-0.03); Imm Gran Pct Auto 0.5 % (0.0-0.4); Lymphocytes Absolute Auto 1.5 X10*3/uL (1.2-4.9); Lymphocytes Percent Auto 11.3 % (20-40); Mean Corpuscular HGB Conc 34.3 g/dl (31.0-36.0); Mean Corpuscular Hemoglobin 29.6 pg (27.0-33.0); Mean Corpuscular Volume 86.4 fL (80.0-98.0); Mean Platelet Volume 10.9 fL (9.4-12.4); Monocytes Absolute Auto 0.6 X10*3/uL (0.1-1.2); Monocytes Percent Auto 4.8 % (2-11); Neutrophils Absolute Auto 10.8 x10*3/uL (2.0-8.3); Neutrophils Percent Auto 82.6 % (45-73); Platelet Count 269 X10*3/uL (160-400); Red Cell Distribution Width 13.9 % (11.0-16.0)
[2023-10-18 19:02] LABS: Troponin-I High Sensitivity 46.5 ng/L (<3.5-35.0)
[2023-10-18 20:25] VITALS: BP 114/65; PULSE 100; RESP 14; TEMP 37.2; O2SAT 98
[2023-10-18 20:58] LABS: Troponin-I High Sensitivity 45.2 ng/L (<3.5-35.0)
[2023-10-18] MEDS: Aspirin 81 MG TAB.CHEW 324 MG PO (21:14)
[2023-10-18 21:20] VITALS: RESP 18
[2023-10-18] MEDS: Morphine Sulfate 2 MG/ML CARTRIDGE IVPUSH (21:20)
[2023-10-18] MEDS: ondansetron HCL 4 MG/2 ML VIAL IVPUSH (23:22)
--- NOTE | 2023-10-18 23:45 | PC.NURSE ---
Pt having N/V, provider Speedy made aware, new order given per MAR.
--- NOTE | 2023-10-18 23:56 | P.HPHOSP_ITS ---
History of Present Illness Date of Service: 10/18/23 Attending physician on admission: Filemon De La Fuente Chief Complaint: Nausea and vomiting Patient is a 33-year-old male with history of GERD, fibromyalgia, HIV (on Dovato) and previous episode of acute kidney injury who presented to the ED via EMS yesterday complaining of abdominal pain with associated nausea, vomiting, diaphoresis and generalized bodyaches and was diagnosed with acute renal failure (BUN of 38 and creatinine of 3.62) and hypercalcemia (serum calcium of 13k). He was started on anti-emetics, analgesics, IV fluids and IV Pamidronate and admission requested but he left the hospital AGAINST MEDICAL ADVICE only to return to the emergency room this evening complaining of sudden onset of diffuse anterior chest pain described as a pressure that radiates from the substernal region to the both sides of the chest. This pain started when he woke up from a nap at 17:00 and has been constant since then. It is reproducible with movement and on deep inspiration. He denied any associated dizziness, lightheadedness, neck pain, shortness of breath, URI symptoms, abdominal pain nausea, vomiting. Initial work up revealed a mild leucocytosis of 13 k (which is an improvement from last night), mild hypokalemia (3.1), mild hypermagnesemia (2.7) and slightly elevated HSTnI with normal EKG. Admission was requested for continued care Review of Systems 2 Review of Systems: Yes all other systems are reviewed and are negative [facility] Medical History Acute renal failure Fibromyalgia HIV (human immunodeficiency virus infection) GERD (gastroesophageal reflux disease) Family History Mother HIV (human immunodeficiency virus infection) Social History Household Members: None Housing: Apartment Do you presently have visiting nurse or other home services: No Alcohol intake: never Patient Tobacco Use Status: Former Tobacco user Tobacco use type: Cigarette Cigarettes Per Day: 0.5 Smoked in Last 30 Days: Yes e-Cigarette/Vaping Use: Never Used Second Hand Smoke Exposure: Yes Use of substances other than those prescribed or required for medical reasons: No Substance Use Type: Marijuana Advance Directives: Yes Advance Directives on File: Yes Advance Directives Date on File: 09/29/22 Nutrition Risks: No Nutritional Risk service: No Current occupational status: employed Meds Allergies Allergy/AdvReac Type Severity Reaction Status Date / Time No Known Allergies Allergy Verified 10/18/23 18:10 Home Medications Medication Instructions Recorded Confirmed Last Taken Type dolutegravir 50 mg-lamivudine 300 1 tab PO DAILY 09/02/20 08/31/23 11/03/22 05:30 History mg tablet (Dovato) Physical Exam 2 Vital Signs and Narrative: Vital Signs: Last Vital Signs Temp 99.0 F 10/18/23 20:25 Pulse 100 10/18/23 20:25 Resp 18 10/18/23 21:20 BP 114/65 10/18/23 20:25 Pulse Ox 98 10/18/23 20:25 O2 Del Method Room Air 10/18/23 20:25 BMI result Body Mass Index 20.2 General: Well nourished. Awake, alert and oriented x 4. No apparent distress Eyes: No pallor or jaundice. PERRLA, EOMI HENT: Moist oral mucus membranes. No oropharyngeal lesions. Neck: Supple. No cervical adenopathy. No JVD Cardiovascular: Regular rate and rhythm. Normal heart sounds. No murmurs, rubs or gallops. No JVD. No peripheral edema. Respiratory: Normal respiratory effort with no accessory muscle use. CTAB. Gastrointestinal: Abdomen is soft, non-tender, non-distended. NABS. No hepatosplenomegaly Extremities: No edema. No calf tenderness. Good peripheral pulses Skin: Warm/Dry. No rashes. No mottling. Capillary refill is < 2 seconds Neurological: AAOx4. Intact speech & cognition. Normal gait & balance. CN II - XII grossly intact but not individually tested. No motor or sensory deficits Hematologic: No bleeding. No ecchymosis. No swollen or tender lymph nodes. Psychiatric: Cooperative. Appropriate mood and affect. Results Labs 10/18/23 18:30 10/18/23 18:30 Labs: Laboratory Results - last 24 hr 10/18/23 18:30 MCV 86.4 MCH 29.6 MCHC 34.3 RDW 13.9 Plt Count 269 MPV 10.9 Immature Gran % (Auto) 0.5 H Neut % (Auto) 82.6 H Lymph % (Auto) 11.3 L [place] % (Auto) 4.8 Eos % (Auto) 0.3 Baso % (Auto) 0.5 Lymph # (Auto) 1.5 [place] # (Auto) 0.6 Eos # (Auto) 0.0 Baso # (Auto) 0.1 Abs Immat Gran (auto) 0.06 H Absolute Neuts (auto) 10.8 H Absolute Nucleated RBC 0.000 Nucleated RBC % (auto) 0.0 Anion Gap 14 Estim Creat Clear Calc 75.8 Estimated GFR > 60 Random Glucose 116 H Calcium 9.8 Magnesium 2.7 H Total Bilirubin 0.8 AST 21 ALT 14 Alkaline Phosphatase 64 Total Protein 8.6 H Albumin 5.1 H Lipase 24 ECG ECG interpretation date: 10/19/23 ECG interpretation time: 05:32 Interpretation: NSR at 96 bpm with normal intervals, normal QTc and no acute ischemic changes Imaging Radiologist's Impressions: Impressions Chest X-Ray 10/18/23 19:16 IMPRESSION: Unremarkable examination. Assessment and Plan (1) Chest pain: Qualifiers: Chest pain type: unspecified Qualified Code(s): R07.9 - Chest pain, unspecified Status: Acute (2) Hypokalemia: Status: Acute (3) Elevated troponin: Status: Acute (4) Elevated WBC count: Qualifiers: Leukocytosis type: unspecified Qualified Code(s): D72.829 - Elevated white blood cell count, unspecified Status: Acute Plan 33-year-old male with history of GERD, fibromyalgia, HIV (on Dovato) and previous episode of acute kidney injury here with 1. Chest pain - atypical for ACS - has mildly elevated Troponin but likely due to stress - he is still with some chest pain so will admit for closer monitoring 2. Hypokalemia - mild at 3.1 - replace orally 3. Hypermagnesemia - also mild - recheck in AM 4. Elevated WBC count - likely reactive due to vomiting - monitor 5. HIV - states viral counts are undetectable and his CD4 count s are normal. - resume Dovato DVT: Low risk, encourage ambulation. CODE STATUS: Full code Total time managing care of this patient today: 55 minutes. Quality Stroke Does the patient have a stroke diagnosis?: No VTE Prior VTE?: No VTE Risk Level:: Medical - low VTE Device Contraindication: Treatment Not Indicated VTE Drug Contraindication: Treatment Not Indicated
[2023-10-19] VITALS (8 sets, daily range): BP systolic 112–141; BP diastolic 72–85; PULSE 77–95; RESP 12–20; TEMP 36.2–37; O2SAT 97–100
[2023-10-19] MEDS: Metoclopramide HCl 10 MG/2 ML VIAL IVPUSH (00:15)
[2023-10-19] MEDS: 0.9 % Sodium Chloride Flush 3 ML SYRINGE IVFLUSH ×3 (00:15→14:23)
[2023-10-19] MEDS: Dextrose 5 % and 0.9 % NaCl 1,000 ML 100 ML IVCONT ×2 (00:25→11:46)
[2023-10-19 00:52] LABS: Troponin-I High Sensitivity 38.6 ng/L (<3.5-35.0)
--- NOTE | 2023-10-19 03:40 | MHC.EDTECH ---
patient up to BR. ambulated independently. VSS
--- NOTE | 2023-10-19 03:41 | PC.NURSE ---
This medical writer assumed care of this Pt at 1900. Pt A&Ox3, reports 10/10 all over CP radiated to lower extremity and worsens with movement. Pt ambulates to BR with slow steady gait.
[2023-10-19] MEDS: HYDROmorphone HCl 1 MG/ML SYRINGE 0.5 MG IVPUSH ×3 (03:55→14:23)
[2023-10-19 05:52] LABS: MANUAL DIFF FLAG NO
[2023-10-19] MEDS: Magnesium Hydrox/Alum Hydrox 30 ML ORAL.SUSP PO ×2 (05:52→11:52)
[2023-10-19 05:55] LABS: Basophils Percent Auto 0.3 % (0-2); Eosinophils Absolute Auto 0.1 X10*3/uL (0.0-0.4); Eosinophils Percent Auto 0.6 % (0-4); Hematocrit 40.9 % (42.0-52.0); Imm Gran Abs Auto 0.04 X10*3/uL (0.00-0.03); Imm Gran Pct Auto 0.4 % (0.0-0.4); Lymphocytes Absolute Auto 0.6 X10*3/uL (1.2-4.9); Lymphocytes Percent Auto 6.9 % (20-40); Mean Corpuscular HGB Conc 34.2 g/dl (31.0-36.0); Mean Corpuscular Hemoglobin 29.2 pg (27.0-33.0); Mean Corpuscular Volume 85.2 fL (80.0-98.0); Mean Platelet Volume 10.5 fL (9.4-12.4); Monocytes Absolute Auto 0.6 X10*3/uL (0.1-1.2); Monocytes Percent Auto 6.5 % (2-11); Neutrophils Absolute Auto 7.7 x10*3/uL (2.0-8.3); Neutrophils Percent Auto 85.3 % (45-73); Platelet Count 250 X10*3/uL (160-400); Red Cell Distribution Width 13.5 % (11.0-16.0)
[2023-10-19] MEDS: Potassium Chloride ER 20 MEQ TAB.ER.PRT 40 MEQ PO (05:57)
[2023-10-19 06:12] LABS: Alanine Aminotransferase 12 U/L (0-40); Albumin Level 4.9 g/dL (3.5-5.0); Alkaline Phosphatase 63 U/L (39-117); Anion Gap 16 (12-20); Aspartate Amino Transferase 19 U/L (5-37); Bilirubin Total 0.6 mg/dL (0.0-1.0); Blood Urea Nitrogen 25 mg/dL (9-16); Carbon Dioxide 23 mmol/L (22-29); Chloride 101 mmol/L (96-108); Creatinine Clr Calc Pharmacy 85.1; Estimated Glomerular Filt Rate > 60; Glucose Random 135 mg/dL (60-115); Magnesium 2.6 mg/dL (1.6-2.6); Potassium 3.4 mmol/L (3.3-5.1); Sodium 137 mmol/L (135-145)
[2023-10-19] MEDS: ondansetron HCL 4 MG/2 ML VIAL IVPUSH ×2 (06:45→14:23)
--- NOTE | 2023-10-19 06:58 | PC.NURSE ---
Pt reports nausea with one episode of vomiting, Pt medicated per MAR.
--- NOTE | 2023-10-19 07:06 | MHC.CM.PN ---
Met with patient in regards to discharge planning. Patient lives alone, ambulates indepedently and had no services prior to coming to the hospital. No services anticipated to be needed because patient is not homebound. Patient received 2 Moderna vaccines. PCP verified. Copy of HCP verified to be on file. Obs notice explained and signed. Patient has a friend that will transport him home when medically stable. Continue to monitor for d/c needs.
--- NOTE | 2023-10-19 08:32 | PHA.MEDREC ---
Pharmacy Consult ? Medication Reconciliation Pharmacy has completed the medication reconciliation.
[2023-10-19] MEDS: Lidocaine 4 % Patch ADH..PATCH 1 PATCH TRANSDERMA (10:15)
--- NOTE | 2023-10-19 10:17 | PC.NURSE ---
pt still actively vomiting despite medication administration. pt c/o 05/02 substernal chest pain at this time - medication administered per provider order for pain prn - will reassess. lidocaine patch applied to affected area. pt hiccupping at this time. no sob/wob noted. respirations even and unlabored. family bedside. call shi placed within reach.
--- NOTE | 2023-10-19 11:27 | PC.NURSE ---
admission worksheet completed. tech transporting pt upstairs at this time.
--- NOTE | 2023-10-19 17:04 | P.PNIM_ITS ---
Subjective Subjective Date of Service: 10/19/23 Interval History: persistent Nausea and vomiting Review of Systems still has nausea /vomitin chest pain seems improved. no fever Physical Exam 2 Vital Signs: Vital Signs: Last Vital Signs Temp 98.6 F 10/19/23 15:32 Pulse 85 10/19/23 15:32 Resp 18 10/19/23 15:32 BP 122/81 10/19/23 15:32 Pulse Ox 99 10/19/23 15:32 O2 Del Method Room Air 10/19/23 15:32 BMI result Body Mass Index 20.2 Appearance: Alert.? Oriented X3.? Persistent nausea vomiting, unable to eat cvs: rrr, [id number] . res: clear to auscultation ,no rhonchii or wheezing abd: no rebound or guarding ,nt, bs present. ext pulses present , no cyanosis . neuro: axo3 , nonfocal. Objective Data Active Medications Acetaminophen (Acetaminophen 325 Mg Tablet) 650 mg PO Q6H PRN PRN Reason: Pain, Mild (Pain Scale 1-3) Al Hydroxide/Mg Hydroxide (Magnesium Hydrox/Alum Hydrox 30 Ml Oral.Susp) 30 ml PO Q4H PRN PRN Reason: Heartburn/Nausea Last Admin: 10/19/23 11:52 Dose: 30 ml Documented By: COTEMA Al Hydroxide/Mg Hydroxide (Magnesium Hydrox/Alum Hydrox 30 Ml Oral.Susp) 30 ml PO Q4H PRN PRN Reason: Dyspepsia Hydromorphone HCl (Hydromorphone Hcl 1 Mg/Ml Syringe) 0.5 mg IVPUSH Q4H PRN; Protocol PRN Reason: Pain, Severe (Pain Scale 7-10) Last Admin: 10/19/23 14:23 Dose: 0.5 mg Documented By: COTSESAR Dextrose/Sodium Chloride (D5ns) 1,000 mls @ 100 mls/hr IVCONT .Q10H WAYNE Last Admin: 10/19/23 15:50 Dose: Not Given Documented By: COTEMA Non-Admin Reason: IV Running Promethazine HCl 6.25 mg/ (Sodium Chloride) 50.25 mls @ 201 mls/hr IV Q6H PRN PRN Reason: Nausea and Vomiting Last Admin: 10/19/23 16:52 Dose: 201 mls/hr Documented By: HO.COTEMA Lidocaine (Lidocaine 4 % Patch Adh..Patch) 1 patch TRANSDERMA DAILY [facility]; Protocol Last Admin: 10/19/23 10:15 Dose: 1 patch Documented By: CÉSAR Melatonin (Melatonin 3 Mg Tablet) 6 mg PO BEDTIME PRN PRN Reason: Insomnia Ondansetron HCl (Ondansetron Hcl 4 Mg/2 Ml Vial) 4 mg IVPUSH Q8H PRN PRN Reason: Nausea and Vomiting Last Admin: 10/19/23 14:23 Dose: 4 mg Documented By: MARILYN Sodium Chloride (0.9 % Sodium Chloride Flush 3 Ml Syringe) 3 ml IVFLUSH QSHIFT [facility] Last Admin: 10/19/23 14:23 Dose: 3 ml Documented By: MARILYN Labs 10/19/23 05:20 10/19/23 05:19 Labs: Laboratory Results - last 24 hr 10/18/23 10/19/23 10/19/23 18:30 05:19 05:20 MCV 86.4 85.2 MCH 29.6 29.2 MCHC 34.3 34.2 RDW 13.9 13.5 Plt Count 269 250 MPV 10.9 10.5 Immature Gran % (Auto) 0.5 H 0.4 Neut % (Auto) 82.6 H 85.3 H Lymph % (Auto) 11.3 L 6.9 L [place] % (Auto) 4.8 6.5 Eos % (Auto) 0.3 0.6 Baso % (Auto) 0.5 0.3 Lymph # (Auto) 1.5 0.6 L [place] # (Auto) 0.6 0.6 Eos # (Auto) 0.0 0.1 Baso # (Auto) 0.1 0.0 Abs Immat Gran (auto) 0.06 H 0.04 H Absolute Neuts (auto) 10.8 H 7.7 Absolute Nucleated RBC 0.000 0.000 Nucleated RBC % (auto) 0.0 0.0 Anion Gap 14 16 Estim Creat Clear Calc 75.8 85.1 Estimated GFR > 60 > 60 Random Glucose 116 H 135 H Calcium 9.8 9.0 D Magnesium 2.7 H 2.6 Total Bilirubin 0.8 0.6 AST 21 19 ALT 14 12 Alkaline Phosphatase 64 63 Total Creatine Kinase 84 Total Protein 8.6 H 8.0 Albumin 5.1 H 4.9 Lipase 24 Assessment and Plan (1) Chest pain: Status: Acute (2) Intractable vomiting: Status: Acute Assessment and Plan: 33-year-old male with history of GERD, fibromyalgia, HIV (on Dovato) and previous episode of acute kidney injury here with Persistent nausea vomiting: Unable to eat Possible related to marijuana use Continue IV hydration and antiemetic, lidocaine patch Chest pain Troponin flat atypical and improved (also positive for cocaine) Discuss the Cardiology patient was previously recommended to follow-up with Cardiology outpatient for further outpatient workup but patient did not go. Strongly encouraged to follow-up out patiently this time with cardiology Hypokalemia Repleted and resolved. Hypermagnesemia Improved Elevated WBC count - likely reactive due to vomiting -improved HIV - states viral counts are undetectable and his CD4 count s are normal. - resume Dovato DVT: Low risk, encourage ambulation. Ongoing need for hospitalization: Patient will benefit from 48 hour stay because patient has sec please vomiting secondary to marijuana use: Unable to eat, need IV hydration and IV antiemetics. Quality Stroke Does the patient have a stroke diagnosis?: No VTE Prior VTE?: No VTE Risk Level:: Medical - low VTE Device Contraindication: Treatment Not Indicated VTE Drug Contraindication: Treatment Not Indicated
[2023-10-20] MEDS: Dextrose 5 % and 0.9 % NaCl 1,000 ML 100 ML IVCONT (00:59)
[2023-10-20 05:44] LABS: Anion Gap 10 (12-20); Blood Urea Nitrogen 14 mg/dL (9-16); Calcium 7.8 mg/dL (8.4-10.2); Carbon Dioxide 26 mmol/L (22-29); Chloride 105 mmol/L (96-108); Creatinine Clr Calc Pharmacy 111.2; Estimated Glomerular Filt Rate > 60; Glucose Random 110 mg/dL (60-115); Potassium 3.3 mmol/L (3.3-5.1); Sodium 138 mmol/L (135-145)
[2023-10-20 07:31] VITALS: BP 114/67; PULSE 77; RESP 16; TEMP 36.1; O2SAT 99
[2023-10-20] MEDS: Lidocaine 4 % Patch ADH..PATCH 1 PATCH TRANSDERMA (07:57)
[2023-10-20] MEDS: Potassium Chloride/H20 10 MEQ/100 ML PIGGYBACK 100 MEQ IV ×2 (07:58→09:06)
[2023-10-20] MEDS: Aspirin Enteric Coated 81 MG TABLET.DR PO (09:06)
--- NOTE | 2023-10-20 10:30 | MHC.CM.PN ---
ERNIE 10/19/23 Patient is discharged to home today self care. He has arranged for transport home.
--- NOTE | 2023-10-20 11:36 | P.DS_ITS ---
DS: Providers Provider Date of Service: 10/20/23 Date of admission: 10/18/23 23:57 Date of discharge: 10/20/23 Primary care physician: Art Ludwig MD Attending physician on discharge: Clement May Discharging clinician: Clement May DS: Diagnosis Discharge Diagnosis (1) Chest pain: Status: Acute (2) Intractable vomiting: Status: Acute DS: Summary Hospital Course Hospital Course: 33-year-old male with history of GERD, fibromyalgia, HIV (on Dovato) and previous episode of acute kidney injury who presented to the ED via EMS yesterday complaining of abdominal pain with associated nausea, vomiting, diaphoresis and generalized bodyaches and was diagnosed with acute renal failure (BUN of 38 and creatinine of 3.62) and hypercalcemia (serum calcium of 13k). He was started on anti-emetics, analgesics, IV fluids and IV Pamidronate and admission requested but he left the hospital AGAINST MEDICAL ADVICE only to return to the emergency room this evening complaining of sudden onset of diffuse anterior chest pain described as a pressure that radiates from the substernal region to the both sides of the chest. This pain started when he woke up from a nap at 17:00 and has been constant since then. It is reproducible with movement and on deep inspiration. He denied any associated dizziness, lightheadedness, neck pain, shortness of breath, URI symptoms, abdominal pain nausea, vomiting. Initial work up revealed a mild leucocytosis of 13 k (which is an improvement from last night), mild hypokalemia (3.1), mild hypermagnesemia (2.7) and slightly elevated HSTnI with normal EKG. Admission was requested for continued care. Hospital course: Patient came with persistent nausea vomiting, chest discomfort: Persistent erasmo sea vomiting possibly related to marijuana use-improved with hydration, antiemetics. Patient was strongly advised to abstain from substance use including marijuana and cocaine. Hypokalemia repleted and resolved. Atypical chest tightness which resolved spontaneously, mild elevated troponin in the setting of cocaine use/stress: Patient was previously advised to follow-up with Cardiology. Patient is saying that he will follow-up cup will Cardiology outpatient for further workup, currently continue baby aspirin until seen by Cardiology. plan: Patient was strongly advised to abstain from substance use including marijuana and cocaine. Cardiology outpatient for further workup, currently continue baby aspirin until seen by Cardiology. Above management discussed with patient detail and she understand in agreement with the plan, time spent 50 minute. Time Attestation Discharge coordination time: Greater than 30 minutes Quality: Safe Use of Opioids Does Pt have an Active Cancer Diagnosis on the Problem List?: No Quality: Stroke Does the patient have a stroke diagnosis?: No Physical Exam Vital Signs: Vital Signs: Last Vital Signs Temp 96.9 F 10/20/23 07:31 Pulse 77 10/20/23 07:31 Resp 16 10/20/23 07:31 BP 114/67 10/20/23 07:31 Pulse Ox 99 10/20/23 07:31 O2 Del Method Room Air 10/20/23 07:31 BMI result Body Mass Index 20.2 Appearance: Alert.? Oriented X3.? Eyes: Pupils equal, round and reactive to light.? Sclera nonicteric.? ENT: Pharynx normal.? Moist mucous membranes. cvs: rrr, [id number]. res: clear to auscultation ,no rhonchii or wheezing abd: no rebound or guarding ,nt, bs present. ext pulses present , no cyanosis . neuro: axo3 , nonfocal. DS: Data Data Completed and Pending Labs on day of discharge: Laboratory Results - last 24 hr 10/20/23 05:01 Sodium 138 Potassium 3.3 Chloride 105 Carbon Dioxide 26 Anion Gap 10 L BUN 14 Creatinine 0.75 Estim Creat Clear Calc 111.2 Estimated GFR > 60 Random Glucose 110 Calcium 7.8 L D Imaging Chest x-ray: Radiologist's impression: ITS Impressions Chest X-Ray 10/18/23 19:16 IMPRESSION: Unremarkable examination. Discharge Plan Discharge Anticipated Discharge Date/Time: 10/20/23 11:30 Patient Disposition: Home, Self-Care Discharge Diagnosis: Cyclic vomiting, hypokalemia, atypical chest discomfort. Referrals: Art Ludwig MD [Primary Care Provider] - 1 Week Discharge Medications: New aspirin 81 mg capsule 81 mg PO DAILY Qty: 30 0RF omeprazole 20 mg capsule,delayed release(DR/EC) 20 mg PO DAILY Qty: 30 0RF ondansetron HCl 4 mg tablet 4 mg PO Q12H PRN (Reason: nausea and vomiting) 4 Days Qty: 7 0RF Continued Dovato 50-300 mg Tablet 1 tab PO DAILY Discharge Orders: Discharge Order (Routine); Ordered 10/20/23 Ordered By: Clement May Diet: Advance to usual diet Activity on Discharge: As tolerated Stand Alone Forms: Patient Portal Discharge page Care Plan Goals: Patient came with persistent nausea vomiting, chest discomfort: Persistent nausea vomiting possibly related to marijuana use-improved with hydration, antiemetics. Patient was strongly advised to abstain from substance use including marijuana and cocaine. Hypokalemia repleted and resolved. Atypical chest tightness which resolved spontaneously, mild elevated troponin in the setting of cocaine use/stress: Patient was previously advised to follow-up with Cardiology. Patient is saying that he will follow-up cup will Cardiology outpatient for further workup, currently continue baby aspirin until seen by Cardiology. Above management discussed with patient detail and she understand in agreement with the plan, time spent 50 minute. Health Concerns: As above. Plan of Treatment: Follow-up with Cardiology out patiently. Some strongly advised to abstain from substance use. Assessment: As above.
[2023-10-20] MEDS: Acetaminophen 325 MG TABLET 650 MG PO (12:05)
== END 2023-10-20 13:29 | disposition home or self-care (01) ==
LOC: HO.ED 19:02 → HO.EDOVER 10-19 00:01 → HO.S3 10-19 11:13
PROVIDERS: Nurse Practitioner Family; Physician Assistant Medical; Admitting Provider Internal Medicine; Emergency Provider Emergency Medicine; PCP Internal Medicine; Visit Provider Internal Medicine
DX: R11.15 Cyclical vomiting syndrome unrelated to migraine (principal); E87.6 Hypokalemia; R07.9 Chest pain, unspecified; E83.41 Hypermagnesemia; D72.829 Elevated white blood cell count, unspecified; R77.8 Other specified abnormalities of plasma proteins; B20 Human immunodeficiency virus [HIV] disease; R11.10 Vomiting, unspecified; K21.9 Gastro-esophageal reflux disease without esophagitis; E83.52 Hypercalcemia; N17.9 Acute kidney failure, unspecified; F14.90 Cocaine use, unspecified, uncomplicated; R11.2 Nausea with vomiting, unspecified; Z79.899 Other long term (current) drug therapy
CPT/HCPCS: 36415; 71046; 80048; 80053; 82550; 83690; 83735; 84484; 85025; 93005; 96361; 96365; 96366; 96367; 96375; 96376; 99221; 99285; J1170; J2270; J2405; J2550; J2765; J3480

== ENCOUNTER → 2023-10-18 18:00 | Outpatient (BNV) | payer OTHER, SELFPAY | PROVIDERS: Admitting Provider Internal Medicine; Emergency Provider Emergency Medicine; PCP Internal Medicine; Visit Provider Internal Medicine | DX: R07.9 Chest pain, unspecified (principal); R94.31 Abnormal electrocardiogram [ECG] [EKG] | CPT/HCPCS: 93010 ==

== ENCOUNTER → 2023-10-18 23:57 | Outpatient (BNV) | payer OTHER, SELFPAY | PROVIDERS: Admitting Provider Internal Medicine; Emergency Provider Emergency Medicine; PCP Internal Medicine; Visit Provider Internal Medicine | DX: R07.9 Chest pain, unspecified (principal); E87.6 Hypokalemia; R77.8 Other specified abnormalities of plasma proteins; D72.829 Elevated white blood cell count, unspecified; R11.10 Vomiting, unspecified | CPT/HCPCS: 99232; 99233; 99239 ==

== ENCOUNTER 2023-12-21 13:49 | Emergency (ER) | payer OTHER, SELFPAY ==
[2023-12-21 13:56] VITALS: BP 130/90; PULSE 77; O2SAT 99
--- NOTE | 2023-12-21 14:00 | ECG_ITS ---
Test Reason : CHEST PAIN Blood Pressure : / mmHG Vent. Rate : 062 BPM Atrial Rate : 062 BPM P-R Int : 136 ms QRS Dur : 086 ms QT Int : 410 ms P-R-T Axes : -10 091 079 degrees QTc Int : 416 ms Normal sinus rhythm Rightward axis T wave abnormality, consider lateral ischemia Abnormal ECG When compared with ECG of 18-OCT-2023 18:03, Vent. rate has decreased BY 34 BPM T wave inversion now evident in Anterolateral leads Referred By: Generic ED Physician Electronically Signed By:ROWDY HENRIQUEZ
[2023-12-21 14:03] VITALS: BP 127/73; PULSE 70; RESP 16; TEMP 36.8; O2SAT 99; BMI 18.8
--- NOTE | 2023-12-21 14:12 | PC.NURSE ---
offered to do ecg- pt declined stating i will pee all over myself if he doesn't go to bathroom- declined urinal on offer- walked to b. room. md romero aware at bedside having cp.
--- NOTE | 2023-12-21 14:13 | ED.NAVMDI ---
HPI - Nausea/Vomiting/Diarrhea General Chief complaint: Nausea/Vomiting/Diarrhea Stated complaint: VOMITING/DIARRHEA Time Seen by Provider: 12/21/23 14:05 Source: patient and old records reviewed Mode of arrival: EMS Limitations: no limitations History of Present Illness HPI Narrative: 33 yo male with PMH of intractable n/v, prior elevated troponin in setting of gastroenteritis and myocarditis, LYSSA, gastroenteritis, HIV with undetectable viral load reports he ate [place] food last night for dinner then woke up in the middle of the night with diffuse abdominal pain n/v/d and now since he has vomiting he developed chest pain and heartburn symptoms. He has no sick contacts, travel hx. He has had this several times before. MD elicited complaint: nausea, vomiting, diarrhea and abdominal pain Pertinent past history: cyclical vomiting Onset (ago): hour(s) (several) Description of vomiting: food contents and watery Description of diarrhea: watery Associated nausea: Yes Associated abdominal pain: Yes Location of pain: diffuse and epigastric Radiation: chest Pain consistency: constant Severity: severe Quality: aching Exacerbating factors: eating Relieving factors: none Context: possible food poisoning Associated symptoms: headaches, loss of appetite, malaise, nausea/vomiting and anxiety Related Data Home Medications Medication Instructions Recorded Confirmed dolutegravir 50 mg-lamivudine 300 1 tab PO DAILY 09/02/20 10/19/23 mg tablet (Dovato) Previous Rx's Medication Instructions Recorded aspirin 81 mg capsule 81 mg PO DAILY #30 caps 10/20/23 omeprazole 20 mg capsule,delayed 20 mg PO DAILY #30 caps 10/20/23 release ondansetron HCl 4 mg tablet 4 mg PO Q12H PRN nausea and 10/20/23 vomiting 4 days #7 tabs Allergies Allergy/AdvReac Type Severity Reaction Status Date / Time No Known Allergies Allergy Verified 10/18/23 18:10 Review of Systems Review of Systems: Constitutional : No Weight loss, No Fever, No Chills ENT/Mouth : No sore throat, No Rhinorrhea Eyes: No Swelling, No Redness Cardiovascular : pos Chest Pain, No SOB, NoEdema Respiratory : No Cough, No Sputum, No Wheezing Gastrointestinal : Positive Nausea, Positive Vomiting, positive Diarrhea, positive abdominal Pain, No Hematochezia, No Melena Genitourinary : No Dysuria, No Urinary Frequency, No Hematuria, No Urgency Musculoskeletal : No joint pain, No Myalgias, No Joint Swelling Skin : No Skin Lesions, No rash Neuro : No Weakness, No Numbness, No Dizziness, No Headache Psych : No Anxiety/Panic, No Depression Heme/Lymph: No Bruising, No Lymphadenopathy Endocrine : No Polyuria, No Polydipsia All other systems reviewed and are negative. Gastrointestinal: Gastrointestinal: Reports nausea PMFSH Past Medical History Attestation statement: The following information was validated with the patient. Source: old records reviewed Medical History Acute renal failure Fibromyalgia HIV (human immunodeficiency virus infection) GERD (gastroesophageal reflux disease) Family History Family History Mother HIV (human immunodeficiency virus infection) Social History Social History Household Members: None Housing: Apartment Do you presently have visiting nurse or other home services: No Alcohol intake: never Patient Tobacco Use Status: Former Tobacco user Tobacco use type: Cigarette Cigarettes Per Day: 0.5 e-Cigarette/Vaping Use: Never Used Second Hand Smoke Exposure: Yes Substance Use Type: Marijuana Advance Directives Date on File: 09/29/22 service: No Current occupational status: employed Physical Exam Vital Signs: Vital Signs: Last Vital Signs Temp 98.3 F 12/21/23 14:03 Pulse 70 12/21/23 14:03 Resp 16 12/21/23 14:03 BP 127/73 12/21/23 14:03 Pulse Ox 99 12/21/23 14:03 O2 Del Method Room Air 12/21/23 14:03 BMI result Body Mass Index 18.8 Appearance: Alert. Oriented X3. anxious vomiting mild acute distress. Eyes: Pupils equal, round and reactive to light. ENT: Pharynx dry MM Neck: Normal inspection. Neck supple. CVS: Normal heart rate and rhythm. Pulses normal. Respiratory: No respiratory distress. Breath sounds normal. Abdomen: Soft and moderate diffuse ttp no rebound or guarding Skin: Skin warm and dry. Normal skin color. Normal skin turgor. Extremities: No lower extremity edema. No calf ttp Neuro: Oriented X 3. No motor deficit. No sensory deficit. Course Course Course Narrative: wbc elevated likely due to vomiting and not infection or severe sepsis Reevaluation(s) Reevaluation #1: signed out to DDr. Montoya pending further eval and workup Medications Administered Generic Name Dose Route Start Last Admin Trade Name Freq PRN Reason Stop Dose Admin Sodium Chloride 1,000 mls @ 999 mls/hr 12/21/23 14:45 12/21/23 14:48 Ns IV 12/21/23 15:45 999 mls/hr .Q1H1M WAYNE Administration Sodium Chloride 1,000 mls @ 999 mls/hr 12/21/23 14:45 12/21/23 14:49 Ns IV 12/21/23 15:45 999 mls/hr .Q1H1M WAYNE Administration Discontinued Medications Generic Name Dose Route Start Last Admin Trade Name Freq PRN Reason Stop Dose Admin Diphenhydramine HCl 25 mg 12/21/23 14:35 12/21/23 14:49 Diphenhydramine Hcl 50 Mg/Ml Vial IVPUSH 12/21/23 14:36 25 mg ONCE ONE Administration Famotidine 20 mg 12/21/23 14:35 12/21/23 14:49 Famotidine/Pf 20 Mg/2 Ml Vial IVPUSH 12/21/23 14:36 20 mg ONCE ONE Administration Metoclopramide HCl 10 mg 12/21/23 14:35 12/21/23 14:49 Metoclopramide Hcl 10 Mg/2 Ml Vial IVPUSH 12/21/23 14:36 10 mg ONCE ONE Administration Medical Decision Making Medical Decision Making MDM Narrative: 33 yo male with PMH of intractable n/v, prior 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 At this time will need basic labs, IVF x 2L, repeat BMP, IV morphine and reglan for symptoms. Hx of multiple visits for same in past. No travel or abx use. Differential Diagnosis Differential Diagnoses: The differential diagnosis associated with the presentation includes cyclical vomiting, enteritis, food toxicity Admission/Observation Consideration of admission/observation: Escalation of care including admission/observation considered Lab Data [facility] Lab Attestation statement: I reviewed the patient's lab results. 12/21/23 14:20 12/21/23 14:20 Labs: Lab Results 12/21/23 Range/Units 14:20 RBC 5.32 (4.60-5.80) X10*6/uL Hgb 15.8 (14.0-18.0) g/dl Hct 46.5 (42.0-52.0) % MCV 87.4 (80.0-98.0) fL MCH 29.7 (27.0-33.0) pg MCHC 34.0 (31.0-36.0) g/dl RDW 14.0 (11.0-16.0) % Plt Count 322 D (160-400) X10*3/uL MPV 10.8 (9.4-12.4) fL Immature Gran % (Auto) Cancelled Neut % (Auto) Cancelled Lymph % (Auto) Cancelled [place] % (Auto) Cancelled Eos % (Auto) Cancelled Baso % (Auto) Cancelled Lymph # (Auto) Cancelled [place] # (Auto) Cancelled Eos # (Auto) Cancelled Baso # (Auto) Cancelled Abs Immat Gran (auto) Cancelled Absolute Neuts (auto) Cancelled Absolute Nucleated RBC 0.000 (0.0-0.012) X10*3/uL Nucleated RBC % (auto) 0.0 (0.0-0.2) /100WBC Sodium 142 (135-145) mmol/L Potassium 3.7 (3.3-5.1) mmol/L Chloride 101 (96-108) mmol/L Carbon Dioxide 24 (22-29) mmol/L Anion Gap 21 H (12-20) BUN 30 H (9-16) mg/dL Creatinine 1.45 H (0.5-1.4) mg/dL Estim Creat Clear Calc 53.7 Estimated GFR 56 Random Glucose 155 H (60-115) mg/dL Calcium 11.3 H D (8.4-10.2) mg/dL Total Bilirubin 0.8 (0.0-1.0) mg/dL AST 22 (5-37) U/L ALT 17 (0-40) U/L Alkaline Phosphatase 73 (39-117) U/L Troponin I High Sens < 2.7 D (<3.5-35.0) ng/L Total Protein 9.9 H (6.5-8.0) g/dL Albumin 5.9 H (3.5-5.0) g/dL COVID-19 (DEBORAH) Negative (Negative) COVID-19 Clin Com See Note Influenza Type A (HECTOR) Negative (Negative) Influenza Type B (HECTOR) Negative (Negative) Influenza A & B Note See Note External Record Review External record reviewed: Inpatient record Prescription Management I considered prescription management with: Other (zofran) Critical Care Time Critical Care Time Critical Care Time: Yes Total Critical Care Time: 35 Attestation: pain improved with IV morphine, repeat labs, IVF x 2L for resuscitation I attest to this time spent taking care of the patient Discharge Plan Discharge Clinical Impression: Nausea vomiting and diarrhea, LYSSA (acute kidney injury) Elevated WBC count Qualifiers: Leukocytosis type: unspecified Qualified Code(s): D72.829 - Elevated white blood cell count, unspecified Prescriptions: No Action Dovato 50-300 mg Tablet 1 tab PO DAILY aspirin 81 mg capsule 81 mg PO DAILY Qty: 30 0RF omeprazole 20 mg capsule,delayed release(DR/EC) 20 mg PO DAILY Qty: 30 0RF ondansetron HCl 4 mg tablet 4 mg PO Q12H PRN (Reason: nausea and vomiting) 4 Days Qty: 7 0RF
--- NOTE | 2023-12-21 14:24 | PC.NURSE ---
lab notified issue w scanning labels on trop and chem- drawn at 1418 by larry
[2023-12-21 14:33] LABS: Hematocrit 46.5 % (42.0-52.0); Hemoglobin 15.8 g/dl (14.0-18.0); Mean Corpuscular Hemoglobin 29.7 pg (27.0-33.0); Mean Corpuscular Volume 87.4 fL (80.0-98.0); Mean Platelet Volume 10.8 fL (9.4-12.4); Platelet Count 322 X10*3/uL (160-400); Red Blood Count 5.32 X10*6/uL (4.60-5.80)
[2023-12-21 14:40] LABS: WBC ABN SCTR FOR CBC 1
[2023-12-21] MEDS: 0.9 % Sodium Chloride 1,000 ML 999 ML IV ×2 (14:48→14:49)
[2023-12-21 14:49] LABS: Alanine Aminotransferase 17 U/L (0-40); Albumin Level 5.9 g/dL (3.5-5.0); Alkaline Phosphatase 73 U/L (39-117); Anion Gap 21 (12-20); Aspartate Amino Transferase 22 U/L (5-37); Bilirubin Total 0.8 mg/dL (0.0-1.0); Blood Urea Nitrogen 30 mg/dL (9-16); Calcium 11.3 mg/dL (8.4-10.2); Carbon Dioxide 24 mmol/L (22-29); Chloride 101 mmol/L (96-108); Creatinine Clr Calc Pharmacy 53.7; Estimated Glomerular Filt Rate 56; Glucose Random 155 mg/dL (60-115); Potassium 3.7 mmol/L (3.3-5.1); Sodium 142 mmol/L (135-145); Total Protein 9.9 g/dL (6.5-8.0)
[2023-12-21] MEDS: diphenhydrAMINE HCL 50 MG/ML VIAL 25 MG IVPUSH (14:49)
[2023-12-21] MEDS: Famotidine/PF 20 MG/2 ML VIAL IVPUSH (14:49)
[2023-12-21] MEDS: Metoclopramide HCl 10 MG/2 ML VIAL IVPUSH (14:49)
[2023-12-21 14:56] LABS: Troponin-I High Sensitivity < 2.7 ng/L (<3.5-35.0)
[2023-12-21 15:07] LABS: COVID-19 Test Negative (Negative); IDNOW Serial# 08D9AD1C; IDNOW Serial# 152EDE1D; Influenza A Negative (Negative); Influenza B2 Negative (Negative)
[2023-12-21 15:28] LABS: Lipase 9 U/L (8-78)
[2023-12-21 15:34] LABS: Atypical Lymphs Percent Manual 2 % (0-6); Band Neutrophils Percent 1 % (3-5); Lymphocytes Percent Manual 2 % (20-40); Monocytes Percent Manual 3 % (2-11); Neutrophils Percent Manual 92 % (45-73)
[2023-12-21 15:35] LABS: Giant Platelet PRESENT; Large Platelet PRESENT; Platelet Estimate NORMAL (NORMAL); Platelet Morphology Comment NOTED; RBC Morphology NORMAL
[2023-12-21 15:56] LABS: Atypical Lymph Absolute Manual 0.4 x10*3/uL; Lymphocytes Absolute Manual 0.4 X10*3/uL (1.2-4.9); Monocytes Absolute Manual 0.7 X10*3/uL (0.1-1.2); Neutrophils Absolute Manual 20.4 X10*3/uL (2.0-8.3); White Blood Count 21.9 X10*3/uL (4.8-10.8)
[2023-12-21 16:41] LABS: Anion Gap 20 (12-20); Blood Urea Nitrogen 32 mg/dL (9-16); Calcium 10.4 mg/dL (8.4-10.2); Carbon Dioxide 22 mmol/L (22-29); Chloride 104 mmol/L (96-108); Estimated Glomerular Filt Rate 45; Glucose Random 146 mg/dL (60-115); Potassium 3.4 mmol/L (3.3-5.1); Sodium 143 mmol/L (135-145)
== END 2023-12-21 17:31 | disposition left against medical advice (07) ==
PROVIDERS: Emergency Medicine; Emergency Provider Emergency Medicine Emergency Medical Services
DX: N17.9 Acute kidney failure, unspecified (principal); R11.2 Nausea with vomiting, unspecified; D72.829 Elevated white blood cell count, unspecified; B20 Human immunodeficiency virus [HIV] disease; Z11.52 Encounter for screening for COVID-19
CPT/HCPCS: 36415; 80048; 80053; 83690; 84484; 85007; 85027; 87502; 87635; 93005; 96361; 96374; 96375; 99284; 99285; J1200; J2765

== ENCOUNTER → 2023-12-21 14:00 | Outpatient (BNV) | payer OTHER, SELFPAY | PROVIDERS: Emergency Provider Emergency Medicine Emergency Medical Services; Visit Provider Internal Medicine | DX: R94.31 Abnormal electrocardiogram [ECG] [EKG] (principal) | CPT/HCPCS: 93010 ==

== ENCOUNTER 2023-12-22 10:13 | Emergency (ER) | payer OTHER, SELFPAY ==
[2023-12-22 11:25] VITALS: BP 125/85; PULSE 92; RESP 16; TEMP 37.1; O2SAT 97; BMI 19.6
--- NOTE | 2023-12-22 11:33 | ED_ITS ---
HPI - Nausea/Vomiting/Diarrhea General Chief complaint: Nausea/Vomiting/Diarrhea Stated complaint: Vomiting Time Seen by Provider: 12/22/23 11:32 Source: patient Mode of arrival: ambulatory Limitations: no limitations History of Present Illness HPI Narrative: Patient is a 33-year-old male presenting to the ED with complaint of 2-3 episodes of vomiting this morning. States he was seen here yesterday for what he suspected to be food poisoning. 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 States that he has been able to tolerate p.o. fluids today after episodes of vomiting. Reports emesis was nonbloody, nonbilious. MD elicited complaint: nausea and vomiting Pertinent past history: cyclical vomiting Onset (ago): day(s) Description of vomiting: food contents Associated abdominal pain: No Context: possible food poisoning Related Data Home Medications Medication Instructions Recorded Confirmed dolutegravir 50 mg-lamivudine 300 1 tab PO DAILY 09/02/20 10/19/23 mg tablet (Dovato) Previous Rx's Medication Instructions Recorded aspirin 81 mg capsule 81 mg PO DAILY #30 caps 10/20/23 omeprazole 20 mg capsule,delayed 20 mg PO DAILY #30 caps 10/20/23 release ondansetron HCl 4 mg tablet 4 mg PO Q12H PRN nausea and 10/20/23 vomiting 4 days #7 tabs metoclopramide HCl 10 mg tablet 10 mg PO Q6H PRN nausea and 12/21/23 (Reglan) vomiting #20 tabs Allergies Allergy/AdvReac Type Severity Reaction Status Date / Time No Known Allergies Allergy Verified 12/22/23 11:25 Review of Systems 2 Review of Systems: As per HPI. Yes all other systems are reviewed and are negative Constitutional: Constitutional: Reports as per HPI [facility] Past Medical History Medical History Acute renal failure Fibromyalgia HIV (human immunodeficiency virus infection) GERD (gastroesophageal reflux disease) Family History Family History Mother HIV (human immunodeficiency virus infection) Social History Social History Household Members: None Housing: Apartment Do you presently have visiting nurse or other home services: No Alcohol intake: never Patient Tobacco Use Status: Former Tobacco user Tobacco use type: Cigarette Cigarettes Per Day: 0.5 e-Cigarette/Vaping Use: Never Used Second Hand Smoke Exposure: Yes Substance Use Type: Marijuana Advance Directives: Yes Advance Directives on File: Yes Advance Directives Date on File: 09/29/22 service: No Current occupational status: employed Physical Exam 2 Vital Signs: Vital Signs: Last Vital Signs Temp 98.7 F 12/22/23 11:25 Pulse 92 12/22/23 11:25 Resp 16 12/22/23 11:25 BP 125/85 12/22/23 11:25 Pulse Ox 97 12/22/23 11:25 O2 Del Method Room Air 12/22/23 11:25 BMI result Body Mass Index 19.6 Vital signs have been reviewed and appear to be correct. Blood pressure normal. Heart rate normal. Respiratory rate normal. Temperature normal. Oxygen saturation normal. Const: General: cooperative, healthy appearing and no acute distress O rientation/consciousness: oriented to person, oriented to place, oriented to time and patient oriented x3 Limitations: no limitations HEENT: Head: Yes normocephalic and Yes atraumatic Ears: external ears normal General nose exam: Normal external nose present Face and sinus: Yes face symmetric Mouth: oropharynx normal and moist mucous membranes Throat: Yes uvula midline Eyes: Pupils: Equal, round and reactive pupils present Neck: Neck: Yes normal visual inspection and Yes supple Resp: Effort & Inspection: normal respiratory effort and able to speak in complete sentences Auscultation: clear to auscultation bilaterally Cardio: Rate: regular rate Rhythm: regular rhythm Heart sounds: S1 normal heart sound present and S2 normal heart sound present GI: Palpation (GI): Soft to palpation and nontender Auscultation: n ormoactive bowel sounds : General: Yes no CVA tenderness Back/Spine/Pelvis: Back: no CVA tenderness Skin: General skin exam: elasticity normal and turgor normal Neuro: General: oriented to person, oriented to place, oriented to time, patient oriented x3, moves all extremities, no focal motor deficits and CN's II- XI intact bilaterally Cranial nerves: Yes Equal, round and reactive pupils present Cognition (Neuro): normal cognition Extrem: General: Yes full ROM, Yes no pedal edema and Yes no calf tenderness Psych: Mental Status: mental status grossly normal Affect: normal affect Thought process: Normal thought process present Medical Decision Making Medical Decision Making [facility] Narrative: Patient is a 33-year-old male presenting to the ED with complaint of 2-3 episodes of vomiting this morning. On exam patient is awake, A+Ox3, VS WNL, afebrile, normal neurological exam without focal deficits, physical exam findings as above. Given reported symptoms and physical exam findings, initial differential includes food poisoning, viral gastroenteritis, cyclical vomiting, LYSSA. Labs notable for significant improvement in leukocytosis since labs drawn yesterday, chronically elevated BUN, improvement in creatinine. Given that patient is tolerating p.o. fluids and states that he feels stable for discharge home, I am in agreement with this. Encourage patient to hydrate at home taking small sips of fluids, specifically Pedialyte or Gatorade, etc.. Instructed patient to pharmacy picking technician his Reglan that was prescribed to him yesterday and utilize as needed. Instructed patient to follow-up with PCP. Return precautions discussed. Patient verbalized understanding of and agreement with plan. Differential Diagnosis Differential Diagnoses: The differential diagnosis associated with the presentation includes As per MDM. Admission/Observation Consideration of admission/observation: Escalation of care including admission/observation considered Lab Data [facility] Lab Attestation statement: I reviewed the patient's lab results. As per [facility] 12/22/23 11:41 12/22/23 11:41 Labs: Lab Results 12/22/23 Range/Units 11:41 WBC 11.4 H (4.8-10.8) X10*3/uL RBC 5.02 (4.60-5.80) X10*6/uL Hgb 14.7 (14.0-18.0) g/dl Hct 42.5 (42.0-52.0) % MCV 84.7 (80.0-98.0) fL MCH 29.3 (27.0-33.0) pg MCHC 34.6 (31.0-36.0) g/dl RDW 13.8 (11.0-16.0) % Plt Count 275 (160-400) X10*3/uL MPV 10.4 (9.4-12.4) fL Immature Gran % (Auto) 0.3 (0.0-0.4) % Neut % (Auto) 70.6 (45-73) % Lymph % (Auto) 17.4 L (20-40) % [place] % (Auto) 11.2 H (2-11) % Eos % (Auto) 0.2 (0-4) % Baso % (Auto) 0.3 (0-2) % Lymph # (Auto) 2.0 (1.2-4.9) X10*3/uL [place] # (Auto) 1.3 H (0.1-1.2) X10*3/uL Eos # (Auto) 0.0 (0.0-0.4) X10*3/uL Baso # (Auto) 0.0 (0.0-0.2) X10*3/uL Abs Immat Gran (auto) 0.03 (0.00-0.03) X10*3/uL Absolute Neuts (auto) 8.1 (2.0-8.3) x10*3/uL Absolute Nucleated RBC 0.000 (0.0-0.012) X10*3/uL Nucleated RBC % (auto) 0.0 (0.0-0.2) /100WBC Sodium 139 (135-145) mmol/L Potassium 3.5 (3.3-5.1) mmol/L Chloride 102 (96-108) mmol/L Carbon Dioxide 25 (22-29) mmol/L Anion Gap 16 (12-20) BUN 37 H (9-16) mg/dL Creatinine 1.16 (0.5-1.4) mg/dL Estim Creat Clear Calc 69.8 Estimated GFR > 60 Random Glucose 94 (60-115) mg/dL Calcium 9.9 (8.4-10.2) mg/dL Magnesium 2.6 (1.6-2.6) mg/dL Total Bilirubin 0.5 (0.0-1.0) mg/dL AST 21 (5-37) U/L ALT 15 (0-40) U/L Alkaline Phosphatase 59 (39-117) U/L Total Protein 8.8 H (6.5-8.0) g/dL Albumin 5.3 H (3.5-5.0) g/dL Lipase 19 (8-78) U/L External Record Review External record reviewed: Inpatient record, Office record and Outpatient record Discharge Plan Discharge Clinical Impression: Nausea & vomiting Patient Disposition: Home, Self-Care Instructions: Acute Nausea and Vomiting (ED) Additional Instructions: You have been evaluated in the emergency department today for nausea and vomiting. Your evaluation suggests that your symptoms are most likely due to food poisoning. Remember to drink plenty of fluids at home, take small sips, drink fluids such as Gatorade or Pedialyte. Use your previously prescribed nausea medication as ordered. Please follow up with your primary care provider within two days. Return to the emergency department if you experience worsening or uncontrolled pain, inability to tolerate fluids by mouth, difficulty breathing, fevers 100.4? F or greater, recurrent vomiting, or any other concerning symptoms. Prescriptions: No Action Dovato 50-300 mg Tablet 1 tab PO DAILY metoclopramide HCl [Reglan] 10 mg tablet 10 mg PO Q6H PRN (Reason: nausea and vomiting) Qty: 20 0RF aspirin 81 mg capsule 81 mg PO DAILY Qty: 30 0RF omeprazole 20 mg capsule,delayed release(DR/EC) 20 mg PO DAILY Qty: 30 0RF ondansetron HCl 4 mg tablet 4 mg PO Q12H PRN (Reason: nausea and vomiting) 4 Days Qty: 7 0RF Stand Alone Forms: Work/School Release
[2023-12-22 11:51] LABS: MANUAL DIFF FLAG NO
[2023-12-22 11:55] LABS: Basophils Percent Auto 0.3 % (0-2); Eosinophils Percent Auto 0.2 % (0-4); Hematocrit 42.5 % (42.0-52.0); Hemoglobin 14.7 g/dl (14.0-18.0); Imm Gran Abs Auto 0.03 X10*3/uL (0.00-0.03); Imm Gran Pct Auto 0.3 % (0.0-0.4); Lymphocytes Percent Auto 17.4 % (20-40); Mean Corpuscular HGB Conc 34.6 g/dl (31.0-36.0); Mean Corpuscular Hemoglobin 29.3 pg (27.0-33.0); Mean Corpuscular Volume 84.7 fL (80.0-98.0); Mean Platelet Volume 10.4 fL (9.4-12.4); Monocytes Absolute Auto 1.3 X10*3/uL (0.1-1.2); Monocytes Percent Auto 11.2 % (2-11); Neutrophils Absolute Auto 8.1 x10*3/uL (2.0-8.3); Neutrophils Percent Auto 70.6 % (45-73); Platelet Count 275 X10*3/uL (160-400); Red Blood Count 5.02 X10*6/uL (4.60-5.80); Red Cell Distribution Width 13.8 % (11.0-16.0); White Blood Count 11.4 X10*3/uL (4.8-10.8)
[2023-12-22 12:08] LABS: Alanine Aminotransferase 15 U/L (0-40); Albumin Level 5.3 g/dL (3.5-5.0); Alkaline Phosphatase 59 U/L (39-117); Anion Gap 16 (12-20); Aspartate Amino Transferase 21 U/L (5-37); Bilirubin Total 0.5 mg/dL (0.0-1.0); Blood Urea Nitrogen 37 mg/dL (9-16); Calcium 9.9 mg/dL (8.4-10.2); Carbon Dioxide 25 mmol/L (22-29); Chloride 102 mmol/L (96-108); Creatinine Clr Calc Pharmacy 69.8; Estimated Glomerular Filt Rate > 60; Glucose Random 94 mg/dL (60-115); Lipase 19 U/L (8-78); Magnesium 2.6 mg/dL (1.6-2.6); Potassium 3.5 mmol/L (3.3-5.1); Sodium 139 mmol/L (135-145); Total Protein 8.8 g/dL (6.5-8.0)
== END 2023-12-22 12:57 | disposition home or self-care (01) ==
PROVIDERS: Physician Assistant; Emergency Provider Emergency Medicine; PCP Nurse Practitioner Family
DX: R11.2 Nausea with vomiting, unspecified (principal); R11.10 Vomiting, unspecified; B20 Human immunodeficiency virus [HIV] disease; F17.210 Nicotine dependence, cigarettes, uncomplicated; F12.90 Cannabis use, unspecified, uncomplicated
CPT/HCPCS: 36415; 80053; 83690; 83735; 85025; 99282; 99283

== ENCOUNTER 2023-12-23 03:33 | Emergency (ER) | payer OTHER, SELFPAY ==
[2023-12-23 03:42] VITALS: BP 151/87; PULSE 98; O2SAT 100
[2023-12-23 03:43] VITALS: BP 142/75; PULSE 98; RESP 16; TEMP 36.6; O2SAT 99; BMI 19.4
[2023-12-23 04:00] VITALS: BP 148/84; PULSE 88; RESP 16; TEMP 36.6; O2SAT 99
[2023-12-23] MEDS: 0.9 % Sodium Chloride 1,000 ML 999 ML IV ×2 (04:04→05:10)
[2023-12-23 04:12] LABS: MANUAL DIFF FLAG NO
[2023-12-23 04:13] LABS: Basophils Percent Auto 0.4 % (0-2); Eosinophils Absolute Auto 0.1 X10*3/uL (0.0-0.4); Eosinophils Percent Auto 0.6 % (0-4); Hematocrit 43.1 % (42.0-52.0); Hemoglobin 15.2 g/dl (14.0-18.0); Imm Gran Abs Auto 0.03 X10*3/uL (0.00-0.03); Imm Gran Pct Auto 0.3 % (0.0-0.4); Lymphocytes Absolute Auto 2.3 X10*3/uL (1.2-4.9); Lymphocytes Percent Auto 22.3 % (20-40); Mean Corpuscular HGB Conc 35.3 g/dl (31.0-36.0); Mean Corpuscular Hemoglobin 29.3 pg (27.0-33.0); Mean Corpuscular Volume 83.2 fL (80.0-98.0); Mean Platelet Volume 10.2 fL (9.4-12.4); Monocytes Absolute Auto 1.2 X10*3/uL (0.1-1.2); Monocytes Percent Auto 11.4 % (2-11); Neutrophils Absolute Auto 6.7 x10*3/uL (2.0-8.3); Platelet Count 268 X10*3/uL (160-400); Red Blood Count 5.18 X10*6/uL (4.60-5.80); Red Cell Distribution Width 13.3 % (11.0-16.0); White Blood Count 10.2 X10*3/uL (4.8-10.8)
[2023-12-23] MEDS: ondansetron HCL 4 MG/2 ML VIAL IVPUSH (04:14)
[2023-12-23 04:36] LABS: Alanine Aminotransferase 17 U/L (0-40); Albumin Level 5.2 g/dL (3.5-5.0); Alkaline Phosphatase 56 U/L (39-117); Anion Gap 22 (12-20); Aspartate Amino Transferase 19 U/L (5-37); Bilirubin Total 0.6 mg/dL (0.0-1.0); Blood Urea Nitrogen 31 mg/dL (9-16); Calcium 9.9 mg/dL (8.4-10.2); Carbon Dioxide 18 mmol/L (22-29); Chloride 103 mmol/L (96-108); Creatinine Clr Calc Pharmacy 75.5; Estimated Glomerular Filt Rate > 60; Glucose Random 123 mg/dL (60-115); Potassium 3.1 mmol/L (3.3-5.1); Sodium 140 mmol/L (135-145); Total Protein 8.3 g/dL (6.5-8.0)
--- NOTE | 2023-12-23 04:48 | ECG_ITS ---
Test Reason : CHEST PAIN Blood Pressure : / mmHG Vent. Rate : 075 BPM Atrial Rate : 075 BPM P-R Int : 130 ms QRS Dur : 086 ms QT Int : 406 ms P-R-T Axes : 085 091 064 degrees QTc Int : 453 ms Normal sinus rhythm Rightward axis Borderline ECG When compared with ECG of 21-DEC-2023 14:17, T wave inversion no longer evident in Lateral leads Referred By: Liya Arevalo Electronically Signed By:ROWDY HENRIQUEZ
[2023-12-23] MEDS: Famotidine/PF 20 MG/2 ML VIAL IVPUSH (05:09)
[2023-12-23] MEDS: Metoclopramide HCl 10 MG/2 ML VIAL IVPUSH (05:09)
[2023-12-23] MEDS: Prochlorperazine Edisylate 10 MG/2 ML VIAL IVPUSH (05:09)
[2023-12-23] MEDS: diphenhydrAMINE HCL 50 MG/ML VIAL 25 MG IVPUSH (05:09)
--- NOTE | 2023-12-23 05:09 | ED_ITS ---
HPI - Nausea/Vomiting/Diarrhea General Chief complaint: Nausea/Vomiting/Diarrhea Stated complaint: VOMITING Time Seen by Provider: 12/23/23 04:48 Source: patient Mode of arrival: EMS History of Present Illness HPI Narrative: 33-year-old male with history of HIV that is currently well controlled and patient reports he is compliant with medication arrives via EMS with having eaten [place] food approximately 2 days ago and states that yesterday he began having multiple episodes of nausea and vomiting with small amount of diarrhea, patient reports that he is not consumed cannabis for over a week. He otherwise denies any fever, chills, sick contacts. Related Data Home Medications Medication Instructions Recorded Confirmed dolutegravir 50 mg-lamivudine 300 1 tab PO DAILY 09/02/20 10/19/23 mg tablet (Dovato) Previous Rx's Medication Instructions Recorded aspirin 81 mg capsule 81 mg PO DAILY #30 caps 10/20/23 omeprazole 20 mg capsule,delayed 20 mg PO DAILY #30 caps 10/20/23 release ondansetron HCl 4 mg tablet 4 mg PO Q12H PRN nausea and 10/20/23 vomiting 4 days #7 tabs metoclopramide HCl 10 mg tablet 10 mg PO Q6H PRN nausea and 12/21/23 (Reglan) vomiting #20 tabs Allergies Allergy/AdvReac Type Severity Reaction Status Date / Time No Known Allergies Allergy Verified 12/23/23 05:29 Review of Systems 2 Review of Systems: Pertinent positives and negatives as stated in HPI PMFSH Past Medical History Source: nursing notes reviewed Medical History Acute renal failure Fibromyalgia HIV (human immunodeficiency virus infection) GERD (gastroesophageal reflux disease) Family History Family History Mother HIV (human immunodeficiency virus infection) Social History Social History Household Members: None Housing: Apartment Do you presently have visiting nurse or other home services: No Alcohol intake: never Patient Tobacco Use Status: Former Tobacco user Tobacco use type: Cigarette Cigarettes Per Day: 0.5 Smoked in Last 30 Days: Yes e-Cigarette/Vaping Use: Never Used Second Hand Smoke Exposure: Yes Use of substances other than those prescribed or required for medical reasons: No Substance Use Type: Marijuana Advance Directives: Yes Advance Directives on File: Yes Advance Directives Date on File: 09/29/22 service: No Current occupational status: employed Physical Exam 2 Vital Signs: Vital Signs: Last Vital Signs Temp 98.0 F 12/23/23 05:44 Pulse 91 12/23/23 05:44 Resp 20 12/23/23 05:44 BP 124/68 12/23/23 05:44 Pulse Ox 99 12/23/23 05:44 O2 Del Method Room Air 12/23/23 05:44 BMI result Body Mass Index 19.4 VITAL SIGNS: Reviewed. GENERAL: Well developed, well nourished, in no acute distress. HEAD: Normocephalic/atraumatic EYES: PERRLA, EOMI EARS: Ext canals without abnormality NOSE: Nares patent bilateral OROPHARYNX: no oral lesions noted, posterior pharynx clear NECK: Supple, no adenopathy LUNGS: Normal breath sounds. No adventitious sounds or accessory muscle use. SpO2<99> CARDIOVASCULAR: Regular rate and rhythm without noted murmurs ABDOMEN: Soft, epigastric discomfort, non-distended with bowel sounds. MUSCULOSKELETAL: No tenderness, deformities, or effusions noted on gross inspection. EXTREMITIES: No cyanosis, clubbing or edema. SKIN: Inspection of the skin reveals no rashes NEUROLOGIC: Alert and oriented x 4. Strength and sensation to light touch were grossly intact x 4. Medications Administered Discontinued Medications Generic Name Dose Route Start Last Admin Trade Name Freq PRN Reason Stop Dose Admin Diphenhydramine HCl 25 mg 12/23/23 04:56 12/23/23 05:09 Diphenhydramine Hcl 50 Mg/Ml Vial IVPUSH 12/23/23 04:57 25 mg ONCE ONE Administration Famotidine 20 mg 12/23/23 04:56 12/23/23 05:09 Famotidine/Pf 20 Mg/2 Ml Vial IVPUSH 12/23/23 04:57 20 mg ONCE ONE Administration Sodium Chloride 1,000 mls @ 999 mls/hr 12/23/23 04:15 12/23/23 05:10 Ns IV 12/23/23 05:15 Infused .Q1H1M WAYNE Infusion Sodium Chloride 1,000 mls @ 999 mls/hr 12/23/23 05:00 12/23/23 05:10 Ns IV 12/23/23 06:00 999 mls/hr .Q1H1M WAYNE Administration Metoclopramide HCl 10 mg 12/23/23 04:56 12/23/23 05:09 Metoclopramide Hcl 10 Mg/2 Ml Vial IVPUSH 12/23/23 04:57 10 mg ONCE ONE Administration Ondansetron HCl 4 mg 12/23/23 04:01 12/23/23 04:14 Ondansetron Hcl 4 Mg/2 Ml Vial IVPUSH 12/23/23 04:02 4 mg ONCE ONE Administration Prochlorperazine Edisylate 10 mg 12/23/23 04:56 12/23/23 05:09 Prochlorperazine Edisylate 10 Mg/2 Ml Vial IVPUSH 12/23/23 04:57 10 mg ONCE ONE Administration Medical Decision Making Medical Decision Making [facility] Narrative: 33-year-old male with history and clinical presentation, DDX: Viral gastroenteritis, cyclical vomiting secondary to cannabis, dehydration, gastritis I reviewed all investigations and hematologic indices are negative for leukocytosis or left shift as well as being negative for anemia or thrombocytopenia. Chemistry indices do not demonstrate an LYSSA there is no significant electrolyte derangements and will replete the potassium with 60 mEq orally. EKG does not demonstrate any QTC prolongation. INTERVENTION: 2 L IV fluids, total Zofran 8 mg, Compazine 10 mg, Reglan/Benadryl On re-evaluation patient is feeling much improved and is noted to tolerate oral intake, he did receive a GI cocktail as well as Carafate with good tolerance. Differential Diagnosis Differential Diagnoses: The differential diagnosis associated with the presentation includes Please see the discussion above Admission/Observation Consideration of admission/observation: Escalation of care including admission/observation considered Please see the discussion Lab Data [facility] Lab Attestation statement: I reviewed the patient's lab results. Please see the discussion above 12/23/23 04:09 12/23/23 04:09 Labs: Lab Results 12/23/23 Range/Units 04:09 WBC 10.2 (4.8-10.8) X10*3/uL RBC 5.18 (4.60-5.80) X10*6/uL Hgb 15.2 (14.0-18.0) g/dl Hct 43.1 (42.0-52.0) % MCV 83.2 (80.0-98.0) fL MCH 29.3 (27.0-33.0) pg MCHC 35.3 (31.0-36.0) g/dl RDW 13.3 (11.0-16.0) % Plt Count 268 (160-400) X10*3/uL MPV 10.2 (9.4-12.4) fL Immature Gran % (Auto) 0.3 (0.0-0.4) % Neut % (Auto) 65.0 (45-73) % Lymph % (Auto) 22.3 (20-40) % [place] % (Auto) 11.4 H (2-11) % Eos % (Auto) 0.6 (0-4) % Baso % (Auto) 0.4 (0-2) % Lymph # (Auto) 2.3 (1.2-4.9) X10*3/uL [place] # (Auto) 1.2 (0.1-1.2) X10*3/uL Eos # (Auto) 0.1 (0.0-0.4) X10*3/uL Baso # (Auto) 0.0 (0.0-0.2) X10*3/uL Abs Immat Gran (auto) 0.03 (0.00-0.03) X10*3/uL Absolute Neuts (auto) 6.7 (2.0-8.3) x10*3/uL Absolute Nucleated RBC 0.000 (0.0-0.012) X10*3/uL Nucleated RBC % (auto) 0.0 (0.0-0.2) /100WBC Sodium 140 (135-145) mmol/L Potassium 3.1 L (3.3-5.1) mmol/L Chloride 103 (96-108) mmol/L Carbon Dioxide 18 L (22-29) mmol/L Anion Gap 22 H (12-20) BUN 31 H (9-16) mg/dL Creatinine 1.06 (0.5-1.4) mg/dL Estim Creat Clear Calc 75.5 Estimated GFR > 60 Random Glucose 123 H (60-115) mg/dL Calcium 9.9 (8.4-10.2) mg/dL Total Bilirubin 0.6 (0.0-1.0) mg/dL AST 19 (5-37) U/L ALT 17 (0-40) U/L Alkaline Phosphatase 56 (39-117) U/L Total Protein 8.3 H (6.5-8.0) g/dL Albumin 5.2 H (3.5-5.0) g/dL Independent Interpretation I performed an independent interpretation of an: EKG Interpretation: Normal sinus rhythm, HR-75, no STEMI, CO/QRS/QTC is within normal limits. External Record Review External record reviewed: Outpatient record and Prior outpatient labs Chronic Conditions HIV Critical Care Time Critical Care Time Critical Care Time: Yes Total Critical Care Time: 60 Attestation: I personally attest to this time spent taking care of the patient. Discharge Plan Discharge Clinical Impression: Gastritis, Hypokalemia, Cyclical vomiting Patient Disposition: Home, Self-Care Instructions: Gastritis (ED), Diet for Stomach Ulcers and Gastritis (ED), Cyclic Vomiting Syndrome (ED) Additional Instructions: 1. Resume all home medications as prescribed. 2. Please follow-up with primary care doctor. Return to the ER for any worsening symptoms. Prescriptions: No Action Dovato 50-300 mg Tablet 1 tab PO DAILY metoclopramide HCl [Reglan] 10 mg tablet 10 mg PO Q6H PRN (Reason: nausea and vomiting) Qty: 20 0RF aspirin 81 mg capsule 81 mg PO DAILY Qty: 30 0RF omeprazole 20 mg capsule,delayed release(DR/EC) 20 mg PO DAILY Qty: 30 0RF ondansetron HCl 4 mg tablet 4 mg PO Q12H PRN (Reason: nausea and vomiting) 4 Days Qty: 7 0RF Referrals: Raúl Mcclain, MARKETING[employer]AL[employer] P[employer] [Primary Care Provider] -
[2023-12-23 05:44] VITALS: BP 124/68; PULSE 91; RESP 20; TEMP 36.7; O2SAT 99
[2023-12-23] MEDS: Magnesium Hydrox/Alum Hydrox 30 ML ORAL.SUSP PO (07:00)
[2023-12-23] MEDS: Sucralfate Oral Suspension 1 GM/10 ML ORAL.SUSP PO (07:00)
[2023-12-23] MEDS: Lidocaine HCl Viscous 2 % 15 ML SOLUTION 10 ML MUCOUS MEM (07:00)
[2023-12-23] MEDS: Potassium Chloride ER 20 MEQ TAB.ER.PRT 60 MEQ PO (07:01)
== END 2023-12-23 07:09 | disposition home or self-care (01) ==
PROVIDERS: Emergency Provider Student in an Organized Health Care Education/Training Program; PCP Nurse Practitioner Family
DX: K52.9 Noninfective gastroenteritis and colitis, unspecified (principal); R11.15 Cyclical vomiting syndrome unrelated to migraine; E87.6 Hypokalemia; B20 Human immunodeficiency virus [HIV] disease
CPT/HCPCS: 36415; 80053; 85025; 93005; 96361; 96374; 96375; 99284; 99285; J0737; J1200; J2405; J2765

== ENCOUNTER → 2023-12-23 04:48 | Outpatient (BNV) | payer OTHER, SELFPAY | PROVIDERS: Emergency Provider Student in an Organized Health Care Education/Training Program; PCP Nurse Practitioner Family; Visit Provider Internal Medicine | DX: R07.9 Chest pain, unspecified (principal) | CPT/HCPCS: 93010 ==

== ENCOUNTER 2024-03-08 08:18 | Inpatient (IN) | payer BC, SELFPAY ==
[2024-03-08] VITALS (7 sets, daily range): BP systolic 79–140; BP diastolic 42–85; PULSE 90–153; RESP 16–22; TEMP 35.9–37.1; O2SAT 97–100; BMI 19.7
--- NOTE | ~2024-03-08 | CT_ITS ---
EXAMINATION: CT ABDOMEN AND PELVIS WITHOUT CONTRAST CLINICAL INFORMATION: Abdominal pain in patient with possible sepsis COMPARISON: CT abdomen pelvis 10/17/2023 TECHNIQUE: Multidetector volumetric imaging was performed from the superior aspect of the liver through the pubic symphysis. Sagittal and coronal reformatted images were obtained on the technologist's workstation. This CT examination was performed using dose optimization techniques as appropriate, variously including the following: *Automated exposure control *Adjustment of mA and/or kV according to patient size (this includes techniques or standardized protocols for targeted exams where dose is matched to indication/reason for exam; i.e. extremities or head) *Use of iterative reconstruction technique DLP: 290 mGy-cm FINDINGS: LUNG BASES: The visualized lung bases are unremarkable. LIVER, GALLBLADDER, AND BILIARY TREE: The liver is normal in size, shape, and attenuation. No focal hepatic lesion or biliary ductal dilatation is present. The gallbladder is unremarkable with no evidence of radiopaque gallstones, gallbladder wall thickening, or obvious pericholecystic inflammatory changes. PANCREAS: Unremarkable. SPLEEN: Unremarkable. ADRENAL GLANDS: Both adrenal glands appear slightly thickened, more so than previous. KIDNEYS AND URETERS: The kidneys are normal in size, shape, and attenuation. No hydronephrosis, hydroureter, or calculi seen. No perinephric stranding. BLADDER: Unremarkable. GASTROINTESTINAL TRACT: The small and large bowel are unremarkable. The appendix is not seen but there is no evidence of appendicitis. ABDOMINAL WALL: No significant hernia is appreciated. LYMPH NODES: Normal. VASCULAR: Unremarkable. Left renal vein is retroaortic. PELVIC VISCERA: The prostate and seminal vesicles are unremarkable. OSSEOUS STRUCTURES: Unremarkable. CT/CT abdomen pelvis wo IV con IMPRESSION: 1. A cause for the patient's abdominal pain and sepsis has not been found. 2. Incidental note made of slightly thickened adrenal glands, retroaortic left renal vein and other findings described above. Fleischner guidelines were followed.
--- NOTE | ~2024-03-08 | XR_ITS ---
EXAMINATION: XR CHEST CLINICAL INFORMATION: Weakness and cough COMPARISON: 10/18/2023 TECHNIQUE: Frontal view of the chest was obtained. FINDINGS: No significant abnormality is noted involving the heart, lungs, mediastinum, bony thorax or soft tissues. XR/XR chest 1V IMPRESSION: Unremarkable examination.
--- NOTE | 2024-03-08 08:32 | ED.GENADULT ---
HPI - General Adult General Chief complaint: Abdominal Pain Stated complaint: SOB, vomiting, body aches Time Seen by Provider: 03/08/24 08:32 History of Present Illness HPI narrative: The patient is a 33-year-old male with a history of HIV who has been feeling unwell since 2 days ago on Tuesday. He says that he felt chills and body aches on Tuesday. Yesterday he had abdominal pain, vomiting, and diarrhea. Today he felt very unwell and came to the hospital. He does not know if he has had a fever. Related Data Home Medications ?Medication ?Instructions ?Recorded ?Confirmed dolutegravir 50 mg-lamivudine 300 1 tab PO DAILY 09/02/20 10/19/23 mg tablet (Dovato) Previous Rx's ?Medication ?Instructions ?Recorded aspirin 81 mg capsule 81 mg PO DAILY #30 caps 10/20/23 omeprazole 20 mg capsule,delayed 20 mg PO DAILY #30 caps 10/20/23 release ondansetron HCl 4 mg tablet 4 mg PO Q12H PRN nausea and 10/20/23 vomiting 4 days #7 tabs metoclopramide HCl 10 mg tablet 10 mg PO Q6H PRN nausea and 12/21/23 (Reglan) vomiting #20 tabs Allergies Allergy/AdvReac Type Severity Reaction Status Date / Time No Known Allergies Allergy Verified 03/08/24 08:34 Review of Systems Review of Systems: Yes all other systems are reviewed and are negative ON LICENSE OF [facility] Past Medical History Medical History Acute renal failure Fibromyalgia HIV (human immunodeficiency virus infection) GERD (gastroesophageal reflux disease) Family History Family History Mother HIV (human immunodeficiency virus infection) Social History Social History Household Members: None Housing: Apartment Do you presently have visiting nurse or other home services: No Alcohol intake: never Patient Tobacco Use Status: Former Tobacco user Tobacco use type: Cigarette Cigarettes Per Day: 0.5 e-Cigarette/Vaping Use: Never Used Second Hand Smoke Exposure: Yes Substance Use Type: Marijuana Advance Directives: Yes Advance Directives on File: Yes Advance Directives Date on File: 09/29/22 Do you have a plan to hurt others: No Plan service: No Current occupational status: employed Physical Exam ED Vital Signs: Vital Signs - 24 hr 03/08/24 08:32 03/08/24 10:21 03/08/24 11:38 Temperature 96.7 F L 97.3 F Pulse Rate 153 H 127 H 115 H Respiratory Rate 22 H 20 16 Blood Pressure 79/42 L 111/73 131/85 Pulse Oximetry 97 97 100 Oxygen Delivery Method Room Air Room Air Room Air 03/08/24 13:28 03/08/24 13:30 03/08/24 13:45 Temperature 98.8 F 98.8 F 98.7 F Pulse Rate 104 H 112 H 103 H Respiratory Rate 17 16 18 Blood Pressure 114/62 114/62 140/70 H Pulse Oximetry 99 99 99 Oxygen Delivery Method Room Air Room Air Room Air BMI result Body Mass Index 19.7 Const Other: The patient is a thin, somewhat wasted looking 33-year-old. He looks somewhat chronically ill. He looks mildly tachypneic although not short of breath. Overall he looks unwell. He does not appear in obvious pain or significant discomfort. HENMT Other: Face is symmetrical. Airway is clear. Eyes Other: Pupils are round equal, no scleral icterus Neck Other: No neck swelling, no adenopathy Resp Other: The patient seemed somewhat tachypneic and hyperpneic. Breath sounds were clear bilaterally Cardio Rate: tachycardic Rhythm: regular rhythm Heart sounds: S1 normal heart sound present and S2 normal heart sound present GI Other: Abdomen was flat and soft without focal tenderness. General: Yes no CVA tenderness Back/Spine/Pelvis Back: no CVA tenderness Skin Other: Skin seemed pale and dry Neuro Other: The patient was awake and alert. Speech was clear. Face was symmetrical. Moving his limbs symmetrically. No focal neurological deficit. No significant altered mental status. Extrem Other: No peripheral edema Course Course Course Narrative: RME performed by Janell Garcia PA-C. Patient is a 33 year old assigned male at presenting to the emergency department with abdominal pain, nausea, and vomiting. Patient states over the last 2 days he has had consistent nausea, vomiting, and body aches. Patient does have a history of HIV and is undetectable. Detailed physical exam and review of systems are deferred to the serology technician. Labs and swabs ordered. Patient placed back in the waiting room pending room availability and results. Reevaluation(s) Reevaluation #1: Re-evaluated patient. He was feeling much better. His abdomen feels better. His chest feels better. His abdomen is benign. He looks better. His lungs are clear. His heart rate has come down from the 130s to about 100. Sepsis focused exam completed. Time: 14:00 Medications Administered Discontinued Medications Generic Name Dose Route Start Last Admin Trade Name Freq PRN Reason Stop Dose Admin Droperidol 0.625 mg 03/08/24 11:03 03/08/24 11:18 Droperidol 5 Mg/2 Ml Vial IVPUSH 03/08/24 11:04 0.625 mg ONCE ONE Administration Sodium Chloride 1,000 mls @ 999 mls/hr 03/08/24 08:45 03/08/24 11:31 Ns IV 03/08/24 09:45 Infused .Q1H1M WAYNE Infusion Sodium Chloride 1,000 mls @ 999 mls/hr 03/08/24 09:00 03/08/24 11:31 Ns IV 03/08/24 10:00 Infused .Q1H1M WAYNE Infusion Sodium Chloride 1,660.14 mls @ 1,660.14 mls/hr 03/08/24 09:50 03/08/24 13:25 Ns 30 ml/kg infuse over 1 hr (1660.14 ml) 03/08/24 10:49 Infused IV Infusion .Q1H STA Piperacillin Sod/Tazobactam 100 mls @ 200 mls/hr 03/08/24 09:50 03/08/24 11:31 Sod 4.5 gm/ Sodium Chloride IV 03/08/24 10:19 Infused ONCE ONE Infusion Vancomycin HCl 1,500 mg/ 500 mls @ 333.333 mls/hr 03/08/24 10:33 03/08/24 13:26 Sodium Chloride IV 03/08/24 12:02 Infused ONCE ONE Infusion Lactated Ringer's 1,000 mls @ 999 mls/hr 03/08/24 13:45 03/08/24 13:45 Lr IV 03/08/24 14:45 999 mls/hr .Q1H1M WAYNE Administration Pantoprazole Sodium 80 mg 03/08/24 11:09 03/08/24 11:18 Pantoprazole Sodium 40 Mg/10 Ml Vial IVPUSH 03/08/24 11:10 80 mg ONCE ONE Administration Medical Decision Making Medical Decision Making [facility] Narrative: The patient is a 33-year-old male with HIV who presents with 2 days of feeling unwell. His symptoms are fairly nonspecific. He felt chills 2 days ago with body aches and yesterday he had vomiting and diarrhea. He complains of chest pain and abdominal pain. On arrival he was tachycardic and hypotensive and looked somewhat ashen. He was recognized as being potentially significantly ill and was seen quickly and given IV fluids, labs were drawn and he was given empiric antibiotics for possible sepsis although he did not have a fever. Patient was found to have multiple metabolic derangements including a lactate of 11 and a creatinine of 5. Additionally his calcium was 13.4, his magnesium was 3.7. For antibiotics he was given piperacillin/tazobactam and vancomycin. He was given several liters of crystalloid. Chest x-ray was clear. EKG showed sinus tachycardia. A noncontrast CT of the abdomen and pelvis did not show any findings to explain a possible septic process. The patient's repeat lactate was considerably better at 5.7. A 3rd lactate was 1.3. The patient's initial troponin was 199. A repeat troponin was 768. A 2nd EKG when he was feeling better and his heart rate was slower was a fairly normal-looking EKG. Nephrology was consulted and the patient was seen by the security control assessor in the emergency room. I also consulted Cardiology who requested an urgent echocardiogram. The patient will be admitted to the hospitalist service. Lab Data 03/08/24 13:53 03/08/24 13:53 Labs: Lab Results 03/08/24 03/08/24 03/08/24 Range/Units 08:00 09:07 09:12 WBC 19.3 H (4.8-10.8) X10*3/uL RBC 6.58 H D (4.60-5.80) X10*6/uL Hgb 19.6 H D (14.0-18.0) g/dl Hct 56.0 H D (42.0-52.0) % MCV 85.1 (80.0-98.0) fL MCH 29.8 (27.0-33.0) pg MCHC 35.0 (31.0-36.0) g/dl RDW 14.9 (11.0-16.0) % Plt Count 344 D (160-400) X10*3/uL MPV 10.6 (9.4-12.4) fL Immature Gran % (Auto) Cancelled Neut % (Auto) Cancelled Lymph % (Auto) Cancelled [place] % (Auto) Cancelled Eos % (Auto) Cancelled Baso % (Auto) Cancelled Lymph # (Auto) Cancelled [place] # (Auto) Cancelled Eos # (Auto) Cancelled Baso # (Auto) Cancelled Abs Immat Gran (auto) Cancelled Absolute Neuts (auto) Cancelled Absolute Nucleated RBC 0.030 H (0.0-0.012) X10*3/uL Nucleated RBC % (auto) 0.2 (0.0-0.2) /100WBC Neutrophils % (Manual) 88 H (45-73) % Band Neutrophils % 4 (3-5) % Lymphocytes % (Manual) 3 L (20-40) % Monocytes % (Manual) 5 (2-11) % Abs Neuts (Manual) 17.8 H (2.0-8.3) X10*3/uL Lymphocytes # (Manual) 0.6 L (1.2-4.9) X10*3/uL Monocytes # (Manual) 1.0 (0.1-1.2) X10*3/uL Platelet Estimate NORMAL (NORMAL) Plt Morphology Comment NORMAL RBC Morphology NORMAL PT 11.8 (11.1-13.3) SEC INR 1.0 (0.9-1.1) VBG pH 7.26 L (7.32-7.43) VBG pCO2 36 mmHg VBG pO2 42 mmHg VBG HCO3 16 L (22-26) mmol/L VBG O2 Saturation 61.0 % VBG Base Excess -9.4 mmol/L Sodium 141 (135-145) mmol/L Potassium 3.2 L (3.3-5.1) mmol/L Chloride 88 L (96-108) mmol/L Carbon Dioxide 15 L (22-29) mmol/L Anion Gap 41 H (12-20) BUN 35 H (9-16) mg/dL Creatinine 5.92 H* (0.5-1.4) mg/dL Estim Creat Clear Calc 13.7 Estimated GFR 11 Random Glucose 204 H (60-115) mg/dL Lactic Acid 11.4 H* (0.5-2.0) mmol/L Lactic Acid F/U @ 2Hr (0.5-2.0) mmol/L Lactic Acid F/U @ 4Hr (0.5-2.0) mmol/L Calcium 13.4 H* D (8.4-10.2) mg/dL Magnesium 3.7 H* (1.6-2.6) mg/dL Total Bilirubin 0.4 (0.0-1.0) mg/dL Direct Bilirubin 0.2 (0.0-0.5) mg/dL AST 27 (5-37) U/L ALT 22 (0-40) U/L Alkaline Phosphatase 111 (39-117) U/L Total Creatine Kinase 181 H (38-174) U/L Troponin I High Sens 199.6 H* D (<3.5-35.0) ng/L C-Reactive Protein 6.56 H (< or = 0.50) mg/dL Total Protein 13.6 H (6.5-8.0) g/dL Albumin 7.6 H (3.5-5.0) g/dL Lipase 36 (8-78) U/L Procalcitonin ng/mL Urine Color Urine Appearance Urine pH (5.0-9.0) Ur Specific [place] (1.005-1.025) Urine Protein (Neg-Trace) mg/dL Urine Glucose (UA) (Negative) mg/dL Urine Ketones (Negative) mg/dL Urine Blood (Negative) Urine Nitrite (Negative) Ur Leukocyte Esterase (Negative) Urine RBC (0-2) /HPF Urine WBC (0-5) /HPF Ur Squamous Epith Cells (0-2) /HPF Urine Bacteria (None Seen) Hyaline Casts (0-2) /LPF Urine Opiates Screen Cancelled Ur Buprenorphine Scrn Cancelled Ur Oxycodone Screen Cancelled Urine Methadone Screen Cancelled Urine Fentanyl Screen Cancelled Ur Barbiturates Screen Cancelled Ur Phencyclidine Scrn Cancelled Ur Amphetamines Screen Cancelled U Benzodiazepines Scrn Cancelled Urine Cocaine Screen Cancelled U Marijuana (THC) Screen Cancelled Influenza Type A (PCR) NEGATIVE (Negative) Influenza Type B (PCR) NEGATIVE (Negative) RSV RNA Qual (PCR) NEGATIVE (Negative) SARS-CoV-2 RNA (RT-PCR) NEGATIVE (Negative) 03/08/24 03/08/24 03/08/24 Range/Units 11:22 12:59 13:22 WBC (4.8-10.8) X10*3/uL RBC (4.60-5.80) X10*6/uL Hgb (14.0-18.0) g/dl Hct (42.0-52.0) % MCV (80.0-98.0) fL MCH (27.0-33.0) pg MCHC (31.0-36.0) g/dl RDW (11.0-16.0) % Plt Count (160-400) X10*3/uL MPV (9.4-12.4) fL Immature Gran % (Auto) Neut % (Auto) Lymph % (Auto) [place] % (Auto) Eos % (Auto) Baso % (Auto) Lymph # (Auto) [place] # (Auto) Eos # (Auto) Baso # (Auto) Abs Immat Gran (auto) Absolute Neuts (auto) Absolute Nucleated RBC (0.0-0.012) X10*3/uL Nucleated RBC % (auto) (0.0-0.2) /100WBC Neutrophils % (Manual) (45-73) % Band Neutrophils % (3-5) % Lymphocytes % (Manual) (20-40) % Monocytes % (Manual) (2-11) % Abs Neuts (Manual) (2.0-8.3) X10*3/uL Lymphocytes # (Manual) (1.2-4.9) X10*3/uL Monocytes # (Manual) (0.1-1.2) X10*3/uL Platelet Estimate (NORMAL) Plt Morphology Comment RBC Morphology PT (11.1-13.3) SEC INR (0.9-1.1) VBG pH (7.32-7.43) VBG pCO2 mmHg VBG pO2 mmHg VBG HCO3 (22-26) mmol/L VBG O2 Saturation % VBG Base Excess mmol/L Sodium (135-145) mmol/L Potassium (3.3-5.1) mmol/L Chloride (96-108) mmol/L Carbon Dioxide (22-29) mmol/L Anion Gap (12-20) BUN (9-16) mg/dL Creatinine (0.5-1.4) mg/dL Estim Creat Clear Calc Estimated GFR Random Glucose (60-115) mg/dL Lactic Acid (0.5-2.0) mmol/L Lactic Acid F/U @ 2Hr 5.7 H* (0.5-2.0) mmol/L Lactic Acid F/U @ 4Hr (0.5-2.0) mmol/L Calcium (8.4-10.2) mg/dL Magnesium (1.6-2.6) mg/dL Total Bilirubin (0.0-1.0) mg/dL Direct Bilirubin (0.0-0.5) mg/dL AST (5-37) U/L ALT (0-40) U/L Alkaline Phosphatase (39-117) U/L Total Creatine Kinase (38-174) U/L Troponin I High Sens (<3.5-35.0) ng/L C-Reactive Protein (< or = 0.50) mg/dL Total Protein (6.5-8.0) g/dL Albumin (3.5-5.0) g/dL Lipase (8-78) U/L Procalcitonin ng/mL Urine Color Yellow Urine Appearance Turbid Urine pH 5.0 (5.0-9.0) Ur Specific [place] 1.025 (1.005-1.025) Urine Protein 300 (3+) H (Neg-Trace) mg/dL Urine Glucose (UA) Negative (Negative) mg/dL Urine Ketones Trace (Negative) mg/dL Urine Blood Large (3+) H (Negative) Urine Nitrite Negative (Negative) Ur Leukocyte Esterase Negative (Negative) Urine RBC 0-2 (0-2) /HPF Urine WBC 0-5 (0-5) /HPF Ur Squamous Epith Cells 6-10 (0-2) /HPF Urine Bacteria None Seen (None Seen) Hyaline Casts >20 (0-2) /LPF Urine Opiates Screen Not Detected Ur Buprenorphine Scrn Not Detected Ur Oxycodone Screen Not Detected Urine Methadone Screen Not Detected Urine Fentanyl Screen Not Detected Ur Barbiturates Screen Not Detected Ur Phencyclidine Scrn Not Detected Ur Amphetamines Screen Not Detected U Benzodiazepines Scrn Not Detected Urine Cocaine Screen Not Detected U Marijuana (THC) Screen POSITIVE H Influenza Type A (PCR) (Negative) Influenza Type B (PCR) (Negative) RSV RNA Qual (PCR) (Negative) SARS-CoV-2 RNA (RT-PCR) (Negative) 03/08/24 03/08/24 03/08/24 Range/Units 13:38 13:53 14:01 WBC 19.2 H (4.8-10.8) X10*3/uL RBC 4.50 L D (4.60-5.80) X10*6/uL Hgb 13.4 L D (14.0-18.0) g/dl Hct 38.1 L D (42.0-52.0) % MCV 84.7 (80.0-98.0) fL MCH 29.8 (27.0-33.0) pg MCHC 35.2 (31.0-36.0) g/dl RDW 13.8 (11.0-16.0) % Plt Count 226 D (160-400) X10*3/uL MPV 10.4 (9.4-12.4) fL Immature Gran % (Auto) Neut % (Auto) Lymph % (Auto) [place] % (Auto) Eos % (Auto) Baso % (Auto) Lymph # (Auto) [place] # (Auto) Eos # (Auto) Baso # (Auto) Abs Immat Gran (auto) Absolute Neuts (auto) Absolute Nucleated RBC 0.000 (0.0-0.012) X10*3/uL Nucleated RBC % (auto) 0.0 (0.0-0.2) /100WBC Neutrophils % (Manual) (45-73) % Band Neutrophils % (3-5) % Lymphocytes % (Manual) (20-40) % Monocytes % (Manual) (2-11) % Abs Neuts (Manual) (2.0-8.3) X10*3/uL Lymphocytes # (Manual) (1.2-4.9) X10*3/uL Monocytes # (Manual) (0.1-1.2) X10*3/uL Platelet Estimate (NORMAL) Plt Morphology Comment RBC Morphology PT (11.1-13.3) SEC INR (0.9-1.1) VBG pH 7.35 (7.32-7.43) VBG pCO2 27 mmHg VBG pO2 82 mmHg VBG HCO3 15 L (22-26) mmol/L VBG O2 Saturation 96.0 % VBG Base Excess -8.4 mmol/L Sodium (135-145) mmol/L Potassium (3.3-5.1) mmol/L Chloride (96-108) mmol/L Carbon Dioxide (22-29) mmol/L Anion Gap (12-20) BUN 34 H (9-16) mg/dL Creatinine 3.77 H (0.5-1.4) mg/dL Estim Creat Clear Calc 21.6 Estimated GFR 18 Random Glucose 125 H (60-115) mg/dL Lactic Acid (0.5-2.0) mmol/L Lactic Acid F/U @ 2Hr (0.5-2.0) mmol/L Lactic Acid F/U @ 4Hr 1.3 (0.5-2.0) mmol/L Calcium (8.4-10.2) mg/dL Magnesium (1.6-2.6) mg/dL Total Bilirubin 0.2 (0.0-1.0) mg/dL Direct Bilirubin < 0.2 (0.0-0.5) mg/dL AST 22 (5-37) U/L ALT 12 (0-40) U/L Alkaline Phosphatase 56 (39-117) U/L Total Creatine Kinase (38-174) U/L Troponin I High Sens 768.0 H* D (<3.5-35.0) ng/L C-Reactive Protein (< or = 0.50) mg/dL Total Protein 7.1 (6.5-8.0) g/dL Albumin 4.2 (3.5-5.0) g/dL Lipase (8-78) U/L Procalcitonin 0.28 ng/mL Urine Color Urine Appearance Urine pH (5.0-9.0) Ur Specific [place] (1.005-1.025) Urine Protein (Neg-Trace) mg/dL Urine Glucose (UA) (Negative) mg/dL Urine Ketones (Negative) mg/dL Urine Blood (Negative) Urine Nitrite (Negative) Ur Leukocyte Esterase (Negative) Urine RBC (0-2) /HPF Urine WBC (0-5) /HPF Ur Squamous Epith Cells (0-2) /HPF Urine Bacteria (None Seen) Hyaline Casts (0-2) /LPF Urine Opiates Screen Ur Buprenorphine Scrn Ur Oxycodone Screen Urine Methadone Screen Urine Fentanyl Screen Ur Barbiturates Screen Ur Phencyclidine Scrn Ur Amphetamines Screen U Benzodiazepines Scrn Urine Cocaine Screen U Marijuana (THC) Screen Influenza Type A (PCR) (Negative) Influenza Type B (PCR) (Negative) RSV RNA Qual (PCR) (Negative) SARS-CoV-2 RNA (RT-PCR) (Negative) Independent Interpretation I performed an independent interpretation of an: EKG Interpretation: EKG at 01/25/2008 shows sinus tachycardia at 130 beats per minute. There is what appears to be increased T-wave amplitude and peaked Ts. No definite acute ischemic changes. QTC is 453. Discharge Plan Discharge Clinical Impression: Acute kidney injury, Elevated troponin, Leukocytosis, Severe dehydration, Acute lactic acidosis, HIV disease Patient Disposition: Admitted As Inpatient Print Language: Romanian
--- NOTE | 2024-03-08 08:33 | ECG_ITS ---
Test Reason : weak/pain Blood Pressure : / mmHG Vent. Rate : 130 BPM Atrial Rate : 130 BPM P-R Int : 136 ms QRS Dur : 078 ms QT Int : 308 ms P-R-T Axes : 091 096 082 degrees QTc Int : 453 ms Sinus tachycardia Biatrial enlargement Rightward axis Pulmonary disease pattern Abnormal ECG When compared with ECG of 23-DEC-2023 04:52, Vent. rate has increased BY 55 BPM T wave amplitude has increased in Inferior leads T wave amplitude has increased in Anterolateral leads Referred By: Janell Garcia Electronically Signed By:PAU ALEXANDRA MD
[2024-03-08] MEDS: 0.9 % Sodium Chloride 1,000 ML 999 ML IV ×2 (09:12→09:13)
[2024-03-08 09:22] LABS: VBG Base Excess -9.4 mmol/L; VBG HCO3 16 mmol/L (22-26); VBG pCO2 36 mmHg; VBG pH 7.26 (7.32-7.43); VBG pO2 42 mmHg
[2024-03-08 09:24] LABS: Hemoglobin 19.6 g/dl (14.0-18.0); Mean Corpuscular Hemoglobin 29.8 pg (27.0-33.0); Mean Corpuscular Volume 85.1 fL (80.0-98.0); Mean Platelet Volume 10.6 fL (9.4-12.4); NRBC Pct Auto 0.2 /100WBC (0.0-0.2); Platelet Count 344 X10*3/uL (160-400); Red Blood Count 6.58 X10*6/uL (4.60-5.80); Red Cell Distribution Width 14.9 % (11.0-16.0)
[2024-03-08 09:25] LABS: Prothrombin Time 11.8 SEC (11.1-13.3); WBC ABN SCTR FOR CBC 1
[2024-03-08 09:29] LABS: Venous Blood Gas Refer to POC result
[2024-03-08 09:44] LABS: Lactic Acid 11.4 mmol/L (0.5-2.0)
[2024-03-08 09:46] LABS: Band Neutrophils Percent 4 % (3-5); Lymphocytes Percent Manual 3 % (20-40); Monocytes Percent Manual 5 % (2-11); Neutrophils Percent Manual 88 % (45-73)
[2024-03-08 09:47] LABS: Lymphocytes Absolute Manual 0.6 X10*3/uL (1.2-4.9); Neutrophils Absolute Manual 17.8 X10*3/uL (2.0-8.3); Platelet Estimate NORMAL (NORMAL); Platelet Morphology Comment NORMAL; RBC Morphology NORMAL; White Blood Count 19.3 X10*3/uL (4.8-10.8)
[2024-03-08] MEDS: Piperacillin Sodium/Tazobactam 4.5 GM in 0.9 % Sodium Chloride 100 ML IV (10:00)
[2024-03-08 10:02] LABS: Influenza A PCR NEGATIVE (Negative); Influenza B PCR NEGATIVE (Negative); Resp Syncy Virus RNA Qual PCR NEGATIVE (Negative); SARS COV2 PCR INHOUSE NEGATIVE (Negative)
[2024-03-08 10:15] LABS: Alanine Aminotransferase 22 U/L (0-40); Albumin Level 7.6 g/dL (3.5-5.0); Alkaline Phosphatase 111 U/L (39-117); Anion Gap 41 (12-20); Aspartate Amino Transferase 27 U/L (5-37); Bilirubin Direct 0.2 mg/dL (0.0-0.5); Bilirubin Total 0.4 mg/dL (0.0-1.0); Blood Urea Nitrogen 35 mg/dL (9-16); C Reactive Protein 6.56 mg/dL (< or = 0.50); Calcium 13.4 mg/dL (8.4-10.2); Carbon Dioxide 15 mmol/L (22-29); Chloride 88 mmol/L (96-108); Creatinine Clr Calc Pharmacy 13.7; Estimated Glomerular Filt Rate 11; Glucose Random 204 mg/dL (60-115); Lipase 36 U/L (8-78); Potassium 3.2 mmol/L (3.3-5.1); Sodium 141 mmol/L (135-145); Total Protein 13.6 g/dL (6.5-8.0)
[2024-03-08 10:16] LABS: Troponin-I High Sensitivity 199.6 ng/L (<3.5-35.0)
[2024-03-08 10:17] LABS: Magnesium 3.7 mg/dL (1.6-2.6)
[2024-03-08 11:12] LABS: Reflex Lactate? Lactic Acid Added
[2024-03-08] MEDS: Pantoprazole Sodium 40 MG/10 ML VIAL 80 MG IVPUSH (11:18)
[2024-03-08] MEDS: droPERidol 5 MG/2 ML VIAL 0.625 MG IVPUSH (11:18)
[2024-03-08] MEDS: vancomycin HCL 1,500 MG in 0.9 % Sodium Chloride 500 ML 333.33 MG IV (11:25)
[2024-03-08 11:47] LABS: ~Lactic Acid-LAB USE ONLY 5.7 mmol/L (0.5-2.0)
[2024-03-08 13:15] LABS: Appearance Urine Turbid; Color Urine Yellow; Glucose Urine UA Negative (Negative); Leukocyte Esterase Urine Negative (Negative); Nitrite Urine Negative (Negative); Specific Gravity - Urine 1.025 (1.005-1.025); UMIC TRIGGER UACC YES; Urine Blood Large (3+) (Negative); Urine Ketones Trace mg/dL (Negative); Urine Protein 300 (3+) mg/dL (Neg-Trace)
[2024-03-08 13:26] LABS: Reflex Lactate? 2 Y
[2024-03-08 13:30] LABS: Bacteria Urine None Seen (None Seen); Hyaline Casts Urine >20 /LPF (0-2); RBC Urine 0-2 /HPF (0-2); WBC Urine 0-5 /HPF (0-5)
--- NOTE | 2024-03-08 13:35 | P.CONNP_ITS ---
History of Present Illness Reason for Consult Consult date: 03/27/24 Chief Complaint Chief complaint: nausea and vomiting, Elevated Trop I PMFSH Past Medical History Medical History Acute renal failure Fibromyalgia HIV (human immunodeficiency virus infection) GERD (gastroesophageal reflux disease) Family History Family History Mother HIV (human immunodeficiency virus infection) Social History Social History Household Members: None Housing: Apartment Do you presently have visiting nurse or other home services: No Alcohol intake: never Patient Tobacco Use Status: Current everyday Tobacco user Tobacco use type: Cigarette Cigarettes Per Day: 3 e-Cigarette/Vaping Use: Never Used Second Hand Smoke Exposure: Yes Substance Use Type: Marijuana Advance Directives Date on File: 09/29/22 service: No Current occupational status: employed Meds Allergies Allergy/AdvReac Type Severity Reaction Status Date / Time No Known Allergies Allergy Verified 03/08/24 08:34 Home Medications ?Medication ?Instructions ?Recorded ?Confirmed ?Last Taken ?Type dolutegravir 50 mg-lamivudine 300 1 tab PO DAILY 09/02/20 03/08/24 10/18/23 History mg tablet (Dovato) Physical Exam Vital Signs: Last Vital Signs Temp 98.8 F 03/08/24 13:28 Pulse 104 H 03/08/24 13:28 Resp 17 03/08/24 13:28 BP 114/62 03/08/24 13:28 Pulse Ox 99 03/08/24 13:28 O2 Del Method Room Air 03/08/24 13:28 BMI result Body Mass Index 19.7 Results Lab Results 03/09/24 06:44 03/10/24 06:08 Lab results: Chemistry 03/08/24 09:07 Sodium 141 Potassium 3.2 L Carbon Dioxide 15 L BUN 35 H Creatinine 5.92 H* Calcium 13.4 H* D Hematology 03/08/24 09:07 WBC 19.3 H Hgb 19.6 H D Plt Count 344 D Urinalysis 03/08/24 12:59 Urine Color Yellow Urine Appearance Turbid Urine pH 5.0 Ur Specific [place] 1.025 Urine Protein 300 (3+) H Urine Glucose (UA) Negative Urine Ketones Trace Urine Blood Large (3+) H Urine Nitrite Negative Ur Leukocyte Esterase Negative Urine RBC 0-2 Urine WBC 0-5 Ur Squamous Epith Cells 6-10 Hyaline Casts >20 Assessment and Plan (1) Acute kidney injury: Status: Resolved Procedures Date of Service Date of Service: 03/27/24
[2024-03-08 13:43] LABS: Amphetamine Screen Urine Not Detected (Not Detect); Barbiturates, Urine Not Detected (Not Detect); Benzodiazepines Screen Urine Not Detected (Not Detect); Buprenorphine Scr Not Detected (Not Detect); Cannabinoid Screen Urine POSITIVE (Not Detect); Cocaine Screen Urine Not Detected (Not Detect); Fentanyl, urine Not Detected (Not Detect); Methadone Screen, Urine Not Detected (Not Detect); Opiate Screen Urine Not Detected (Not Detect); Oxycodone Screen Urine Not Detected (Not Detect); Phencyclidine Screen Urine Not Detected (Not Detect)
[2024-03-08] MEDS: Lactated Ringers 1,000 ML 999 ML IV (13:45)
[2024-03-08 13:53] LABS: ~Lactic Acid-LAB USE ONLY 1.3 mmol/L (0.5-2.0)
[2024-03-08 14:01] LABS: Hematocrit 38.1 % (42.0-52.0); Hemoglobin 13.4 g/dl (14.0-18.0); Mean Corpuscular HGB Conc 35.2 g/dl (31.0-36.0); Mean Corpuscular Hemoglobin 29.8 pg (27.0-33.0); Mean Corpuscular Volume 84.7 fL (80.0-98.0); Mean Platelet Volume 10.4 fL (9.4-12.4); Platelet Count 226 X10*3/uL (160-400); Red Cell Distribution Width 13.8 % (11.0-16.0); White Blood Count 19.2 X10*3/uL (4.8-10.8)
[2024-03-08 14:08] LABS: Venous Blood Gas Refer to POC result
[2024-03-08 14:08] LABS: VBG Base Excess -8.4 mmol/L; VBG HCO3 15 mmol/L (22-26); VBG pCO2 27 mmHg; VBG pH 7.35 (7.32-7.43); VBG pO2 82 mmHg
--- NOTE | 2024-03-08 14:35 | ECG_ITS ---
Test Reason : WEAKNESS Blood Pressure : / mmHG Vent. Rate : 101 BPM Atrial Rate : 101 BPM P-R Int : 172 ms QRS Dur : 080 ms QT Int : 336 ms P-R-T Axes : 085 086 061 degrees QTc Int : 435 ms Sinus tachycardia Otherwise normal ECG When compared with ECG of 08-MAR-2024 08:43, Nonspecific T wave abnormality now evident in Inferior leads T wave amplitude has decreased in Anterolateral leads Referred By: Cleveland Saavedra Electronically Signed By:PAU ALEXANDRA MD
[2024-03-08 14:40] LABS: Procalcitonin 0.28 ng/mL
--- NOTE | 2024-03-08 15:22 | CA_ITS ---
Transthoracic Echocardiogram Patient (Last, First, Middle): Darvin Lowery G Gender: Male Date of : 1990 Age: 33 Procedure Date: 03/08/2024 Procedure Type: Transthoracic Echocardiogram Location: ER Height: 167.64 cm Weight: 55.34 kg BSA: 1.62 m2 Heart Rate: 90 bpm BP: 133 / 86 mmHg Station Installer And Repairer: HANY Referring MD: Cleveland Saavedra MD Pediatric Nurse Practitioner: Raúl Ott MD Symptoms: elevated troponins? myocarditis Study Quality: Adequate ECG Rhythm: Sinus Conclusions: - Essentially normal study with trivial aortic regurgitation Findings Left Ventricle Normal left ventricular size, thickness, and systolic function. The visually estimated ejection fraction is between 55-60%. Spectral Doppler is indicative of a normal filling pattern. Peak GLS is -18.5%, within normal limits. Right Ventricle Normal right ventricular cavity size and systolic function. Atria Both atria are normal in size. There is lipomatous hypertrophy of the interatrial septum. There is no evidence of interatrial shunt. Aortic Valve Normal aortic valve structure and function. There is no aortic valve stenosis. There is trace (trivial) aortic valve regurgitation. Mitral Valve Normal mitral valve structure and function. There is trace mitral valve regurgitation. There is no mitral valve stenosis. Pulmonic Valve The pulmonic valve is likely normal. Tricuspid Valve Normal tricuspid valve structure. There is mild tricuspid valve regurgitation. The right ventricular systolic pressure is normal. The right ventricular systolic pressure is 22 mmHg. Normal right atrial pressure. There is no evidence of pulmonary hypertension. Great Vessels All visible segments of the aorta are normal in size. The pulmonary artery was not well visualized. Venous The inferior vena cava is normal in size and collapses greater than 50% with inspiration. Pericardium/Pleural There is no evidence of pericardial effusion. Prior Study Comparison No significant change compared to prior study dated: 11/04/2022. Measurements 2D Linear Measurements IVSd: 0.69 0.6-0.9/0.6-1.0 cm LVIDd: 4.87 3.9-5.3/4.2-5.9 cm LVIDd Index: 3.01 2.4-3.2/2.2-3.1 cm/m2 LVIDs: 3.09 2.0-3.6 cm LVPWd: 0.74 0.7-1.1 cm LA Diam: 2.90 2.7-3.8/3.0-4.0 cm LAIDs Index: 1.79 1.5-2.3 cm/m2 LV Mass: 139.93 67-162/88-224 g LV Mass Index: 86.38 43-95/49-115 g/m2 LVOT Diam: 2.10 3.0+(-)1.3 cm 2D Systolic Function EF 4C: 57.90 >55% EF 2C: 53.90 >55% EF BiP: 55.10 >55% Mitral Valve E'Medial: 12.60 Aortic Valve AoV Pk Hunter: 1.20 AoV Mn Hunter: 0.86 AoV VTI: 0.21 AoV Pk Grad: 6.00 Aov Mn Grad: 3.00 MELVIN Cont.VTI: 2.57 LVOT LVOT Pk Hunter: 0.92 LVOT Mn [place]: 0.64 LVOT VTI: 0.16 LVOT Pk Grad: 3.00 LVOT Mn Grad: 2.00 LVOT Diam: 2.10 LVOT Area: 3.46 Diastolic Function E'Medial: 12.60 Right Ventricle TAPSE (mm): 19.90 TVS' Hunter: 12.10 Tricuspid Valve TR Pk Hunter: 1.85 TR Pk Grad: 14.00 RA Press: 8.00 RVSP: 22.00 Great Vessels Aorta Sinus of Valsalva: 3.40 2.0-3.5 cm Ao Asc: 2.70 2.1-3.4 cm Pulmonary Valve PV Pk Hunter: 0.80 Peak PV Grad: 3.00 Updated in Other Vendor System with Status of Final Raúl Ott MD electronically signed on 03/08/2024 4:40:49 PM with status of Final
[2024-03-08 15:45] LABS: Alanine Aminotransferase 12 U/L (0-40); Albumin Level 4.2 g/dL (3.5-5.0); Alkaline Phosphatase 56 U/L (39-117); Aspartate Amino Transferase 22 U/L (5-37); Bilirubin Direct < 0.2 mg/dL (0.0-0.5); Bilirubin Total 0.2 mg/dL (0.0-1.0); Blood Urea Nitrogen 34 mg/dL (9-16); Creatinine Clr Calc Pharmacy 21.6; Estimated Glomerular Filt Rate 18; Glucose Random 125 mg/dL (60-115); Total Protein 7.1 g/dL (6.5-8.0)
[2024-03-08 16:05] LABS: Anion Gap 17 (12-20); Calcium 8.3 mg/dL (8.4-10.2); Carbon Dioxide 17 mmol/L (22-29); Chloride 113 mmol/L (96-108); Potassium 3.9 mmol/L (3.3-5.1); Sodium 142 mmol/L (135-145)
--- NOTE | 2024-03-08 16:36 | P.HPHOSP_ITS ---
History of Present Illness Date of Service: 03/08/24 Chief Complaint: Intractable nausea and vomiting A 33 years old male with PMH of HIV on Dovato, Hx drug abuse who presents to the hospital with abdominal pain, nausea and vomiting for 2 days [employer]. The patient reports that he woke up with generalized pain and body aches Tuesday morning which worsened to abdominal pain, nausea, vomiting and an episode of diarrhea since yesterday morning. He was unable to keep anything down and kept vomiting with worsening pain. No fever, chills, headache, chest pain, palpitations, SOB, dyspnea, cough, rash, itching, or urinary symptoms. Does not recall sick contacts. In ED was found to have LYSSA , leukocytosis , metabolic acidosis, lactic acidosis with Elevated Trop. Admitted for further evaluation and treatment. Review of Systems 2 Review of Systems: No fever, chills No chest pain, palpitation No shortness of breath or coughing having abdominal pain, nausea or vomiting No urinary symptoms No any rash or wounds Yes all other systems are reviewed and are negative [facility] Medical History Acute renal failure Fibromyalgia HIV (human immunodeficiency virus infection) GERD (gastroesophageal reflux disease) Family History Mother HIV (human immunodeficiency virus infection) Social History Household Members: None Housing: Apartment Do you presently have visiting nurse or other home services: No Alcohol intake: never Patient Tobacco Use Status: Former Tobacco user Tobacco use type: Cigarette Cigarettes Per Day: 0.5 e-Cigarette/Vaping Use: Never Used Second Hand Smoke Exposure: Yes Substance Use Type: Marijuana Advance Directives: Yes Advance Directives on File: Yes Advance Directives Date on File: 09/29/22 Do you have a plan to hurt others: No Plan service: No Current occupational status: employed Meds Allergies Allergy/AdvReac Type Severity Reaction Status Date / Time No Known Allergies Allergy Verified 03/08/24 08:34 Home Medications ?Medication ?Instructions ?Recorded ?Confirmed ?Last Taken ?Type dolutegravir 50 mg-lamivudine 300 1 tab PO DAILY 09/02/20 10/19/23 10/18/23 History mg tablet (Dovato) Physical Exam 2 Vital Signs and Narrative: Vital Signs: Last Vital Signs Temp 98.7 F 03/08/24 13:45 Pulse 103 H 03/08/24 13:45 Resp 18 03/08/24 13:45 BP 140/70 H 03/08/24 13:45 Pulse Ox 99 03/08/24 13:45 O2 Del Method Room Air 03/08/24 13:45 BMI result Body Mass Index 19.7 Const: Other: Constitutional : Awake, interactive, in moderate distress with nausea Neck : Normal inspection, Supple Cardiovascular : RRR, no JVP, no lower extremity edema Respiratory : good bilateral air entry, no crackles, wheezes or rhonchi Gastrointestinal: soft, lax, Normal bowel sounds, Non tender Skin : Warm, Dry Neurological : Alert & oriented x3, No focal deficit Results Labs 03/08/24 13:53 03/08/24 13:53 Labs: Laboratory Results - last 24 hr 03/08/24 03/08/24 03/08/24 08:00 09:07 09:12 MCV 85.1 MCH 29.8 MCHC 35.0 RDW 14.9 Plt Count 344 D MPV 10.6 Immature Gran % (Auto) Cancelled Neut % (Auto) Cancelled Lymph % (Auto) Cancelled [place] % (Auto) Cancelled Eos % (Auto) Cancelled Baso % (Auto) Cancelled Lymph # (Auto) Cancelled [place] # (Auto) Cancelled Eos # (Auto) Cancelled Baso # (Auto) Cancelled Abs Immat Gran (auto) Cancelled Absolute Neuts (auto) Cancelled Absolute Nucleated RBC 0.030 H Nucleated RBC % (auto) 0.2 Neutrophils % (Manual) 88 H Band Neutrophils % 4 Lymphocytes % (Manual) 3 L Monocytes % (Manual) 5 Abs Neuts (Manual) 17.8 H Lymphocytes # (Manual) 0.6 L Monocytes # (Manual) 1.0 Platelet Estimate NORMAL Plt Morphology Comment NORMAL RBC Morphology NORMAL PT 11.8 INR 1.0 VBG pH 7.26 L VBG pCO2 36 VBG pO2 42 VBG HCO3 16 L VBG O2 Saturation 61.0 VBG Base Excess -9.4 Anion Gap 41 H Estim Creat Clear Calc 13.7 Estimated GFR 11 Random Glucose 204 H Lactic Acid 11.4 H* Lactic Acid F/U @ 2Hr Lactic Acid F/U @ 4Hr Calcium 13.4 H* D Magnesium 3.7 H* Total Bilirubin 0.4 Direct Bilirubin 0.2 AST 27 ALT 22 Alkaline Phosphatase 111 Total Creatine Kinase 181 H Troponin I High Sens 199.6 H* D C-Reactive Protein 6.56 H Total Protein 13.6 H Albumin 7.6 H Lipase 36 Procalcitonin Urine Color Urine Appearance Urine pH Ur Specific [place] Urine Protein Urine Glucose (UA) Urine Ketones Urine Blood Urine Nitrite Ur Leukocyte Esterase Urine RBC Urine WBC Ur Squamous Epith Cells Urine Bacteria Hyaline Casts Urine Opiates Screen Cancelled Ur Buprenorphine Scrn Cancelled Ur Oxycodone Screen Cancelled Urine Methadone Screen Cancelled Urine Fentanyl Screen Cancelled Ur Barbiturates Screen Cancelled Ur Phencyclidine Scrn Cancelled Ur Amphetamines Screen Cancelled U Benzodiazepines Scrn Cancelled Urine Cocaine Screen Cancelled U Marijuana (THC) Screen Cancelled Influenza Type A (PCR) NEGATIVE Influenza Type B (PCR) NEGATIVE RSV RNA Qual (PCR) NEGATIVE SARS-CoV-2 RNA (RT-PCR) NEGATIVE 03/08/24 03/08/24 03/08/24 11:22 12:59 13:22 MCV MCH MCHC RDW Plt Count MPV Immature Gran % (Auto) Neut % (Auto) Lymph % (Auto) [place] % (Auto) Eos % (Auto) Baso % (Auto) Lymph # (Auto) [place] # (Auto) Eos # (Auto) Baso # (Auto) Abs Immat Gran (auto) Absolute Neuts (auto) Absolute Nucleated RBC Nucleated RBC % (auto) Neutrophils % (Manual) Band Neutrophils % Lymphocytes % (Manual) Monocytes % (Manual) Abs Neuts (Manual) Lymphocytes # (Manual) Monocytes # (Manual) Platelet Estimate Plt Morphology Comment RBC Morphology PT INR VBG pH VBG pCO2 VBG pO2 VBG HCO3 VBG O2 Saturation VBG Base Excess Anion Gap Estim Creat Clear Calc Estimated GFR Random Glucose Lactic Acid Lactic Acid F/U @ 2Hr 5.7 H* Lactic Acid F/U @ 4Hr Calcium Magnesium Total Bilirubin Direct Bilirubin AST ALT Alkaline Phosphatase Total Creatine Kinase Troponin I High Sens C-Reactive Protein Total Protein Albumin Lipase Procalcitonin Urine Color Yellow Urine Appearance Turbid Urine pH 5.0 Ur Specific [place] 1.025 Urine Protein 300 (3+) H Urine Glucose (UA) Negative Urine Ketones Trace Urine Blood Large (3+) H Urine Nitrite Negative Ur Leukocyte Esterase Negative Urine RBC 0-2 Urine WBC 0-5 Ur Squamous Epith Cells 6-10 Urine Bacteria None Seen Hyaline Casts >20 Urine Opiates Screen Not Detected Ur Buprenorphine Scrn Not Detected Ur Oxycodone Screen Not Detected Urine Methadone Screen Not Detected Urine Fentanyl Screen Not Detected Ur Barbiturates Screen Not Detected Ur Phencyclidine Scrn Not Detected Ur Amphetamines Screen Not Detected U Benzodiazepines Scrn Not Detected Urine Cocaine Screen Not Detected U Marijuana (THC) Screen POSITIVE H Influenza Type A (PCR) Influenza Type B (PCR) RSV RNA Qual (PCR) SARS-CoV-2 RNA (RT-PCR) 03/08/24 03/08/24 03/08/24 13:38 13:53 14:01 MCV 84.7 MCH 29.8 MCHC 35.2 RDW 13.8 Plt Count 226 D MPV 10.4 Immature Gran % (Auto) Neut % (Auto) Lymph % (Auto) [place] % (Auto) Eos % (Auto) Baso % (Auto) Lymph # (Auto) [place] # (Auto) Eos # (Auto) Baso # (Auto) Abs Immat Gran (auto) Absolute Neuts (auto) Absolute Nucleated RBC 0.000 Nucleated RBC % (auto) 0.0 Neutrophils % (Manual) Band Neutrophils % Lymphocytes % (Manual) Monocytes % (Manual) Abs Neuts (Manual) Lymphocytes # (Manual) Monocytes # (Manual) Platelet Estimate Plt Morphology Comment RBC Morphology PT INR VBG pH 7.35 VBG pCO2 27 VBG pO2 82 VBG HCO3 15 L VBG O2 Saturation 96.0 VBG Base Excess -8.4 Anion Gap 17 Estim Creat Clear Calc 21.6 Estimated GFR 18 Random Glucose 125 H Lactic Acid Lactic Acid F/U @ 2Hr Lactic Acid F/U @ 4Hr 1.3 Calcium 8.3 L D Magnesium Total Bilirubin 0.2 Direct Bilirubin < 0.2 AST 22 ALT 12 Alkaline Phosphatase 56 Total Creatine Kinase Troponin I High Sens 768.0 H* D C-Reactive Protein Total Protein 7.1 Albumin 4.2 Lipase Procalcitonin 0.28 Urine Color Urine Appearance Urine pH Ur Specific [place] Urine Protein Urine Glucose (UA) Urine Ketones Urine Blood Urine Nitrite Ur Leukocyte Esterase Urine RBC Urine WBC Ur Squamous Epith Cells Urine Bacteria Hyaline Casts Urine Opiates Screen Ur Buprenorphine Scrn Ur Oxycodone Screen Urine Methadone Screen Urine Fentanyl Screen Ur Barbiturates Screen Ur Phencyclidine Scrn Ur Amphetamines Screen U Benzodiazepines Scrn Urine Cocaine Screen U Marijuana (THC) Screen Influenza Type A (PCR) Influenza Type B (PCR) RSV RNA Qual (PCR) SARS-CoV-2 RNA (RT-PCR) Imaging Radiologist's Impressions: Impressions Chest X-Ray 03/08/24 09:02 IMPRESSION: Unremarkable examination. Abdomen/Pelvis CT 03/08/24 12:02 IMPRESSION: 1. A cause for the patient's abdominal pain and sepsis has not been found. 2. Incidental note made of slightly thickened adrenal glands, retroaortic left renal vein and other findings described above. Fleischner guidelines were followed. Assessment and Plan (1) HIV disease: Status: Acute (2) Acute lactic acidosis: Status: Acute (3) Severe dehydration: Status: Acute (4) Leukocytosis: Status: Acute (5) Elevated troponin: Status: Acute (6) Acute kidney injury: Status: Acute (7) Hypokalemia: Status: Acute Plan A 33 years old male with PMH of HIV on Dovato, Hx drug abuse who presents to the hospital with abdominal pain, nausea and vomiting for 2 days [employer]. Intractable nausea and vomiting No evidence of infection or sepsis Could be related to Cyclic vomiting from [place] abuse Zofran PRN D5NS for now Clear liquids Acute kidney injury complicated by Metabolic acidosis secondary to dehydration Cr improved from 5.9 to 3.7 with IVF Acidosis improving, anion gap closed Follow BMP Lactic acidosis secondary to dehydration not sepsis, resolved Leukocytosis secondary to dehydration and vomiting not sepsis Elevated Troponin increased from 199 to 768 No EKG changes to suggest ACS, no complaints of chest pain Trend Keep on Tele Get Cardiology eval PseudoHypercalcemia, PseudohyperMagnesemia Corrected with IVF HIV continue Dovato DVT PPx Lovenox The patient will need at least 2 overnight hospital stay for treatment of LYSSA, pending cardiology evaluation and diet tolerance. Quality Stroke Does the patient have a stroke diagnosis?: No VTE Prior VTE?: No VTE Risk Level:: Medical - low VTE Device Contraindication: Treatment Not Indicated VTE Drug Contraindication: N/A - Med Ordered
[2024-03-08] MEDS: Dextrose 5 % and 0.45 % NaCl 1,000 ML 125 ML IVCONT (17:30)
--- NOTE | 2024-03-08 18:36 | PHA.MEDREC ---
Pharmacy Consult ? Medication Reconciliation Pharmacy has completed the medication reconciliation. Spoke with patient.
[2024-03-08] MEDS: ondansetron HCL 4 MG/2 ML VIAL IVPUSH (19:26)
[2024-03-09] MEDS: 0.9 % Sodium Chloride Flush 3 ML SYRINGE IVFLUSH ×2 (01:02→19:57)
--- NOTE | 2024-03-09 01:04 | PC.NURSE ---
pt reassessed, pt observed sleeping at this time
[2024-03-09] MEDS: Dextrose 5 % and 0.45 % NaCl 1,000 ML 125 ML IVCONT ×2 (01:30→11:53)
[2024-03-09] MEDS: Prochlorperazine Edisylate 10 MG/2 ML VIAL IVPUSH ×2 (02:53→19:56)
--- NOTE | 2024-03-09 02:58 | PC.NURSE ---
pt medicated with compazine for N/V, tolerated well
[2024-03-09 03:14] VITALS: BP 110/70; PULSE 89; RESP 16; O2SAT 100
[2024-03-09 06:55] LABS: MANUAL DIFF FLAG NO
[2024-03-09 07:03] LABS: Basophils Percent Auto 0.2 % (0-2); Hematocrit 35.6 % (42.0-52.0); Hemoglobin 12.3 g/dl (14.0-18.0); Imm Gran Abs Auto 0.09 X10*3/uL (0.00-0.03); Imm Gran Pct Auto 0.7 % (0.0-0.4); Lymphocytes Absolute Auto 2.7 X10*3/uL (1.2-4.9); Lymphocytes Percent Auto 19.8 % (20-40); Mean Corpuscular HGB Conc 34.6 g/dl (31.0-36.0); Mean Corpuscular Hemoglobin 29.7 pg (27.0-33.0); Mean Platelet Volume 10.7 fL (9.4-12.4); Monocytes Absolute Auto 1.5 X10*3/uL (0.1-1.2); Monocytes Percent Auto 10.8 % (2-11); Neutrophils Absolute Auto 9.2 x10*3/uL (2.0-8.3); Neutrophils Percent Auto 68.5 % (45-73); Platelet Count 216 X10*3/uL (160-400); Red Blood Count 4.14 X10*6/uL (4.60-5.80); White Blood Count 13.5 X10*3/uL (4.8-10.8)
[2024-03-09 07:37] LABS: Anion Gap 13 (12-20); Blood Urea Nitrogen 19 mg/dL (9-16); Calcium 8.7 mg/dL (8.4-10.2); Carbon Dioxide 19 mmol/L (22-29); Chloride 113 mmol/L (96-108); Glucose Random 100 mg/dL (60-115); Potassium 3.5 mmol/L (3.3-5.1); Sodium 141 mmol/L (135-145)
[2024-03-09 07:44] LABS: Troponin-I High Sensitivity 550.8 ng/L (<3.5-35.0)
[2024-03-09 07:46] LABS: Creatinine Clr Calc Pharmacy 62.6; Estimated Glomerular Filt Rate > 60
[2024-03-09] MEDS: Acetaminophen 325 MG TABLET 650 MG PO (08:17)
--- NOTE | 2024-03-09 08:17 | PC.NURSE ---
ASSUMED CARE OF THIS PT, DENIES NAUSEA AT THIS TIME, DENIES CP. ENDORSING LOWER BACK PAIN. TROPONIN TRENDING DOWN, PAUSES SEEN ON MONITOR, SONYA NOT YET ORDERED BY HOSPITALIST, DENISE MADE AWARE. PRINT OUT OF MONITOR ACTIVITY SENT UP WITH PT. GIVEN PRN APAP FOR CHRONIC LOWER BACK PAIN.
[2024-03-09 08:33] VITALS: BP 116/60; PULSE 82; RESP 16; TEMP 36.6; O2SAT 96
[2024-03-09 09:10] VITALS: BMI 20.2
--- NOTE | 2024-03-09 09:10 | MHC.CM.PN ---
CM met with Patient at bedside. Patient lives alone in an apartment and he required no services nor DME [employer]. Home/self care is the goal and CM has initiated and will follow for dc planning. Patient has named his Friend/David as his HCP and his PCP is Dr. Raúl Mcclain.
[2024-03-09] MEDS: Enoxaparin Sodium 30 MG/0.3 ML SYRINGE SUBCUT (09:29)
[2024-03-09 09:31] VITALS: BMI 20.4
--- NOTE | 2024-03-09 10:39 | P.CONCA_ITS ---
History of Present Illness History of Present Illness Date of Service: 03/09/24 Requesting physician: Williams Pinzon Consult reason: other (Myocardial injury) Chief complaint: nausea and vomiting, Elevated Trop I Narrative: I was consulted to see Darvin in cardiology consultation today for myocardial injury. He has a pleasant 33-year-old male with prior history of HIV disease, with undetectable viral load doing well came to the hospital with not feeling well. He said he started on Tuesday having diffuse muscle aches and he tried to ride it out Tuesday he continues to have the same symptoms and by Tuesday denied having significant nausea and vomiting and continued to do it overnight and came to the emergency room. In the emergency room he was noted to have significant metabolic acidosis with significant lactic acidosis along with significantly elevated creatinine and hypotension. His troponins were drawn for unclear reason he did not have any chest pain or shortness of breath. They troponins were elevated. EKG did not show any ischemic changes. There is rise and fall with troponin consistent with myocardial injury. Echocardiogram was done yesterday which showed preserved LV ejection fraction without any significant wall motion abnormality of findings consistent with stress-induced cardiomyopathy. Cardiology consult was called because of troponin elevation. Patient continues to deny chest pain. However he said he feels a lot better with fluid resuscitation since yesterday. Cause of his presentation is unclear. Denies any recent exposure or any viral other symptoms. He did have abdominal pain yesterday with nausea and vomiting. He denies any chest pain. Review of Systems 2 Constitutional: Constitutional: Reports body ache(s) and Reports malaise Eyes: Eyes: Reports no additional eye complaints Cardiovascular: Cardiovascular: Reports no additional cardiovascular complaints Respiratory: Respiratory: Reports no additional respiratory complaints Gastrointestinal: Gastrointestinal: Reports abdominal pain, Reports nausea and Reports vomiting Genitourinary: Genitourinary: Reports no additional male genitourinary complaints Musculoskeletal: Musculoskeletal: Reports no additional musculoskeletal complaints Neurologic: Reports system reviewed and no additional complaints, except as documented Psychiatric: Psychiatric: Reports no additional psychiatric complaints Endocrine: Endocrine: Reports no additional endocrine complaints [facility] [place] Past Medical History Medical History Acute renal failure Fibromyalgia HIV (human immunodeficiency virus infection) GERD (gastroesophageal reflux disease) Family History Family History Mother HIV (human immunodeficiency virus infection) Social History Social History Household Members: None Housing: Apartment Do you presently have visiting nurse or other home services: No Alcohol intake: never Patient Tobacco Use Status: Current everyday Tobacco user Tobacco use type: Cigarette Cigarettes Per Day: 3 e-Cigarette/Vaping Use: Never Used Second Hand Smoke Exposure: Yes Substance Use Type: Marijuana Advance Directives Date on File: 09/29/22 service: No Current occupational status: employed Meds Allergies Allergy/AdvReac Type Severity Reaction Status Date / Time No Known Allergies Allergy Verified 03/08/24 08:34 Active Medications: Current Medications Acetaminophen (Acetaminophen 325 Mg Tablet) 650 mg PO Q6H PRN PRN Reason: Pain, Mild (Pain Scale 1-3) Last Admin: 03/09/24 08:17 Dose: 650 mg Dolutegravir Sodium (Dolutegravir Sodium 50 Mg Tablet) 50 mg PO DAILY [facility] Enoxaparin Sodium (Enoxaparin Sodium 30 Mg/0.3 Ml Syringe) 30 mg SUBCUT Q24H [facility] Last Admin: 03/09/24 09:29 Dose: 30 mg Dextrose/Sodium Chloride (D51/2ns) 1,000 mls @ 125 mls/hr IVCONT .Q8H [facility] Last Admin: 03/09/24 01:30 Dose: 125 mls/hr Lamivudine (Lamivudine 150 Mg Tablet) 300 mg PO DAILY [facility] Ondansetron HCl (Ondansetron Hcl 4 Mg/2 Ml Vial) 4 mg IVPUSH Q8H PRN PRN Reason: Nausea and Vomiting Last Admin: 03/08/24 19:26 Dose: 4 mg Prochlorperazine Edisylate (Prochlorperazine Edisylate 10 Mg/2 Ml Vial) 10 mg IVPUSH Q4H PRN PRN Reason: Nausea and Vomiting Last Admin: 03/09/24 02:53 Dose: 10 mg Sodium Chloride (0.9 % Sodium Chloride Flush 3 Ml Syringe) 3 ml IVFLUSH QSHIFT [facility] Last Admin: 03/09/24 09:29 Dose: Not Given Home Medications ?Medication ?Instructions ?Recorded ?Confirmed ?Last Taken ?Type dolutegravir 50 mg-lamivudine 300 1 tab PO DAILY 09/02/20 03/08/24 10/18/23 History mg tablet (Dovato) Physical Exam 2 Vital Signs: Vital Signs: Last Vital Signs Temp 98 F 03/09/24 08:33 Pulse 82 03/09/24 08:33 Resp 16 03/09/24 08:33 BP 116/60 03/09/24 08:33 Pulse Ox 96 03/09/24 08:33 O2 Del Method Room Air 03/09/24 08:33 BMI result Body Mass Index 20.4 Const: General: cooperative, comfortable, no acute distress, alert, awake and Physically active Nutritional Appearance: thin Orientation/consciousness: patient oriented x3 Limitations: no limitations HEENT: Head: Yes normocephalic and Yes atraumatic Neck: Neck: Yes trachea midline, Yes supple and Yes no JVD Resp: Effort & Inspection: normal respiratory effort Auscultation: clear to auscultation bilaterally Cardio: Jugular venous distension: no JVD Palpation: normal PMI Rate: r egular rate Rhythm: regular rhythm Heart sounds: S1 normal heart sound present, S2 normal heart sound present, no click, no gallops, no murmurs and no rubs GI: Auscultation: normal bowel sounds Skin: General skin exam: no rashes or lesions noted Neuro: General: patient oriented x3 and no focal motor deficits Extrem: General: Yes no clubbing, cyanosis or edema Psych: Appearance: grossly normal Objective Labs and Meds 03/09/24 06:44 03/09/24 06:44 Lab results: Laboratory Results - last 24 hr 03/08/24 03/08/24 03/08/24 08:00 09:07 11:22 WBC RBC Hgb Hct MCV MCH MCHC RDW Plt Count MPV Immature Gran % (Auto) Neut % (Auto) Lymph % (Auto) Elliott % (Auto) Eos % (Auto) Baso % (Auto) Lymph # (Auto) [place] # (Auto) Eos # (Auto) Baso # (Auto) Abs Immat Gran (auto) Absolute Neuts (auto) Absolute Nucleated RBC Nucleated RBC % (auto) VBG pH VBG pCO2 VBG pO2 VBG HCO3 VBG O2 Saturation VBG Base Excess Sodium Potassium Chloride Carbon Dioxide Anion Gap BUN Creatinine Estim Creat Clear Calc Estimated GFR Random Glucose Lactic Acid F/U @ 2Hr 5.7 H* Lactic Acid F/U @ 4Hr Calcium Total Bilirubin Direct Bilirubin AST ALT Alkaline Phosphatase Total Creatine Kinase 181 H Troponin I High Sens Total Protein Albumin Procalcitonin Urine Color Urine Appearance Urine pH Ur Specific [place] Urine Protein Urine Glucose (UA) Urine Ketones Urine Blood Urine Nitrite Ur Leukocyte Esterase Urine RBC Urine WBC Ur Squamous Epith Cells Urine Bacteria Hyaline Casts Urine Opiates Screen Cancelled Ur Buprenorphine Scrn Cancelled Ur Oxycodone Screen Cancelled Urine Methadone Screen Cancelled Urine Fentanyl Screen Cancelled Ur Barbiturates Screen Cancelled Ur Phencyclidine Scrn Cancelled Ur Amphetamines Screen Cancelled U Benzodiazepines Scrn Cancelled Urine Cocaine Screen Cancelled U Marijuana (THC) Screen Cancelled 03/08/24 03/08/24 03/08/24 12:59 13:22 13:38 WBC RBC Hgb Hct MCV MCH MCHC RDW Plt Count MPV Immature Gran % (Auto) Neut % (Auto) Lymph % (Auto) [place] % (Auto) Eos % (Auto) Baso % (Auto) Lymph # (Auto) [place] # (Auto) Eos # (Auto) Baso # (Auto) Abs Immat Gran (auto) Absolute Neuts (auto) Absolute Nucleated RBC Nucleated RBC % (auto) VBG pH VBG pCO2 VBG pO2 VBG HCO3 VBG O2 Saturation VBG Base Excess Sodium Potassium Chloride Carbon Dioxide Anion Gap BUN Creatinine Estim Creat Clear Calc Estimated GFR Random Glucose Lactic Acid F/U @ 2Hr Lactic Acid F/U @ 4Hr 1.3 Calcium Total Bilirubin Direct Bilirubin AST ALT Alkaline Phosphatase Total Creatine Kinase Troponin I High Sens Total Protein Albumin Procalcitonin Urine Color Yellow Urine Appearance Turbid Urine pH 5.0 Ur Specific [place] 1.025 Urine Protein 300 (3+) H Urine Glucose (UA) Negative Urine Ketones Trace Urine Blood Large (3+) H Urine Nitrite Negative Ur Leukocyte Esterase Negative Urine RBC 0-2 Urine WBC 0-5 Ur Squamous Epith Cells 6-10 Urine Bacteria None Seen Hyaline Casts >20 Urine Opiates Screen Not Detected Ur Buprenorphine Scrn Not Detected Ur Oxycodone Screen Not Detected Urine Methadone Screen Not Detected Urine Fentanyl Screen Not Detected Ur Barbiturates Screen Not Detected Ur Phencyclidine Scrn Not Detected Ur Amphetamines Screen Not Detected U Benzodiazepines Scrn Not Detected Urine Cocaine Screen Not Detected U Marijuana (THC) Screen POSITIVE H 03/08/24 03/08/24 03/09/24 13:53 14:01 06:44 WBC 19.2 H 13.5 H RBC 4.50 L D 4.14 L Hgb 13.4 L D 12.3 L Hct 38.1 L D 35.6 L MCV 84.7 86.0 MCH 29.8 29.7 MCHC 35.2 34.6 RDW 13.8 14.0 Plt Count 226 D 216 MPV 10.4 10.7 Immature Gran % (Auto) 0.7 H Neut % (Auto) 68.5 Lymph % (Auto) 19.8 L Elliott % (Auto) 10.8 Eos % (Auto) 0.0 Baso % (Auto) 0.2 Lymph # (Auto) 2.7 Elliott # (Auto) 1.5 H Eos # (Auto) 0.0 Baso # (Auto) 0.0 Abs Immat Gran (auto) 0.09 H Absolute Neuts (auto) 9.2 H Absolute Nucleated RBC 0.000 0.000 Nucleated RBC % (auto) 0.0 0.0 VBG pH 7.35 VBG pCO2 27 VBG pO2 82 VBG HCO3 15 L VBG O2 Saturation 96.0 VBG Base Excess -8.4 Sodium 142 141 Potassium 3.9 D 3.5 Chloride 113 H D 113 H Carbon Dioxide 17 L 19 L Anion Gap 17 13 BUN 34 H 19 H Creatinine 3.77 H 1.30 Estim Creat Clear Calc 21.6 62.6 Estimated GFR 18 > 60 Random Glucose 125 H 100 Lactic Acid F/U @ 2Hr Lactic Acid F/U @ 4Hr Calcium 8.3 L D 8.7 Total Bilirubin 0.2 Direct Bilirubin < 0.2 AST 22 ALT 12 Alkaline Phosphatase 56 Total Creatine Kinase Troponin I High Sens 768.0 H* D 550.8 H* Total Protein 7.1 Albumin 4.2 Procalcitonin 0.28 Urine Color Urine Appearance Urine pH Ur Specific [place] Urine Protein Urine Glucose (UA) Urine Ketones Urine Blood Urine Nitrite Ur Leukocyte Esterase Urine RBC Urine WBC Ur Squamous Epith Cells Urine Bacteria Hyaline Casts Urine Opiates Screen Ur Buprenorphine Scrn Ur Oxycodone Screen Urine Methadone Screen Urine Fentanyl Screen Ur Barbiturates Screen Ur Phencyclidine Scrn Ur Amphetamines Screen U Benzodiazepines Scrn Urine Cocaine Screen U Marijuana (THC) Screen Imaging Radiologist's impression: Impressions Abdomen/Pelvis CT 03/08/24 12:02 IMPRESSION: 1. A cause for the patient's abdominal pain and sepsis has not been found. 2. Incidental note made of slightly thickened adrenal glands, retroaortic left renal vein and other findings described above. Fleischner guidelines were followed. Assessment and Plan (1) Myocardial injury: Status: Acute Noted elevated troponin consistent with myocardial injury in this young man related to severe acidosis and hypotension. Severe lactic acidosis and kidney failure of unclear etiology. Question viral syndrome. Myocarditis can not be entirely ruled out. At this point time his LV systolic function is normal and good prognosis with this was discussed. Less likely that this represents acute coronary syndrome and/or stress-induced cardiomyopathy. Continue conservative management. Avoidance of drug use was discussed with him. Continue supportive care and fluids as per the hospitalist team. No further workup is indicated. Will sign of the case. Procedures Date of Service Date of Service: 03/09/24
[2024-03-09] MEDS: lamiVUDine 150 MG TABLET 300 MG PO (11:51)
[2024-03-09] MEDS: Dolutegravir Sodium 50 MG TABLET PO (11:52)
[2024-03-09 12:00] VITALS: BP 113/63; PULSE 69; RESP 16; TEMP 36.8; O2SAT 99
--- NOTE | 2024-03-09 12:10 | HO.PM.IMPN ---
Subjective Subjective Date of Service: 03/09/24 Interval History: Seen and evlauated this morning Feels much better, still nauseated on occasions Asking for food No chest pain reported Review of Systems Review of Systems: Yes all other systems are reviewed and are negative Physical Exam Vital Signs: Vital Signs: Last Vital Signs Temp 98 F 03/09/24 08:33 Pulse 82 03/09/24 08:33 Resp 16 03/09/24 08:33 BP 116/60 03/09/24 08:33 Pulse Ox 96 03/09/24 08:33 O2 Del Method Room Air 03/09/24 08:33 BMI result Body Mass Index 20.4 Const: Other: Constitutional : Awake, interactive Neck : Normal inspection, Supple Cardiovascular : RRR, no JVP, no lower extremity edema Respiratory : good bilateral air entry, no crackles, wheezes or rhonchi Gastrointestinal: soft, lax, Normal bowel sounds, Non tender Skin : Warm, Dry Neurological : Alert & oriented x3, No focal deficit Objective Data Active Medications Acetaminophen (Acetaminophen 325 Mg Tablet) 650 mg PO Q6H PRN PRN Reason: Pain, Mild (Pain Scale 1-3) Last Admin: 03/09/24 08:17 Dose: 650 mg Documented By: ALEX Dolutegravir Sodium (Dolutegravir Sodium 50 Mg Tablet) 50 mg PO DAILY [facility] Last Admin: 03/09/24 11:52 Dose: 50 mg Documented By: COMPA Enoxaparin Sodium (Enoxaparin Sodium 30 Mg/0.3 Ml Syringe) 30 mg SUBCUT Q24H [facility] Last Admin: 03/09/24 09:29 Dose: 30 mg Documented By: COMPA Dextrose/Sodium Chloride (D51/2ns) 1,000 mls @ 125 mls/hr IVCONT .Q8H [facility] Last Admin: 03/09/24 11:53 Dose: 125 mls/hr Documented By: COMPA Lamivudine (Lamivudine 150 Mg Tablet) 300 mg PO DAILY [facility] Last Admin: 03/09/24 11:51 Dose: 300 mg Documented By: COMPA Ondansetron HCl (Ondansetron Hcl 4 Mg/2 Ml Vial) 4 mg IVPUSH Q8H PRN PRN Reason: Nausea and Vomiting Last Admin: 03/08/24 19:26 Dose: 4 mg Documented By: NGHIA Prochlorperazine Edisylate (Prochlorperazine Edisylate 10 Mg/2 Ml Vial) 10 mg IVPUSH Q4H PRN PRN Reason: Nausea and Vomiting Last Admin: 03/09/24 02:53 Dose: 10 mg Documented By: MAYA Sodium Chloride (0.9 % Sodium Chloride Flush 3 Ml Syringe) 3 ml IVFLUSH QSHIFT [facility] Last Admin: 03/09/24 09:29 Dose: Not Given Documented By: COMPA Non-Admin Reason: IV Running Labs 03/09/24 06:44 03/09/24 06:44 Labs: Laboratory Results - last 24 hr 03/08/24 03/08/24 03/08/24 09:07 12:59 13:22 MCV MCH MCHC RDW Plt Count MPV Immature Gran % (Auto) Neut % (Auto) Lymph % (Auto) [place] % (Auto) Eos % (Auto) Baso % (Auto) Lymph # (Auto) [place] # (Auto) Eos # (Auto) Baso # (Auto) Abs Immat Gran (auto) Absolute Neuts (auto) Absolute Nucleated RBC Nucleated RBC % (auto) VBG pH VBG pCO2 VBG pO2 VBG HCO3 VBG O2 Saturation VBG Base Excess Anion Gap Estim Creat Clear Calc Estimated GFR Random Glucose Lactic Acid F/U @ 4Hr Calcium Total Bilirubin Direct Bilirubin AST ALT Alkaline Phosphatase Total Creatine Kinase 181 H Troponin I High Sens Total Protein Albumin Procalcitonin Urine Color Yellow Urine Appearance Turbid Urine pH 5.0 Ur Specific [place] 1.025 Urine Protein 300 (3+) H Urine Glucose (UA) Negative Urine Ketones Trace Urine Blood Large (3+) H Urine Nitrite Negative Ur Leukocyte Esterase Negative Urine RBC 0-2 Urine WBC 0-5 Ur Squamous Epith Cells 6-10 Urine Bacteria None Seen Hyaline Casts >20 Urine Opiates Screen Not Detected Ur Buprenorphine Scrn Not Detected Ur Oxycodone Screen Not Detected Urine Methadone Screen Not Detected Urine Fentanyl Screen Not Detected Ur Barbiturates Screen Not Detected Ur Phencyclidine Scrn Not Detected Ur Amphetamines Screen Not Detected U Benzodiazepines Scrn Not Detected Urine Cocaine Screen Not Detected U Marijuana (THC) Screen POSITIVE H 03/08/24 03/08/24 03/08/24 13:38 13:53 14:01 MCV 84.7 MCH 29.8 MCHC 35.2 RDW 13.8 Plt Count 226 D MPV 10.4 Immature Gran % (Auto) Neut % (Auto) Lymph % (Auto) [place] % (Auto) Eos % (Auto) Baso % (Auto) Lymph # (Auto) [place] # (Auto) Eos # (Auto) Baso # (Auto) Abs Immat Gran (auto) Absolute Neuts (auto) Absolute Nucleated RBC 0.000 Nucleated RBC % (auto) 0.0 VBG pH 7.35 VBG pCO2 27 VBG pO2 82 VBG HCO3 15 L VBG O2 Saturation 96.0 VBG Base Excess -8.4 Anion Gap 17 Estim Creat Clear Calc 21.6 Estimated GFR 18 Random Glucose 125 H Lactic Acid F/U @ 4Hr 1.3 Calcium 8.3 L D Total Bilirubin 0.2 Direct Bilirubin < 0.2 AST 22 ALT 12 Alkaline Phosphatase 56 Total Creatine Kinase Troponin I High Sens 768.0 H* D Total Protein 7.1 Albumin 4.2 Procalcitonin 0.28 Urine Color Urine Appearance Urine pH Ur Specific [place] Urine Protein Urine Glucose (UA) Urine Ketones Urine Blood Urine Nitrite Ur Leukocyte Esterase Urine RBC Urine WBC Ur Squamous Epith Cells Urine Bacteria Hyaline Casts Urine Opiates Screen Ur Buprenorphine Scrn Ur Oxycodone Screen Urine Methadone Screen Urine Fentanyl Screen Ur Barbiturates Screen Ur Phencyclidine Scrn Ur Amphetamines Screen U Benzodiazepines Scrn Urine Cocaine Screen U Marijuana (THC) Screen 03/09/24 06:44 MCV 86.0 MCH 29.7 MCHC 34.6 RDW 14.0 Plt Count 216 MPV 10.7 Immature Gran % (Auto) 0.7 H Neut % (Auto) 68.5 Lymph % (Auto) 19.8 L [place] % (Auto) 10.8 Eos % (Auto) 0.0 Baso % (Auto) 0.2 Lymph # (Auto) 2.7 [place] # (Auto) 1.5 H Eos # (Auto) 0.0 Baso # (Auto) 0.0 Abs Immat Gran (auto) 0.09 H Absolute Neuts (auto) 9.2 H Absolute Nucleated RBC 0.000 Nucleated RBC % (auto) 0.0 VBG pH VBG pCO2 VBG pO2 VBG HCO3 VBG O2 Saturation VBG Base Excess Anion Gap 13 Estim Creat Clear Calc 62.6 Estimated GFR > 60 Random Glucose 100 Lactic Acid F/U @ 4Hr Calcium 8.7 Total Bilirubin Direct Bilirubin AST ALT Alkaline Phosphatase Total Creatine Kinase Troponin I High Sens 550.8 H* Total Protein Albumin Procalcitonin Urine Color Urine Appearance Urine pH Ur Specific [place] Urine Protein Urine Glucose (UA) Urine Ketones Urine Blood Urine Nitrite Ur Leukocyte Esterase Urine RBC Urine WBC Ur Squamous Epith Cells Urine Bacteria Hyaline Casts Urine Opiates Screen Ur Buprenorphine Scrn Ur Oxycodone Screen Urine Methadone Screen Urine Fentanyl Screen Ur Barbiturates Screen Ur Phencyclidine Scrn Ur Amphetamines Screen U Benzodiazepines Scrn Urine Cocaine Screen U Marijuana (THC) Screen Microbiology Microbiology Results: Microbiology 03/08/24 09:28 Blood Culture - Preliminary Blood - Venous No growth after 24 hours. 03/08/24 09:07 Blood Culture - Preliminary Blood - Venous No growth after 24 hours. Assessment and Plan (1) Myocardial injury: Status: Acute (2) HIV disease: Status: Acute (3) Acute lactic acidosis: Status: Acute (4) Severe dehydration: Status: Acute (5) Acute kidney injury: Status: Acute (6) Hypokalemia: Status: Acute (7) Elevated troponin: Status: Acute (8) Intractable vomiting: Status: Acute Plan A 33 years old male with PMH of HIV on Dovato, Hx drug abuse who presents to the hospital with abdominal pain, nausea and vomiting for 2 days [employer]. Intractable nausea and vomiting No evidence of infection or sepsis Could be related to Cyclic vomiting from [place] abuse Continue Zofran PRN Continue D5NS for now advance diet as tolerated Acute kidney injury complicated by Metabolic acidosis secondary to dehydration Cr improved from 5.9 to 1.3 with IVF overnight Acidosis improving Follow BMP Lactic acidosis secondary to dehydration not sepsis, resolved Leukocytosis secondary to dehydration and vomiting not sepsis Elevated Troponin 2/2 Myocardial injury increased from 199 to 768 then trended down No EKG changes to suggest ACS, no complaints of chest pain Keep on Tele Echo showed normal study Cardiology input appreciated, likely related to severe acidosis and hypotension PseudoHypercalcemia, PseudohyperMagnesemia Corrected with IVF HIV continue Dovato DVT PPx Lovenox The patient will need overnight hospital stay for treatment of LYSSA, pending diet tolerance and clinical improvement Quality Stroke Does the patient have a stroke diagnosis?: No VTE Prior VTE?: No VTE Risk Level:: Medical - low VTE Device Contraindication: Treatment Not Indicated VTE Drug Contraindication: N/A - Med Ordered
--- NOTE | 2024-03-09 15:16 | PM.PNNEP ---
Subjective Subjective Date of Service: 03/09/24 Interval history: Seen and evlauated this morning ; Feels much better, renal functions improved Physical Exam Vital Signs: Vital Signs: Last Vital Signs Temp 98.2 F 03/09/24 12:00 Pulse 69 03/09/24 12:00 Resp 16 03/09/24 12:00 BP 113/63 03/09/24 12:00 Pulse Ox 99 03/09/24 12:00 O2 Del Method Room Air 03/09/24 12:00 BMI result Body Mass Index 20.4 Const: General: no acute distress Eyes: EOM: EOMs intact bilaterally Neck: Neck: Yes supple Resp: Auscultation: diminished lung sounds Cardio: Rate: regular rate GI: Palpation (GI): Soft to palpation Neuro: General: moves all extremities Objective Data Labs 03/09/24 06:44 03/09/24 06:44 Labs: Laboratory Results - last 24 hr 03/08/24 03/09/24 13:53 06:44 WBC 13.5 H RBC 4.14 L Hgb 12.3 L Hct 35.6 L MCV 86.0 MCH 29.7 MCHC 34.6 RDW 14.0 Plt Count 216 MPV 10.7 Immature Gran % (Auto) 0.7 H Neut % (Auto) 68.5 Lymph % (Auto) 19.8 L [place] % (Auto) 10.8 Eos % (Auto) 0.0 Baso % (Auto) 0.2 Lymph # (Auto) 2.7 [place] # (Auto) 1.5 H Eos # (Auto) 0.0 Baso # (Auto) 0.0 Abs Immat Gran (auto) 0.09 H Absolute Neuts (auto) 9.2 H Absolute Nucleated RBC 0.000 Nucleated RBC % (auto) 0.0 Sodium 142 141 Potassium 3.9 D 3.5 Chloride 113 H D 113 H Carbon Dioxide 17 L 19 L Anion Gap 17 13 BUN 34 H 19 H Creatinine 3.77 H 1.30 Estim Creat Clear Calc 21.6 62.6 Estimated GFR 18 > 60 Random Glucose 125 H 100 Calcium 8.3 L D 8.7 Total Bilirubin 0.2 Direct Bilirubin < 0.2 AST 22 ALT 12 Alkaline Phosphatase 56 Troponin I High Sens 550.8 H* Total Protein 7.1 Albumin 4.2 Microbiology Microbiology Results: Microbiology 03/08/24 09:28 Blood - Venous Blood Culture - Preliminary No growth after 24 hours. 03/08/24 09:07 Blood - Venous Blood Culture - Preliminary No growth after 24 hours. Procedures Date of Service Date of Service: 03/09/24 Assessment & Plan Assessment and plan (1) Acute kidney injury: Status: Acute Plan Acute kidney injury due to compromised renal perfusion Serum creatinine improving with supportive care No indication for any renal replaced Needs close outpatient follow-up with kidney associates [place] after hospital discharge Progress Note: Quality Stroke Does the patient have a stroke diagnosis?: No
[2024-03-09 15:51] VITALS: BP 120/76; PULSE 77; RESP 19; TEMP 36.7; O2SAT 98
[2024-03-09] MEDS: ondansetron HCL 4 MG/2 ML VIAL IVPUSH (16:29)
[2024-03-09 19:07] VITALS: BP 123/72; PULSE 83; RESP 19; TEMP 37.4; O2SAT 97
[2024-03-09] MEDS: LORazepam 1 MG TABLET PO (20:24)
[2024-03-10] VITALS: BP 102/72; PULSE 76; RESP 18; TEMP 37; O2SAT 98
[2024-03-10] MEDS: Dextrose 5 % and 0.45 % NaCl 1,000 ML 125 ML IVCONT (01:05)
[2024-03-10 04:00] VITALS: BP 111/76; PULSE 76; RESP 16; TEMP 36.8; O2SAT 98
[2024-03-10 07:05] VITALS: BP 116/64; PULSE 74; RESP 18; TEMP 36.6; O2SAT 98
[2024-03-10 07:09] LABS: Anion Gap 12 (12-20); Blood Urea Nitrogen 11 mg/dL (9-16); Calcium 8.8 mg/dL (8.4-10.2); Carbon Dioxide 23 mmol/L (22-29); Chloride 109 mmol/L (96-108); Creatinine Clr Calc Pharmacy 100.6; Estimated Glomerular Filt Rate > 60; Glucose Random 90 mg/dL (60-115); Potassium 3.2 mmol/L (3.3-5.1); Sodium 141 mmol/L (135-145)
[2024-03-10] MEDS: Potassium Chloride ER 20 MEQ TAB.ER.PRT PO (09:02)
[2024-03-10] MEDS: lamiVUDine 150 MG TABLET 300 MG PO (09:02)
[2024-03-10] MEDS: Dolutegravir Sodium 50 MG TABLET PO (09:04)
--- NOTE | 2024-03-10 09:56 | PM.DS ---
DS: Providers Provider Date of Service: 03/10/24 Date of admission: 03/08/24 16:31 Primary care physician: ALBERTO Elder Consults: 03/08/24 16:31 Consult to Cardiology Routine Consulting [place] [facility] [facility] Reason for consultation: Elevated Trop for eval, intractable nausea DS: Diagnosis Discharge Diagnosis (1) Acute kidney injury: Status: Acute (2) Myocardial injury: Status: Acute (3) Acute lactic acidosis: Status: Acute (4) Severe dehydration: Status: Acute (5) Leukocytosis: Status: Acute (6) Elevated troponin: Status: Acute (7) Intractable vomiting: Status: Acute (8) Hypokalemia: Status: Acute DS: Summary Hospital Course Hospital Course: Admission note HPI A 33 years old male with PMH of HIV on Dovato, Hx drug abuse who presents to the hospital with 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 The patient reports that he woke up with generalized pain and body aches Susan morning which worsened to abdominal pain, nausea, vomiting and an episode of diarrhea since yesterday morning. He was unable to keep anything down and kept vomiting with worsening pain. No fever, chills, headache, chest pain, palpitations, SOB, dyspnea, cough, rash, itching, or urinary symptoms. Does not recall sick contacts. In ED was found to have LYSSA , leukocytosis , metabolic acidosis, lactic acidosis with Elevated Trop. Admitted for further evaluation and treatment. Hospital course The patient was admitted to the hospital for treatment of Intractable nausea and vomiting associated with Acute kidney injury complicated by Metabolic acidosis secondary to dehydration with No evidence of infection or sepsis as his symptoms could be related to Cyclic vomiting from Marjuana abuse as he was treated with Zofran PRN, IV D5NS and bowel rest with advance diet as tolerated with good response over the course of hospital stay as symptoms resolved and creatinine improved back to normal baseline as he was seen by nephrology team who recommended outpatient follow up. # Lactic acidosis , secondary to dehydration not sepsis, resolved with IV fluids. # Leukocytosis , secondary to dehydration and vomiting not sepsis and resolved with hydration. # Elevated Troponin as a result of Myocardial injury with Troponin increased from 199 to 768 then trended down with No EKG changes to suggest ACS, no complaints of chest pain. Echo showed normal study. as he was evaluated by Cardiology who thought his troponin leak is a result of myocardial injury likely related to severe acidosis and hypotension. # PseudoHypercalcemia, PseudohyperMagnesemia. Corrected with IVF Discharge plan Advance diet as tolerated Avoid smoking Marijuana Follow with dr Deleon from nephrology as outpatient Time Attestation Discharge Coordination Time (in mins): 36 Quality: Safe Use of Opioids Does Pt have an Active Cancer Diagnosis on the Problem List?: No Quality: Stroke Does the patient have a stroke diagnosis?: No Physical Exam Vital Signs: Vital Signs: Last Vital Signs Temp 97.9 F 03/10/24 07:05 Pulse 74 03/10/24 07:05 Resp 18 03/10/24 07:05 BP 116/64 03/10/24 07:05 Pulse Ox 98 03/10/24 07:05 O2 Del Method Room Air 03/10/24 07:05 BMI result Body Mass Index 20.4 Const: Other: Constitutional : Awake, interactive Neck : Normal inspection, Supple Cardiovascular : RRR, no JVP, no lower extremity edema Respiratory : good bilateral air entry, no crackles, wheezes or rhonchi Gastrointestinal: soft, lax, Normal bowel sounds, Non tender Skin : Warm, Dry Neurological : Alert & oriented x3, No focal deficit DS: Data Data Completed and Pending Labs on day of discharge: Laboratory Results - last 24 hr 03/10/24 06:08 Hold Purple Top SEE NOTE Sodium 141 Potassium 3.2 L Chloride 109 H Carbon Dioxide 23 Anion Gap 12 BUN 11 Creatinine 0.84 Estim Creat Clear Calc 100.6 Estimated GFR > 60 Random Glucose 90 Calcium 8.8 Preliminary micro results at discharge 03/08/24 09:28 Blood Culture - Preliminary Blood - Venous No growth after 24 hours. 03/08/24 09:07 Blood Culture - Preliminary Blood - Venous No growth after 24 hours. Imaging Chest x-ray: Radiologist's impression: ITS Impressions Chest X-Ray 03/08/24 09:02 IMPRESSION: Unremarkable examination. Abdomen/Pelvis CT 03/08/24 12:02 IMPRESSION: 1. A cause for the patient's abdominal pain and sepsis has not been found. 2. Incidental note made of slightly thickened adrenal glands, retroaortic left renal vein and other findings described above. Fleischner guidelines were followed. 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-BC [Primary Care Provider] - 1 Week Discharge Medications: New ondansetron 4 mg tablet,disintegrating 4 mg PO Q8H PRN (Reason: nausea and vomiting) Qty: 10 0RF Continued Dovato 50-300 mg Tablet 1 tab PO DAILY Discharge Orders: Discharge Order (Routine); Ordered 03/10/24 Ordered By: Williams Pinzon Diet: Advance to usual diet Activity on Discharge: As tolerated Stand Alone Forms: Patient Portal Discharge page, Work/School Release Print Language: Montserratian Care Plan Goals: Read below Health Concerns: Read below Plan of Treatment: Read below Assessment: Advance diet as tolerated Avoid smoking Marijuana Follow with dr Deleon from nephrology as outpatient
[2024-03-10 10:55] VITALS: BP 121/71; PULSE 85; RESP 18; TEMP 36.8; O2SAT 98
--- NOTE | 2024-03-10 11:02 | MHC.CM.PN ---
Pt is medically cleared for discharge home self-care, pts friend to transport him home.
--- NOTE | 2024-03-12 11:54 | P.CDIM_ITS ---
PROVIDER RESPONSE TEXT: To clarify, the appropriate diagnosis supported by the clinical indicators: Acute QUERY TEXT: PHYSICIAN'S DOCUMENTATION REQUEST Date of Query: 03/09/2024 09:30 AM EDT Patient Name: Darvin Lowery Admit Date: 03/08/2024 Dear Williams Pinzon, A review of the medical record indicates additional documentation may be needed. Please review below and update the documentation accordingly. Clinical Indicators: H&P: Plan - Acute kidney injury complicated by Metabolic acidosis secondary to dehydration. Acidosis improving, anion gap closed. Clarify which of the following accurately represents the acuity of the metabolic acidosis: Possible options might include: Acute Acute on chronic Other (explain) Clinically unable to determine (explain) Thank you, Nancy Quinteros, CCS, CDIS Use of terms such as suspected, likely, concern for, or probable (associated with a specific diagnosi s that is being evaluated, monitored, or treated as if it exists) are acceptable and can be coded in the inpatient se tting, when documented at the time of discharge. Please use your independent medical judgment in providing your response. THIS QUERY IS PART OF THE PERMANENT MEDICAL RECORD
== END 2024-03-10 11:19 | disposition home or self-care (01) | DRG 422 ==
LOC: HO.ED 15:25 → HO.EDOVER 16:45 → HO.IMC 03-09 07:20
PROVIDERS: Internal Medicine Hypertension Specialist; Physician Assistant Medical; Admitting Provider Student in an Organized Health Care Education/Training Program; Emergency Provider Emergency Medicine; PCP Nurse Practitioner Family; Visit Provider Student in an Organized Health Care Education/Training Program
DX: E86.0 Dehydration (principal); E87.21 Acute metabolic acidosis; N17.9 Acute kidney failure, unspecified; I5A Non-ischemic myocardial injury (non-traumatic); I95.9 Hypotension, unspecified; F17.210 Nicotine dependence, cigarettes, uncomplicated; F12.10 Cannabis abuse, uncomplicated; R11.2 Nausea with vomiting, unspecified; E87.6 Hypokalemia; Z21 Asymptomatic human immunodeficiency virus [HIV] infection status; Z71.6 Tobacco abuse counseling; Z20.822 Contact with and (suspected) exposure to COVID-19; Z79.899 Other long term (current) drug therapy
CPT/HCPCS: 0241U; 36415; 71045; 74176; 80048; 80076; 80307; 81001; 82550; 82803; 83605; 83690; 83735; 84145; 84484; 85007; 85025; 85027; 85610; 86140; 87040; 93005; 93306; 93356; 99285; C9113; J0737; J1650; J1790; J2405; J2543; J3371; J7120; Q9957

== ENCOUNTER → 2024-03-08 08:33 | Outpatient (BNV) | payer BC, SELFPAY | PROVIDERS: Emergency Provider Emergency Medicine; PCP Nurse Practitioner Family; Visit Provider Internal Medicine Cardiovascular Disease | DX: R00.0 Tachycardia, unspecified (principal); R94.31 Abnormal electrocardiogram [ECG] [EKG]; I35.1 Nonrheumatic aortic (valve) insufficiency; I36.1 Nonrheumatic tricuspid (valve) insufficiency | CPT/HCPCS: 93010; 93306; 93356 ==

== ENCOUNTER → 2024-03-08 16:31 | Outpatient (BNV) | payer BC, SELFPAY | PROVIDERS: Admitting Provider Student in an Organized Health Care Education/Training Program; Emergency Provider Emergency Medicine; PCP Nurse Practitioner Family; Visit Provider Student in an Organized Health Care Education/Training Program | DX: B20 Human immunodeficiency virus [HIV] disease (principal); E87.21 Acute metabolic acidosis; E86.0 Dehydration; D72.829 Elevated white blood cell count, unspecified; R79.89 Other specified abnormal findings of blood chemistry; N17.9 Acute kidney failure, unspecified; E87.6 Hypokalemia | CPT/HCPCS: 99223; 99233; 99239 ==

== ENCOUNTER → 2024-03-08 16:31 | Outpatient (BNV) | payer BC, SELFPAY | PROVIDERS: Admitting Provider Student in an Organized Health Care Education/Training Program; Emergency Provider Emergency Medicine; PCP Nurse Practitioner Family; Visit Provider Internal Medicine Cardiovascular Disease | DX: I5A Non-ischemic myocardial injury (non-traumatic) (principal) | CPT/HCPCS: 99222 ==

== ENCOUNTER → 2024-03-08 16:31 | Outpatient (BNV) | payer BC, SELFPAY | PROVIDERS: Admitting Provider Student in an Organized Health Care Education/Training Program; Emergency Provider Emergency Medicine; PCP Nurse Practitioner Family; Visit Provider Internal Medicine Nephrology | DX: N17.9 Acute kidney failure, unspecified (principal) | CPT/HCPCS: 99221; 99232 ==

== ENCOUNTER 2024-04-27 15:14 | Inpatient (IN) | payer BC, SELFPAY ==
[2024-04-27 15:47] VITALS: BP 132/83; PULSE 117; RESP 20; TEMP 36.8; O2SAT 98; BMI 19.4
--- NOTE | 2024-04-27 15:47 | ED_ITS ---
HPI - General Adult General Chief complaint: General Medical Stated complaint: ?Dehydration/Muscle cramping Time Seen by Provider: 04/27/24 18:57 Source: patient Mode of arrival: ambulatory Limitations: no limitations History of Present Illness ED Provider: Rani Zimmerman PA-C HPI narrative: 33-year-old male with history of HIV on HAART, undetectable viral load for the last 8 or 9 years, history of cyclical vomiting with marijuana use, history of drug abuse, history of recurrent acute kidney injury and dehydration requiring admission to the hospital for IV fluids who presents to the ER for evaluation of nausea, vomiting, muscle aches and weakness that started 2 days ago after going to a [place] food buffet. Patient states 10 minutes after eating [place] food he started having intractable vomiting. He had recurrent vomiting the next day. He was sipping on Pedialyte during the day but was not eating anything. No further vomiting. He went to [facility] where he was given marijuana and discharged, labs were not checked at that time. Patient states today he woke up with ongoing nausea, and was recurrently vomiting every time he tried to drink liquids. He reports some associated abdominal soreness and chest soreness from retching and recurrent vomiting. He states his last bowel movement was Tuesday, no abdominal distention or significant abdominal pain. No fever, chills, urinary symptoms aside from dark urine. He was admitted 1 month ago with LYSSA, metabolic acidosis and elevated troponin. MD complaint: Nausea, vomiting, body aches Onset (ago): day(s) (3) Location: chest, back, abdomen, left, right, upper extremity and lower extremity Severity: moderate Quality: aching Pain Consistency: constant Relieving factors: rest Exacerbating factors: movement Associated symptoms: loss of appetite, malaise, nausea/vomiting and weakness Treatments prior to arrival: none Related Data Home Medications ?Medication ?Instructions ?Recorded ?Confirmed dolutegravir 50 mg-lamivudine 300 1 tab PO DAILY 09/02/20 03/08/24 mg tablet (Dovato) Previous Rx's ?Medication ?Instructions ?Recorded ondansetron 4 mg disintegrating 4 mg PO Q8H PRN nausea and 03/10/24 tablet vomiting #10 tabs Allergies Allergy/AdvReac Type Severity Reaction Status Date / Time No Known Allergies Allergy Verified 04/27/24 15:50 Review of Systems 2 Review of Systems: Yes all other systems are reviewed and are negative [facility], [facility] Past Medical History Medical History Acute renal failure Fibromyalgia HIV (human immunodeficiency virus infection) GERD (gastroesophageal reflux disease) Family History Family History Mother HIV (human immunodeficiency virus infection) Social History Social History Household Members: None Housing: Apartment Do you presently have visiting nurse or other home services: No Alcohol intake: former Patient Tobacco Use Status: Current everyday Tobacco user Tobacco use type: Cigarette Cigarettes Per Day: 3 Smoked in Last 30 Days: Yes e-Cigarette/Vaping Use: Never Used Second Hand Smoke Exposure: Yes Use of substances other than those prescribed or required for medical reasons: Yes Substance Use Type: Marijuana Advance Directives: Yes Advance Directives on File: Yes Advance Directives Date on File: 09/29/22 Do you have a plan to hurt others: No Plan service: No Current occupational status: employed Physical Exam ED Vital Signs: Vital Signs - 24 hr 04/27/24 15:47 04/27/24 18:54 Temperature 98.3 F 98.8 F Pulse Rate 117 H 91 Respiratory Rate 20 18 Blood Pressure 132/83 141/87 H Pulse Oximetry 98 99 Oxygen Delivery Method Room Air Room Air BMI result Body Mass Index 19.4 Appearance: Alert. Oriented X3. No acute distress. Head: normocephalic, atraumatic. Eyes: Pupils equal, round and reactive to light. ENT: Pharynx normal. No tonsillar swelling or exudate. Neck: Normal inspection. Neck supple. CVS: Normal heart rate and rhythm. Pulses normal. Respiratory: No respiratory distress. Breath sounds normal. Abdomen: Thin, Soft and nontender, nondistended, decreased +BS x4 Skin: Skin warm and dry. Normal skin color. Normal skin turgor. No rashes. Extremities: No lower extremity edema. No joint swelling. Intermittent bilateral UE tremors and UE contractures. Neuro/psych: Oriented X 3. No motor deficit. No sensory deficit. CN II-XII intact. Normal speech and cognition. Course Course Course Narrative: This is an RME done by MISTY Martinez: Additional HPI, ROS, PE not included below will be deferred to primary provider. 33 yo m hx of cyclic vomiting, lyssa, HIV, GERD presents w/ nausea, vomiting, abd pain X 2 days. No alcohol. Last smoked tuesday. Patient has hx of this in the past unclear diagnosis but states his kidneys dont look well. Feels terrible Appearance: Alert.? Oriented X3.? No acute cardiopulmonary distress distress.? Head: Normocephalic, atraumatic, no step-offs or deformities CVS: Pulses normal.? Respiratory: No respiratory distress.? Abdomen: Soft and nontender.? Skin: ? Normal skin color. Extremities: 5/5 strength to bilateral upper and lower extremities Back: No midline tenderness, no C-spine tenderness, full range of motion, No CVA tenderness bilaterally Neuro: Oriented X 3.? No motor deficit.? No sensory deficit. Medications Administered Generic Name Dose Route Start Last Admin Trade Name Freq PRN Reason Stop Dose Admin Sodium Chloride 1,000 mls @ 999 mls/hr 04/27/24 19:00 04/27/24 19:27 Ns IVCONT 04/27/24 20:00 999 mls/hr .Q1H1M WAYNE Administration Medical Decision Making Medical Decision Making MDM Narrative: 33-year-old male with history of HIV on HAART, undetectable viral load for the last 8 or 9 years, history of cyclical vomiting with marijuana use, history of drug abuse, history of recurrent acute kidney injury and dehydration requiring admission to the hospital for IV fluids who presents to the ER for evaluation of nausea, vomiting, muscle aches and weakness that started 2 days ago after going to a [place] food buffet. patient arrives the ER tachycardic with upper extremity contractures. He appears clinically dehydrated. There is no evidence of acute infection. Not septic. Abdominal exam is benign aside from some hypoactive bowel sounds. Doubt bowel obstruction, hold off on CT scan or abdominal imaging for now. His lab work returned with recurrent acute renal failure, patient has history of similar presentations in the past and has seen nephrology inpatient but has never seen Nephrology outpatient in the office for further evaluation of why this keeps happening to him. he does admit to ongoing marijuana use for his mental health although his use has decreased. given the patient's acute renal failure he will require admission to the hospital for monitoring of his electrolytes, trending of his renal function, IV fluid hydration. Differential Diagnosis Differential Diagnoses: The differential diagnosis associated with the presentation includes acute kidney injury due to dehydration, ATN, glomerulonephritis cyclical vomiting from marijuana food poisoning bowel obstruction Admission/Observation Consideration of admission/observation: Escalation of care including admission/observation considered Consult Healthcare Provider Management of the patient was discussed with: Hospitalist Lab Data MDM Lab Attestation statement: I reviewed the patient's lab results. leukocytosis likely reactive due to vomiting, acute renal failure with BUN 49 and creatinine 5.24. Normal bicarbonate, slightly elevated anion gap likely due to uremia 04/27/24 16:21 04/27/24 16:21 Labs: Lab Results 04/27/24 Range/Units 16:21 WBC 14.0 H (4.8-10.8) X10*3/uL RBC 5.38 D (4.60-5.80) X10*6/uL Hgb 16.0 D (14.0-18.0) g/dl Hct 45.9 D (42.0-52.0) % MCV 85.3 (80.0-98.0) fL MCH 29.7 (27.0-33.0) pg MCHC 34.9 (31.0-36.0) g/dl RDW 13.9 (11.0-16.0) % Plt Count 323 D (160-400) X10*3/uL MPV 10.7 (9.4-12.4) fL Immature Gran % (Auto) 0.4 (0.0-0.4) % Neut % (Auto) 73.1 H (45-73) % Lymph % (Auto) 16.3 L (20-40) % [place] % (Auto) 9.7 (2-11) % Eos % (Auto) 0.1 (0-4) % Baso % (Auto) 0.4 (0-2) % Lymph # (Auto) 2.3 (1.2-4.9) X10*3/uL [place] # (Auto) 1.4 H (0.1-1.2) X10*3/uL Eos # (Auto) 0.0 (0.0-0.4) X10*3/uL Baso # (Auto) 0.1 (0.0-0.2) X10*3/uL Abs Immat Gran (auto) 0.06 H (0.00-0.03) X10*3/uL Absolute Neuts (auto) 10.3 H (2.0-8.3) x10*3/uL Absolute Nucleated RBC 0.000 (0.0-0.012) X10*3/uL Nucleated RBC % (auto) 0.0 (0.0-0.2) /100WBC Sodium 143 (135-145) mmol/L Potassium 3.5 (3.3-5.1) mmol/L Chloride 100 (96-108) mmol/L Carbon Dioxide 22 (22-29) mmol/L Anion Gap 25 H (12-20) BUN 49 H (9-16) mg/dL Creatinine 5.24 H* (0.5-1.4) mg/dL Estim Creat Clear Calc 15.2 Estimated GFR 13 Random Glucose 113 (60-115) mg/dL Calcium 11.7 H D (8.4-10.2) mg/dL Magnesium 2.3 (1.6-2.6) mg/dL Total Bilirubin 0.8 (0.0-1.0) mg/dL AST 26 (5-37) U/L ALT 14 (0-40) U/L Alkaline Phosphatase 73 (39-117) U/L Total Creatine Kinase 729 H (38-174) U/L Total Protein 10.3 H (6.5-8.0) g/dL Albumin 6.2 H (3.5-5.0) g/dL External Record Review External record reviewed: Inpatient record, Outpatient record, Prior outpatient labs and Prior outpatient radiology Tests considered The following testing was considered but not selected: considered renal ultrasound or CT scan for evaluation of acute renal failure however clinical presentation is most consistent with prerenal LYSSA and not obstructive process Prescription Management I considered prescription management with: Pain Medication and Antibiotic Chronic Conditions Patient?s care impacted by: Other (HIV) Critical Care Time Critical Care Time Critical Care Time: Yes Total Critical Care Time: 36 Attestation: I have personally provided critical care time exclusive of time spent on separately billable procedures. Time includes review of lab data, radiology results, discussion with consultants, and monitoring for potential decompensation. Intervention performed as documented. Discharge Plan Discharge Clinical Impression: LYSSA (acute kidney injury), Dehydration Vomiting Qualifiers: Vomiting type: unspecified Nausea presence: with nausea Qualified Code(s): R 11.2 - Nausea with vomiting, unspecified Patient Disposition: Admitted As Inpatient Print Language: Khmer
[2024-04-27 16:33] LABS: MANUAL DIFF FLAG NO
[2024-04-27 16:41] LABS: Basophils Absolute Auto 0.1 X10*3/uL (0.0-0.2); Basophils Percent Auto 0.4 % (0-2); Eosinophils Percent Auto 0.1 % (0-4); Hematocrit 45.9 % (42.0-52.0); Imm Gran Abs Auto 0.06 X10*3/uL (0.00-0.03); Imm Gran Pct Auto 0.4 % (0.0-0.4); Lymphocytes Absolute Auto 2.3 X10*3/uL (1.2-4.9); Lymphocytes Percent Auto 16.3 % (20-40); Mean Corpuscular HGB Conc 34.9 g/dl (31.0-36.0); Mean Corpuscular Hemoglobin 29.7 pg (27.0-33.0); Mean Corpuscular Volume 85.3 fL (80.0-98.0); Mean Platelet Volume 10.7 fL (9.4-12.4); Monocytes Absolute Auto 1.4 X10*3/uL (0.1-1.2); Monocytes Percent Auto 9.7 % (2-11); Neutrophils Absolute Auto 10.3 x10*3/uL (2.0-8.3); Neutrophils Percent Auto 73.1 % (45-73); Platelet Count 323 X10*3/uL (160-400); Red Blood Count 5.38 X10*6/uL (4.60-5.80); Red Cell Distribution Width 13.9 % (11.0-16.0)
[2024-04-27 16:57] LABS: Alanine Aminotransferase 14 U/L (0-40); Albumin Level 6.2 g/dL (3.5-5.0); Alkaline Phosphatase 73 U/L (39-117); Anion Gap 25 (12-20); Aspartate Amino Transferase 26 U/L (5-37); Bilirubin Total 0.8 mg/dL (0.0-1.0); Blood Urea Nitrogen 49 mg/dL (9-16); Calcium 11.7 mg/dL (8.4-10.2); Carbon Dioxide 22 mmol/L (22-29); Chloride 100 mmol/L (96-108); Creatinine Clr Calc Pharmacy 15.2; Estimated Glomerular Filt Rate 13; Glucose Random 113 mg/dL (60-115); Magnesium 2.3 mg/dL (1.6-2.6); Potassium 3.5 mmol/L (3.3-5.1); Sodium 143 mmol/L (135-145); Total Protein 10.3 g/dL (6.5-8.0)
[2024-04-27 18:54] VITALS: BP 141/87; PULSE 91; RESP 18; TEMP 37.1; O2SAT 99
[2024-04-27] MEDS: 0.9 % Sodium Chloride 1,000 ML 999 ML IVCONT ×2 (19:27→19:56)
[2024-04-27 19:41] LABS: Appearance Urine Turbid; Color Urine Dark Yellow; Glucose Urine UA 100 mg/dL (Negative); Leukocyte Esterase Urine Trace (Negative); Nitrite Urine Negative (Negative); Specific Gravity - Urine 1.025 (1.005-1.025); UMIC TRIGGER UACC YES; Urine Blood Small (1+) (Negative); Urine Ketones Trace mg/dL (Negative); Urine Protein 100 (2+) mg/dL (Neg-Trace)
[2024-04-27] MEDS: ondansetron HCL 4 MG/2 ML VIAL IVPUSH (19:55)
[2024-04-27 19:58] LABS: Osmolality Urine 392 mosm/kg (373-1093)
[2024-04-27 20:00] LABS: Bacteria Urine None Seen (None Seen); Hyaline Casts Urine >20 /LPF (0-2); UACC Culture Trigger YES
[2024-04-27 20:10] VITALS: BP 128/82; PULSE 94; RESP 18; TEMP 36.9; O2SAT 95
--- NOTE | 2024-04-27 20:12 | MHC.EDTECH ---
THIS PCT JUST ASSUMED CARE OF PATIENT ,VITALS TAKEN AND PATIENT BELONGING LIST DONE ,PATIENT IS A&O ,NO APPARENT DISTRESS NOTED ,PATIENT WATCHING TELEVISION .CALL SIDDIQUI WITHIN PATIENT REACH .
[2024-04-27 20:15] LABS: Sodium Urine Random < 20.0 mmol/L
--- NOTE | 2024-04-27 20:17 | PHA.MEDREC ---
Pharmacy Consult ? Medication Reconciliation Pharmacy has completed the medication reconciliation. Confirmed medications with patient. Patient states he took his Dovato 50-300mg tab this morning.
--- NOTE | 2024-04-27 20:43 | P.HPHOSP_ITS ---
History of Present Illness Date of Service: 04/27/24 Chief Complaint: Nausea/vomiting This is a 33-year-old male with pertinent history of HIV on HAART, undetectable viral load, history of recurrent hospitalizations with cannabinoid hyperemesis syndrome who presents to the emergency department for evaluation of nausea and vomiting. Patient states the symptoms started 2 days prior to presentation. He has been having multiple episodes of nonbloody vomiting. No abdominal discomfort. Patient states he is unable to tolerate p.o. intake due to nausea and vomiting. He gets very defensive and angry when asked about marijuana usage. Patient admits that he smoking marijuana and is trying to cut down on marijuana use. Patient thinks that it started when he ate [place] Citizen food on Tuesday. Patient attributes his previous admissions of cyclical vomiting to full and not marijuana use. Denies any abdominal discomfort, fever, chills, chest discomfort, palpitations, shortness of breath, changes in urinary habits or bowel habits. He denies cocaine use and states 1 time his marijuana was laced with cocaine and he never actively uses cocaine. In the emergency department, patient's creatinine was found to be elevated. Review of Systems 2 Constitutional: Constitutional: Reports fatigue, Reports malaise, Reports poor appetite and Reports weakness Cardiovascular: Cardiovascular: Reports no additional cardiovascular complaints Respiratory: Respiratory: Reports no additional respiratory complaints Gastrointestinal: Gastrointestinal: Reports nausea and Reports vomiting Genitourinary: Genitourinary: Reports no additional male genitourinary complaints Neurologic: Reports weakness Endocrine: Endocrine: Reports fatigue [facility] Medical History HIV disease Acute renal failure Fibromyalgia HIV (human immunodeficiency virus infection) GERD (gastroesophageal reflux disease) Family History Mother HIV (human immunodeficiency virus infection) Social History Household Members: None Housing: Apartment Do you presently have visiting nurse or other home services: No Alcohol intake: former Patient Tobacco Use Status: Current everyday Tobacco user Tobacco use type: Cigarette Cigarettes Per Day: 3 Smoked in Last 30 Days: Yes e-Cigarette/Vaping Use: Never Used Second Hand Smoke Exposure: Yes Use of substances other than those prescribed or required for medical reasons: Yes Substance Use Type: Marijuana Advance Directives: Yes Advance Directives on File: Yes Advance Directives Date on File: 09/29/22 Do you have a plan to hurt others: No Plan service: No Current occupational status: employed Meds Allergies Allergy/AdvReac Type Severity Reaction Status Date / Time No Known Allergies Allergy Verified 04/27/24 15:50 Active Medications: Current Medications Acetaminophen (Acetaminophen 325 Mg Tablet) 650 mg PO Q6H PRN PRN Reason: Pain, Mild (Pain Scale 1-3), fever or headache Calcium Carbonate (Calcium Carbonate 750 Mg Tab.Chew) 750 mg PO Q4H PRN PRN Reason: Heartburn Enoxaparin Sodium (Enoxaparin Sodium 30 Mg/0.3 Ml Syringe) 30 mg SUBCUT Q24H [facility] Sodium Chloride (Ns) 1,000 mls @ 999 mls/hr IVCONT .Q1H1M [facility] Stop: 04/27/24 20:45 Last Admin: 04/27/24 19:56 Dose: 999 mls/hr Magnesium Hydroxide (Milk Of Magnesia 30 Ml Oral.Susp) 30 ml PO DAILY PRN PRN Reason: Constipation Melatonin (Melatonin 3 Mg Tablet) 6 mg PO BEDTIME PRN PRN Reason: Insomnia Ondansetron HCl (Ondansetron Hcl 4 Mg/2 Ml Vial) 4 mg IVPUSH Q8H PRN PRN Reason: Nausea and Vomiting Sodium Chloride (0.9 % Sodium Chloride Flush 3 Ml Syringe) 3 ml IVFLUSH QSHIFT [facility] Home Medications ?Medication ?Instructions ?Recorded ?Confirmed ?Last Taken ?Type dolutegravir 50 mg-lamivudine 300 1 tab PO DAILY 09/02/20 04/27/24 04/27/24 History mg tablet (Dovato) Physical Exam 2 Vital Signs and Narrative: Vital Signs: Last Vital Signs Temp 98.4 F 04/27/24 20:10 Pulse 94 04/27/24 20:10 Resp 18 04/27/24 20:10 BP 128/82 04/27/24 20:10 Pulse Ox 95 04/27/24 20:10 O2 Del Method Room Air 04/27/24 18:54 BMI result Body Mass Index 19.4 Middle-aged male lying in bed in no distress Neck supple, no JVD Regular rate and rhythm, S1-S2 heard Regular breath sounds bilaterally, no wheezing or crackles appreciated Abdomen soft nontender, no guarding, no rigidity Patient is awake, alert and oriented to self, place, time and person ; no focal motor deficit Psych: Normal mood No pedal edema Results Labs 04/27/24 16:21 04/27/24 16:21 Labs: Laboratory Results - last 24 hr 04/27/24 04/27/24 16:21 19:28 MCV 85.3 MCH 29.7 MCHC 34.9 RDW 13.9 Plt Count 323 D MPV 10.7 Immature Gran % (Auto) 0.4 Neut % (Auto) 73.1 H Lymph % (Auto) 16.3 L [place] % (Auto) 9.7 Eos % (Auto) 0.1 Baso % (Auto) 0.4 Lymph # (Auto) 2.3 [place] # (Auto) 1.4 H Eos # (Auto) 0.0 Baso # (Auto) 0.1 Abs Immat Gran (auto) 0.06 H Absolute Neuts (auto) 10.3 H Absolute Nucleated RBC 0.000 Nucleated RBC % (auto) 0.0 Anion Gap 25 H Estim Creat Clear Calc 15.2 Estimated GFR 13 Random Glucose 113 Calcium 11.7 H D Magnesium 2.3 Total Bilirubin 0.8 AST 26 ALT 14 Alkaline Phosphatase 73 Total Creatine Kinase 729 H Total Protein 10.3 H Albumin 6.2 H Urine Color Dark Yellow Urine Appearance Turbid Urine pH 5.0 Ur Specific [place] 1.025 Urine Protein 100 (2+) H Urine Glucose (UA) 100 H Urine Ketones Trace Urine Blood Small (1+) H Urine Nitrite Negative Ur Leukocyte Esterase Trace H Urine RBC 3-5 H Urine WBC 6-10 H Ur Squamous Epith Cells 3-5 Urine Bacteria None Seen Hyaline Casts >20 Urine Osmolality 392 Ur Random Sodium < 20.0 Urine Creatinine 401.76 Assessment and Plan (1) LYSSA (acute kidney injury): Status: Acute (2) Vomiting: Qualifiers: Nausea presence: with nausea Vomiting type: unspecified Qualified Code(s): R11.2 - Nausea with vomiting, unspecified Status: Acute Plan This is a 33-year-old male with pertinent history of HIV on HAART, undetectable viral load, history of recurrent hospitalizations with cannabinoid hyperemesis syndrome who presents to the emergency department for evaluation of nausea and vomiting. #. Cannabinoid hyperemesis syndrome: Will continue IV crystalloid resuscitation. Clear liquid diet and advance as tolerated. Administering dopamine antagonist and will try topical capsaicin. Symptomatic treatment with antiemetics #. Acute kidney injury stage III in the setting of above: Monitor creatinine and urine output with crystalloid resuscitation. Avoid nephrotoxins #. Reactive leukocytosis #. HIV: Continue Dovato DVT prophylaxis: Lovenox Full code Admit as inpatient and will require two night minimum hospital stay for monitoring of kidney function (as above), which is not possible in a lesser acute setting. Quality Stroke Does the patient have a stroke diagnosis?: No VTE Prior VTE?: No VTE Risk Level:: Medical - moderate - high VTE Device Contraindication: Treatment Not Indicated VTE Drug Contraindication: N/A - Med Ordered
[2024-04-27] MEDS: droPERidol 5 MG/2 ML VIAL 1.25 MG IVPUSH (21:18)
[2024-04-27] MEDS: Enoxaparin Sodium 30 MG/0.3 ML SYRINGE SUBCUT (21:18)
[2024-04-27] MEDS: Lactated Ringers 1,000 ML 125 ML IVCONT (21:31)
[2024-04-27] MEDS: Prochlorperazine Edisylate 10 MG/2 ML VIAL IVPUSH (21:59)
[2024-04-27] MEDS: diphenhydrAMINE HCL 50 MG/ML VIAL 25 MG IVPUSH (21:59)
--- NOTE | 2024-04-27 22:07 | PC.NURSE ---
pt still vomiting, pt medicated per MAR
[2024-04-28] VITALS (7 sets, daily range): BP systolic 98–144; BP diastolic 58–83; PULSE 64–94; RESP 16–20; TEMP 36.6–37.3; O2SAT 95–99
[2024-04-28 06:35] LABS: MANUAL DIFF FLAG NO
[2024-04-28 06:52] LABS: Basophils Percent Auto 0.2 % (0-2); Eosinophils Percent Auto 0.1 % (0-4); Hematocrit 35.6 % (42.0-52.0); Hemoglobin 12.1 g/dl (14.0-18.0); Imm Gran Abs Auto 0.05 X10*3/uL (0.00-0.03); Imm Gran Pct Auto 0.3 % (0.0-0.4); Lymphocytes Absolute Auto 3.8 X10*3/uL (1.2-4.9); Mean Corpuscular Hemoglobin 29.6 pg (27.0-33.0); Mean Platelet Volume 10.8 fL (9.4-12.4); Monocytes Absolute Auto 1.4 X10*3/uL (0.1-1.2); Monocytes Percent Auto 9.2 % (2-11); Neutrophils Absolute Auto 9.4 x10*3/uL (2.0-8.3); Neutrophils Percent Auto 64.2 % (45-73); Platelet Count 247 X10*3/uL (160-400); Red Blood Count 4.09 X10*6/uL (4.60-5.80); White Blood Count 14.6 X10*3/uL (4.8-10.8)
[2024-04-28 06:59] LABS: Anion Gap 14 (12-20); Carbon Dioxide 27 mmol/L (22-29); Chloride 108 mmol/L (96-108); Glucose Random 92 mg/dL (60-115); Potassium 3.6 mmol/L (3.3-5.1); Sodium 145 mmol/L (135-145)
[2024-04-28 07:17] LABS: Blood Urea Nitrogen 36 mg/dL (9-16); Calcium 9.3 mg/dL (8.4-10.2); Creatinine Clr Calc Pharmacy 45.2; Estimated Glomerular Filt Rate 44
[2024-04-28] MEDS: Lactated Ringers 1,000 ML 125 ML IVCONT ×2 (07:40→16:43)
[2024-04-28] MEDS: ondansetron HCL 4 MG/2 ML VIAL IVPUSH (07:53)
[2024-04-28] MEDS: 0.9 % Sodium Chloride Flush 3 ML SYRINGE IVFLUSH ×2 (09:08→21:39)
[2024-04-28] MEDS: Metoclopramide HCl 10 MG/2 ML VIAL 5 MG IVPUSH (09:08)
[2024-04-28] MEDS: lamiVUDine 150 MG TABLET 300 MG PO (09:09)
[2024-04-28] MEDS: Dolutegravir Sodium 50 MG TABLET PO (09:09)
--- NOTE | 2024-04-28 11:13 | P.PNIM_ITS ---
Subjective Subjective Date of Service: 04/28/24 Interval History: not tolerating much clear liquid but overall feels better and SCr improved hot showers and hot packs relieve the abd pain Review of Systems Review of Systems: Yes all other systems are reviewed and are negative Physical Exam 2 Vital Signs: Vital Signs: Last Vital Signs Temp 99.1 F 04/28/24 07:55 Pulse 84 04/28/24 07:55 Resp 20 04/28/24 07:55 BP 127/68 04/28/24 07:55 Pulse Ox 95 04/28/24 07:55 O2 Del Method Room Air 04/28/24 07:55 BMI result Body Mass Index 19.4 Gen: in no acute distress HEENT: sclera anicteric, moist mucus membranes Neck: supple Lungs: clear to auscultation bilaterally Heart: regular rate and rhythm, no murmurs Abd: soft, non-tender, non-distended Ext: no edema Skin: warm/well-perfused Neuro: alert and oriented x3, no focal findings Psych: appropriate affect Objective Data Active Medications Acetaminophen (Acetaminophen 325 Mg Tablet) 650 mg PO Q6H PRN PRN Reason: Pain, Mild (Pain Scale 1-3), fever or headache Calcium Carbonate (Calcium Carbonate 750 Mg Tab.Chew) 750 mg PO Q4H PRN PRN Reason: Heartburn Capsaicin (Capsaicin 0.025% Cream 60 Gm Tube) 1 appl TOPICAL QID [facility]; Protocol Last Admin: 04/28/24 09:12 Dose: Not Given Documented By: JONATHAN Non-Admin Reason: Med Not Available Dolutegravir Sodium (Dolutegravir Sodium 50 Mg Tablet) 50 mg PO DAILY [facility] Last Admin: 04/28/24 09:09 Dose: 50 mg Documented By: JONATHAN Enoxaparin Sodium (Enoxaparin Sodium 40 Mg/0.4 Ml Syringe) 40 mg SUBCUT Q24H [facility] Lactated Ringer's (Lr) 1,000 mls @ 125 mls/hr IVCONT .Q8H [facility] Last Admin: 04/28/24 07:40 Dose: 125 mls/hr Documented By: JONATHAN Lamivudine (Lamivudine 150 Mg Tablet) 300 mg PO DAILY [facility] Last Admin: 04/28/24 09:09 Dose: 300 mg Documented By: JONATHAN Magnesium Hydroxide (Milk Of Magnesia 30 Ml Oral.Susp) 30 ml PO DAILY PRN PRN Reason: Constipation Melatonin (Melatonin 3 Mg Tablet) 6 mg PO BEDTIME PRN PRN Reason: Insomnia Metoclopramide HCl (Metoclopramide Hcl 10 Mg/2 Ml Vial) 5 mg IVPUSH Q6H PRN PRN Reason: n/v unrelievd by charlene Last Admin: 04/28/24 09:08 Dose: 5 mg Documented By: JONATHAN Ondansetron HCl (Ondansetron Hcl 4 Mg/2 Ml Vial) 4 mg IVPUSH Q8H PRN PRN Reason: Nausea and Vomiting Last Admin: 04/28/24 07:53 Dose: 4 mg Documented By: JONATHAN Sodium Chloride (0.9 % Sodium Chloride Flush 3 Ml Syringe) 3 ml IVFLUSH QSHIFT [facility] Last Admin: 04/28/24 09:08 Dose: 3 ml Documented By: JONATHAN Labs 04/28/24 06:27 04/28/24 06:27 Labs: Laboratory Results - last 24 hr 04/27/24 04/27/24 04/28/24 16:21 19:28 06:27 MCV 85.3 87.0 MCH 29.7 29.6 MCHC 34.9 34.0 RDW 13.9 14.0 Plt Count 323 D 247 MPV 10.7 10.8 Immature Gran % (Auto) 0.4 0.3 Neut % (Auto) 73.1 H 64.2 Lymph % (Auto) 16.3 L 26.0 [place] % (Auto) 9.7 9.2 Eos % (Auto) 0.1 0.1 Baso % (Auto) 0.4 0.2 Lymph # (Auto) 2.3 3.8 [place] # (Auto) 1.4 H 1.4 H Eos # (Auto) 0.0 0.0 Baso # (Auto) 0.1 0.0 Abs Immat Gran (auto) 0.06 H 0.05 H Absolute Neuts (auto) 10.3 H 9.4 H Absolute Nucleated RBC 0.000 0.000 Nucleated RBC % (auto) 0.0 0.0 Anion Gap 25 H 14 Estim Creat Clear Calc 15.2 45.2 Estimated GFR 13 44 Random Glucose 113 92 Calcium 11.7 H D 9.3 D Magnesium 2.3 Total Bilirubin 0.8 AST 26 ALT 14 Alkaline Phosphatase 73 Total Creatine Kinase 729 H Total Protein 10.3 H Albumin 6.2 H Urine Color Dark Yellow Urine Appearance Turbid Urine pH 5.0 Ur Specific [place] 1.025 Urine Protein 100 (2+) H Urine Glucose (UA) 100 H Urine Ketones Trace Urine Blood Small (1+) H Urine Nitrite Negative Ur Leukocyte Esterase Trace H Urine RBC 3-5 H Urine WBC 6-10 H Ur Squamous Epith Cells 3-5 Urine Bacteria None Seen Hyaline Casts >20 Urine Osmolality 392 Ur Random Sodium < 20.0 Urine Creatinine 401.76 Assessment and Plan (1) LYSSA (acute kidney injury): Status: Acute Assessment and Plan: d2 33yo M with well-controlled HIV on Dovato, multiple hospitalizations for CHS presenting with N/V and admitted for LYSSA prerenal LYSSA - improving with IV fluid hydration, recheck BMP in AM CHS - continue IV fluids, clear liquid diet/ADAT, prn Zofran/Reglan, topical capsaicin; counseled to avoid THC leukocytosis - likely reactive; no evidence of acute infection HIV - continue Dovato VTE ppx - LMWH dispo - home when taking POs In my clinical judgment, the patient requires continued inpatient hospitalization for the following reasons: LYSSA, PO intolerance Total time managing care of this patient today: 35 minutes. Quality Stroke Does the patient have a stroke diagnosis?: No VTE Prior VTE?: No VTE Risk Level:: Medical - moderate - high VTE Device Contraindication: Treatment Not Indicated VTE Drug Contraindication: N/A - Med Ordered
[2024-04-28] MEDS: Capsaicin 0.025% Cream 60 GM TUBE 1 APPL TOPICAL ×3 (12:38→21:39)
[2024-04-28] MEDS: Enoxaparin Sodium 40 MG/0.4 ML SYRINGE SUBCUT (21:39)
[2024-04-28] MEDS: Melatonin 3 MG TABLET 6 MG PO (21:39)
[2024-04-28] MEDS: Calcium Carbonate 750 MG TAB.CHEW PO (21:39)
[2024-04-29 04:00] VITALS: BP 106/64; PULSE 66; RESP 18; TEMP 36.3; O2SAT 99
[2024-04-29] MEDS: Lactated Ringers 1,000 ML 125 ML IVCONT (05:53)
[2024-04-29] MEDS: ondansetron HCL 4 MG/2 ML VIAL IVPUSH (05:53)
[2024-04-29 07:05] LABS: Hematocrit 37.9 % (42.0-52.0); Hemoglobin 12.6 g/dl (14.0-18.0); Mean Corpuscular HGB Conc 33.2 g/dl (31.0-36.0); Mean Corpuscular Volume 90.2 fL (80.0-98.0); Platelet Count 241 X10*3/uL (160-400); Red Cell Distribution Width 14.3 % (11.0-16.0); White Blood Count 9.4 X10*3/uL (4.8-10.8)
[2024-04-29 07:15] LABS: Anion Gap 12 (12-20); Blood Urea Nitrogen 18 mg/dL (9-16); Calcium 9.6 mg/dL (8.4-10.2); Carbon Dioxide 29 mmol/L (22-29); Chloride 103 mmol/L (96-108); Creatinine Clr Calc Pharmacy 84.3; Estimated Glomerular Filt Rate > 60; Glucose Random 91 mg/dL (60-115); Potassium 3.6 mmol/L (3.3-5.1); Sodium 140 mmol/L (135-145)
[2024-04-29 07:39] VITALS: BP 121/76; PULSE 54; RESP 18; TEMP 36.2; O2SAT 98
--- NOTE | 2024-04-29 08:39 | PM.DS ---
DS: Providers Provider Date of Service: 04/29/24 Date of admission: 04/27/24 20:40 Date of discharge: 04/29/24 [facility] DS: Diagnosis Discharge Diagnosis (1) LYSSA (acute kidney injury): Status: Acute (2) Cannabinoid hyperemesis syndrome: Status: Acute DS: Summary Hospital Course Hospital Course: From the history and physical by the admitting hospitalist, Chi Wang MD, 04/27/24: This is a 33-year-old male with pertinent history of HIV on HAART, undetectable viral load, history of recurrent hospitalizations with cannabinoid hyperemesis syndrome who presents to the emergency department for evaluation of nausea and vomiting. Patient states the symptoms started 2 days prior to presentation. He has been having multiple episodes of nonbloody vomiting. No abdominal discomfort. Patient states he is unable to tolerate p.o. intake due to nausea and vomiting. He gets very defensive and angry when asked about marijuana usage. Patient admits that he smoking marijuana and is trying to cut down on marijuana use. Patient thinks that it started when he ate [place] food on Tuesday. Patient attributes his previous admissions of cyclical vomiting to full and not marijuana use. Denies any abdominal discomfort, fever, chills, chest discomfort, palpitations, shortness of breath, changes in urinary habits or bowel habits. He denies cocaine use and states 1 time his marijuana was laced with cocaine and he never actively uses cocaine. In the emergency department, patient's creatinine was found to be elevated [to 5.52] 33yo M with well-controlled HIV on Dovato, multiple hospitalizations for CHS presenting with N/V and admitted for LYSSA likely due to CHS. He was treated with clear liquid diet and aggressive isotonic IV fluid resuscitation with complete normalization of creatinine. His symptoms resolved and his diet was advanced to regular solids. He was counseled to avoid cannabis entirely. He was prescribed ondansetron for relief of nause and topical capsaicin for relief of abdominal pain. He should follow-up with his primary care doctor in 1-2 weeks. Time Attestation Discharge Coordination Time (in mins): 35 Quality: Safe Use of Opioids Does Pt have an Active Cancer Diagnosis on the Problem List?: No Quality: Stroke Does the patient have a stroke diagnosis?: No Physical Exam Vital Signs: Vital Signs: Last Vital Signs Temp 97.2 F 04/29/24 07:39 Pulse 54 04/29/24 07:39 Resp 18 04/29/24 07:39 BP 121/76 04/29/24 07:39 Pulse Ox 98 04/29/24 07:39 O2 Del Method Room Air 04/29/24 07:39 BMI result Body Mass Index 19.4 Gen: in no acute distress HEENT: sclera anicteric, moist mucus membranes Neck: supple Lungs: clear to auscultation bilaterally Heart: regular rate and rhythm, no murmurs Abd: soft, non-tender, non-distended Ext: no edema Skin: warm/well-perfused Neuro: alert and oriented x3, no focal findings Psych: appropriate affect DS: Data Data Completed and Pending Completed studies during hospitalization [Text1]: Laboratory Results WBC 9.4 X10*3/uL (4.8-10.8) 04/29/24 06:34 RBC 4.20 X10*6/uL (4.60-5.80) L 04/29/24 06:34 Hgb 12.6 g/dl (14.0-18.0) L 04/29/24 06:34 Hct 37.9 % (42.0-52.0) L 04/29/24 06:34 MCV 90.2 fL (80.0-98.0) 04/29/24 06:34 MCH 30.0 pg (27.0-33.0) 04/29/24 06:34 MCHC 33.2 g/dl (31.0-36.0) 04/29/24 06:34 RDW 14.3 % (11.0-16.0) 04/29/24 06:34 Plt Count 241 X10*3/uL (160-400) 04/29/24 06:34 MPV 11.0 fL (9.4-12.4) 04/29/24 06:34 Immature Gran % (Auto) 0.3 % (0.0-0.4) 04/28/24 06:27 Neut % (Auto) 64.2 % (45-73) 04/28/24 06:27 Lymph % (Auto) 26.0 % (20-40) 04/28/24 06:27 [place] % (Auto) 9.2 % (2-11) 04/28/24 06:27 Eos % (Auto) 0.1 % (0-4) 04/28/24 06:27 Baso % (Auto) 0.2 % (0-2) 04/28/24 06:27 Lymph # (Auto) 3.8 X10*3/uL (1.2-4.9) 04/28/24 06:27 [place] # (Auto) 1.4 X10*3/uL (0.1-1.2) H 04/28/24 06:27 Eos # (Auto) 0.0 X10*3/uL (0.0-0.4) 04/28/24 06:27 Baso # (Auto) 0.0 X10*3/uL (0.0-0.2) 04/28/24 06:27 Abs Immat Gran (auto) 0.05 X10*3/uL (0.00-0.03) H 04/28/24 06:27 Absolute Neuts (auto) 9.4 x10*3/uL (2.0-8.3) H 04/28/24 06:27 Absolute Nucleated RBC 0.000 X10*3/uL (0.0-0.012) 04/29/24 06:34 Nucleated RBC % (auto) 0.0 /100WBC (0.0-0.2) 04/29/24 06:34 Sodium 140 mmol/L (135-145) 04/29/24 06:34 Potassium 3.6 mmol/L (3.3-5.1) 04/29/24 06:34 Chloride 103 mmol/L (96-108) 04/29/24 06:34 Carbon Dioxide 29 mmol/L (22-29) 04/29/24 06:34 Anion Gap 12 (12-20) 04/29/24 06:34 BUN 18 mg/dL (9-16) H 04/29/24 06:34 Creatinine 0.95 mg/dL (0.5-1.4) 04/29/24 06:34 Estim Creat Clear Calc 84.3 04/29/24 06:34 Estimated GFR > 60 04/29/24 06:34 Random Glucose 91 mg/dL (60-115) 04/29/24 06:34 Calcium 9.6 mg/dL (8.4-10.2) 04/29/24 06:34 Magnesium 2.3 mg/dL (1.6-2.6) 04/27/24 16:21 Total Bilirubin 0.8 mg/dL (0.0-1.0) 04/27/24 16:21 AST 26 U/L (5-37) 04/27/24 16:21 ALT 14 U/L (0-40) 04/27/24 16:21 Alkaline Phosphatase 73 U/L (39-117) 04/27/24 16:21 Total Creatine Kinase 729 U/L (38-174) H 04/27/24 16:21 Total Protein 10.3 g/dL (6.5-8.0) H 04/27/24 16:21 Albumin 6.2 g/dL (3.5-5.0) H 04/27/24 16:21 Urine Color Dark Yellow 04/27/24 19:28 Urine Appearance Turbid 04/27/24 19:28 Urine pH 5.0 (5.0-9.0) 04/27/24 19:28 Ur Specific [place] 1.025 (1.005-1.025) 04/27/24 19:28 Urine Protein 100 (2+) mg/dL (Neg-Trace) H 04/27/24 19:28 Urine Glucose (UA) 100 mg/dL (Negative) H 04/27/24 19:28 Urine Ketones Trace mg/dL (Negative) 04/27/24 19:28 Urine Blood Small (1+) (Negative) H 04/27/24 19:28 Urine Nitrite Negative (Negative) 04/27/24 19:28 Ur Leukocyte Esterase Trace (Negative) H 04/27/24 19:28 Urine RBC 3-5 /HPF (0-2) H 04/27/24 19:28 Urine WBC 6-10 /HPF (0-5) H 04/27/24 19:28 Ur Squamous Epith Cells 3-5 /HPF (0-2) 04/27/24 19:28 Urine Bacteria None Seen (None Seen) 04/27/24 19:28 Hyaline Casts >20 /LPF (0-2) 04/27/24 19:28 Urine Osmolality 392 mosm/kg (373-1093) 04/27/24 19:28 Ur Random Sodium < 20.0 mmol/L 04/27/24 19:28 Urine Creatinine 401.76 mg/dL 04/27/24 19:28 Discharge Plan Discharge Anticipated Discharge Date/Time: 04/29/24 08:37 Patient Disposition: Home, Self-Care Discharge Diagnosis: acute kidney injury from cannabinoid hyperemesis syndrome Referrals: Raúl Mcclain FNP-BC [Primary Care Provider] - 1 Week Discharge Medications: New capsaicin 0.025 % Cream 1 appl topical QID PRN (Reason: Abdominal Pain) Qty: 120 0RF Protocol: Apply to: Apply to: abdomen Continued Dovato 50-300 mg Tablet 1 tab PO DAILY ondansetron 4 mg tablet,disintegrating 4 mg PO Q8H PRN (Reason: nausea and vomiting) Qty: 20 0RF Discharge Orders: Discharge Order (Routine); Ordered 04/29/24 Ordered By: Ifeoma Alberts Diet: Advance to usual diet Activity on Discharge: As tolerated Stand Alone Forms: Patient Portal Discharge page Print Language: Welsh Care Plan Goals: relief of nausea/vomiting Health Concerns: acute kidney injury from cannabinoid hyperemesis syndrome Plan of Treatment: avoid cannabis use ondansetron as needed for nausea use capsaicin cream as needed for abdominal pain Please follow up with your primary care doctor within 1 week. Return to the hospital if you experience recurrent or worsening symptoms. Assessment: See Discharge Summary.
[2024-04-29] MEDS: Metoclopramide HCl 10 MG/2 ML VIAL 5 MG IVPUSH (08:54)
[2024-04-29] MEDS: Dolutegravir Sodium 50 MG TABLET PO (08:54)
[2024-04-29] MEDS: lamiVUDine 150 MG TABLET 300 MG PO (08:54)
[2024-04-29] MEDS: 0.9 % Sodium Chloride Flush 3 ML SYRINGE IVFLUSH (08:54)
== END 2024-04-29 09:06 | disposition home or self-care (01) | DRG 469 ==
LOC: HO.ED 19:47 → HO.EDOVER 20:45 → HO.IMC 04-28 01:19
PROVIDERS: Physician Assistant; Admitting Provider Student in an Organized Health Care Education/Training Program; Emergency Provider Emergency Medicine; PCP Nurse Practitioner Family; Visit Provider Family Medicine
DX: N17.9 Acute kidney failure, unspecified (principal); E86.0 Dehydration; R11.2 Nausea with vomiting, unspecified; K21.9 Gastro-esophageal reflux disease without esophagitis; F12.90 Cannabis use, unspecified, uncomplicated; F17.210 Nicotine dependence, cigarettes, uncomplicated; M79.7 Fibromyalgia; Z21 Asymptomatic human immunodeficiency virus [HIV] infection status; Z71.6 Tobacco abuse counseling; Z79.899 Other long term (current) drug therapy
CPT/HCPCS: 36415; 80048; 80053; 81001; 82550; 82570; 83735; 83935; 84300; 85025; 85027; 87086; 99285; J0737; J1200; J1650; J1790; J2405; J2765; J7120

== ENCOUNTER → 2024-04-27 20:40 | Outpatient (BNV) | payer BC, SELFPAY | PROVIDERS: Admitting Provider Student in an Organized Health Care Education/Training Program; Emergency Provider Emergency Medicine; PCP Nurse Practitioner Family; Visit Provider Student in an Organized Health Care Education/Training Program | DX: N17.9 Acute kidney failure, unspecified (principal); R11.2 Nausea with vomiting, unspecified; F12.90 Cannabis use, unspecified, uncomplicated | CPT/HCPCS: 99223; 99232; 99239 ==

== ENCOUNTER 2024-04-29 10:47 | Emergency (ER) | payer BC, SELFPAY ==
[2024-04-29 10:53] VITALS: BP 123/70; BP 133/70; PULSE 76; PULSE 80; RESP 16; TEMP 36.7; O2SAT 98; BMI 19.7
[2024-04-29 11:03] VITALS: BP 133/70; PULSE 76; RESP 16; TEMP 36.7
--- NOTE | 2024-04-29 11:12 | ED_ITS ---
HPI - Nausea/Vomiting/Diarrhea General Chief complaint: Nausea/Vomiting/Diarrhea Stated complaint: NAUSEA VOMITING Time Seen by Provider: 04/29/24 11:00 Source: patient Limitations: no limitations History of Present Illness HPI Narrative: This is a 33 years old the patient presented to the emergency room with a chief complaint of nausea vomiting, he was discharged about an hour ago from the hospitalist service went home started vomiting again. He has history of cannabinoids hyperemesis syndrome, he has history of HIV MD elicited complaint: nausea and vomiting Onset (ago): hour(s) (1) Description of vomiting: watery Description of diarrhea: watery Location of pain: none Related Data Home Medications ?Medication ?Instructions ?Recorded ?Confirmed dolutegravir 50 mg-lamivudine 300 1 tab PO DAILY 09/02/20 04/27/24 mg tablet (Dovato) Previous Rx's ?Medication ?Instructions ?Recorded capsaicin 0.025 % topical cream 1 appl topical QID PRN Abdominal 04/29/24 Pain #120 grams ondansetron 4 mg disintegrating 4 mg PO Q8H PRN nausea and 04/29/24 tablet vomiting #20 tabs Allergies Allergy/AdvReac Type Severity Reaction Status Date / Time No Known Allergies Allergy Verified 04/29/24 10:55 Review of Systems 2 Gastrointestinal: Gastrointestinal: Reports vomiting PMFSH Past Medical History Medical History HIV disease Acute renal failure Fibromyalgia HIV (human immunodeficiency virus infection) GERD (gastroesophageal reflux disease) Family History Family History Mother HIV (human immunodeficiency virus infection) Social History Social History Household Members: None Housing: Apartment Do you presently have visiting nurse or other home services: No Alcohol intake: former Patient Tobacco Use Status: Current everyday Tobacco user Tobacco use type: Cigarette Cigarettes Per Day: 10 e-Cigarette/Vaping Use: Never Used Second Hand Smoke Exposure: Yes Substance Use Type: Marijuana Advance Directives: Yes Advance Directives on File: Yes Advance Directives Date on File: 09/29/22 Do you have a plan to hurt others: No Plan service: No Current occupational status: employed Physical Exam 2 Vital Signs: Vital Signs: Last Vital Signs Temp 97.7 F 04/29/24 15:16 Pulse 68 04/29/24 15:16 Resp 14 04/29/24 15:16 BP 134/75 04/29/24 15:16 Pulse Ox 99 04/29/24 15:16 O2 Del Method Room Air 04/29/24 15:16 BMI result Body Mass Index 19.7 Const: Other: Awake alert General: cooperative Orientation/consciousness: patient oriented x3 HEENT: Head: Yes normal to inspection General nose exam: Normal external nose present Face and sinus: Yes normal facial exam Mouth: Normal oral and palatal mucosa present Throat: Yes posterior oropharynx normal Neck: Neck: Yes normal visual inspection Resp: Effort & Inspection: normal respiratory effort Auscultation: clear to auscultation bilaterally Cardio: Jugular venous distension: no JVD Rate: regular rate Rhythm: r egular rhythm GI: Inspection: Yes normal to inspection Palpation (GI): Soft to palpation, not firm and nontender Skin: General skin exam: no rashes or lesions noted and elasticity normal L esions: no lesions Rashes: no rashes Neuro: General: patient oriented x3 Course Reevaluation(s) Reevaluation #1: Signed out to Dr Montoya Time: 16:40 Medications Administered Discontinued Medications Generic Name Dose Route Start Last Admin Trade Name Errolq PRN Reason Stop Dose Admin Diphenhydramine HCl 25 mg 04/29/24 12:30 04/29/24 12:57 Diphenhydramine Hcl 50 Mg/Ml Vial IVPUSH 04/29/24 12:31 25 mg ONCE ONE Administration Droperidol 1.25 mg 04/29/24 12:24 04/29/24 12:56 Droperidol 5 Mg/2 Ml Vial IM 04/29/24 12:25 1.25 mg ONCE ONE Administration Sodium Chloride 1,000 mls @ 999 mls/hr 04/29/24 11:15 04/29/24 15:16 Ns IVCONT 04/29/24 12:15 Infused .Q1H1M WAYNE Infusion Sodium Chloride 1,000 mls @ 999 mls/hr 04/29/24 12:30 04/29/24 15:16 Ns IVCONT 04/29/24 13:30 999 mls/hr .Q1H1M WAYNE Administration Ondansetron HCl 4 mg 04/29/24 11:10 04/29/24 11:38 Ondansetron Hcl 4 Mg/2 Ml Vial IVPUSH 04/29/24 11:11 4 mg ONCE ONE Administration Medical Decision Making Medical Decision Making [facility] Narrative: he presented with nausea vomiting just discharged this morning we will check electrolytes administer IV fluid administer antiemetic Differential Diagnosis Differential Diagnoses: The differential diagnosis associated with the presentation includes Dehydration/LYSSA/gastroenteritis Lab Data [facility] Lab Attestation statement: I reviewed the patient's lab results. 04/29/24 11:26 04/29/24 11:26 Labs: Lab Results 04/29/24 04/29/24 Range/Units 11:26 16:02 WBC 8.4 (4.8-10.8) X10*3/uL RBC 4.17 L (4.60-5.80) X10*6/uL Hgb 12.6 L (14.0-18.0) g/dl Hct 36.5 L (42.0-52.0) % MCV 87.5 (80.0-98.0) fL MCH 30.2 (27.0-33.0) pg MCHC 34.5 (31.0-36.0) g/dl RDW 13.9 (11.0-16.0) % Plt Count 229 (160-400) X10*3/uL MPV 10.3 (9.4-12.4) fL Immature Gran % (Auto) 0.2 (0.0-0.4) % Neut % (Auto) 61.5 (45-73) % Lymph % (Auto) 28.8 (20-40) % [place] % (Auto) 8.8 (2-11) % Eos % (Auto) 0.1 (0-4) % Baso % (Auto) 0.6 (0-2) % Lymph # (Auto) 2.4 (1.2-4.9) X10*3/uL [place] # (Auto) 0.7 (0.1-1.2) X10*3/uL Eos # (Auto) 0.0 (0.0-0.4) X10*3/uL Baso # (Auto) 0.1 (0.0-0.2) X10*3/uL Abs Immat Gran (auto) 0.02 (0.00-0.03) X10*3/uL Absolute Neuts (auto) 5.2 (2.0-8.3) x10*3/uL Absolute Nucleated RBC 0.000 (0.0-0.012) X10*3/uL Nucleated RBC % (auto) 0.0 (0.0-0.2) /100WBC Sodium 141 (135-145) mmol/L Potassium 3.2 L (3.3-5.1) mmol/L Chloride 105 (96-108) mmol/L Carbon Dioxide 24 (22-29) mmol/L Anion Gap 15 (12-20) BUN 18 H (9-16) mg/dL Creatinine 0.94 (0.5-1.4) mg/dL Estim Creat Clear Calc 86.6 Estimated GFR > 60 Random Glucose 110 (60-115) mg/dL Calcium 9.9 (8.4-10.2) mg/dL Total Bilirubin 0.9 (0.0-1.0) mg/dL AST 21 (5-37) U/L ALT 11 (0-40) U/L Alkaline Phosphatase 50 (39-117) U/L Total Protein 7.1 (6.5-8.0) g/dL Albumin 4.6 (3.5-5.0) g/dL Lipase 31 (8-78) U/L Urine Color Yellow Urine Appearance Clear Urine pH >= 9.0 (5.0-9.0) Ur Specific [place] 1.025 (1.005-1.025) Urine Protein 100 (2+) H (Neg-Trace) mg/dL Urine Glucose (UA) 250 H (Negative) mg/dL Urine Ketones 40 (Negative) mg/dL Urine Blood Negative (Negative) Urine Nitrite Negative (Negative) Ur Leukocyte Esterase Negative (Negative) Urine RBC 0-2 (0-2) /HPF Urine WBC 0-5 (0-5) /HPF Ur Squamous Epith Cells 0-2 (0-2) /HPF Urine Bacteria None Seen (None Seen) Hyaline Casts 0-2 (0-2) /LPF Discharge Plan Discharge Clinical Impression: Vomiting Patient Disposition: Still a Patient Prescriptions: No Action Dovato 50-300 mg Tablet 1 tab PO DAILY capsaicin 0.025 % Cream 1 appl topical QID PRN (Reason: Abdominal Pain) Qty: 120 0RF Protocol: Apply to: Apply to: abdomen ondansetron 4 mg tablet,disintegrating 4 mg PO Q8H PRN (Reason: nausea and vomiting) Qty: 20 0RF Print Language: Sami
[2024-04-29 11:38] LABS: MANUAL DIFF FLAG NO
[2024-04-29] MEDS: ondansetron HCL 4 MG/2 ML VIAL IVPUSH (11:38)
[2024-04-29] MEDS: 0.9 % Sodium Chloride 1,000 ML 999 ML IVCONT ×2 (11:38→15:16)
[2024-04-29 11:39] LABS: Basophils Absolute Auto 0.1 X10*3/uL (0.0-0.2); Basophils Percent Auto 0.6 % (0-2); Eosinophils Percent Auto 0.1 % (0-4); Hematocrit 36.5 % (42.0-52.0); Hemoglobin 12.6 g/dl (14.0-18.0); Imm Gran Abs Auto 0.02 X10*3/uL (0.00-0.03); Imm Gran Pct Auto 0.2 % (0.0-0.4); Lymphocytes Absolute Auto 2.4 X10*3/uL (1.2-4.9); Lymphocytes Percent Auto 28.8 % (20-40); Mean Corpuscular HGB Conc 34.5 g/dl (31.0-36.0); Mean Corpuscular Hemoglobin 30.2 pg (27.0-33.0); Mean Corpuscular Volume 87.5 fL (80.0-98.0); Mean Platelet Volume 10.3 fL (9.4-12.4); Monocytes Absolute Auto 0.7 X10*3/uL (0.1-1.2); Monocytes Percent Auto 8.8 % (2-11); Neutrophils Absolute Auto 5.2 x10*3/uL (2.0-8.3); Neutrophils Percent Auto 61.5 % (45-73); Platelet Count 229 X10*3/uL (160-400); Red Blood Count 4.17 X10*6/uL (4.60-5.80); Red Cell Distribution Width 13.9 % (11.0-16.0); White Blood Count 8.4 X10*3/uL (4.8-10.8)
[2024-04-29 11:52] LABS: Alanine Aminotransferase 11 U/L (0-40); Albumin Level 4.6 g/dL (3.5-5.0); Alkaline Phosphatase 50 U/L (39-117); Anion Gap 15 (12-20); Aspartate Amino Transferase 21 U/L (5-37); Bilirubin Total 0.9 mg/dL (0.0-1.0); Blood Urea Nitrogen 18 mg/dL (9-16); Calcium 9.9 mg/dL (8.4-10.2); Carbon Dioxide 24 mmol/L (22-29); Chloride 105 mmol/L (96-108); Creatinine Clr Calc Pharmacy 86.6; Estimated Glomerular Filt Rate > 60; Glucose Random 110 mg/dL (60-115); Lipase 31 U/L (8-78); Potassium 3.2 mmol/L (3.3-5.1); Sodium 141 mmol/L (135-145); Total Protein 7.1 g/dL (6.5-8.0)
[2024-04-29 12:54] VITALS: BP 132/56; PULSE 66; RESP 18; TEMP 36.5
[2024-04-29] MEDS: droPERidol 5 MG/2 ML VIAL 1.25 MG IM (12:56)
[2024-04-29] MEDS: diphenhydrAMINE HCL 50 MG/ML VIAL 25 MG IVPUSH (12:57)
[2024-04-29 15:16] VITALS: BP 134/75; PULSE 68; RESP 14; TEMP 36.5; O2SAT 99
[2024-04-29 16:09] LABS: Appearance Urine Clear; Color Urine Yellow; Glucose Urine UA 250 mg/dL (Negative); Leukocyte Esterase Urine Negative (Negative); Nitrite Urine Negative (Negative); PH >= 9.0 (5.0-9.0); Specific Gravity - Urine 1.025 (1.005-1.025); UMIC TRIGGER UACC YES; Urine Blood Negative (Negative); Urine Ketones 40 mg/dL (Negative); Urine Protein 100 (2+) mg/dL (Neg-Trace)
[2024-04-29 16:22] LABS: Bacteria Urine None Seen (None Seen); Hyaline Casts Urine 0-2 /LPF (0-2); RBC Urine 0-2 /HPF (0-2); Squamous Epithelial Cell Urine 0-2 /HPF (0-2); WBC Urine 0-5 /HPF (0-5)
[2024-04-29 17:43] VITALS: BP 134/75; PULSE 68; RESP 14; TEMP 36.5; O2SAT 99
== END 2024-04-29 17:44 | disposition home or self-care (01) ==
PROVIDERS: Emergency Medicine; Emergency Provider Emergency Medicine Emergency Medical Services; PCP Nurse Practitioner Family
DX: R11.2 Nausea with vomiting, unspecified (principal); B20 Human immunodeficiency virus [HIV] disease; K21.9 Gastro-esophageal reflux disease without esophagitis
CPT/HCPCS: 36415; 80053; 81001; 83690; 85025; 96361; 96372; 96374; 96375; 99284; J1200; J1790; J2405

== ENCOUNTER 2024-07-06 08:51 | Emergency (ER) | payer BC, SELFPAY ==
[2024-07-06 09:03] VITALS: BP 138/76; PULSE 87; RESP 20; TEMP 37.1; O2SAT 100
--- NOTE | 2024-07-06 09:04 | ED.NAVMDI ---
HPI - Nausea/Vomiting/Diarrhea General Chief complaint: Nausea/Vomiting/Diarrhea Stated complaint: n/v since last night Time Seen by Provider: 07/06/24 08:55 Source: patient, EMS, RN notes reviewed and old records reviewed Mode of arrival: EMS Limitations: no limitations History of Present Illness ED Provider: Rani Zimmerman PA-C HPI Narrative: 34 yo male with history of cannabinoid hyperemesis syndrome, HIV, GERD, since the ER for evaluation of nausea, recurrent vomiting and abdominal pain since 17:00 last night after eating questionable food. Patient reports several episodes of non bloody, nonbilious vomiting and diffuse abdominal pain. He endorses history of cyclical vomiting but has not smoked marijuana since last Tuesday. He denies any fever or chills. No known sick contacts. No urinary symptoms. MD elicited complaint: nausea, vomiting and abdominal pain Pertinent past history: cyclical vomiting Onset (ago): day(s) (1) Description of vomiting: food contents and watery Associated nausea: Yes Associated abdominal pain: Yes Location of pain: diffuse Severity: moderate Quality: cramping Exacerbating factors: eating Relieving factors: none Context: possible food poisoning Associated symptoms: loss of appetite, malaise and nausea/vomiting Treatment prior to arrival: fluids Related Data Home Medications ?Medication ?Instructions ?Recorded ?Confirmed dolutegravir 50 mg-lamivudine 300 1 tab PO DAILY 09/02/20 04/27/24 mg tablet (Dovato) Previous Rx's ?Medication ?Instructions ?Recorded capsaicin 0.025 % topical cream 1 appl topical QID PRN Abdominal 04/29/24 Pain #120 grams ondansetron 4 mg disintegrating 4 mg PO Q8H PRN nausea and 04/29/24 tablet vomiting #20 tabs Allergies Allergy/AdvReac Type Severity Reaction Status Date / Time No Known Allergies Allergy Verified 07/06/24 09:07 Review of Systems Review of Systems: Yes all other systems are reviewed and are negative Gastrointestinal: Gastrointestinal: Reports nausea PMFSH Past Medical History Medical History HIV disease Acute renal failure Fibromyalgia HIV (human immunodeficiency virus infection) GERD (gastroesophageal reflux disease) Family History Family History Mother HIV (human immunodeficiency virus infection) Social History Social History Household Members: None Housing: Apartment Do you presently have visiting nurse or other home services: No Alcohol intake: former Patient Tobacco Use Status: Current everyday Tobacco user Tobacco use type: Cigarette Cigarettes Per Day: 10 Smoked in Last 30 Days: No e-Cigarette/Vaping Use: Never Used Second Hand Smoke Exposure: Yes Use of substances other than those prescribed or required for medical reasons: Yes Substance Use Type: Marijuana Advance Directives: Yes Advance Directives on File: Yes Advance Directives Date on File: 09/29/22 service: No Current occupational status: employed Physical Exam Vital Signs: Vital Signs: Last Vital Signs Temp 99.1 F 07/06/24 11:55 Pulse 99 07/06/24 11:55 Resp 14 07/06/24 11:55 BP 114/65 07/06/24 11:55 Pulse Ox 99 07/06/24 11:55 O2 Del Method Room Air 07/06/24 11:55 BMI result Body Mass Index 20.7 Appearance: Alert. Oriented X3. Appears uncomfortable, diaphoretic, anxious Head: normocephalic, atraumatic. Eyes: Pupils equal, round and reactive to light. ENT: Poor dentition. Pharynx normal. No tonsillar swelling or exudate. Neck: Normal inspection. Neck supple. CVS: Normal heart rate and rhythm. Pulses normal. Respiratory: No respiratory distress. Breath sounds normal. Abdomen: Soft with periumbilical tenderness and guarding, no rebound. Hyperactive +BS x4 Skin: Skin warm and dry. Normal skin color. Normal skin turgor. No rashes. Extremities: No lower extremity edema. No joint swelling. Neuro/psych: Oriented X 3. No motor deficit. No sensory deficit. CN II-XII intact. Normal speech and cognition. Medications Administered Discontinued Medications Generic Name Dose Route Start Last Admin Trade Name Freq PRN Reason Stop Dose Admin Droperidol 1.25 mg 07/06/24 08:55 07/06/24 09:21 Droperidol 5 Mg/2 Ml Vial IVPUSH 07/06/24 08:56 1.25 mg ONCE ONE Administration Sodium Chloride 1,000 mls @ 999 mls/hr 07/06/24 09:00 07/06/24 10:36 Ns IVCONT 07/06/24 10:00 Infused .Q1H1M WAYNE Infusion Lactated Ringer's 1,000 mls @ 999 mls/hr 07/06/24 10:15 07/06/24 10:37 Lr IV 07/06/24 11:15 999 mls/hr .Q1H1M WAYNE Administration Medical Decision Making Medical Decision Making [facility] Narrative: 34-year-old male with a history of cannabinoid hyperemesis syndrome, history of recurrent acute kidney injuries due to this, requiring admission in the past who presents to the ER for evaluation nausea and vomiting since 05:00 yesterday after eating questionable food. He states the last time he smoked marijuana was last week. He is otherwise afebrile, not tachycardic. Patient was given IV fluids as well as droperidol with significant improvement in his symptoms. Other lab workup showed he does have an LYSSA with a BUN/creatinine 32/2.2 from a baseline of 18/0.94. This is a recurrent problem for him and he has had acute kidney injuries with creatinine up to 5 and 6 on several occasions requiring admission for aggressive IV hydration. He has been seen by Nephrology in the past. Will plan to treat with 2 L of IV fluids and repeat his renal function to ensure improvement. After 2 L IV fluid boluses and droperidol patient was feeling much better. He was tolerating p.o.. He remained hemodynamically stable. Tolerated the droperidol well. Attempted to get repeat blood work to ensure resolution of LYSSA however patient stated he did not want them, wanted to leave. He left the hospital against medical advice. Differential Diagnosis Differential Diagnoses: The differential diagnosis associated with the presentation includes Cyclical vomiting due to cannabinoids, pancreatitis, gastroenteritis, gastritis, GERD Admission/Observation Consideration of admission/observation: Escalation of care including admission/observation considered Lab Data [facility] Lab Attestation statement: I reviewed the patient's lab results. Leukocytosis, likely reactive, LYSSA which is recurrent, milder than usual 07/06/24 09:18 07/06/24 09:18 Labs: Lab Results 07/06/24 Range/Units 09:18 WBC 16.7 H (4.8-10.8) X10*3/uL RBC 5.04 D (4.60-5.80) X10*6/uL Hgb 15.1 (14.0-18.0) g/dl Hct 42.5 (42.0-52.0) % MCV 84.3 (80.0-98.0) fL MCH 30.0 (27.0-33.0) pg MCHC 35.5 (31.0-36.0) g/dl RDW 13.0 (11.0-16.0) % Plt Count 309 D (160-400) X10*3/uL MPV 10.8 (9.4-12.4) fL Immature Gran % (Auto) Cancelled Neut % (Auto) Cancelled Lymph % (Auto) Cancelled [place] % (Auto) Cancelled Eos % (Auto) Cancelled Baso % (Auto) Cancelled Lymph # (Auto) Cancelled [place] # (Auto) Cancelled Eos # (Auto) Cancelled Baso # (Auto) Cancelled Abs Immat Gran (auto) Cancelled Absolute Neuts (auto) Cancelled Absolute Nucleated RBC 0.000 (0.0-0.012) X10*3/uL Nucleated RBC % (auto) 0.0 (0.0-0.2) /100WBC Neutrophils % (Manual) 87 H (45-73) % Band Neutrophils % 0 L (3-5) % Lymphocytes % (Manual) 10 L (20-40) % Monocytes % (Manual) 3 (2-11) % Abs Neuts (Manual) 14.5 H (2.0-8.3) X10*3/uL Lymphocytes # (Manual) 1.7 (1.2-4.9) X10*3/uL Monocytes # (Manual) 0.5 (0.1-1.2) X10*3/uL Platelet Estimate NORMAL (NORMAL) Plt Morphology Comment NORMAL RBC Morphology NORMAL Sodium 140 (135-145) mmol/L Potassium 3.6 (3.3-5.1) mmol/L Chloride 100 (96-108) mmol/L Carbon Dioxide 21 L (22-29) mmol/L Anion Gap 23 H (12-20) BUN 31 H (9-16) mg/dL Creatinine 2.32 H (0.5-1.4) mg/dL Estim Creat Clear Calc 36.5 Estimated GFR 32 Random Glucose 137 H (60-115) mg/dL Calcium 11.7 H D (8.4-10.2) mg/dL Magnesium 1.9 (1.6-2.6) mg/dL Total Bilirubin 0.6 (0.0-1.0) mg/dL Direct Bilirubin 0.2 (0.0-0.5) mg/dL AST 19 (5-37) U/L ALT 13 (0-40) U/L Alkaline Phosphatase 70 (39-117) U/L Total Protein 9.3 H (6.5-8.0) g/dL Albumin 5.8 H (3.5-5.0) g/dL Lipase 12 (8-78) U/L Ethyl Alcohol < 10 mg/dL Independent Historian Clinical information obtained from an independent historian. History obtained from or confirmed by: EMS External Record Review External record reviewed: Inpatient record, Office record, Outpatient record, Prior outpatient labs and Prior outpatient radiology Tests considered The following testing was considered but not selected: Considered CT scan of his abd Prescription Management I considered prescription management with: Pain Medication, Antibiotic and Other (Antiemetics) Chronic Conditions Patient?s care impacted by: Other (HIV and cyclical vomiting) Social Determinants Patient?s care significantly limited by Social Determinants of Health including: Other Social Determinant of Health Critical Care Time Critical Care Time Critical Care Time: Yes Total Critical Care Time: 34 Attestation: I have personally provided critical care time exclusive of time spent on separately billable procedures. Time includes review of lab data, radiology results, etc. evaluation after medication administration, IV fluid bolus administration, and monitoring for potential decompensation. Intervention performed as documented. Discharge Plan Discharge Clinical Impression: Gastroenteritis, LYSSA (acute kidney injury) Patient Disposition: Left Against Medical Advice Prescriptions: No Action Dovato 50-300 mg Tablet 1 tab PO DAILY capsaicin 0.025 % Cream 1 appl topical QID PRN (Reason: Abdominal Pain) Qty: 120 0RF Protocol: Apply to: Apply to: abdomen ondansetron 4 mg tablet,disintegrating 4 mg PO Q8H PRN (Reason: nausea and vomiting) Qty: 20 0RF Print Language: Syriac
[2024-07-06 09:06] VITALS: BP 144/86; PULSE 87; O2SAT 100; BMI 20.7
[2024-07-06] MEDS: droPERidol 5 MG/2 ML VIAL 1.25 MG IVPUSH (09:21)
[2024-07-06] MEDS: 0.9 % Sodium Chloride 1,000 ML 999 ML IVCONT (09:21)
[2024-07-06 09:32] LABS: Hematocrit 42.5 % (42.0-52.0); Hemoglobin 15.1 g/dl (14.0-18.0); Mean Corpuscular HGB Conc 35.5 g/dl (31.0-36.0); Mean Corpuscular Volume 84.3 fL (80.0-98.0); Mean Platelet Volume 10.8 fL (9.4-12.4); Platelet Count 309 X10*3/uL (160-400); Red Blood Count 5.04 X10*6/uL (4.60-5.80); WBC ABN SCTR FOR CBC 1
[2024-07-06 09:35] LABS: White Blood Count 16.7 X10*3/uL (4.8-10.8)
[2024-07-06 09:44] LABS: Lipase 12 U/L (8-78)
--- NOTE | 2024-07-06 09:58 | PC.NURSE ---
wretching has subsided. Pt resting quietly
[2024-07-06 09:59] LABS: Alanine Aminotransferase 13 U/L (0-40); Albumin Level 5.8 g/dL (3.5-5.0); Alkaline Phosphatase 70 U/L (39-117); Anion Gap 23 (12-20); Aspartate Amino Transferase 19 U/L (5-37); Bilirubin Direct 0.2 mg/dL (0.0-0.5); Bilirubin Total 0.6 mg/dL (0.0-1.0); Blood Urea Nitrogen 31 mg/dL (9-16); Calcium 11.7 mg/dL (8.4-10.2); Carbon Dioxide 21 mmol/L (22-29); Chloride 100 mmol/L (96-108); Creatinine Clr Calc Pharmacy 36.5; Estimated Glomerular Filt Rate 32; Ethanol < 10 mg/dL; Glucose Random 137 mg/dL (60-115); Magnesium 1.9 mg/dL (1.6-2.6); Potassium 3.6 mmol/L (3.3-5.1); Sodium 140 mmol/L (135-145); Total Protein 9.3 g/dL (6.5-8.0)
[2024-07-06 10:00] VITALS: BP 141/74; PULSE 102; RESP 16; TEMP 37.1; O2SAT 97
[2024-07-06 10:07] LABS: Band Neutrophils Percent 0 % (3-5); Lymphocytes Absolute Manual 1.7 X10*3/uL (1.2-4.9); Lymphocytes Percent Manual 10 % (20-40); Monocytes Absolute Manual 0.5 X10*3/uL (0.1-1.2); Monocytes Percent Manual 3 % (2-11); Neutrophils Absolute Manual 14.5 X10*3/uL (2.0-8.3); Neutrophils Percent Manual 87 % (45-73)
[2024-07-06 10:08] LABS: Platelet Estimate NORMAL (NORMAL); Platelet Morphology Comment NORMAL; RBC Morphology NORMAL
[2024-07-06] MEDS: Lactated Ringers 1,000 ML 999 ML IV (10:37)
[2024-07-06 11:55] VITALS: BP 114/65; PULSE 99; RESP 14; TEMP 37.3; O2SAT 99
--- NOTE | 2024-07-06 11:56 | PC.NURSE ---
reports feeling better. will attempt po trial
[2024-07-06 13:30] VITALS: BP 114/65; PULSE 99; RESP 14; TEMP 37.3; O2SAT 99
== END 2024-07-06 12:00 | disposition left against medical advice (07) ==
PROVIDERS: Physician Assistant; Emergency Provider Emergency Medicine; PCP Nurse Practitioner Family
DX: K52.9 Noninfective gastroenteritis and colitis, unspecified (principal); N17.9 Acute kidney failure, unspecified; B20 Human immunodeficiency virus [HIV] disease; F17.210 Nicotine dependence, cigarettes, uncomplicated; F12.90 Cannabis use, unspecified, uncomplicated; Z53.29 Procedure and treatment not carried out because of patient's decision for other reasons; Z79.899 Other long term (current) drug therapy
CPT/HCPCS: 36415; 80048; 80076; 80307; 83690; 83735; 85007; 85027; 96361; 96374; 99284; J1790; J7120

== ENCOUNTER 2024-10-23 16:06 | Emergency (ER) | payer BC, SELFPAY ==
[2024-10-23 16:13] VITALS: BP 141/88; PULSE 89; RESP 18; TEMP 36.8; O2SAT 100; BMI 18.3
--- NOTE | 2024-10-23 16:18 | ED_ITS ---
HPI - General Adult General Chief complaint: Abdominal Pain Stated complaint: Vomiting up blood Time Seen by Provider: 10/23/24 20:03 Source: patient Mode of arrival: ambulatory Limitations: no limitations History of Present Illness ED Provider: HPI narrative: Patient's history of cocaine and marijuana abuse says that he would not use that for more than 1 year comes here for nausea vomiting since early 04:00 o'clock today vomited multiple times even after taking sublingual Zofran Related Data Home Medications ?Medication ?Instructions ?Recorded ?Confirmed dolutegravir 50 mg-lamivudine 300 1 tab PO DAILY 09/02/20 04/27/24 mg tablet (Dovato) Previous Rx's ?Medication ?Instructions ?Recorded capsaicin 0.025 % topical cream 1 appl topical QID PRN Abdominal 04/29/24 Pain #120 grams ondansetron 4 mg disintegrating 4 mg PO Q8H PRN nausea and 04/29/24 tablet vomiting #20 tabs Allergies Allergy/AdvReac Type Severity Reaction Status Date / Time No Known Allergies Allergy Verified 10/23/24 16:15 Review of Systems 2 Review of Systems: Yes all other systems are reviewed and are negative PMF Past Medical History Medical History HIV disease Acute renal failure Fibromyalgia HIV (human immunodeficiency virus infection) GERD (gastroesophageal reflux disease) Family History Family History Mother HIV (human immunodeficiency virus infection) Social History Social History Household Members: None Housing: Apartment Do you presently have visiting nurse or other home services: No Alcohol intake: former Patient Tobacco Use Status: Current everyday Tobacco user Tobacco use type: Cigarette Cigarettes Per Day: 10 Smoked in Last 30 Days: Yes e-Cigarette/Vaping Use: Never Used Second Hand Smoke Exposure: Yes Use of substances other than those prescribed or required for medical reasons: No Substance Use Type: Marijuana Advance Directives: Yes Advance Directives on File: Yes Advance Directives Date on File: 09/29/22 Do you have a plan to hurt others: No Plan service: No Current occupational status: employed Physical Exam ED Vital Signs: Vital Signs - 24 hr 10/23/24 16:13 10/23/24 20:00 10/23/24 22:00 Temperature 98.3 F 98.7 F 98.9 F Pulse Rate 89 87 96 Respiratory Rate 18 18 12 Blood Pressure 141/88 H 141/87 H 105/55 L Pulse Oximetry 100 100 97 Oxygen Delivery Method Room Air Room Air Room Air 10/24/24 00:48 Temperature 99.0 F Pulse Rate 116 H Respiratory Rate 14 Blood Pressure 111/72 Pulse Oximetry 96 Oxygen Delivery Method Room Air BMI result Body Mass Index 18.3 Appearance: Alert. Oriented X3. No acute distress. Anxious Eyes: PERRLA, No Nystagmus ENT: Pharynx normal. Oral Mucosa moist Neck: Normal inspection. Neck supple. CVS: Normal heart rate and rhythm. Pulses normal. Respiratory: No respiratory distress. Equal air entry bilateral, no wheezing/rales/rhonchi Abdomen: Soft and nontender. Bowel sounds are present, no mass palpable, no CVA tenderness Skin: Skin warm and dry. Normal skin color. Normal skin turgor. Extremities: No lower extremity edema. No calf tenderness Neuro: Oriented X 3. No motor deficit. No sensory deficit.No cerebellar signs , cranial nerves II-XII intact Course Course Course Narrative: This is a rapid medical exam performed by Steph Guillen NP: Additional HPI, ROS, PE not included below will be deferred to primary provider. Patient is a 34-year-old male with history of cannabinoid hyperemesis syndrome presenting to the ED with complaint of nausea, vomiting, and diarrhea. Plan: viral serology, labs Medications Administered Discontinued Medications Generic Name Dose Route Start Last Admin Trade Name Freq PRN Reason Stop Dose Admin Sodium Chloride 1,000 mls @ 999 mls/hr 10/23/24 20:43 10/23/24 22:48 Ns IV 10/23/24 21:43 Infused .Q1H1M ONE Infusion Lorazepam 1 mg 10/23/24 20:43 10/23/24 21:12 Lorazepam 2 Mg/Ml Vial IVPUSH 10/23/24 20:44 1 mg STAT STA Administration Ondansetron HCl 4 mg 10/23/24 18:16 10/23/24 18:17 Ondansetron Odt 4 Mg Tab.Rapdis TRANSLINGU 10/23/24 18:17 4 mg ONCE ONE Administration Prochlorperazine Edisylate 10 mg 10/23/24 20:43 10/23/24 21:12 Prochlorperazine Edisylate 10 Mg/2 Ml Vial IVPUSH 10/23/24 20:44 10 mg ONCE ONE Administration Medical Decision Making Medical Decision Making [facility] Narrative: Patient with acute vomiting after using cocaine and marijuana which patient denies but urine tox was positive responded to Ativan Compazine taking p.o. fluids will discharge patient home Lab Data [facility] Lab Attestation statement: I reviewed the patient's lab results. 10/23/24 18:05 10/23/24 18:05 Labs: Lab Results 10/23/24 10/23/24 Range/Units 18:05 21:07 WBC 17.3 H (4.8-10.8) X10*3/uL RBC 4.63 (4.60-5.80) X10*6/uL Hgb 13.8 L (14.0-18.0) g/dl Hct 39.7 L (42.0-52.0) % MCV 85.7 (80.0-98.0) fL MCH 29.8 (27.0-33.0) pg MCHC 34.8 (31.0-36.0) g/dl RDW 13.3 (11.0-16.0) % Plt Count 344 (160-400) X10*3/uL MPV 10.2 (9.4-12.4) fL Immature Gran % (Auto) Cancelled Neut % (Auto) Cancelled Lymph % (Auto) Cancelled [place] % (Auto) Cancelled Eos % (Auto) Cancelled Baso % (Auto) Cancelled Lymph # (Auto) Cancelled [place] # (Auto) Cancelled Eos # (Auto) Cancelled Baso # (Auto) Cancelled Abs Immat Gran (auto) Cancelled Absolute Neuts (auto) Cancelled Absolute Nucleated RBC 0.000 (0.0-0.012) X10*3/uL Nucleated RBC % (auto) 0.0 (0.0-0.2) /100WBC Neutrophils % (Manual) 81 H (45-73) % Band Neutrophils % 1 L (3-5) % Lymphocytes % (Manual) 14 L (20-40) % Atypical Lymphs % (Man) 1 (0-6) % Monocytes % (Manual) 2 (2-11) % Basophils % (Manual) 1 (0-2) % Abs Neuts (Manual) 14.2 H (2.0-8.3) X10*3/uL Lymphocytes # (Manual) 2.4 (1.2-4.9) X10*3/uL Atyp Lymphs # (Manual) 0.2 x10*3/uL Monocytes # (Manual) 0.3 (0.1-1.2) X10*3/uL Basophils # (Manual) 0.2 (0.0-0.2) X10*3/uL Toxic Vacuolation PRESENT Platelet Estimate NORMAL (NORMAL) Giant Platelets PRESENT Plt Morphology Comment NOTED RBC Morphology NORMAL Sodium 146 H (135-145) mmol/L Potassium 3.8 (3.3-5.1) mmol/L Chloride 112 H (96-108) mmol/L Carbon Dioxide 18 L (22-29) mmol/L Anion Gap 20 (12-20) BUN 24 H (9-16) mg/dL Creatinine 0.95 (0.5-1.4) mg/dL Estim Creat Clear Calc 79.0 Estimated GFR > 60 Random Glucose 137 H (60-115) mg/dL Calcium 10.3 H D (8.4-10.2) mg/dL Total Bilirubin 0.4 (0.0-1.0) mg/dL AST 25 (5-37) U/L ALT 16 (0-40) U/L Alkaline Phosphatase 70 (39-117) U/L Total Protein 8.7 H (6.5-8.0) g/dL Albumin 5.4 H (3.5-5.0) g/dL Urine Opiates Screen Not Detected (Not Detect) Ur Buprenorphine Scrn Not Detected (Not Detect) ng/mL Ur Oxycodone Screen Not Detected (Not Detect) ng/mL Urine Methadone Screen Not Detected (Not Detect) ng/mL Urine Fentanyl Screen Not Detected (Not Detect) Ur Barbiturates Screen Not Detected (Not Detect) Ur Phencyclidine Scrn Not Detected (Not Detect) Ur Amphetamines Screen Not Detected (Not Detect) U Benzodiazepines Scrn Not Detected (Not Detect) Urine Cocaine Screen POSITIVE H (Not Detect) U Marijuana (THC) Screen POSITIVE H (Not Detect) Influenza Type A (PCR) NEGATIVE (Negative) Influenza Type B (PCR) NEGATIVE (Negative) RSV RNA Qual (PCR) NEGATIVE (Negative) SARS-CoV-2 RNA (RT-PCR) NEGATIVE (Negative) Discharge Plan Discharge Clinical Impression: Cannabis abuse with cannabis-induced anxiety disorder, Cocaine abuse Patient Disposition: Home, Self-Care Instructions: Cocaine Abuse (ED), Cannabis Abuse (ED) Additional Instructions: Stop using cocaine and cannabis Follow up with detox Drink plenty of fluids Prescriptions: No Action Dovato 50-300 mg Tablet 1 tab PO DAILY capsaicin 0.025 % Cream 1 appl topical QID PRN (Reason: Abdominal Pain) Qty: 120 0RF Protocol: Apply to: Apply to: abdomen ondansetron 4 mg tablet,disintegrating 4 mg PO Q8H PRN (Reason: nausea and vomiting) Qty: 20 0RF Print Language: Citizen Of [place]
[2024-10-23 18:12] LABS: Hematocrit 39.7 % (42.0-52.0); Hemoglobin 13.8 g/dl (14.0-18.0); Mean Corpuscular HGB Conc 34.8 g/dl (31.0-36.0); Mean Corpuscular Hemoglobin 29.8 pg (27.0-33.0); Mean Corpuscular Volume 85.7 fL (80.0-98.0); Mean Platelet Volume 10.2 fL (9.4-12.4); Platelet Count 344 X10*3/uL (160-400); Red Blood Count 4.63 X10*6/uL (4.60-5.80); Red Cell Distribution Width 13.3 % (11.0-16.0)
[2024-10-23] MEDS: Ondansetron ODT 4 MG TAB.RAPDIS TRANSLINGU (18:17)
[2024-10-23 18:19] LABS: WBC ABN SCTR FOR CBC 1; White Blood Count 17.3 X10*3/uL (4.8-10.8)
[2024-10-23 18:36] LABS: Alanine Aminotransferase 16 U/L (0-40); Albumin Level 5.4 g/dL (3.5-5.0); Alkaline Phosphatase 70 U/L (39-117); Anion Gap 20 (12-20); Aspartate Amino Transferase 25 U/L (5-37); Bilirubin Total 0.4 mg/dL (0.0-1.0); Blood Urea Nitrogen 24 mg/dL (9-16); Calcium 10.3 mg/dL (8.4-10.2); Carbon Dioxide 18 mmol/L (22-29); Chloride 112 mmol/L (96-108); Estimated Glomerular Filt Rate > 60; Glucose Random 137 mg/dL (60-115); Potassium 3.8 mmol/L (3.3-5.1); Sodium 146 mmol/L (135-145); Total Protein 8.7 g/dL (6.5-8.0)
[2024-10-23 18:52] LABS: Influenza A PCR NEGATIVE (Negative); Influenza B PCR NEGATIVE (Negative); Resp Syncy Virus RNA Qual PCR NEGATIVE (Negative); SARS COV2 PCR INHOUSE NEGATIVE (Negative)
[2024-10-23 18:53] LABS: Atypical Lymph Absolute Manual 0.2 x10*3/uL; Atypical Lymphs Percent Manual 1 % (0-6); Band Neutrophils Percent 1 % (3-5); Basophils Abs Manual 0.2 X10*3/uL (0.0-0.2); Basophils Percent Manual 1 % (0-2); Lymphocytes Absolute Manual 2.4 X10*3/uL (1.2-4.9); Lymphocytes Percent Manual 14 % (20-40); Monocytes Absolute Manual 0.3 X10*3/uL (0.1-1.2); Monocytes Percent Manual 2 % (2-11); Neutrophils Absolute Manual 14.2 X10*3/uL (2.0-8.3); Neutrophils Percent Manual 81 % (45-73)
[2024-10-23 18:54] LABS: Giant Platelet PRESENT; Platelet Estimate NORMAL (NORMAL); Platelet Morphology Comment NOTED; RBC Morphology NORMAL; Toxic Vacuolation PRESENT
[2024-10-23 20:00] VITALS: BP 141/87; PULSE 87; RESP 18; TEMP 37.1; O2SAT 100
[2024-10-23] MEDS: 0.9 % Sodium Chloride 1,000 ML 999 ML IV (21:12)
[2024-10-23] MEDS: LORazepam 2 MG/ML VIAL 1 MG IVPUSH (21:12)
[2024-10-23] MEDS: Prochlorperazine Edisylate 10 MG/2 ML VIAL IVPUSH (21:12)
[2024-10-23 21:37] LABS: Amphetamine Screen Urine Not Detected (Not Detect); Barbiturates, Urine Not Detected (Not Detect); Benzodiazepines Screen Urine Not Detected (Not Detect); Buprenorphine Scr Not Detected (Not Detect); Cannabinoid Screen Urine POSITIVE (Not Detect); Cocaine Screen Urine POSITIVE (Not Detect); Fentanyl, urine Not Detected (Not Detect); Methadone Screen, Urine Not Detected (Not Detect); Opiate Screen Urine Not Detected (Not Detect); Oxycodone Screen Urine Not Detected (Not Detect); Phencyclidine Screen Urine Not Detected (Not Detect)
[2024-10-23 22:00] VITALS: BP 105/55; PULSE 96; RESP 12; TEMP 37.2; O2SAT 97
[2024-10-24 00:48] VITALS: BP 111/72; PULSE 116; RESP 14; TEMP 37.2; O2SAT 96
[2024-10-24 01:14] VITALS: BP 111/72; PULSE 116; RESP 14; TEMP 37.2; O2SAT 96
== END 2024-10-24 01:21 | disposition home or self-care (01) ==
PROVIDERS: Registered Nurse Emergency; Emergency Provider Internal Medicine; PCP Nurse Practitioner Family
DX: R10.2 Pelvic and perineal pain (principal); R11.2 Nausea with vomiting, unspecified; F17.210 Nicotine dependence, cigarettes, uncomplicated; F12.180 Cannabis abuse with cannabis-induced anxiety disorder; F14.10 Cocaine abuse, uncomplicated; Z51.81 Encounter for therapeutic drug level monitoring; Z79.899 Other long term (current) drug therapy; Z03.818 Encounter for observation for suspected exposure to other biological agents ruled out
CPT/HCPCS: 0241U; 80053; 80307; 85007; 85027; 96361; 96374; 96375; 99284; 99285; J0737; J2060

== ENCOUNTER 2024-10-24 18:38 | Emergency (ER) | payer BC, SELFPAY ==
[2024-10-24 18:43] VITALS: BP 140/79; BP 140/80; PULSE 100; PULSE 97; RESP 22; TEMP 36.2; O2SAT 100; O2SAT 99; BMI 19.4
--- NOTE | 2024-10-24 18:49 | ED.GENADULT ---
HPI - General Adult General Chief complaint: Abdominal Pain Stated complaint: N/V Time Seen by Provider: 10/24/24 18:42 Source: patient Mode of arrival: ambulatory Limitations: no limitations History of Present Illness ED Provider: HPI narrative: Patient's history of cocaine and marijuana abuse been to the hospital frequently for cyclic vomiting/cannabis induced vomiting comes here for same was seen here yesterday got better very anxious on arrival Related Data Home Medications ?Medication ?Instructions ?Recorded ?Confirmed dolutegravir 50 mg-lamivudine 300 1 tab PO DAILY 09/02/20 04/27/24 mg tablet (Dovato) Previous Rx's ?Medication ?Instructions ?Recorded capsaicin 0.025 % topical cream 1 appl topical QID PRN Abdominal 04/29/24 Pain #120 grams ondansetron 4 mg disintegrating 4 mg PO Q8H PRN nausea and 04/29/24 tablet vomiting #20 tabs Allergies Allergy/AdvReac Type Severity Reaction Status Date / Time No Known Allergies Allergy Verified 10/24/24 18:50 Review of Systems Review of Systems: Yes all other systems are reviewed and are negative [facility] Past Medical History Medical History (Updated 10/25/24 @ 01:31 by Miguel Acuña MD) Cannabis abuse HIV disease Acute renal failure Fibromyalgia HIV (human immunodeficiency virus infection) GERD (gastroesophageal reflux disease) Family History Family History Mother HIV (human immunodeficiency virus infection) Social History Social History Household Members: None Housing: Apartment Do you presently have visiting nurse or other home services: No Alcohol intake: current Alcohol intake frequency: does not drink Patient Tobacco Use Status: Current everyday Tobacco user Tobacco use type: Cigarette Cigarettes Per Day: 10 e-Cigarette/Vaping Use: Never Used Second Hand Smoke Exposure: Yes Use of substances other than those prescribed or required for medical reasons: Yes Substance Use Type: Crack/Cocaine, Heroin and Marijuana Last Used Substance: Weeks (ago) Advance Directives: Yes Advance Directives on File: Yes Advance Directives Date on File: 09/29/22 Do you have a plan to hurt others: No Plan service: No Current occupational status: employed Physical Exam ED Vital Signs: Vital Signs - 24 hr 10/24/24 18:43 10/24/24 21:44 10/25/24 00:43 Temperature 97.2 F 97.6 F 99.3 F Pulse Rate 100 79 96 Respiratory Rate 22 H 20 14 Blood Pressure 140/79 H 140/79 H 130/72 Pulse Oximetry 100 100 99 Oxygen Delivery Method Room Air Room Air Room Air BMI result Body Mass Index 19.4 Appearance: Alert. Oriented X3. Anxious Eyes: No pallor or icterus ENT: Pharynx normal. Oral Mucosa moist Neck: Normal inspection. Neck supple. CVS: Normal heart rate and rhythm. Pulses normal. Respiratory: No respiratory distress. Equal air entry bilateral, no wheezing/rales/rhonchi Abdomen: Soft and nontender. Bowel sounds are present, no mass palpable, no CVA tenderness Skin: Skin warm and dry. Normal skin color. Normal skin turgor. Extremities: No lower extremity edema. No calf tenderness Neuro: Oriented X 3. No motor deficit. No sensory deficit.No cerebellar signs , cranial nerves II-XII intact Course Course Course Narrative: RME, this is a rapid medical exam performed by Aman Chilel please refer to primary provider for complete H&P- 34-year-old male presents for evaluation of abdominal pain and vomiting. He reports he was here yesterday for the same complaint. He had labs but no imaging. Plan for repeat labs, urinalysis. Patient medicated with ODT Zofran in triage. Medications Administered Discontinued Medications Generic Name Dose Route Start Last Admin Trade Name Freq PRN Reason Stop Dose Admin Lorazepam 2 mg 10/24/24 21:39 10/24/24 21:46 Lorazepam 2 Mg/Ml Vial IM 10/24/24 21:40 2 mg STAT STA Administration Ondansetron HCl 4 mg 10/24/24 18:50 10/24/24 18:52 Ondansetron Odt 4 Mg Tab.Rapdis TRANSLINGU 10/24/24 18:51 4 mg ONCE ONE Administration Prochlorperazine Edisylate 10 mg 10/24/24 22:17 10/24/24 22:26 Prochlorperazine Edisylate 10 Mg/2 Ml Vial IM 10/24/24 22:18 10 mg ONCE ONE Administration Medical Decision Making Medical Decision Making MDM Narrative: Patient with cyclic vomiting/cannabis induced vomiting feeling much better after IM Compazine and Ativan discharge patient home Lab Data MDM Lab Attestation statement: I reviewed the patient's lab results. 10/24/24 19:26 10/24/24 19:26 Labs: Lab Results 10/24/24 Range/Units 19:26 WBC 15.7 H (4.8-10.8) X10*3/uL RBC 4.49 L (4.60-5.80) X10*6/uL Hgb 13.3 L (14.0-18.0) g/dl Hct 38.6 L (42.0-52.0) % MCV 86.0 (80.0-98.0) fL MCH 29.6 (27.0-33.0) pg MCHC 34.5 (31.0-36.0) g/dl RDW 13.5 (11.0-16.0) % Plt Count 305 (160-400) X10*3/uL MPV 10.1 (9.4-12.4) fL Immature Gran % (Auto) 0.6 H (0.0-0.4) % Neut % (Auto) 68.0 (45-73) % Lymph % (Auto) 23.8 (20-40) % [place] % (Auto) 6.9 (2-11) % Eos % (Auto) 0.3 (0-4) % Baso % (Auto) 0.4 (0-2) % Lymph # (Auto) 3.7 (1.2-4.9) X10*3/uL [place] # (Auto) 1.1 (0.1-1.2) X10*3/uL Eos # (Auto) 0.1 (0.0-0.4) X10*3/uL Baso # (Auto) 0.1 (0.0-0.2) X10*3/uL Abs Immat Gran (auto) 0.10 H (0.00-0.03) X10*3/uL Absolute Neuts (auto) 10.7 H (2.0-8.3) x10*3/uL Absolute Nucleated RBC 0.000 (0.0-0.012) X10*3/uL Nucleated RBC % (auto) 0.0 (0.0-0.2) /100WBC Sodium 141 (135-145) mmol/L Potassium 3.3 (3.3-5.1) mmol/L Chloride 112 H (96-108) mmol/L Carbon Dioxide 14 L (22-29) mmol/L Anion Gap 18 (12-20) BUN 21 H (9-16) mg/dL Creatinine 0.91 (0.5-1.4) mg/dL Estim Creat Clear Calc 87.2 Estimated GFR > 60 Random Glucose 118 H (60-115) mg/dL Calcium 9.7 (8.4-10.2) mg/dL Total Bilirubin 0.7 (0.0-1.0) mg/dL AST 29 (5-37) U/L ALT 12 (0-40) U/L Alkaline Phosphatase 62 (39-117) U/L Total Protein 8.1 H (6.5-8.0) g/dL Albumin 5.1 H (3.5-5.0) g/dL Lipase 28 (8-78) U/L Influenza Type A (PCR) NEGATIVE (Negative) Influenza Type B (PCR) NEGATIVE (Negative) RSV RNA Qual (PCR) NEGATIVE (Negative) SARS-CoV-2 RNA (RT-PCR) NEGATIVE (Negative) Discharge Plan Discharge Clinical Impression: Cannabinoid hyperemesis syndrome Patient Disposition: Home, Self-Care Instructions: Cannabis Abuse (ED) Additional Instructions: Drink plenty of fluids Follow up with your PCP Prescriptions: No Action Dovato 50-300 mg Tablet 1 tab PO DAILY capsaicin 0.025 % Cream 1 appl topical QID PRN (Reason: Abdominal Pain) Qty: 120 0RF Protocol: Apply to: Apply to: abdomen ondansetron 4 mg tablet,disintegrating 4 mg PO Q8H PRN (Reason: nausea and vomiting) Qty: 20 0RF Print Language: [place]
[2024-10-24] MEDS: Ondansetron ODT 4 MG TAB.RAPDIS TRANSLINGU (18:52)
[2024-10-24 19:31] LABS: MANUAL DIFF FLAG NO
[2024-10-24 19:38] LABS: Basophils Absolute Auto 0.1 X10*3/uL (0.0-0.2); Basophils Percent Auto 0.4 % (0-2); Eosinophils Absolute Auto 0.1 X10*3/uL (0.0-0.4); Eosinophils Percent Auto 0.3 % (0-4); Hematocrit 38.6 % (42.0-52.0); Hemoglobin 13.3 g/dl (14.0-18.0); Imm Gran Pct Auto 0.6 % (0.0-0.4); Lymphocytes Absolute Auto 3.7 X10*3/uL (1.2-4.9); Lymphocytes Percent Auto 23.8 % (20-40); Mean Corpuscular HGB Conc 34.5 g/dl (31.0-36.0); Mean Corpuscular Hemoglobin 29.6 pg (27.0-33.0); Mean Platelet Volume 10.1 fL (9.4-12.4); Monocytes Absolute Auto 1.1 X10*3/uL (0.1-1.2); Monocytes Percent Auto 6.9 % (2-11); Neutrophils Absolute Auto 10.7 x10*3/uL (2.0-8.3); Platelet Count 305 X10*3/uL (160-400); Red Blood Count 4.49 X10*6/uL (4.60-5.80); Red Cell Distribution Width 13.5 % (11.0-16.0); White Blood Count 15.7 X10*3/uL (4.8-10.8)
[2024-10-24 19:55] LABS: Alanine Aminotransferase 12 U/L (0-40); Albumin Level 5.1 g/dL (3.5-5.0); Alkaline Phosphatase 62 U/L (39-117); Anion Gap 18 (12-20); Aspartate Amino Transferase 29 U/L (5-37); Bilirubin Total 0.7 mg/dL (0.0-1.0); Blood Urea Nitrogen 21 mg/dL (9-16); Calcium 9.7 mg/dL (8.4-10.2); Carbon Dioxide 14 mmol/L (22-29); Chloride 112 mmol/L (96-108); Creatinine Clr Calc Pharmacy 87.2; Estimated Glomerular Filt Rate > 60; Glucose Random 118 mg/dL (60-115); Lipase 28 U/L (8-78); Potassium 3.3 mmol/L (3.3-5.1); Sodium 141 mmol/L (135-145); Total Protein 8.1 g/dL (6.5-8.0)
[2024-10-24 20:10] LABS: Influenza A PCR NEGATIVE (Negative); Influenza B PCR NEGATIVE (Negative); Resp Syncy Virus RNA Qual PCR NEGATIVE (Negative); SARS COV2 PCR INHOUSE NEGATIVE (Negative)
[2024-10-24 21:44] VITALS: BP 140/79; PULSE 79; RESP 20; TEMP 36.4; O2SAT 100
[2024-10-24] MEDS: LORazepam 2 MG/ML VIAL IM (21:46)
[2024-10-24] MEDS: Prochlorperazine Edisylate 10 MG/2 ML VIAL IM (22:26)
--- NOTE | 2024-10-24 22:33 | PC.NURSE ---
provider assessed pt, medicated per mar.
[2024-10-25 00:43] VITALS: BP 130/72; PULSE 96; RESP 14; TEMP 37.4; O2SAT 99
[2024-10-25 02:22] VITALS: BP 140/70; PULSE 95; RESP 16; TEMP 36.8; O2SAT 99
--- NOTE | 2024-10-25 02:23 | PC.NURSE ---
pt a&o, no sob or chest pain, after being medicated pt slept most of the evening. Reviewed discharge instructions with pt. pt verbalized understanding, no sign of distress. pt had a steady gait.
== END 2024-10-25 02:24 | disposition home or self-care (01) ==
PROVIDERS: Physician Assistant; Emergency Provider Internal Medicine
DX: R11.2 Nausea with vomiting, unspecified (principal); F12.188 Cannabis abuse with other cannabis-induced disorder; B20 Human immunodeficiency virus [HIV] disease; F17.210 Nicotine dependence, cigarettes, uncomplicated; Z03.818 Encounter for observation for suspected exposure to other biological agents ruled out
CPT/HCPCS: 0241U; 36415; 80053; 83690; 85025; 96372; 99284; J0737; J2060

== ENCOUNTER 2024-12-27 02:17 | Observation (INO) | payer BC, SELFPAY ==
[2024-12-27] VITALS (7 sets, daily range): BP systolic 112–142; BP diastolic 70–90; PULSE 71–111; RESP 14–19; TEMP 36.6–37.2; O2SAT 96–99; BMI 19.4
[2024-12-27 03:10] LABS: Hematocrit 43.4 % (42.0-52.0); Hemoglobin 15.6 g/dl (14.0-18.0); Mean Corpuscular HGB Conc 35.9 g/dl (31.0-36.0); Mean Corpuscular Volume 83.5 fL (80.0-98.0); Mean Platelet Volume 10.8 fL (9.4-12.4); Platelet Count 276 X10*3/uL (160-400); Red Cell Distribution Width 12.3 % (11.0-16.0); WBC ABN SCTR FOR CBC 1
[2024-12-27 03:11] LABS: White Blood Count 18.5 X10*3/uL (4.8-10.8)
[2024-12-27 03:30] LABS: Basophils Abs Manual 0.2 X10*3/uL (0.0-0.2); Basophils Percent Manual 1 % (0-2); Lymphocytes Absolute Manual 0.9 X10*3/uL (1.2-4.9); Lymphocytes Percent Manual 5 % (20-40); Monocytes Absolute Manual 1.9 X10*3/uL (0.1-1.2); Monocytes Percent Manual 10 % (2-11); Neutrophils Percent Manual 84 % (45-73); Troponin-I High Sensitivity 9.6 ng/L (<3.5-35.0)
[2024-12-27 03:31] LABS: Band Neutrophils Percent 0 % (3-5); Neutrophils Absolute Manual 15.5 X10*3/uL (2.0-8.3); Platelet Estimate NORMAL (NORMAL); Platelet Morphology Comment NORMAL; RBC Morphology NORMAL
[2024-12-27 03:32] LABS: Rouleau PRESENT
[2024-12-27 03:33] LABS: Alanine Aminotransferase 18 U/L (0-40); Albumin Level 5.4 g/dL (3.5-5.0); Alkaline Phosphatase 66 U/L (39-117); Anion Gap 24 (12-20); Aspartate Amino Transferase 32 U/L (5-37); Bilirubin Total 0.9 mg/dL (0.0-1.0); Blood Urea Nitrogen 43 mg/dL (9-16); Calcium 11.7 mg/dL (8.4-10.2); Carbon Dioxide 21 mmol/L (22-29); Chloride 97 mmol/L (96-108); Creatinine Clr Calc Pharmacy 53.2; Estimated Glomerular Filt Rate 54; Glucose Random 155 mg/dL (60-115); Lipase 28 U/L (8-78); Potassium 3.5 mmol/L (3.3-5.1); Sodium 138 mmol/L (135-145); Total Protein 9.6 g/dL (6.5-8.0)
--- OUTSIDE RECORDS SUMMARY | 2024-12-27 03:53 | XMS_ITS | Clinical Summary ---
Author Organization [facility] Facility Address [address] [address] Care Team Providers Care Ve Teacher Name Role Phone Unavailable Primary Care Provider Unavailabl e Social History Tobacco Use Types Packs/Day Years Used Date Smoking Tobacco: Never Assessed Sex and Gender Information Value Date Recorded Sex Assigned at Not on file Legal Sex Male 8:41 AM EST Gender Identity Not on file Sexual Orientation Not on file Plan of Treatment Health Maintenance Due Date Last Done Comments Hepatitis B Vaccine (1 of 3 - 19+ 3-dose series) 2008 Influenza Vaccine (#1) 2024 Pneumococcal Vaccine: Pediat rics (0 to 5 Years) and At-Risk Patients (6 to 64 Years) Aged Out No longer eligi ble based on patient's age to complete this topic Insurance [facility]
--- OUTSIDE RECORDS SUMMARY | 2024-12-27 03:53 | XMS_ITS | Data Portability ---
Author Organization [facility]YSTAL - MAUREEN GRAMAJO MD [facility], Main Office Address [address] [place] [address] Assessment Encounter Date Assessment Date Assessment LastModified by Organization Details LastModified Time 10/21/2023 10/21/2023 telemedicine. audio[place] in [place]. 18 min [email or web address] Not available 10/21/2023 13:33:24 01/17/2024 01/17/2024 telemedicine. audio. [place] 16 min [email or web address] Not available 01/17/2024 14:15:13 07/27/2024 07/27/2024 telemedicine. audio. [place] in [place] 17 min [email or web address] Not available 07/27/2024 14:08:10 Plan of Treatment Reminders Order Date Submit Date Provider Last Modified By Organization Details Last Modified Time Details Appointments None recorded. Lab CBC w/ diff 2023 [email or web address] [facility] (Centralized Electronic Ordering - All Locations), Patient Can Go To The Location Of Their Choice, 11:29:03 electroly jennifer panel, blood 2023 [email or web address] [facility] (Centralized Electronic Ordering - All Locations), Patient Can Go To The Location Of Their Choice, 11:29:03 ALT (alanine aminotran sferase), serum or plasma 2023 [email or web address] [facility] (Centralized Electronic Ordering - All Locations), Patient Can Go To The Location Of Their Choice, [id number] 11:29:03 AST/SGOT (aspartat e aminotran sferase), serum or plasma 2023 [email or web address] [facility] (Centralized Electronic Ordering - All Locations), Patient Can Go To The Location Of Their Choice, [id number] 4 11:29:03 CT + NG DNA, PCR, unspecifi ed specimen 2023 [email or web address] [facility] (Centralized Electronic Ordering - All Locations), Patient Can Go To The Location Of Their Choice, [id number] 4 11:29:03 creatinin e w/ estimated GFR (eGFR), serum or plasma 2023 [email or web address] [facility] (Centralized Electronic Ordering - All Locations), Patient Can Go To The Location Of Their Choice, 11:29:04 hepatitis C virus Ab, serum 2023 [email or web address] [facility] (Centralized Electronic Ordering - All Locations), Patient Can Go To The Location Of Their Choice, 11:29:04 RPR (rapid plasma reagin), serum 2023 [email or web address] [facility] (Centralized Electronic Ordering - All Locations), Patient Can Go To The Location Of Their Choice, [address] 11:29:04 T-cell regulator y subsets panel, blood 2023 [email or web address] [facility] (Centralized Electronic Ordering - All Locations), Patient Can Go To The Location Of Their Choice, [address] 11:29:04 HBsAg (hepatiti s B surface Ag), serum 2023 [email or web address] [facility] (Centralized Electronic Ordering - All Locations), Patient Can Go To The Location Of Their Choice, [id number] 4 11:29:04 HIV-1 RNA, quantitat rajiv, PCR, serum or plasma - HIV VL PCR QUANTITAV RAJIV 2023 [email or web address] [facility] (Centralized Electronic Ordering - All Locations), Patient Can Go To The Location Of Their Choice, [id number] 4 11:29:04 CBC w/ diff 2023 [email or web address] [facility] (Centralized Electronic Ordering - All Locations), Patient Can Go To The Location Of Their Choice, 11:15:05 electroly jennifer panel, blood 2023 024 [place] (Centralized Electronic Ordering - All Locations), Patient Can Go To The Location Of Their Choice, 11:15:05 ALT (alanine aminotran sferase), serum or plasma 2023 024 [facility] (Centralized Electronic Ordering - All Locations), Patient Can Go To The Location Of Their Choice, 11:15:06 AST/SGOT (aspartat e aminotran sferase), serum or plasma 2023 024 [place] (Centralized Electronic Ordering - All Locations), Patient Can Go To The Location Of Their Choice, 11:15:06 CT + NG DNA, PCR, unspecifi ed specimen 2023 024 [place] (Centralized Electronic Ordering - All Locations), Patient Can Go To The Location Of Their Choice, 11:15:06 creatinin e w/ estimated GFR (eGFR), serum or plasma 2023 024 [place] (Centralized Electronic Ordering - All Locations), Patient Can Go To The Location Of Their Choice, 11:15:06 hepatitis C virus Ab, serum 2023 024 [place] (Centralized Electronic Ordering - All Locations), Patient Can Go To The Location Of Their Choice, 11:15:06 RPR (rapid plasma reagin), serum 2023 024 [place] (Centralized Electronic Ordering - All Locations), Patient Can Go To The Location Of Their Choice, 11:15:06 T-cell regulator y subsets panel, blood 2023 024 [facility] (Centralized Electronic Ordering - All Locations), Patient Can Go To The Location Of Their Choice, 4 11:15:06 HBsAg (hepatiti s B surface Ag), serum 2023 024 [place] (Centralized Electronic Ordering - All Locations), Patient Can Go To The Location Of Their Choice, 4 11:15:07 HIV-1 RNA, quantitat rajiv, PCR, serum or plasma - HIV VL PCR QUANTITAV RAJIV 2023 024 [place] (Centralized Electronic Ordering - All Locations), Patient Can Go To The Location Of Their Choice, 11:15:07 CBC w/ diff 2022 023 [place] (Centralized Electronic Ordering - All Locations), Patient Can Go To The Location Of Their Choice, 00:48:01 electroly jennifer panel, blood 2022 023 [place] (Centralized Electronic Ordering - All Locations), Patient Can Go To The Location Of Their Choice, 4 00:48:02 ALT (alanine aminotran sferase), serum or plasma 2022 023 [place] (Centralized Electronic Ordering - All Locations), Patient Can Go To The Location Of Their Choice, 4 00:48:02 AST/SGOT (aspartat e aminotran sferase), serum or plasma 2022 023 [place] [facility] (Centralized Electronic Ordering - All Locations), Patient Can Go To The Location Of Their Choice, 4 00:48:02 CT + NG DNA, PCR, unspecifi ed specimen 2022 023 [place] (Centralized Electronic Ordering - All Locations), Patient Can Go To The Location Of Their Choice, 4 00:48:03 creatinin e w/ estimated GFR (eGFR), serum or plasma 2022 023 [email or web address] [facility] (Centralized Electronic Ordering - All Locations), Patient Can Go To The Location Of Their Choice, 4 00:48:03 hepatitis C virus Ab, serum 2022 023 [facility] (Centralized Electronic Ordering - All Locations), Patient Can Go To The Location Of Their Choice, 00:48:04 HIV-1 RNA, quantitat rajiv, PCR, serum or plasma 2022 023 [email or web address] [facility] (Centralized Electronic Ordering - All Locations), Patient Can Go To The Location Of Their Choice, 00:48:04 RPR (rapid plasma reagin), serum 2022 023 [email or web address] [facility] (Centralized Electronic Ordering - All Locations), Patient Can Go To The Location Of Their Choice, 00:48:05 T-cell regulator y subsets panel, blood 2022 023 [email or web address] [facility] (Centralized Electronic Ordering - All Locations), Patient Can Go To The Location Of Their Choice, 4 00:48:05 HBsAg (hepatiti s B surface Ag), serum 2022 023 [place] [facility] (Centralized Electronic Ordering - All Locations), Patient Can Go To The Location Of Their Choice, 00:48:05 Referral None recorded. Procedures None recorded. Surgeries None recorded. Imaging None recorded. Medication Orders Dovato 50 mg-300 mg tablet 2023 024 JER [id number], [address] [place], [address], 4 11:42:02 Dovato 50 mg-300 mg tablet 2023 024 [email or web address] [id number], [address] [place], [address], 03/26/202 4 14:14:11 Patient TargetsNo targets recorded. Patient InstructionsNo instructions recorded. Reason for Referral None Reported. Problems Name Problem SNOMED Code Status Onset Date Resolution Date Notes Provider Name and Address Organization Details Recorded Time History of syphilis [id number] [id number] Active 2022 Maureen Al MD [address] [place] [address], [phone] , CRYSTAL AL MD [facility] 3 23:47:13 Human immunodef iciency virus infection 50308273 Active 2022 Maureen Al MD [address] [place] [address], [phone] , CRYSTAL AL MD [facility] 3 10:09:28 Syphilis 81218989 Active 2019 Syphilis, unspecifi ed; snomeddes cription: Syphilis; Report Immunity to Registry: Yes; Notes: 2008. tx IM [facility]; Not Available [facility] 4 06:58:56 Neuropath y 248758936 Active 2019 Neuropath y; snomeddes cription: Neuropath y; Report Immunity to Registry: Yes; Not Available [facility] 4 06:58:56 Anogenita l herpesvir al infection 351297488 Active 2019 Anogenita l herpesvir al infection , unspecifi ed; snomeddes cription: Genital herpes simplex; Report Immunity to Registry: Yes; Not Available [facility] 4 06:58:[address] pylori-as sociated gastritis 853933842 Active [address] pylori-as sociated gastritis ; snomeddes cription: Helicobac ter pylori-as sociated gastritis ; Report Immunity to Registry: Yes; Notes: 07/2019 s/p treated. post tx H pylori negative 10/2019; Not Available [facility] 4 06:58:56 Spasm 36225333 Active 2019 Spasm; snomeddes cription: Spasm; Report Immunity to Registry: Yes; Notes: upper back/neck chronic pain; Cramp and spasm; snomeddes cription: Spasm; Report Immunity to Registry: Yes; Notes: upper back/neck chronic pain; Not Available [facility] 4 06:58:57 Irritable bowel syndrome 41537693 Active 2021 Irritable bowel syndrome; snomeddes cription: Irritable bowel syndrome; Report Immunity to Registry: Yes; Irritabl e bowel syndrome without diarrhea; snomeddes cription: Irritable bowel syndrome; Report Immunity to Registry: Yes; Not Available [facility] 4 06:58:57 Genital herpes simplex 78051261 Active 2019 Genital herpes simplex; snomeddes cription: Genital herpes simplex; Report Immunity to Registry: Yes; Not Available [facility] 4 06:58:57 Polyneuro colleen 30877845 Active 2019 Polyneuro colleen, unspecifi ed; snomeddes cription: Neuropath y; Report Immunity to Registry: Yes; Not Available [facility] 4 06:58:57 Notes:Gastritis, unspecified , without bleeding snomeddescription: Helicobacter pylori-associated gastritis; Report Immunity to Registry: Yes; Notes: 07/2019 s/p treated. post tx H pylori negative 10/2019; Problem Notes None recorded. Medical Equipment None Reported. Medications Name Sig Start Date Stop Date Status Note LastModified by Organization Details LastModified Time tetracycl ine 500 mg capsule TAKE 1 CAPSULE FOUR TIMES DAILY 05/28 completed Duration : 14; VACCINE_ IND: no; Not Available Not Available Not Available fluconazo le 100 mg tablet 100 mg Quantity : 14; Duration : 14; 0 refill(s ) 11/11 completed Frequenc y: qd; Duration : 14; VACCINE_ IND: no; SU_FULL_ NAME: Maureen young; Not Available Not Available Not Available nicotine 14 mg/24 hr daily transderm al patch APPLY 1 PATCH TOPICALL Y TO THE SKIN DAILY IN THE MORNING THEN REMOVE AT BEDTIME DIRECTED . DO NOT SMOKE WHILE USING PATCH 11/11 completed Duration : 21; VACCINE_ IND: no; Not Available Not Available Not Available valacyclo vir 1 gram tablet TAKE 1 TABLET BY MOUTH EVERY 8 HOURS FOR 7 DAYS 03/14 completed Duration : 7; VACCINE_ IND: no; Not Available Not Available Not Available sucralfat e 1 gram tablet 1GM TABLET; Quantity : 120; Duration : 30; 0 refill(s ) 09/29 completed Duration : 30; VACCINE_ IND: no; Not Available Not Available Not Available ondansetr on HCl 4 mg tablet HYDROCHL ORIDE 4MG TABLET; Quantity : 10; Duration : 10; 0 refill(s ) 05/29 completed Duration : 10; VACCINE_ IND: no; Not Available Not Available Not Available clindamyc in HCl 150 mg capsule TAKE 1 CAPSULE BY MOUTH EVERY 6 HOURS UNTIL FINISHED 11/11 completed Duration : 7; VACCINE_ IND: no; Not Available Not Available Not Available penicilli n V potassium 500 mg tablet TAKE 1 TABLET BY MOUTH EVERY 8 HOURS UNTIL FINISHED 11/11 completed Duration : 10; VACCINE_ IND: no; Not Available Not Available Not Available metronida zole 500 mg tablet 500 mg Quantity : 56; Duration : 14; 0 refill(s ) 11/11 completed Frequenc y: qid; Duration : 14; VACCINE_ IND: no; SU_FULL_ NAME: Maureen Palm hannah; Not Available Not Available Not Available omeprazol e 40 mg capsule,d elayed release 40 mg Quantity : 30; Duration : 30; 0 refill(s ) 05/28 completed Duration : 30; VACCINE_ IND: no; Not Available Not Available Not Available Bismatrol 262 mg chewable tablet CHEW 2 TABLETS TWICE DAILY 05/28 completed Duration : 14; VACCINE_ IND: no; Not Available Not Available Not Available famotidin e 20 mg tablet 20 MG TABLET; Quantity : 40; Duration : 20; 0 refill(s ) 03/17 completed Duration : 20; VACCINE_ IND: no; Not Available Not Available Not Available ranitidin e 150 mg tablet TAKE 1 TABLET TWICE DAILY 11/11 completed Duration : 30; VACCINE_ IND: no; Not Available Not Available Not Available gabapenti n 300 mg capsule 300 mg Quantity : 180; Duration : 90; 4 refill(s ) 03/17 completed Frequenc y: tid; Duration : 90; VACCINE_ IND: no; SU_FULL_ NAME: Maureen Palm l; Not Available Not Available Not Available omeprazol e 20 mg capsule,d elayed release 20 MG Quantity : 90; Duration : 45; 0 refill(s ) 11/16 completed Duration : 45; VACCINE_ IND: no; Not Available Not Available Not Available gabapenti n 100 mg capsule 100 MG Quantity : 60; Duration : 30; 0 refill(s ) 08/14 completed Duration : 30; VACCINE_ IND: no; Not Available Not Available Not Available ergocalci ferol (vitamin D2) 1,250 mcg (50,000 unit) capsule TAKE 1 CAPSULE BY MOUTH ONCE A WEEK 05/28 completed Duration : 28; VACCINE_ IND: no; Not Available Not Available Not Available Cheratuss in AC 10 mg-100 mg/5 mL oral liquid TAKE 10 ML BY MOUTH EVERY 4 HOURS NEEDED FOR COUGH 11/11 completed Duration : 3; VACCINE_ IND: no; Not Available Not Available Not Available ondansetr on 4 mg disintegr ating tablet ODT 4 MG TABLET; Quantity : 7; Duration : 2; 0 refill(s ) 07/22 completed Duration : 2; VACCINE_ IND: no; Not Available Not Available Not Available metoclopr amide 10 mg tablet 10 MG TABLET; Quantity : 8; Duration : 2; 0 refill(s ) 03/17 completed Duration : 2; VACCINE_ IND: no; Not Available Not Available Not Available escitalop festus 10 mg tablet 10 MG TABLET; Quantity : 90; Duration : 90; 0 refill(s ) 08/14 completed Duration : 90; VACCINE_ IND: no; Not Available Not Available Not Available cyclobenz aprine 5 mg tablet HYDROCHL ORIDE 5MG TABLET; Quantity : 60; Duration : 20; 0 refill(s ) 08/01 completed Duration : 20; VACCINE_ IND: no; Not Available Not Available Not Available Menactra (PF) 4 mcg/0.5 mL intramusc ular solution - Quantity : 1; Duration : 1; 0 refill(s ) 03/24 completed Frequenc y: x1; Duration : 1; VACCINE_ IND: no; VACCINE_ NAME: meningoc occal MCV4P; SU_FULL_ NAME: Maureen young; Not Available Not Available Not Available Adacel (Tdap Adolesn/A dult)(PF) 2Lf-(2.5- 5-3-5mcg) -5 Lf/0.5 mL IM susp 5 units-2 units-15 .5 mcg/0.5 mL Quantity : 1; Duration : 1; 0 refill(s ) 03/24 completed Frequenc y: x1; Duration : 1; VACCINE_ IND: no; VACCINE_ NAME: Tdap; SU_FULL_ NAME: Maureen young; Not Available Not Available Not Available Influenza Quantity : ; 0 refill(s ) 2017 active VACCINE_ IND: yes; Not Available Not Available Not Available Gardasil 9 (PF) 0.5 mL intramusc ular suspensio n 9-valent Quantity : 1; Duration : 1; 1 refill(s ) 03/24 completed Frequenc y: x1; Duration : 1; VACCINE_ IND: no; VACCINE_ NAME: HPV9; SU_FULL_ NAME: Maureen young; Not Available Not Available Not Available Biktarvy 50 mg-200 mg-25 mg tablet TAKE 1 TABLET BY MOUTH EVERY DAY 11/11 completed Duration : 30; VACCINE_ IND: no; Not Available Not Available Not Available Dovato 50 mg-300 mg tablet Take 1 tablet every day by oral route for 30 days. 2023 active Not Available Not Available Not Avai lable Afluria Quad 60 mcg (15 mcg x 4)/0.5 mL intramusc ular susp. quadriva lent Quantity : ; 0 refill(s ) 2018 active VACCINE_ IND: yes; VACCINE_ NAME: influenz a, injectab le, quadriva lent; SU_FULL_ NAME: Maureen young; VIS_DATE : 15:35:01 .0; Not Available Not Available Not Available Afluria Quad 60 mcg (15 mcg x 4)/0.5 mL intramusc ular susp. quadriva lent Quantity : ; 0 refill(s ) 2020 active VACCINE_ IND: yes; VACCINE_ DOCUMENT _DATE: 00:00:00 ; VACCINE_ DOCUMENT _NAME: Influenz a (Flu) (Inactiv ated or Recombin ant): 05/29/21; VACCINE_ NAME: influenz a, injectab le, quadriva lent; SU_FULL_ NAME: Maureen young; VIS_DATE : 18:14:17 .0; Not Available Not Available Not Available Vitals None Recorded Social History None recorded. Functional Status None recorded. Mental Status None recorded. Family History Nothing Reported Notes:Cancer of the breast, Response Property: Yes; , Heart disease (CAD), Response Property: Yes; , Cancer, other unspecified, Response Property: Yes; Medical History No medical history recorded. Immunizations Vaccine Type Date Status Note Provider Nam e and Address Organization Details Recorded Time Influenza, split virus, quadrivalent, preservative 1 completed Not Available [facility] 12/14/2023 06:54:31 Influenza, split virus, quadrivalent, preservative 9 completed Not Available [facility] 12/14/2023 06:54:31 Past Encounters Encounter ID Performer Location Encounter Start Date Encounter Closed Date Diagnosis/Indication Diagnosis SNOMED-CT Code Diagnosis ICD10 Code Diagnosis Note [id number] Maureen Al MD Main Office [address] [place] [phone] 10/21/2023 13:30:34 10/21/2023 15:53:10 Human immunodeficiency virus infection [id number] B20 HIV.Contin ue Dovato 1 tab po qd. 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 condom use reviewed for STI prevention ; PrePlabs ordered.wi ll request [place] Discharge summary and labsplan of care reviewed. questions and concerns addressed. Questions and concerns addressed History of syphilis 1087 [id number] 024600 Z86.19 2009. tx IM PNCRPR screen [id number] Maureen Al MD Main Office [address] [place] [address] 01/17/2024 12:37:08 01/17/2024 16:13:47 Human immunodeficiency virus infection 32849824 B20 HIV.Contin ue Dovato 1 tab po qd. Strict compliance reviewed to prevent viral resistance and keep viral suppressio n, and prevent viral transmissi on.U=U. condom use reviewed for STI prevention ; PrePlabs ordered.pl an of care reviewed. questions and concerns addressed. Questions and concerns addressed [id number] Maureen Al MD Main Office [address] [place] [address] 07/27/2024 13:40:43 08/13/2024 11:44:54 Human immunodeficiency virus infection 95614092 B20 HIV.Contin ue Dovato 1 tab po qd. Strict compliance reviewed to prevent viral resistance and keep viral suppressio n, and prevent viral transmissi on.U=U. condom use reviewed for STI prevention ; PrePlabs ordered.pl an of care reviewed. questions and concerns addressed. Questions and concerns addressed Health Concerns Section Related Observation LastModified by Organization Detai ls LastModified Time None Recorded Concern Status LastModified by Organization Details LastModified Time None Recorded Advance Directives Directive None Recorded Payers Encounter Date Sequence Insurance Name Policy Number Policy Martell Covered Member ID Martell Member ID Guarantor Name 10/21/2023 1 [facility] NET PLAN (MEDICAID HMO) DAXA Lowery [id number] 01/17/2024 1 [facility] PLAN (MEDICAID HMO) DAXA Lowery [id number] 07/27/2024 1 [facility] [id number] Darvin Lowery [id number] Notes Date Note Type Note Provider Name and Address Organization Details Recorded Time 10/21/2023 text/html F/U HIV.On Dovat o 1 tab po qd.reports compliance.no recent HIV labsCompliant.likes regimen. no side effectsmed list reviewedsome insurance barriers, so did miss one appointment.[facility] labs 09/2021 HIV vL nondetected; CD4= 1238; eGFR>60; ALt/AST WNL; HCV neg4/2023 HIV VL nondetected; Cd4>1000; ALt/AST wnl; eGFR>60; no STI.no STI sx. no rash; no penile discharge. no chills. no sweats.Reports got out of the hospital earlier today; was at [facility] for 2 days or so with a gastroenteritis, vomiting and w diarrhea; got electrolytes replacements. doing well now. Maureen Al MD [address] [place] [address], [phone], CRYSTAL AL MD [facility] 10/21/2023 13:35:01 01/17/2024 text/html F/U HIV.On Dovat o 1 tab po qd.reports compliance.will go to get labs doneCompliant.likes regimen. no side effectsmed list reviewedno concernno STi sx. no dischargeno fever. [facility] 09/[facility]21 HIV vL nondetected; CD4= 1238; eGFR>60; ALt/AST WNL; HCV neg01/2023 HIV VL nondetected; Cd4>1000; ALt/AST wnl; eGFR>60; no STI.no STI sx. no rash; no penile discharge. no chills. no sweats. Maureen Al MD [address] [place] [address], [phone], CRYSTAL AL MD [facility] 01/17/2024 14:15:34 07/27/2024 text/html F/U HIV.On Dovat o 1 tab po qd.reports compliance.Compliant .likes regimen. no side effectsmed list reviewedno concernno STi sx. no dischargeno fever. [facility] 09/2021 HIV vL nondetected; CD4= 1238; eGFR>60; ALt/AST WNL; HCV neg01/2023 HIV VL nondetected; Cd4>1000; ALt/AST wnl; eGFR>60; no STI.no STI sx. no rash; no penile discharge. no chills. no sweats. Maureen Al MD [address] [place] [address], [phone], CRYSTAL AL MD [facility] 08/13/2024 11:41:57
--- NOTE | 2024-12-27 03:55 | PC.NURSE ---
verbal order from MD miranda to verbal order zofran and normal saline bolus for vomiting/LYSSA
[2024-12-27] MEDS: ondansetron HCL 4 MG/2 ML VIAL IVPUSH (03:57)
[2024-12-27] MEDS: 0.9 % Sodium Chloride 1,000 ML 999 ML IV (03:57)
[2024-12-27 04:05] LABS: Appearance Urine Clear; Color Urine Dark Yellow; Glucose Urine UA Negative (Negative); Leukocyte Esterase Urine Negative (Negative); Nitrite Urine Negative (Negative); Specific Gravity - Urine >= 1.030 (1.005-1.025); UMIC TRIGGER UACC YES; Urine Blood Negative (Negative); Urine Ketones 15 mg/dL (Negative); Urine Protein 100 (2+) mg/dL (Neg-Trace)
[2024-12-27 04:13] LABS: Bacteria Urine None Seen (None Seen); RBC Urine 0-2 /HPF (0-2); Squamous Epithelial Cell Urine 0-2 /HPF (0-2); WBC Urine 0-5 /HPF (0-5)
[2024-12-27 04:18] LABS: Amphetamine Screen Urine Not Detected (Not Detect); Barbiturates, Urine Not Detected (Not Detect); Benzodiazepines Screen Urine Not Detected (Not Detect); Buprenorphine Scr Not Detected (Not Detect); Cannabinoid Screen Urine POSITIVE (Not Detect); Cocaine Screen Urine Not Detected (Not Detect); Fentanyl, urine Not Detected (Not Detect); Methadone Screen, Urine Not Detected (Not Detect); Opiate Screen Urine Not Detected (Not Detect); Oxycodone Screen Urine Not Detected (Not Detect); Phencyclidine Screen Urine Not Detected (Not Detect)
--- NOTE | 2024-12-27 05:08 | ED_ITS ---
HPI - Nausea/Vomiting/Diarrhea General Chief complaint: Nausea/Vomiting/Diarrhea Stated complaint: NAUSEA/VOMITTING Time Seen by Provider: 12/27/24 04:59 Source: patient Mode of arrival: ambulatory Limitations: no limitations History of Present Illness ED Provider: Dr. Batsheva Huber HPI Narrative: Patient comes to the emergency room complaining of nausea and vomiting. Patient states that earlier this week, Tuesday through Tuesday he was in a hospital in [facility] hospitalized for intractable vomiting, secondary to cyclical vomiting/THC abuse. Patient states that he has not used any marijuana for the last 3 weeks. Patient states he on the train today and then started vomiting all over again. Patient denies blood in the vomit, denies diarrhea, patient states he has abdominal pain, mostly muscular from vomiting so much. Related Data Home Medications ?Medication ?Instructions ?Recorded ?Confirmed dolutegravir 50 mg-lamivudine 300 1 tab PO DAILY 09/02/20 04/27/24 mg tablet (Dovato) Previous Rx's ?Medication ?Instructions ?Recorded capsaicin 0.025 % topical cream 1 appl topical QID PRN Abdominal 04/29/24 Pain #120 grams ondansetron 4 mg disintegrating 4 mg PO Q8H PRN nausea and 04/29/24 tablet vomiting #20 tabs Allergies Allergy/AdvReac Type Severity Reaction Status Date / Time No Known Allergies Allergy Verified 12/27/24 02:35 Review of Systems 2 Review of Systems: Constitutional : No Weight loss, No Fever, No Chills, No Night Sweats, No Fatigue, No Malaise ENT/Mouth : No Hearing loss, No Ear Pain, No Nasal Congestion, No Sinus Pain, No Hoarseness, No sore throat, No Rhinorrhea, No Swallowing Difficulty Eyes: No Eye Pain, No Swelling, No Redness, No Foreign Body, No Discharge, No Vision Changes Cardiovascular : No Chest Pain, No SOB, No Dyspnea on Exertion, No Orthopnea, No Edema, No Palpitations Respiratory : No Cough, No Sputum, No Wheezing, No Smoke Exposure, No Dyspnea Gastrointestinal : Complaining of nausea and vomiting, No Diarrhea, No Constipation, No abdominal Pain, No Hematochezia, No Melena Genitourinary : no irregular bleeding, No Dysuria, No Urinary Frequency, No Hematuria, No Urinary Incontinence, No Urgency, No Flank Pain, No Urinary Flow Changes, No Hesitancy Musculoskeletal : No joint pain, No Myalgias, No Joint Swelling Skin : No Skin Lesions, No rash Neuro : No Weakness, No Numbness, No Paresthesias, No Loss of Consciousness, No Dizziness, No Headache Psych : No Anxiety/Panic, No Depression, No SI/HI/AH/VH, No Social Issues, Heme/Lymph: No Bruising, No Bleeding,No Lymphadenopathy Endocrine : No Polyuria, No Polydipsia, No Temperature Intolerance [facility] Past Medical History Medical History Cannabis abuse HIV disease Acute renal failure Fibromyalgia HIV (human immunodeficiency virus infection) GERD (gastroesophageal reflux disease) Family History Family History Mother HIV (human immunodeficiency virus infection) Social History Social History Household Members: None Housing: Apartment Do you presently have visiting nurse or other home services: No Unable to assess alcohol history related to: Unknown Alcohol intake: current Alcohol intake frequency: does not drink Patient Tobacco Use Status: Current everyday Tobacco user Tobacco use type: Cigarette Cigarettes Per Day: 10 Smoked in Last 30 Days: Yes e-Cigarette/Vaping Use: Never Used Second Hand Smoke Exposure: Yes Substance Use Type: Marijuana Advance Directives: Yes Advance Directives on File: Yes Advance Directives Date on File: 09/29/22 Do you have a plan to hurt others: No Plan service: No Current occupational status: employed Physical Exam 2 Vital Signs: Vital Signs: Last Vital Signs Temp 97.8 F 12/27/24 02:36 Pulse 71 12/27/24 05:57 Resp 14 12/27/24 05:57 BP 118/73 12/27/24 05:57 Pulse Ox 96 12/27/24 05:57 O2 Del Method Room Air 12/27/24 05:57 BMI result Body Mass Index 19.4 Const: Other: Appearance: Alert. Oriented X3. No acute distress. Eyes: Pupils equal, round and reactive to light. ENT: Pharynx normal. Neck: Normal inspection. Neck supple. No lymph nodes noted. No crepitus CVS: Normal heart rate and rhythm. Pulses normal. Normal S1 and S2 Respiratory: No respiratory distress. Breath sounds normal. No Wheezing. No rales Abdomen: Soft and nontender. No rigidity. No distention. patient actively vomiting and retching Skin: Skin warm and dry. Normal skin color. Normal skin turgor. Extremities: No lower extremity edema. No Lacerations. No Rash Neuro: Oriented X 3. No motor deficit. No sensory deficit. Moving all extremities. No slurred speech. CN 2 through 12 grossly intact Psych: calm, cooperative, normal affect Course Course Course Narrative: patient receiving IV fluids, Zofran Medications Administered Discontinued Medications Generic Name Dose Route Start Last Admin Trade Name Freq PRN Reason Stop Dose Admin Diphenhydramine HCl 50 mg 12/27/24 05:00 12/27/24 05:10 Diphenhydramine Hcl 50 Mg/Ml Vial IVPUSH 12/27/24 05:01 50 mg ONCE ONE Administration Famotidine 20 mg 12/27/24 05:00 12/27/24 05:11 Famotidine/Pf 20 Mg/2 Ml Vial IVPUSH 12/27/24 05:01 20 mg ONCE ONE Administration Haloperidol Lactate 2.5 mg 12/27/24 05:00 12/27/24 05:11 Haloperidol Lactate 5 Mg/Ml Vial IM 12/27/24 05:01 2.5 mg ONCE ONE Administration Sodium Chloride 1,000 mls @ 999 mls/hr 12/27/24 04:00 12/27/24 04:59 Ns IV 12/27/24 05:00 Infused .Q1H1M WAYNE Infusion Metoclopramide HCl 10 mg 12/27/24 05:00 12/27/24 05:10 Metoclopramide Hcl 10 Mg/2 Ml Vial IVPUSH 12/27/24 05:01 10 mg ONCE ONE Administration Ondansetron HCl 4 mg 12/27/24 03:55 12/27/24 03:57 Ondansetron Hcl 4 Mg/2 Ml Vial IVPUSH 12/27/24 03:56 4 mg ONCE ONE Administration Medical Decision Making Medical Decision Making [facility] Narrative: my interpretation of labs: Patient's white blood cell count 18.5, likely reactive leukocytosis from so much vomiting. Chemistry shows a normal sodium and potassium. However, patient's bicarb is slightly decreased at 21, anion gap 24, BUN 43, creatinine 1.49, all new for the patient. urinalysis negative for Uti, toxicology positive for THC Patient receiving an additional bag of fluids, no 2 L, patient already received Zofran but patient is still vomiting, we will proceed with IV Benadryl, Compazine, Pepcid and IM Haldol to help with the cyclical vomiting symptoms after the above-mentioned medications, patient is sleeping comfortably patient was p.o. challenged but did not do Well, could not tolerate p.o. patient also has mild LYSSA, patient received IV fluids. I discussed the patient with Dr. Pinzon, patient being admitted Differential Diagnosis Differential Diagnoses: The differential diagnosis associated with the presentation includes ( hyperemesis syndrome, UTI, LYSSA) Admission/Observation Consideration of admission/observation: Escalation of care including admission/observation considered ( given patient's recent history of hospital discharge in vomiting again, observation / admission was considered.) Lab Data 12/27/24 03:06 12/27/24 03:06 Labs: Lab Results 12/27/24 12/27/24 Range/Units 03:06 03:59 WBC 18.5 H (4.8-10.8) X10*3/uL RBC 5.20 (4.60-5.80) X10*6/uL Hgb 15.6 (14.0-18.0) g/dl Hct 43.4 (42.0-52.0) % MCV 83.5 (80.0-98.0) fL MCH 30.0 (27.0-33.0) pg MCHC 35.9 (31.0-36.0) g/dl RDW 12.3 (11.0-16.0) % Plt Count 276 (160-400) X10*3/uL MPV 10.8 (9.4-12.4) fL Immature Gran % (Auto) Cancelled Neut % (Auto) Cancelled Lymph % (Auto) Cancelled [place] % (Auto) Cancelled Eos % (Auto) Cancelled Baso % (Auto) Cancelled Lymph # (Auto) Cancelled [place] # (Auto) Cancelled Eos # (Auto) Cancelled Baso # (Auto) Cancelled Abs Immat Gran (auto) Cancelled Absolute Neuts (auto) Cancelled Absolute Nucleated RBC 0.000 (0.0-0.012) X10*3/uL Nucleated RBC % (auto) 0.0 (0.0-0.2) /100WBC Neutrophils % (Manual) 84 H (45-73) % Band Neutrophils % 0 L (3-5) % Lymphocytes % (Manual) 5 L (20-40) % Monocytes % (Manual) 10 (2-11) % Basophils % (Manual) 1 (0-2) % Abs Neuts (Manual) 15.5 H (2.0-8.3) X10*3/uL Lymphocytes # (Manual) 0.9 L (1.2-4.9) X10*3/uL Monocytes # (Manual) 1.9 H (0.1-1.2) X10*3/uL Basophils # (Manual) 0.2 (0.0-0.2) X10*3/uL Platelet Estimate NORMAL (NORMAL) Plt Morphology Comment NORMAL RBC Morphology NORMAL Rouleaux PRESENT Sodium 138 (135-145) mmol/L Potassium 3.5 (3.3-5.1) mmol/L Chloride 97 (96-108) mmol/L Carbon Dioxide 21 L (22-29) mmol/L Anion Gap 24 H (12-20) BUN 43 H (9-16) mg/dL Creatinine 1.49 H (0.5-1.4) mg/dL Estim Creat Clear Calc 53.2 Estimated GFR 54 Random Glucose 155 H (60-115) mg/dL Calcium 11.7 H D (8.4-10.2) mg/dL Magnesium 2.0 (1.6-2.6) mg/dL Total Bilirubin 0.9 (0.0-1.0) mg/dL AST 32 (5-37) U/L ALT 18 (0-40) U/L Alkaline Phosphatase 66 (39-117) U/L Troponin I High Sens 9.6 D (<3.5-35.0) ng/L Total Protein 9.6 H (6.5-8.0) g/dL Albumin 5.4 H (3.5-5.0) g/dL Lipase 28 (8-78) U/L Urine Color Dark Yellow Urine Appearance Clear Urine pH 6.0 (5.0-9.0) Ur Specific [place] >= 1.030 H (1.005-1.025) Urine Protein 100 (2+) H (Neg-Trace) mg/dL Urine Glucose (UA) Negative (Negative) mg/dL Urine Ketones 15 (Negative) mg/dL Urine Blood Negative (Negative) Urine Nitrite Negative (Negative) Ur Leukocyte Esterase Negative (Negative) Urine RBC 0-2 (0-2) /HPF Urine WBC 0-5 (0-5) /HPF Ur Squamous Epith Cells 0-2 (0-2) /HPF Urine Bacteria None Seen (None Seen) Hyaline Casts 6-10 (0-2) /LPF Urine Opiates Screen Not Detected (Not Detect) Ur Buprenorphine Scrn Not Detected (Not Detect) ng/mL Ur Oxycodone Screen Not Detected (Not Detect) ng/mL Urine Methadone Screen Not Detected (Not Detect) ng/mL Urine Fentanyl Screen Not Detected (Not Detect) Ur Barbiturates Screen Not Detected (Not Detect) Ur Phencyclidine Scrn Not Detected (Not Detect) Ur Amphetamines Screen Not Detected (Not Detect) U Benzodiazepines Scrn Not Detected (Not Detect) Urine Cocaine Screen Not Detected (Not Detect) U Marijuana (THC) Screen POSITIVE H (Not Detect) Critical Care Time Critical Care Time Critical Care Time: Yes Total Critical Care Time: 60 Attestation: I have personally provided critical care time. Time includes review of lab data, radiology results, discussion with consultants, and monitoring for potential decompensation. Intervention performed as documented. Discharge Plan Discharge Clinical Impression: LYSSA (acute kidney injury), Cyclical vomiting Patient Disposition: Admitted As Inpatient Prescriptions: No Action Dovato 50-300 mg Tablet 1 tab PO DAILY capsaicin 0.025 % Cream 1 appl topical QID PRN (Reason: Abdominal Pain) Qty: 120 0RF Protocol: Apply to: Apply to: abdomen ondansetron 4 mg tablet,disintegrating 4 mg PO Q8H PRN (Reason: nausea and vomiting) Qty: 20 0RF Print Language: Citizen Of [place]
[2024-12-27] MEDS: Metoclopramide HCl 10 MG/2 ML VIAL IVPUSH (05:10)
[2024-12-27] MEDS: diphenhydrAMINE HCL 50 MG/ML VIAL IVPUSH (05:10)
[2024-12-27] MEDS: Haloperidol Lactate 5 MG/ML VIAL 2.5 MG IM (05:11)
[2024-12-27] MEDS: Famotidine/PF 20 MG/2 ML VIAL IVPUSH (05:11)
--- NOTE | 2024-12-27 06:53 | PC.NURSE ---
atempted po challenge with patient. pt ate one cracker and a couple sips of adilene samantha. did not vomit but reports still feeling pain/cramping burning sensation to abdomen and nausea. MD Huber aware
--- NOTE | 2024-12-27 08:27 | PHA.MEDREC ---
Addendum entered by Jerry Ryan RPh 12/27/24 09:21: Med rec was reviewed by Jameel. Original Note: Pharmacy Consult ? Medication Reconciliation Pharmacy has completed the medication reconciliation. Spoke with patient to confirm. He reports famotidine is bid and he still takes duloxetine (LF 09/12/24 x60 DS per claims). Patient said he last had Dovato yesterday.
--- NOTE | 2024-12-27 09:17 | P.HPHOSP_ITS ---
History of Present Illness Date of Service: 12/27/24 Chief Complaint: nausea vomiting The patient is a 34-year-old male with a past medical history of cannabis associated cyclic vomiting syndrome who presents to the emergency room with intractable nausea and vomiting. The patient reports that he is returning from a trip to [facility] where he went to visit a friend. He states that while he was in [facility] he was hospitalized for several days for similar symptoms. He states that his symptoms during that [place] visit occurred about an hour after he had eaten an outside meal. He states that he was treated for cyclical vomiting syndrome in [facility] but not for an infectious etiology. He states that he has not consumed cannabis in more than 3 weeks. He endorses ongoing nausea and vomiting of nonbilious/nonbloody vomitus. He endorses epigastric pain/discomfort as well as throat pain/discomfort. ED workup and treatment: Labs show mild acute kidney injury with a serum creatinine of 1.5, baseline around 0.9; he has anion gap metabolic acidosis. He has hypercalcemia of 11.7. His urine is positive for ketones and his specific gravity is greater than 1.030 with 2+ protein. He has been given: 1 L normal saline, IV Zofran, IV Reglan, IV Benadryl, IV Pepcid and Haldol 2.5 mg x 1; subsequent to this, the patient had an attempt of oral intake which he could not tolerate. Hence the patient will be admitted for further workup and treatment. Review of Systems 2 Review of Systems: Negative except HPI/interval history. [facility] Medical History Cannabis abuse HIV disease Acute renal failure Fibromyalgia HIV (human immunodeficiency virus infection) GERD (gastroesophageal reflux disease) Family History Mother HIV (human immunodeficiency virus infection) Social History Household Members: None Housing: Apartment Do you presently have visiting nurse or other home services: No Unable to assess alcohol history related to: Unknown Alcohol intake: current Alcohol intake frequency: does not drink Patient Tobacco Use Status: Current everyday Tobacco user Tobacco use type: Cigarette Cigarettes Per Day: 10 Smoked in Last 30 Days: Yes e-Cigarette/Vaping Use: Never Used Second Hand Smoke Exposure: Yes Substance Use Type: Marijuana Advance Directives: Yes Advance Directives on File: Yes Advance Directives Date on File: 09/29/22 Do you have a plan to hurt others: No Plan service: No Current occupational status: employed Meds Allergies Allergy/AdvReac Type Severity Reaction Status Date / Time No Known Allergies Allergy Verified 12/27/24 02:35 Active Medications: Current Medications Acetaminophen (Acetaminophen 325 Mg Tablet) 650 mg PO Q6H PRN PRN Reason: Pain, Mild 1-3,fever,headache Calcium Carbonate (Calcium Carbonate 750 Mg Tab.Chew) 750 mg PO Q4H PRN PRN Reason: Heartburn Cyanocobalamin (Cyanocobalamin (Vitamin B-12) 1,000 Mcg Tablet) 1,000 mcg PO DAILY [facility] Duloxetine HCl (Duloxetine Hcl 60 Mg Capsule.) 60 mg PO DAILY [facility] Enoxaparin Sodium (Enoxaparin Sodium 40 Mg/0.4 Ml Syringe) 40 mg SUBCUT Q24H [facility] Famotidine (Famotidine 20 Mg Tablet) 40 mg PO BID [facility] Lactated Ringer's (Lr) 1,000 mls @ 100 mls/hr IVCONT .Q10H [facility] Magnesium Hydroxide (Milk Of Magnesia 30 Ml Oral.Susp) 30 ml PO DAILY PRN PRN Reason: Constipation Melatonin (Melatonin 3 Mg Tablet) 6 mg PO BEDTIME PRN PRN Reason: Insomnia Non-Formulary Medication (Dolutegravir-Lamivudine [Dovato]) 1 tab PO DAILY [facility] Omeprazole (Omeprazole 20 Mg Capsule.) 20 mg PO DAILY@0630 [facility] Ondansetron HCl (Ondansetron Hcl 4 Mg/2 Ml Vial) 4 mg IVPUSH Q6H PRN PRN Reason: Nausea and Vomiting Sodium Chloride (0.9 % Sodium Chloride Flush 3 Ml Syringe) 3 ml IVFLUSH QSHIFT [facility] Vitamin D (Cholecalciferol (Vitamin D3) 25 Mcg Tablet) 25 mcg PO DAILY [facility] Home Medications ?Medication ?Instructions ?Recorded ?Confirmed ?Last Taken ?Type dolutegravir 50 mg-lamivudine 300 1 tab PO DAILY 09/02/20 12/27/24 12/26/24 History mg tablet (Dovato) cholecalciferol (vitamin D3) 25 25 mcg PO DAILY 12/27/24 12/27/24 Unknown History mcg (1,000 unit) capsule cyanocobalamin (vitamin B-12) 1,000 mcg PO DAILY 12/27/24 12/27/24 Unknown History 1,000 mcg tablet duloxetine 60 mg capsule,delayed 60 mg PO DAILY 12/27/24 12/27/24 Unknown History release famotidine 40 mg tablet 40 mg PO BID 12/27/24 12/27/24 Unknown History Physical Exam 2 Vital Signs and Narrative: Vital Signs: Last Vital Signs Temp 98 F 12/27/24 08:08 Pulse 84 12/27/24 08:08 Resp 16 12/27/24 08:08 BP 142/81 H 12/27/24 08:08 Pulse Ox 98 12/27/24 08:08 O2 Del Method Room Air 12/27/24 08:08 BMI result Body Mass Index 19.4 Const: Other: Constitutional - Awake and Alert, No apparent distress Eyes - PERRLA, EOMI Cardiovascular - S1S2, RRR, No edema Respiratory - Normal lung expansion, Normal respiratory effort, No respiratory distress, CTA bilaterally Gastrointestinal - mild epigastic tenderness without rebound or guarding - No CVA tenderness Extremities - no calf tenderness bilaterally, no swelling Musculoskeletal - Normal inspection, normal ROM Skin - Warm/Dry Neurological - Alert & oriented x3, No focal deficit Psychological - Appropriate affect Results Labs 12/27/24 03:06 12/27/24 03:06 Labs: Laboratory Results - last 24 hr 12/27/24 12/27/24 03:06 03:59 MCV 83.5 MCH 30.0 MCHC 35.9 RDW 12.3 Plt Count 276 MPV 10.8 Immature Gran % (Auto) Cancelled Neut % (Auto) Cancelled Lymph % (Auto) Cancelled [place] % (Auto) Cancelled Eos % (Auto) Cancelled Baso % (Auto) Cancelled Lymph # (Auto) Cancelled [place] # (Auto) Cancelled Eos # (Auto) Cancelled Baso # (Auto) Cancelled Abs Immat Gran (auto) Cancelled Absolute Neuts (auto) Cancelled Absolute Nucleated RBC 0.000 Nucleated RBC % (auto) 0.0 Neutrophils % (Manual) 84 H Band Neutrophils % 0 L Lymphocytes % (Manual) 5 L Monocytes % (Manual) 10 Basophils % (Manual) 1 Abs Neuts (Manual) 15.5 H Lymphocytes # (Manual) 0.9 L Monocytes # (Manual) 1.9 H Basophils # (Manual) 0.2 Platelet Estimate NORMAL Plt Morphology Comment NORMAL RBC Morphology NORMAL Rouleaux PRESENT Anion Gap 24 H Estim Creat Clear Calc 53.2 Estimated GFR 54 Random Glucose 155 H Calcium 11.7 H D Magnesium 2.0 Total Bilirubin 0.9 AST 32 ALT 18 Alkaline Phosphatase 66 Total Protein 9.6 H Albumin 5.4 H Lipase 28 Urine Color Dark Yellow Urine Appearance Clear Urine pH 6.0 Ur Specific [place] >= 1.030 H Urine Protein 100 (2+) H Urine Glucose (UA) Negative Urine Ketones 15 Urine Blood Negative Urine Nitrite Negative Ur Leukocyte Esterase Negative Urine RBC 0-2 Urine WBC 0-5 Ur Squamous Epith Cells 0-2 Urine Bacteria None Seen Hyaline Casts 6-10 Urine Opiates Screen Not Detected Ur Buprenorphine Scrn Not Detected Ur Oxycodone Screen Not Detected Urine Methadone Screen Not Detected Urine Fentanyl Screen Not Detected Ur Barbiturates Screen Not Detected Ur Phencyclidine Scrn Not Detected Ur Amphetamines Screen Not Detected U Benzodiazepines Scrn Not Detected Urine Cocaine Screen Not Detected U Marijuana (THC) Screen POSITIVE H Assessment and Plan (1) Cyclical vomiting: Status: Acute (2) LYSSA (acute kidney injury): Status: Acute Plan 34-year-old male with HIV on HAART (reports viral load undetectable) and cyclical vomiting syndrome suspected due to cannabis use who presents with intractable nausea and vomiting. He has failed a p.o. challenge in the emergency room despite multiple doses of antiemetics. He will be admitted for further care and treatment. 1. Cyclical vomiting syndrome Patient reports he has not consumed cannabis and greater than 3 weeks IV fluids IV antiemetics Clears as tolerated 2. Acute kidney injury, anion gap metabolic acidosis, starvation ketosis Serum creatinine baseline appears to be around 0.9, now presenting nearly 1.5 All likely due to decreased oral intake We will treat with IV fluids Repeat labs tomorrow 3. HIV Continue HAART 4. GERD Pepcid and Prilosec Full Code DVT pptx -- Lovenox Quality Stroke Does the patient have a stroke diagnosis?: No VTE Prior VTE?: No VTE Risk Level:: Medical - moderate - high VTE Device Contraindication: N/A - Device Ordered VTE Drug Contraindication: N/A - Med Ordered
[2024-12-27] MEDS: Lactated Ringers 1,000 ML 100 ML IVCONT ×2 (09:22→22:08)
[2024-12-27] MEDS: Omeprazole 20 MG CAPSULE.DR PO (10:27)
[2024-12-27] MEDS: DULoxetine HCl 60 MG CAPSULE.DR PO (10:27)
[2024-12-27] MEDS: lamiVUDine 150 MG TABLET 300 MG PO (12:48)
[2024-12-27] MEDS: Dolutegravir Sodium 50 MG TABLET PO (12:48)
--- NOTE | 2024-12-27 20:23 | PC.NURSE ---
this rn assumed care of pt at 1900, pr resting in stretcher, no acute distress noted. offers no complaints at this time.
[2024-12-27] MEDS: Famotidine 20 MG TABLET 40 MG PO (21:21)
[2024-12-28] MEDS: Melatonin 3 MG TABLET 6 MG PO (01:39)
[2024-12-28 06:08] VITALS: BP 109/73; PULSE 81; RESP 18; TEMP 36.9; O2SAT 98
--- NOTE | 2024-12-28 06:17 | PC.NURSE ---
pt requesting solid foods, per provider pt may eat per toleration. pt given crackers, tolerated well, denies n/v.
[2024-12-28 06:52] LABS: Hemoglobin 11.8 g/dl (14.0-18.0); Mean Corpuscular HGB Conc 34.7 g/dl (31.0-36.0); Mean Corpuscular Hemoglobin 30.2 pg (27.0-33.0); Mean Platelet Volume 10.9 fL (9.4-12.4); Platelet Count 218 X10*3/uL (160-400); Red Blood Count 3.91 X10*6/uL (4.60-5.80); White Blood Count 9.5 X10*3/uL (4.8-10.8)
[2024-12-28 07:05] LABS: Alanine Aminotransferase 14 U/L (0-40); Albumin Level 3.8 g/dL (3.5-5.0); Alkaline Phosphatase 46 U/L (39-117); Aspartate Amino Transferase 26 U/L (5-37); Bilirubin Total 0.6 mg/dL (0.0-1.0); Blood Urea Nitrogen 26 mg/dL (9-16); Creatinine Clr Calc Pharmacy 86.2; Estimated Glomerular Filt Rate > 60; Glucose Random 84 mg/dL (60-115); Total Protein 6.3 g/dL (6.5-8.0)
[2024-12-28 07:13] LABS: Anion Gap 12 (12-20); Calcium 9.2 mg/dL (8.4-10.2); Carbon Dioxide 27 mmol/L (22-29); Chloride 105 mmol/L (96-108); Potassium 3.5 mmol/L (3.3-5.1); Sodium 140 mmol/L (135-145)
[2024-12-28] MEDS: Cyanocobalamin (Vitamin B-12) 1,000 MCG TABLET 1000 MCG PO (07:48)
[2024-12-28] MEDS: DULoxetine HCl 60 MG CAPSULE.DR PO (07:48)
[2024-12-28] MEDS: Cholecalciferol (Vitamin D3) 25 MCG TABLET PO (07:49)
[2024-12-28] MEDS: Famotidine 20 MG TABLET 40 MG PO (07:49)
[2024-12-28] MEDS: Omeprazole 20 MG CAPSULE.DR PO (07:49)
[2024-12-28 08:58] VITALS: BP 148/84; PULSE 83; RESP 18; TEMP 36.9; O2SAT 98
--- NOTE | 2024-12-28 08:58 | P.DS_ITS ---
DS: Providers Provider Date of Service: 12/28/24 Date of admission: 12/27/24 09:10 Date of discharge: 12/28/24 Primary care physician: Unknown Physician Attending physician on discharge: Nicolas Castellanos Discharging clinician: Virginie Henry DS: Diagnosis Discharge Diagnosis (1) Cyclical vomiting: Status: Acute (2) LYSSA (acute kidney injury): Status: Acute DS: Summary Hospital Course Hospital Course: From H&P on the day of admission The patient is a 34-year-old male with a past medical history of cannabis associated cyclic vomiting syndrome who presents to the emergency room with intractable nausea and vomiting. The patient reports that he is returning from a trip to [facility] where he went to visit a friend. He states that while he was in [facility] he was hospitalized for several days for similar symptoms. He states that his symptoms during that [place] visit occurred about an hour after he had eaten an outside meal. He states that he was treated for cyclical vomiting syndrome in [facility] but not for an infectious etiology. He states that he has not consumed cannabis in more than 3 weeks. He endorses ongoing nausea and vomiting of nonbilious/nonbloody vomitus. He endorses epigastric pain/discomfort as well as throat pain/discomfort. ED workup and treatment: Labs show mild acute kidney injury with a serum creatinine of 1.5, baseline around 0.9; he has anion gap metabolic acidosis. He has hypercalcemia of 11.7. His urine is positive for ketones and his specific gravity is greater than 1.030 with 2+ protein. He has been given: 1 L normal saline, IV Zofran, IV Reglan, IV Benadryl, IV Pepcid and Haldol 2.5 mg x 1; subsequent to this, the patient had an attempt of oral intake which he could not tolerate. Hence the patient will be admitted for further workup and treatment. Cyclical vomiting syndrome Patient reports he has not consumed cannabis and greater than 3 weeks. Was treated symptomatically with IV fluid, antiemetics. Gradually patient's symptoms improved and he was able to tolerate food this morning. He is eager to be discharged home. Acute kidney injury, anion gap metabolic acidosis, starvation ketosis Serum creatinine baseline appears to be around 0.9, now presenting nearly 1.5. All likely due to decreased oral intake. Treated with IV fluid, anion gap resolved, bicarb and renal function normalized. H/H did drop likely due to dehydration on arrival and now with dilution from IV fluids as also lines have decreased. There is no evidence of active bleeding. H/H near baseline. Can follow up as outpatient. Time Attestation Discharge Coordination Time (in mins): 30 Quality: Safe Use of Opioids Does Pt have an Active Cancer Diagnosis on the Problem List?: No Quality: Stroke Does the patient have a stroke diagnosis?: No Physical Exam Vital Signs: Vital Signs: Last Vital Signs Temp 98.4 F 12/28/24 06:08 Pulse 81 12/28/24 06:08 Resp 18 12/28/24 06:08 BP 109/73 12/28/24 06:08 Pulse Ox 98 12/28/24 06:08 O2 Del Method Room Air 12/28/24 06:08 BMI result Body Mass Index 19.4 Const: General: cooperative, comfortable, alert and awake GI: Palpation (GI): nontender Neuro: General: moves all extremities and CN's II-XI intact bilaterally DS: Data Data Completed and Pending Labs on day of discharge: Laboratory Results - last 24 hr 12/28/24 05:59 WBC 9.5 RBC 3.91 L D Hgb 11.8 L D Hct 34.0 L D MCV 87.0 MCH 30.2 MCHC 34.7 RDW 13.0 Plt Count 218 MPV 10.9 Absolute Nucleated RBC 0.000 Nucleated RBC % (auto) 0.0 Sodium 140 Potassium 3.5 Chloride 105 Carbon Dioxide 27 Anion Gap 12 BUN 26 H Creatinine 0.92 Estim Creat Clear Calc 86.2 Estimated GFR > 60 Random Glucose 84 Calcium 9.2 D Total Bilirubin 0.6 AST 26 ALT 14 Alkaline Phosphatase 46 Total Protein 6.3 L Albumin 3.8 Discharge Plan Discharge Anticipated Discharge Date/Time: 12/28/24 09:02 Patient Disposition: Home, Self-Care Discharge Diagnosis: Cyclical vomiting LYSSA Referrals: Physician,Unknown J [Primary Care Provider] - 1 Week Discharge Medications: Continued Dovato 50-300 mg Tablet 1 tab PO DAILY famotidine 40 mg tablet 40 mg PO BID cyanocobalamin (vitamin B-12) 1,000 mcg Tablet 1,000 mcg PO DAILY cholecalciferol (vitamin D3) 25 mcg (1,000 unit) Capsule 25 mcg PO DAILY duloxetine 60 mg capsule,delayed release(DR/EC) 60 mg PO DAILY Discharge Orders: Discharge Order (Routine); Ordered 12/28/24 Ordered By: Virginie Henry Activity on Discharge: As tolerated Stand Alone Forms: Patient Portal Discharge page Print Language: Maori Care Plan Goals: See below Health Concerns: Cyclical vomiting Acute kidney injury-kidney function returned to normal Plan of Treatment: Recommend to avoid cannabis Call to schedule a follow-up appointment with your primary care provider Call PCP or return to the emergency department with any new or worsening symptoms Assessment: See discharge summary
--- NOTE | 2024-12-28 09:13 | MHC.CM.PN ---
pt dcd home self care prior to being seen by case management
[2024-12-28 09:21] VITALS: BP 132/69; PULSE 78; RESP 18; TEMP 37.1; O2SAT 98
--- NOTE | 2024-12-28 09:21 | PC.NURSE ---
Pt's IV removed; vss; pt tolerating PO intake with no N/V/pain at this time; pt DC'd ambulatory in stable condition; declines to wait for DC paperwork from attending, but attending did see pt p/t pt leaving
== END 2024-12-28 19:32 | disposition home or self-care (01) ==
LOC: HO.ED 07:46 → HO.EDOVER 09:13
PROVIDERS: Admitting Provider Family Medicine; Emergency Provider Emergency Medicine; PCP Nurse Practitioner Family; Visit Provider Physician Assistant Medical
DX: R11.15 Cyclical vomiting syndrome unrelated to migraine (principal); N17.9 Acute kidney failure, unspecified; R11.2 Nausea with vomiting, unspecified; B20 Human immunodeficiency virus [HIV] disease; K21.9 Gastro-esophageal reflux disease without esophagitis; Z79.899 Other long term (current) drug therapy
CPT/HCPCS: 36415; 80053; 80307; 81001; 83690; 83735; 84484; 85007; 85027; 96361; 96372; 96374; 96375; 99221; 99285; J1200; J1630; J2405; J2765; J7120

== ENCOUNTER → 2024-12-27 09:10 | Outpatient (BNV) | payer BC, SELFPAY | PROVIDERS: Admitting Provider Family Medicine; Emergency Provider Emergency Medicine; Visit Provider Family Medicine | DX: N17.9 Acute kidney failure, unspecified (principal); R11.15 Cyclical vomiting syndrome unrelated to migraine | CPT/HCPCS: 99238 ==

== ENCOUNTER 2025-05-01 12:43 | Emergency (ER) | payer OTHER, SELFPAY ==
--- NOTE | 2025-05-01 | ECG_ITS ---
Test Reason : ABDOMINAL PAIN Blood Pressure : */* mmHG Vent. Rate : 58 BPM Atrial Rate : 58 BPM P-R Int : 142 ms QRS Dur : 92 ms QT Int : 440 ms P-R-T Axes : 71 87 73 degrees QTcB Int : 431 ms Sinus bradycardia with sinus arrhythmia Otherwise normal ECG When compared with ECG of 08-Mar-2024 14:37, Vent. rate has decreased by 43 bpm Nonspecific T wave abnormality no longer evident in Inferior leads Referred By: Edy Crowder Electronically Signed By: Gary Hull
--- NOTE | ~2025-05-01 | CT_ITS ---
EXAMINATION: CT ABDOMEN AND PELVIS WITHOUT CONTRAST CLINICAL INFORMATION: Abdominal pain. Leukocytosis. COMPARISON: March 08, 2024. TECHNIQUE: Multidetector volumetric imaging was performed from the superior aspect of the liver through the pubic symphysis. Sagittal and coronal reformatted images were obtained on the technologist's workstation. This CT examination was performed using dose optimization techniques as appropriate, variously including the following: *Automated exposure control *Adjustment of mA and/or kV according to patient size (this includes techniques or standardized protocols for targeted exams where dose is matched to indication/reason for exam; i.e. extremities or head) *Use of iterative reconstruction technique. DLP: 324 mGy centimeter. FINDINGS: Inadequate evaluation of the intra-abdominal organs and vascular structures due to lack of IV contrast. LUNG BASES: No acute airspace disease or gross alignment nodules. LIVER, GALLBLADDER, AND BILIARY TREE: Liver measures 15 cm. No pericholecystic fluid collection or gallbladder wall thickening. Artifact versus layering intraluminal hyperdensity in the gallbladder. No intrahepatic or extrahepatic biliary ductal dilatation. PANCREAS: No peripancreatic fluid collection. No main pancreatic ductal dilatation. SPLEEN: 8 cm. ADRENAL GLANDS: No nodular lesions. KIDNEYS AND URETERS: No hydronephrosis. No nephrolithiasis. No perinephric fluid collections or edema pattern. Ureters are not dilated. BLADDER: Fluid-filled. GASTROINTESTINAL TRACT: Appendix is normal. Collapsed appearance of the left hemicolon. Abundant stool. No intestinal obstruction pattern. No ascites. No pneumoperitoneum. No pneumatosis intestinalis. ABDOMINAL WALL: Small fat-containing umbilical hernia. LYMPH NODES: No lymphadenopathy, retroperitoneum. VASCULAR: No aneurysm, abdominal aorta. Retroaortic trajectory left main renal vein, congenital. PELVIC VISCERA: Not enlarged prostate gland. OSSEOUS STRUCTURES: Striations throughout the vertebral bodies of the axial skeleton. There is a prominent right transverse processes of L5 articulating with S1. No acute fracture or listhesis. CT/CT abdomen pelvis wo IV con IMPRESSION: Small fat-containing umbilical hernia. 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 Abnormal bone marrow. Calcium metabolic disorders among other etiologies should be considered.. Fleischner guidelines were followed. Electronically signed by: Markell Landaverde MD 05/01/2025 03:51 PM EDT
[2025-05-01 12:47] VITALS: BP 134/78; PULSE 75; O2SAT 99; BMI 20.2
--- NOTE | 2025-05-01 13:06 | ED.ABDPAIN ---
HPI - Abdominal Pain General Chief Complaint: Abdominal Pain Stated Complaint: CP, DIAPHORETIC, VOMITING, WEAKNESS X12 HOURS Time Seen by Provider: 05/01/25 12:59 History of Present Illness ED Provider: Edy Crowder MD HPI narrative: 34-year-old male with a history of well-controlled HIV nondetectable viral load, chronic recurrent abdominal pain of unclear etiology fail to follow up with GI after last episode, nonbloody nonbilious vomiting severe abdominal pain atraumatic. Denies fever no blood in the stool or vomit. Denies alcohol or drug use. Previously documented cannabinoid hyperemesis syndrome in our chart. Related Data Home Medications ?Medication ?Instructions ?Recorded ?Confirmed dolutegravir 50 mg-lamivudine 300 1 tab PO DAILY 09/02/20 12/27/24 mg tablet (Dovato) cholecalciferol (vitamin D3) 25 25 mcg PO DAILY 12/27/24 12/27/24 mcg (1,000 unit) capsule cyanocobalamin (vitamin B-12) 1,000 mcg PO DAILY 12/27/24 12/27/24 1,000 mcg tablet duloxetine 60 mg capsule,delayed 60 mg PO DAILY 12/27/24 12/27/24 release famotidine 40 mg tablet 40 mg PO BID 12/27/24 12/27/24 Allergies Allergy/AdvReac Type Severity Reaction Status Date / Time No Known Allergies Allergy Verified 05/01/25 12:53 [facility] Past Medical History Medical History Cannabis abuse HIV disease Acute renal failure Fibromyalgia HIV (human immunodeficiency virus infection) GERD (gastroesophageal reflux disease) Family History Family History Mother HIV (human immunodeficiency virus infection) Social History Social History Household Members: None Housing: Apartment Do you presently have visiting nurse or other home services: No Unable to assess alcohol history related to: Unknown Alcohol intake: current Alcohol intake frequency: does not drink Patient Tobacco Use Status: Never used Tobacco Tobacco use type: Cigarette Cigarettes Per Day: 10 e-Cigarette/Vaping Use: Never Used Second Hand Smoke Exposure: Yes Substance Use Type: Marijuana Advance Directives Date on File: 09/29/22 service: No Current occupational status: employed Physical Exam ED Vital Signs: Vital Signs - 24 hr 05/01/25 14:58 05/01/25 16:18 Temperature 99.1 F 99.1 F Pulse Rate 75 75 Respiratory Rate 17 17 Blood Pressure 116/58 L 116/58 L Pulse Oximetry 97 97 Oxygen Delivery Method Room Air Room Air BMI result Body Mass Index 20.2 EXAM: Gen: Awake, diaphoretic appears distressed in discomfort shaking Head: Atraumatic Eyes: Anicteric, Normal conjunctiva. ENT: Moist mucosa, no pallor. ? Neck: Supple. Skin: ?No observable rash or bruising on exposed or examined skin Respiratory: Breathing comfortably, No distress.Clear to auscultation bilaterally, symmetric chest expansion, No wheeze, rales, ronchi. Cardiovascular: Regular rate and rhythm. No murmurs or rub. Well perfused periphery, warm extremities. No edema. ? Abdominal: Thin abdomen with severe tenderness throughout.. Soft, no objective distension. No palpable masses or obvious organomegaly. ?No guarding, no rebound tenderness or other peritoneal findings. : No flank tenderness. Neuro: Alert. Gross movement of all extremities intact. ? Psych: Calm. Cooperative. MSK: No grossly visible deformity. Vital signs: See flowsheet Medical Decision Making Medical Decision Making MDM Narrative: Medical Decision Makin-year-old male with previously documented cyclic vomiting fail to follow up with GI previously. Documented cannabinoid hyperemesis syndrome. No trauma today nausea vomiting severe abdominal pain came in diaphoretic and distress. Multimodal analgesia tailored to the likelihood of cyclic vomiting or gastroparesis or cannabinoid hyperemesis with benzos fluids and antiemetic droperidol. The patient had significant relief after this. Given the leukocytosis which is likely nonspecific and/or due to severe stress, distress, shaking and his overall presentation still felt it was reasonable to scan of the abdomen. No acute findings seen on this. Patient had significant relief of the pain after several hours of monitoring fluid hydration reassessment the abdomen improved. Patient tolerated juice well. Preliminary Favored Differential Diagnosis: Cannabinoid hyperemesis, cyclic vomiting, gastritis, PUD, pancreatitis, medication adverse event, bowel perforation, bowel obstruction among additional considered etiologies Testing Interpreted Independently: Nonspecific leukocytosis as above. No actionable electrolyte derangement. Mild LYSSA likely secondary to mild dehydration. Anion gap likely lactate and/or concomitant uremia. Calcium 12.1 however albumin 6.3. K3.3. Patient was hydrated and is tolerating p.o.. We will need labs repeated outpatient in 3-5 days. Pt eager for DC, repeat labs outpatient I independently called the patient on the 02 of May at 11:30 asking him how he was feeling but he did not pickle sorter I left a voicemail asked him to come back in for repeat lab work if he was not feeling better Radiology or Lab testing Results Reviewed: IMPRESSION: Small fat-containing umbilical hernia. 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 Abnormal bone marrow. Calcium metabolic disorders among other etiologies should be considered.. Consults: Not Applicable Independent Historians/External Chart Reviews: Not Applicable Social Determinants of Health Impacting MDM/Planning: Not Applicable Lab Data 05/01/25 13:18 05/01/25 13:18 Labs: Lab Results 05/01/25 Range/Units 13:18 WBC 26.5 H (4.8-10.8) X10*3/uL RBC 5.29 D (4.60-5.80) X10*6/uL Hgb 15.6 D (14.0-18.0) g/dl Hct 44.8 D (42.0-52.0) % MCV 84.7 (80.0-98.0) fL MCH 29.5 (27.0-33.0) pg MCHC 34.8 (31.0-36.0) g/dl RDW 12.6 (11.0-16.0) % Plt Count 346 D (160-400) X10*3/uL MPV 10.6 (9.4-12.4) fL Immature Gran % (Auto) 1.1 H (0.0-0.4) % Neut % (Auto) 87.8 H (45-73) % Lymph % (Auto) 5.3 L (20-40) % Vance % (Auto) 5.5 (2-11) % Eos % (Auto) 0.0 (0-4) % Baso % (Auto) 0.3 (0-2) % Lymph # (Auto) 1.4 (1.2-4.9) X10*3/uL Vance # (Auto) 1.5 H (0.1-1.2) X10*3/uL Eos # (Auto) 0.0 (0.0-0.4) X10*3/uL Baso # (Auto) 0.1 (0.0-0.2) X10*3/uL Abs Immat Gran (auto) 0.30 H (0.00-0.03) X10*3/uL Absolute Neuts (auto) 23.3 H (2.0-8.3) x10*3/uL Absolute Nucleated RBC 0.000 (0.0-0.012) X10*3/uL Nucleated RBC % (auto) 0.0 (0.0-0.2) /100WBC Smear Tech's Comments VERIFIED Sodium 140 (135-145) mmol/L Potassium 3.3 (3.3-5.1) mmol/L Chloride 104 (96-108) mmol/L Carbon Dioxide 18 L (22-29) mmol/L Anion Gap 21 H (12-20) BUN 26 H (9-16) mg/dL Creatinine 1.69 H (0.5-1.4) mg/dL Estim Creat Clear Calc 48.9 Estimated GFR 46 Random Glucose 160 H (60-115) mg/dL Calcium 12.1 H D (8.4-10.2) mg/dL Total Bilirubin 0.8 (0.0-1.0) mg/dL Direct Bilirubin 0.3 (0.0-0.5) mg/dL AST 23 (5-37) U/L ALT 15 (0-40) U/L Alkaline Phosphatase 82 (39-117) U/L Total Protein 9.4 H (6.5-8.0) g/dL Albumin 6.3 H (3.5-5.0) g/dL Lipase 14 (8-78) U/L Medications Administered Discontinued Medications Generic Name Dose Route Start Last Admin Trade Name Freq PRN Reason Stop Dose Admin Droperidol 1.25 mg 05/01/25 13:06 05/01/25 13:15 Droperidol 5 Mg/2 Ml Vial IVPUSH 05/01/25 13:07 1.25 mg ONCE ONE Administration Sodium Chloride 1,000 mls @ 999 mls/hr 05/01/25 13:15 05/01/25 16:36 Ns IV 05/01/25 14:15 Infused .Q1H1M WAYNE Infusion Lorazepam 1 mg 05/01/25 13:06 05/01/25 13:18 Lorazepam 2 Mg/Ml Vial IVPUSH 05/01/25 13:07 1 mg ONCE ONE Administration Ondansetron HCl 4 mg 05/01/25 12:53 05/01/25 13:11 Ondansetron Hcl 4 Mg/2 Ml Vial IVPUSH 05/01/25 12:54 Not Given ONCE ONE Pantoprazole Sodium 40 mg 05/01/25 13:06 05/01/25 13:15 Pantoprazole Sodium 40 Mg/10 Ml Vial IVPUSH 05/01/25 13:07 40 mg ONCE ONE Administration Discharge Plan Discharge Clinical Impression: Abdominal pain, chronic, epigastric Patient Disposition: Home, Self-Care Instructions: Acute Abdominal Pain (DC) Additional Instructions: DISCHARGE DIAGNOSES: Chronic abdominal pain with acute exacerbation unclear causes could be cyclical vomiting syndrome or other abnormalities that need to be pursued outpatient with GI HISTORY OF PRESENTATION: ?Upper mid abdominal pain EMERGENCY DEPARTMENT COURSE,TESTS, TREATMENTS: While in the ED today you received medications including droperidol and lorazepam and IV fluid as well as Protonix and antacid. You had significant improvement of your pain. You had a CT scan of your abdomen which showed nonemergent findings that may need outpatient follow up see below. DISCHARGE MEDICATIONS: ?[We have made no changes to your regular medication regimen] FOLLOW-UP: ?Call your primary or general physician soon as possible to discuss your symptoms, your ED visit and to discuss follow up plans Call your PCP and/or Gastroenterology for follow up urgently INSTRUCTIONS ?& RETURN PRECAUTIONS: If any symptoms change first call your primary physician, if it is after-hours your primary doctors office should have a provider food operations manager you can speak with. If the symptoms are severe or very concerning to you then call 911 or return to the ED. Return for blood in the vomitus severe worsening pain blood in the stool or any other acute abnormalities or changes that we discussed Edy Chanler-Berat, MD Emergency Physician [facility] Call your PCP to follow up CT findings: IMPRESSION: Small fat-containing umbilical hernia. 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 Abnormal bone marrow. Calcium metabolic disorders among other etiologies should be considered.. Prescriptions: No Action Dovato 50-300 mg Tablet 1 tab PO DAILY famotidine 40 mg tablet 40 mg PO BID cyanocobalamin (vitamin B-12) 1,000 mcg Tablet 1,000 mcg PO DAILY cholecalciferol (vitamin D3) 25 mcg (1,000 unit) Capsule 25 mcg PO DAILY duloxetine 60 mg capsule,delayed release(DR/EC) 60 mg PO DAILY Referrals: [facility] [Provider Group, Gastroenterology] Interventions: ED Discharge Assessment Last Done: 05/01/25 16:18 Discharge Date/Time: 05/01/25 16:21 Print Language: Martiniquais
[2025-05-01] MEDS: LORazepam 2 MG/ML VIAL 1 MG IVPUSH (13:18)
[2025-05-01 13:30] LABS: Hematocrit 44.8 % (42.0-52.0); Hemoglobin 15.6 g/dl (14.0-18.0); Imm Gran Abs Auto 0.30 X10*3/uL (0.00-0.03); Imm Gran Pct Auto 1.1 % (0.0-0.4); Lymphocytes Absolute Auto 1.4 X10*3/uL (1.2-4.9); MANUAL DIFF FLAG SCAN; Mean Corpuscular HGB Conc 34.8 g/dl (31.0-36.0); Mean Corpuscular Hemoglobin 29.5 pg (27.0-33.0); Mean Corpuscular Volume 84.7 fL (80.0-98.0); NRBC Abs Auto 0.000 X10*3/uL (0.0-0.012); NRBC Pct Auto 0.0 /100WBC (0.0-0.2); Platelet Count 346 X10*3/uL (160-400); Red Blood Count 5.29 X10*6/uL (4.60-5.80); SCAN SMEAR FLAG 1; White Blood Count 26.5 X10*3/uL (4.8-10.8)
[2025-05-01 13:48] LABS: Alanine Aminotransferase 15 U/L (0-40); Albumin Level 6.3 g/dL (3.5-5.0); Alkaline Phosphatase 82 U/L (39-117); Anion Gap 21 (12-20); Aspartate Amino Transferase 23 U/L (5-37); Blood Urea Nitrogen 26 mg/dL (9-16); Calcium 12.1 mg/dL (8.4-10.2); Carbon Dioxide 18 mmol/L (22-29); Chloride 104 mmol/L (96-108); Creatinine Clr Calc Pharmacy 48.9; Estimated Glomerular Filt Rate 46; Lipase 14 U/L (8-78); Potassium 3.3 mmol/L (3.3-5.1); Sodium 140 mmol/L (135-145); Total Protein 9.4 g/dL (6.5-8.0)
--- OUTSIDE RECORDS SUMMARY | 2025-05-01 14:21 | XMS_ITS | Clinical Summary ---
Author Organization [facility] Facility Address [address] [address] Care Team Providers Care Security System Sales Consultant Name Role Phone Unavailable Primary Care Provider [...] 19+ 3-dose series) 2008 Influenza Vaccine (#1) 2025 Pneumococcal Vaccine: Peds ( 0 to 5 Years) and At-Risk Patients (6 to 49 Years) Aged Out No longer eligible b ased on patient's age to complete this topic Insurance [facility]
--- OUTSIDE RECORDS SUMMARY | 2025-05-01 14:21 | XMS_ITS | Clinical Summary ---
Author Organization [facility] Address [address] [place] [address] Phone Care Team Providers Care Geotechnical Intern Name Role Phone Unavailable Primary Care Provider Unavailabl e Allergies No known active allergies Medical History Medical History Date Comments HIV (human immunodeficiency virus infection) (CM S/HCC V24, CMS/HCC V28) Social History Tobacco Use Types Packs/Day Years Used Date Smoking Tobacco: Never Smokeless Tobacco: Never Tobacco Cessation:Counseling Given: Not Answered Sex and Gender Information Value Date Recorded Sex Assigned at Not on file Legal Sex Male 5:37 AM EST Gender Identity Not on file Sexual Orientation Not on file Obstetrics History Last Filed Vital Signs Vital Sign Reading Time Taken Comments Blood Pressure 147/83 10/23/2024 2:13 PM EST Pulse 76 10/23/2024 2:13 PM EST Temperature 36.5 C (97.7 F) 10/23/2024 2:13 PM EST Respiratory Rate 16 10/23/2024 2:13 PM EST Oxygen Saturation 99% 10/23/2024 2:13 PM EST Inhaled Oxygen Concentration - - Weight 54.4 kg (120 lb) 10/23/2024 8:12 AM EST Height 165.1 cm (5' 5 ) 10/23/2024 8:12 AM EST Body Mass Index 19.97 10/23/2024 8:12 AM EST Plan of Treatment Health Maintenance Due Date Last Done Comments Meningococcal ACWY Vaccine ( 1 - Risk 2-dose series) 1991 COVID-19 Vaccine (#1) 1994 MMR Vaccines (1 of 2 - Risk 2-dose series) 2007 DTaP,Tdap,and Td Vaccines (1 - Tdap) 2008 Hepatitis A Vaccines (1 of 2 - Risk 2-dose series) 2008 Hepatitis B Vaccines (1 of 3 - 19+ 3-dose series) 2008 Pneumococcal Vaccine: Pediatrics (0 to 5 Years) and At-Risk Patients (6 to 49 Years) (1 of 2 - PCV) 2008 Cholesterol Screening (Lipid Panel) 10/06/2022 Depression Screening 10/06/2022 Social Influencers of Health Screening 10/06/2022 Influenza Vaccine (#1) 2025 1, 08/08/2019 Hepatitis C Screening Completed 12/24/2024 HIB Vaccines Aged Out No longer eligi ble based on patient's age to complete this topic HPV Vaccines Aged Out No longer eligi ble based on patient's age to complete this topic IPV Vaccines Aged Out No longer eligi ble based on patient's age to complete this topic Meningococcal B Vaccine Aged Out No l onger eligible based on patient's age to complete this topic RSV Immunization Patients Under 20 months Aged Out No longer eligible b ased on patient's age to complete this topic Varicella Vaccines Aged Out No longer eligible based on patient's age to complete this topic
--- OUTSIDE RECORDS SUMMARY | 2025-05-01 14:22 | XMS_ITS | Data Portability ---
Author Organization CRYSTAL - MAUREEN GRAMAJO MD [facility], Main Office Address [address] [place] [address] Assessment Encounter Date Assessment Date Assessment LastModified by Organization Details LastModified Time 10/21/2023 10/21/2023 telemedicine. audio. pt home in [place]. 18 min [email or web address] Not available 10/21/2023 13:33:24 01/17/2024 01/17/2024 telemedicine. audio. pt at work in [place]. 16 min [email or web address] Not available 01/17/2024 14:15:13 07/27/2024 07/27/2024 telemedicine. audio. pt at work in [place]. 17 min [email or web address] Not available 07/27/2024 14:08:10 [...] Go To The Location Of Their Choice, [id number] 11:29:03 AST/SGOT (aspartat e aminotran sferase), serum or plasma 2023 [email or web address] [facility] (Centralized Electronic Ordering - All Locations), Patient Can Go To The Location Of Their Choice, 11:29:03 CT + NG DNA, PCR, unspecifi ed specimen 2023 [email or web address] [facility] (Centralized Electronic Ordering - All Locations), Patient Can Go To The Location Of Their Choice, 11:29:03 creatinin e w/ estimated GFR (eGFR), [...] To The Location Of Their Choice, 11:29:04 T-cell regulator y subsets panel, blood 2023 [email or web address] [facility] (Centralized Electronic Ordering - All Locations), Patient Can Go To The Location Of Their Choice, 11:29:04 HBsAg (hepatiti s B surface Ag), serum 2023 [email or web address] [facility] (Centralized Electronic Ordering - All Locations), Patient Can Go To The Location Of Their Choice, 4 11:29:04 HIV-1 RNA, quantitat rajiv, PCR, serum or plasma - HIV VL PCR QUANTITAV RAJIV 2023 [email or web address] [facility] (Centralized Electronic Ordering - All Locations), Patient Can Go To The Location Of Their Choice, 11:29:04 CBC w/ diff 2023 [employer] [facility] (Centralized Electronic Ordering - All Locations), Patient Can Go To The Location Of Their Choice, 11:15:05 electroly jennifer panel, blood 2023 024 [email or web address] [facility] (Centralized Electronic Ordering - All Locations), Patient Can Go To The Location Of Their Choice, 11:15:05 ALT (alanine aminotran sferase), serum or plasma 2023 024 [email or web address] [facility] (Centralized Electronic Ordering - All Locations), Patient Can Go To The Location Of Their Choice, 11:15:06 AST/SGOT (aspartat e aminotran sferase), serum or plasma 2023 024 [email or web address] [facility] (Centralized Electronic Ordering - All Locations), Patient Can Go To The Location Of Their Choice, 11:15:06 CT + NG DNA, PCR, unspecifi ed specimen 2023 024 [employer] [facility] (Centralized Electronic Ordering - All Locations), Patient Can Go To The Location Of Their Choice, 11:15:06 creatinin e w/ estimated GFR (eGFR), serum or plasma 2023 024 [email or web address] [facility] (Centralized Electronic Ordering - All Locations), Patient Can Go To The Location Of Their Choice, 11:15:06 hepatitis C virus Ab, serum 2023 024 [employer] [facility] (Centralized Electronic Ordering - All Locations), Patient Can Go To The Location Of Their Choice, 11:15:06 RPR (rapid plasma reagin), serum 2023 024 [employer] [facility] (Centralized Electronic Ordering - All Locations), Patient Can Go To The Location Of Their Choice, 11:15:06 T-cell regulator y subsets panel, blood 2023 024 [facility] (Centralized Electronic Ordering - All Locations), Patient Can Go To The Location Of Their Choice, 4 11:15:06 HBsAg (hepatiti s B surface Ag), serum 2023 024 [email or web address] [facility] (Centralized Electronic Ordering - All Locations), Patient Can Go To The Location Of Their Choice, 4 11:15:07 HIV-1 RNA, quantitat rajiv, PCR, serum or plasma - HIV VL PCR QUANTITAV RAJIV 2023 024 [email or web address] [facility] (Centralized Electronic Ordering - All Locations), Patient Can Go To The Location Of Their Choice, 11:15:07 CBC w/ diff 2022 023 [email or web address] [facility] (Centralized Electronic Ordering - All Locations), Patient Can Go To The Location Of Their Choice, 00:48:01 electroly jennifer panel, blood 2022 023 [email or web address] [facility] (Centralized Electronic Ordering - All Locations), Patient Can Go To The Location Of Their Choice, 4 00:48:02 ALT (alanine aminotran sferase), serum or plasma 2022 023 [email or web address] [facility] (Centralized Electronic Ordering - All Locations), Patient Can Go To The Location Of Their Choice, 4 00:48:02 AST/SGOT (aspartat e aminotran sferase), serum or plasma 2022 023 [email or web address] [facility] (Centralized Electronic Ordering - All Locations), Patient Can Go To The Location Of Their Choice, 4 00:48:02 CT + NG DNA, PCR, unspecifi ed specimen 2022 023 [email or web address] [facility] (Centralized Electronic Ordering - All Locations), Patient Can Go To The Location Of Their Choice, 4 00:48:03 creatinin e w/ estimated GFR (eGFR), serum or plasma 2022 023 [email or web address] [facility] (Centralized Electronic Ordering - All Locations), Patient Can Go To The Location Of Their Choice, 00:48:03 hepatitis C virus Ab, serum 2022 023 [email or web address] [facility] (Centralized Electronic Ordering - All Locations), Patient Can Go To The Location Of Their Choice, 00:48:04 HIV-1 RNA, quantitat rajiv, PCR, serum or plasma 2022 023 [email or web address] [facility] (Centralized Electronic Ordering - All Locations), Patient Can Go To The Location Of Their Choice, 00:48:04 RPR (rapid plasma reagin), serum 2022 023 [email or web address] [facility] (Centralized Electronic Ordering - All Locations), Patient Can Go To The Location Of Their Choice, 00:48:05 T-cell regulator y subsets panel, blood 2022 023 [email or web address] [facility] (Centralized Electronic Ordering - All Locations), Patient Can Go To The Location Of Their Choice, 00:48:05 HBsAg (hepatiti s B surface Ag), serum 2022 023 [email or web address] [facility] (Centralized Electronic Ordering - All Locations), Patient Can Go To The Location Of Their Choice, 00:48:05 Referral None recorded. Procedures None recorded. Surgeries None recorded. Imaging None recorded. Medication Orders Dovato 50 mg-300 mg tablet 2023 024 JER [id number], [address] [place], [address], 4 11:42:02 Dovato 50 mg-300 mg tablet 2023 024 [email or web address] [id number], [address] [place], [address], 4 14:14:11 Patient TargetsNo targets recorded. Patient InstructionsNo instructions recorded. Reason for Referral None Reported. Problems Name Problem SNOMED Code Status Onset Date Resolution Date Notes Provider Name and Address Organization Details Recorded Time History of syphilis [id number] [id number] Active 2022 Maureen Al MD [address] [place] [address] [place], [phone] , CRYSTAL AL MD [facility] 3 23:47:13 Human immunodef iciency virus infection 78355301 Active 2022 Maureen Al MD [address] [place] [address] [place], [phone] , CRYSTAL AL MD [facility] 3 10:09:28 Syphilis 13651263 Active 2019 Syphilis, unspecifi ed; snomeddes cription: Syphilis; Report Immunity to Registry: Yes; Notes: 2008. tx IM [facility]; Not Available [facility] 4 06:58:56 Neuropath y 280611241 Active 2019 Neuropath y; snomeddes cription: Neuropath y; Report Immunity to Registry: Yes; Not Available [facility] 4 06:58:56 Anogenita l herpesvir al infection 991363374 Active 2019 Anogenita l herpesvir al infection , unspecifi ed; snomeddes cription: Genital herpes simplex; Report Immunity to Registry: Yes; Not Available [facility] 4 06:58:[address] pylori-as sociated gastritis 079251664 Active [address] pylori-as sociated gastritis ; snomeddes cription: Helicobac ter pylori-as sociated gastritis ; Report Immunity to Registry: Yes; Notes: 07/2019 s/p treated. post tx H pylori negative 10/2019; Not Available [facility] 4 06:58:56 Spasm 19495447 Active 2019 Spasm; snomeddes cription: Spasm; Report Immunity to Registry: Yes; Notes: upper back/neck chronic pain; Cramp and spasm; snomeddes cription: Spasm; Report Immunity to Registry: Yes; Notes: upper back/neck chronic pain; Not Available [facility] 4 06:58:57 Irritable bowel syndrome 76309889 Active 2021 Irritable bowel syndrome; snomeddes cription: Irritable bowel syndrome; Report Immunity to Registry: Yes; Irritabl e bowel syndrome without diarrhea; snomeddes cription: Irritable bowel syndrome; Report Immunity to Registry: Yes; Not Available [facility] 4 06:58:57 Genital herpes simplex 98591689 Active 2019 Genital herpes simplex; snomeddes cription: Genital herpes simplex; Report Immunity to Registry: Yes; Not Available [facility] 4 06:58:57 Polyneuro colleen 36263727 Active 2019 Polyneuro colleen, unspecifi ed; snomeddes cription: Neuropath y; Report Immunity to Registry: Yes; Not Available [facility] 4 06:58:57 Notes:Gastritis, unspecified , without bleeding [...] 90; VACCINE_ IND: no; SU_FULL_ NAME: Maureen young; Not Available Not Available Not Available omeprazol [...] Not Available Dovato 50 mg-300 mg tablet TAKE 1 TABLET BY MOUTH EVERY DAY FOR 30 DAYS 2024 active Not Available Not Available Not Avai [...] virus, quadrivalent, preservative 1 completed Not Available [facility] 12/14/2023 06:54:31 Influenza, split virus, quadrivalent, preservative 9 completed Not Available [facility] 12/14/2023 06:54:31 Past Encounters Encounter ID Performer Location Encounter Start Date Encounter Closed Date Diagnosis/Indication Diagnosis SNOMED-CT Code Diagnosis ICD10 Code Diagnosis Note [id number] Maureen Al MD Main Office [address] [place] [phone] 10/21/2023 13:30:34 10/21/2023 15:53:10 Human immunodeficiency virus infection [id number] B20 HIV.Contin ue Dovato 1 tab po qd. 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 condom use reviewed for STI prevention ; PrePlabs ordered.wi ll request Gregory Discharge summary and labsplan of care reviewed. questions and concerns addressed. Questions and concerns addressed History of syphilis 1087 [id number] Z86.19 2009. tx IM PNCRPR screen [id number] Maureen Al MD Main Office [address] [facility] [place] [address] 01/17/2024 12:37:08 01/17/2024 16:13:47 Human immunodeficiency virus infection 98168675 B20 HIV.Contin ue Dovato 1 tab po qd. Strict compliance reviewed to prevent viral resistance and keep viral suppressio n, and prevent viral transmissi on.U=U. condom use reviewed for STI prevention ; PrePlabs ordered.pl an of care reviewed. questions and concerns addressed. Questions and concerns addressed [id number] Maureen Al MD Main Office [address] [facility] [place] [address] 07/27/2024 13:40:43 08/13/2024 11:44:54 Human immunodeficiency virus infection [id number] B20 HIV.Contin ue Dovato 1 tab po [...] Recorded Advance Directives Directive None Recorded Payers Insurance Date Sequence Insurance Name Policy Number Policy Martell Covered Member ID Martell Member ID Guarantor Name 08/17/2024 1 [facility] [id number] Darvin Lowery [id number] 04/04/2024 1 [facility] NET PLAN (MEDICAID HMO) [facility] Darvin Lowery [id number] Notes Date Note Type Note Provider Name and Address Organization Details Recorded Time 10/21/2023 text/html F/U HIV.On Dovat o 1 tab po qd.reports compliance.no recent HIV labsCompliant.likes regimen. no side effectsmed list reviewedsome insurance barriers, so did miss one appointment.[facility] 09/2021 HIV vL nondetected; CD4= 1238; eGFR>60; ALt/AST WNL; HCV neg01/2023 HIV VL nondetected; Cd4>1000; ALt/AST wnl; eGFR>60; no STI.no STI sx. no rash; no penile discharge. no chills. no sweats.Reports got out of the hospital earlier today; was at [facility] for 2 days or so with a gastroenteritis, vomiting and w diarrhea; got electrolytes replacements. doing well now. Maureen Al MD [address] [place] [address], [phone], CRYSTAL AL MD [facility] 10/21/2023 13:35:01 01/17/2024 text/html F/U [...] no chills. no sweats. Maureen Al MD [address] [place] [address], [phone], CRYSTAL AL MD [facility] 01/17/2024 14:15:34 07/27/2024 text/html F/U [...] no chills. no sweats. Maureen Al MD [address] [place] [address], [phone], CRYSTAL AL MD [facility] 08/13/2024 11:41:57
[2025-05-01 14:58] VITALS: BP 116/58; PULSE 75; RESP 17; TEMP 37.3; O2SAT 97
--- NOTE | 2025-05-01 16:12 | PC.NURSE ---
Po trial in progress.
[2025-05-01 16:18] VITALS: BP 116/58; PULSE 75; RESP 17; TEMP 37.3; O2SAT 97
== END 2025-05-01 16:21 | disposition home or self-care (01) ==
PROVIDERS: Emergency Provider Emergency Medicine
DX: R07.89 Other chest pain (principal); R10.13 Epigastric pain; I49.8 Other specified cardiac arrhythmias; R00.1 Bradycardia, unspecified; R11.2 Nausea with vomiting, unspecified; F12.90 Cannabis use, unspecified, uncomplicated; Z79.899 Other long term (current) drug therapy; Z21 Asymptomatic human immunodeficiency virus [HIV] infection status
CPT/HCPCS: 36415; 74176; 80048; 80076; 83690; 85025; 93005; 96361; 96374; 96375; 99284; J1790; J2060; J2405; J2470

== ENCOUNTER → 2025-05-01 13:02 | Outpatient (BNV) | payer OTHER, SELFPAY | PROVIDERS: Emergency Provider Emergency Medicine; Visit Provider Internal Medicine Cardiovascular Disease | DX: I49.9 Cardiac arrhythmia, unspecified (principal); R00.1 Bradycardia, unspecified | CPT/HCPCS: 93010 ==

== ENCOUNTER → 2025-05-01 13:52 | Outpatient (BNV) | payer OTHER, SELFPAY | PROVIDERS: Emergency Provider Emergency Medicine; Visit Provider Radiology Diagnostic Radiology | DX: K42.9 Umbilical hernia without obstruction or gangrene (principal); E83.59 Other disorders of calcium metabolism | CPT/HCPCS: 74176 ==

== ENCOUNTER 2025-05-02 19:41 | Emergency (ER) | payer OTHER, SELFPAY ==
--- NOTE | 2025-05-02 | ECG_ITS ---
Test Reason : weakness Blood Pressure : */* mmHG Vent. Rate : 85 BPM Atrial Rate : 85 BPM P-R Int : 140 ms QRS Dur : 80 ms QT Int : 364 ms P-R-T Axes : 88 85 70 degrees QTcB Int : 433 ms Normal sinus rhythm Biatrial enlargement Abnormal ECG When compared with ECG of 01-May-2025 13:02, No significant change was found Referred By: Generic ED Physician Electronically Signed By: Gary Hull
[2025-05-02 19:50] VITALS: BP 142/90; PULSE 100; O2SAT 100
[2025-05-02 19:53] VITALS: BP 144/98; PULSE 110; RESP 16; TEMP 36.6; O2SAT 100
[2025-05-02 19:54] VITALS: BMI 19.4
[2025-05-02 20:21] LABS: Hematocrit 43.3 % (42.0-52.0); Hemoglobin 15.5 g/dl (14.0-18.0); Imm Gran Abs Auto 0.08 X10*3/uL (0.00-0.03); Imm Gran Pct Auto 0.5 % (0.0-0.4); Lymphocytes Absolute Auto 3.5 X10*3/uL (1.2-4.9); MANUAL DIFF FLAG SCAN; Mean Corpuscular HGB Conc 35.8 g/dl (31.0-36.0); Mean Corpuscular Hemoglobin 29.8 pg (27.0-33.0); Mean Corpuscular Volume 83.1 fL (80.0-98.0); NRBC Abs Auto 0.000 X10*3/uL (0.0-0.012); NRBC Pct Auto 0.0 /100WBC (0.0-0.2); Platelet Count 276 X10*3/uL (160-400); Red Blood Count 5.21 X10*6/uL (4.60-5.80); SCAN SMEAR FLAG 1; White Blood Count 16.7 X10*3/uL (4.8-10.8)
[2025-05-02 21:21] LABS: Alanine Aminotransferase 10 U/L (0-40); Albumin Level 6.0 g/dL (3.5-5.0); Alkaline Phosphatase 67 U/L (39-117); Anion Gap 21 (12-20); Aspartate Amino Transferase 29 U/L (5-37); Blood Urea Nitrogen 53 mg/dL (9-16); Calcium 10.6 mg/dL (8.4-10.2); Carbon Dioxide 18 mmol/L (22-29); Chloride 101 mmol/L (96-108); Creatinine Clr Calc Pharmacy 25.6; Estimated Glomerular Filt Rate 23; Potassium 3.7 mmol/L (3.3-5.1); Sodium 136 mmol/L (135-145); Total Protein 9.6 g/dL (6.5-8.0)
--- NOTE | 2025-05-02 21:31 | ED.GENADULT ---
HPI - General Adult General Chief complaint: Nausea/Vomiting/Diarrhea Stated complaint: vomiting, weakness x2days Time Seen by Provider: 05/02/25 20:43 Source: patient Limitations: no limitations History of Present Illness ED Provider: Carrie Nazario PA-C HPI narrative: 34-year-old male with a history of HIV with self report of undetectable viral load, known cannabinoid induced hyperemesis syndrome, ongoing marijuana abuse who presents with intractable nausea vomiting. Patient was seen in the emergency room yesterday for same presentation. Related Data Home Medications ?Medication ?Instructions ?Recorded ?Confirmed dolutegravir 50 mg-lamivudine 300 1 tab PO DAILY 09/02/20 12/27/24 mg tablet (Dovato) cholecalciferol (vitamin D3) 25 25 mcg PO DAILY 12/27/24 12/27/24 mcg (1,000 unit) capsule cyanocobalamin (vitamin B-12) 1,000 mcg PO DAILY 12/27/24 12/27/24 1,000 mcg tablet duloxetine 60 mg capsule,delayed 60 mg PO DAILY 12/27/24 12/27/24 release famotidine 40 mg tablet 40 mg PO BID 12/27/24 12/27/24 Allergies Allergy/AdvReac Type Severity Reaction Status Date / Time No Known Allergies Allergy Verified 05/02/25 19:55 Review of Systems Review of Systems: Yes all other systems are reviewed and are negative Constitutional: Constitutional: Denies fatigue and Denies fever(s) Cardiovascular: Cardiovascular: Denies chest pain and Denies dyspnea Respiratory: Respiratory: Denies dyspnea Gastrointestinal: Gastrointestinal: Reports abdominal pain, Reports nausea and Reports vomiting Endocrine: Endocrine: Denies fatigue PMFSH Past Medical History Attestation statement: The following information was validated with the patient. Medical History Cannabis abuse HIV disease Acute renal failure Fibromyalgia HIV (human immunodeficiency virus infection) GERD (gastroesophageal reflux disease) Family History Family History Mother HIV (human immunodeficiency virus infection) Social History Social History Household Members: None Housing: Apartment Do you presently have visiting nurse or other home services: No Unable to assess alcohol history related to: Unknown Alcohol intake: current Alcohol intake frequency: does not drink Patient Tobacco Use Status: Never used Tobacco Tobacco use type: Cigarette Cigarettes Per Day: 10 Smoked in Last 30 Days: Yes e-Cigarette/Vaping Use: Never Used Second Hand Smoke Exposure: Yes Use of substances other than those prescribed or required for medical reasons: Yes Substance Use Type: Marijuana Advance Directives: Yes Advance Directives on File: Yes Advance Directives Date on File: 09/29/22 service: No Current occupational status: employed Physical Exam ED Vital Signs: Vital Signs - 24 hr 05/02/25 19:53 05/03/25 02:16 Temperature 97.8 F Pulse Rate 110 H 78 Respiratory Rate 16 20 Blood Pressure 144/98 H 135/72 Pulse Oximetry 100 98 Oxygen Delivery Method Room Air Room Air BMI result Body Mass Index 19.4 Const Other: Awake, ill-appearing appears older than stated age, actively retching Orientation/consciousness: patient oriented x3 Resp Effort & Inspection: normal respiratory effort Cardio Other: Normal peripheral perfusion GI Other: With distraction no pain to palpation no guarding Skin Other: Warm dry no rash Neuro General: patient oriented x3, gait normal, no focal motor deficits and CN's II-XI intact bilaterally Psych Other: Cooperative Course Reevaluation(s) Reevaluation #1: After 1st round of fluids, and creatinine improved, now hypokalemic, giving 40 mEq p.o. with 2 mEq IV Reevaluation #2: After 3rd round of fluid and potassium repletion, potassium 4, creatinine 1.55, gap has been closed discharge now Medications Administered Discontinued Medications Generic Name Dose Route Start Last Admin Trade Name Freq PRN Reason Stop Dose Admin Droperidol 2.5 mg 05/02/25 20:43 05/02/25 21:20 Droperidol 5 Mg/2 Ml Vial IVPUSH 05/02/25 20:44 2.5 mg ONCE ONE Administration Sodium Chloride 1,000 mls @ 999 mls/hr 05/02/25 20:45 05/02/25 22:20 Ns IV 05/02/25 21:45 Infused .Q1H1M WAYNE Infusion Sodium Chloride 1,000 mls @ 999 mls/hr 05/02/25 21:45 05/03/25 00:20 Ns IV 05/02/25 22:45 Infused .Q1H1M WAYNE Infusion Potassium Chloride 10 meq in 100 mls @ 100 mls/hr 05/03/25 00:15 05/03/25 03:10 Potassium Chloride/H20 IV 05/03/25 02:14 Infused Q1H WAYNE Infusion Sodium Chloride 1,000 mls @ 999 mls/hr 05/03/25 00:15 05/03/25 01:52 Ns IV 05/03/25 01:15 Infused .Q1H1M WAYNE Infusion Midazolam HCl 3 mg 05/03/25 02:12 05/03/25 02:18 Midazolam Hcl 2 Mg/2 Ml Vial IVPUSH 05/03/25 02:13 3 mg ONCE ONE Administration Potassium Chloride 40 meq 05/03/25 00:02 05/03/25 00:22 Potassium Chloride Er 20 Meq Tab.Er.Prt PO 05/03/25 00:03 40 meq ONCE ONE Administration Medical Decision Making Medical Decision Making [facility] Narrative: 34-year-old male with a history of HIV with self report of undetectable viral load, known cannabinoid induced hyperemesis syndrome, ongoing marijuana abuse who presents with intractable nausea vomiting. Patient was seen in the emergency room yesterday for same presentation. Problem: Cannabinoid abuse, cyclic vomiting syndrome, HIV History: Per patient I have considered the following differential diagnoses: Cannabinoid induced hyperemesis, viral gastroenteritis, drug/alcohol intoxication Plan: Screening labs including drug screen and serum ethanol were obtained. The patient has acute kidney injury. We will be given droperidol, aggressive IV fluids. My plan is to repeat the metabolic panel once fluids are complete. I have independently reviewed the following tests: Labs: Leukocytosis noted, not anemic, no electrolyte abnormality, creatinine 3.09, bicarb 18, gap 21 Repeat labs round 2: Potassium 3.1, bicarb 21, gap 16, creatinine 2.23 Repeat labs round 3: Potassium 4, bicarb 20, gap 14, creatinine 1.55 Lab Data 05/02/25 20:12 05/03/25 02:02 Labs: Lab Results 05/02/25 05/02/25 05/02/25 Range/Units 20:12 20:48 23:32 WBC 16.7 H (4.8-10.8) X10*3/uL RBC 5.21 (4.60-5.80) X10*6/uL Hgb 15.5 (14.0-18.0) g/dl Hct 43.3 (42.0-52.0) % MCV 83.1 (80.0-98.0) fL MCH 29.8 (27.0-33.0) pg MCHC 35.8 (31.0-36.0) g/dl RDW 12.8 (11.0-16.0) % Plt Count 276 (160-400) X10*3/uL MPV 11.1 (9.4-12.4) fL Immature Gran % (Auto) 0.5 H (0.0-0.4) % Neut % (Auto) 68.2 (45-73) % Lymph % (Auto) 21.1 (20-40) % Oliver % (Auto) 9.6 (2-11) % Eos % (Auto) 0.2 (0-4) % Baso % (Auto) 0.4 (0-2) % Lymph # (Auto) 3.5 (1.2-4.9) X10*3/uL Oliver # (Auto) 1.6 H (0.1-1.2) X10*3/uL Eos # (Auto) 0.0 (0.0-0.4) X10*3/uL Baso # (Auto) 0.1 (0.0-0.2) X10*3/uL Abs Immat Gran (auto) 0.08 H (0.00-0.03) X10*3/uL Absolute Neuts (auto) 11.4 H (2.0-8.3) x10*3/uL Absolute Nucleated RBC 0.000 (0.0-0.012) X10*3/uL Nucleated RBC % (auto) 0.0 (0.0-0.2) /100WBC Smear Tech's Comments VERIFIED Sodium 136 138 (135-145) mmol/L Potassium 3.7 3.1 L (3.3-5.1) mmol/L Chloride 101 104 (96-108) mmol/L Carbon Dioxide 18 L 21 L (22-29) mmol/L Anion Gap 21 H 16 (12-20) BUN 53 H 48 H (9-16) mg/dL Creatinine 3.09 H 2.23 H (0.5-1.4) mg/dL Estim Creat Clear Calc 25.6 35.5 Estimated GFR 23 34 Random Glucose 127 H 130 H (60-115) mg/dL Calcium 10.6 H D 9.2 D (8.4-10.2) mg/dL Total Bilirubin 0.9 (0.0-1.0) mg/dL AST 29 (5-37) U/L ALT 10 (0-40) U/L Alkaline Phosphatase 67 (39-117) U/L Troponin I High Sens Cancelled Total Protein 9.6 H (6.5-8.0) g/dL Albumin 6.0 H (3.5-5.0) g/dL Urine Color Urine Appearance Urine pH (5.0-9.0) Ur Specific Marlow (1.005-1.025) Urine Protein (Neg-Trace) mg/dL Urine Glucose (UA) (Negative) mg/dL Urine Ketones (Negative) mg/dL Urine Blood (Negative) Urine Nitrite (Negative) Ur Leukocyte Esterase (Negative) Urine RBC (0-2) /HPF Urine WBC (0-5) /HPF Ur Squamous Epith Cells (0-2) /HPF Urine Bacteria (None Seen) Hyaline Casts (0-2) /LPF Urine Opiates Screen (Not Detect) Ur Buprenorphine Scrn (Not Detect) ng/mL Ur Oxycodone Screen (Not Detect) ng/mL Urine Methadone Screen (Not Detect) ng/mL Urine Fentanyl Screen (Not Detect) Ur Barbiturates Screen (Not Detect) Ur Phencyclidine Scrn (Not Detect) Ur Amphetamines Screen (Not Detect) U Benzodiazepines Scrn (Not Detect) Urine Cocaine Screen (Not Detect) U Marijuana (THC) Screen (Not Detect) Ethyl Alcohol < 10 mg/dL 05/03/25 05/03/25 Range/Units 00:28 02:02 WBC (4.8-10.8) X10*3/uL RBC (4.60-5.80) X10*6/uL Hgb (14.0-18.0) g/dl Hct (42.0-52.0) % MCV (80.0-98.0) fL MCH (27.0-33.0) pg MCHC (31.0-36.0) g/dl RDW (11.0-16.0) % Plt Count (160-400) X10*3/uL MPV (9.4-12.4) fL Immature Gran % (Auto) (0.0-0.4) % Neut % (Auto) (45-73) % Lymph % (Auto) (20-40) % Oliver % (Auto) (2-11) % Eos % (Auto) (0-4) % Baso % (Auto) (0-2) % Lymph # (Auto) (1.2-4.9) X10*3/uL Oliver # (Auto) (0.1-1.2) X10*3/uL Eos # (Auto) (0.0-0.4) X10*3/uL Baso # (Auto) (0.0-0.2) X10*3/uL Abs Immat Gran (auto) (0.00-0.03) X10*3/uL Absolute Neuts (auto) (2.0-8.3) x10*3/uL Absolute Nucleated RBC (0.0-0.012) X10*3/uL Nucleated RBC % (auto) (0.0-0.2) /100WBC Smear Tech's Comments Sodium 139 (135-145) mmol/L Potassium 4.0 D (3.3-5.1) mmol/L Chloride 109 H (96-108) mmol/L Carbon Dioxide 20 L (22-29) mmol/L Anion Gap 14 (12-20) BUN 39 H (9-16) mg/dL Creatinine 1.55 H (0.5-1.4) mg/dL Estim Creat Clear Calc 51.2 Estimated GFR 51 Random Glucose 114 (60-115) mg/dL Calcium 8.4 D (8.4-10.2) mg/dL Total Bilirubin (0.0-1.0) mg/dL AST (5-37) U/L ALT (0-40) U/L Alkaline Phosphatase (39-117) U/L Troponin I High Sens Total Protein (6.5-8.0) g/dL Albumin (3.5-5.0) g/dL Urine Color Yellow Urine Appearance Clear Urine pH 5.5 (5.0-9.0) Ur Specific Marlow 1.020 (1.005-1.025) Urine Protein 30 (1+) H (Neg-Trace) mg/dL Urine Glucose (UA) Negative (Negative) mg/dL Urine Ketones Trace (Negative) mg/dL Urine Blood Small (1+) H (Negative) Urine Nitrite Negative (Negative) Ur Leukocyte Esterase Negative (Negative) Urine RBC 0-2 (0-2) /HPF Urine WBC 0-5 (0-5) /HPF Ur Squamous Epith Cells 3-5 (0-2) /HPF Urine Bacteria None Seen (None Seen) Hyaline Casts >20 (0-2) /LPF Urine Opiates Screen Not Detected (Not Detect) Ur Buprenorphine Scrn Not Detected (Not Detect) ng/mL Ur Oxycodone Screen Not Detected (Not Detect) ng/mL Urine Methadone Screen Not Detected (Not Detect) ng/mL Urine Fentanyl Screen Not Detected (Not Detect) Ur Barbiturates Screen Not Detected (Not Detect) Ur Phencyclidine Scrn Not Detected (Not Detect) Ur Amphetamines Screen Not Detected (Not Detect) U Benzodiazepines Scrn Not Detected (Not Detect) Urine Cocaine Screen Not Detected (Not Detect) U Marijuana (THC) Screen POSITIVE H (Not Detect) Ethyl Alcohol mg/dL Discharge Plan Discharge Clinical Impression: Cannabinoid hyperemesis syndrome Patient Disposition: Home, Self-Care Instructions: Cannabis Use Disorder (ED), Cyclic Vomiting Syndrome (ED) Additional Instructions: Your labs normalized after aggressive IV fluid therapy and repletion of your potassium. You need to stop using marijuana Prescriptions: No Action Dovato 50-300 mg Tablet 1 tab PO DAILY famotidine 40 mg tablet 40 mg PO BID cyanocobalamin (vitamin B-12) 1,000 mcg Tablet 1,000 mcg PO DAILY cholecalciferol (vitamin D3) 25 mcg (1,000 unit) Capsule 25 mcg PO DAILY duloxetine 60 mg capsule,delayed release(DR/EC) 60 mg PO DAILY Print Language: Australian
[2025-05-02 23:57] LABS: Anion Gap 16 (12-20); Blood Urea Nitrogen 48 mg/dL (9-16); Calcium 9.2 mg/dL (8.4-10.2); Carbon Dioxide 21 mmol/L (22-29); Chloride 104 mmol/L (96-108); Creatinine Clr Calc Pharmacy 35.5; Estimated Glomerular Filt Rate 34; Potassium 3.1 mmol/L (3.3-5.1); Sodium 138 mmol/L (135-145)
[2025-05-03] MEDS: Potassium Chloride ER 20 MEQ TAB.ER.PRT 40 MEQ PO (00:22)
[2025-05-03] MEDS: Potassium Chloride/H20 10 MEQ/100 ML PIGGYBACK 100 MEQ IV ×2 (00:23→01:53)
[2025-05-03 00:37] LABS: Appearance Urine Clear; Glucose Urine UA Negative (Negative); PH 5.5 (5.0-9.0); Specific Gravity - Urine 1.020 (1.005-1.025); UMIC TRIGGER UACC YES
[2025-05-03 00:50] LABS: Cannabinoid Screen Urine POSITIVE (Not Detect)
[2025-05-03 02:16] VITALS: BP 135/72; PULSE 78; RESP 20; O2SAT 98
[2025-05-03 02:33] LABS: Anion Gap 14 (12-20); Blood Urea Nitrogen 39 mg/dL (9-16); Calcium 8.4 mg/dL (8.4-10.2); Carbon Dioxide 20 mmol/L (22-29); Chloride 109 mmol/L (96-108); Creatinine Clr Calc Pharmacy 51.2; Estimated Glomerular Filt Rate 51; Potassium 4.0 mmol/L (3.3-5.1); Sodium 139 mmol/L (135-145)
[2025-05-03 05:13] VITALS: BP 99/65; PULSE 89; RESP 18; TEMP 36.6; O2SAT 97
== END 2025-05-03 05:14 | disposition home or self-care (01) ==
PROVIDERS: Physician Assistant Medical; Emergency Provider Emergency Medicine Emergency Medical Services; PCP Nurse Practitioner Family
DX: R11.2 Nausea with vomiting, unspecified (principal); F12.988 Cannabis use, unspecified with other cannabis-induced disorder
CPT/HCPCS: 36415; 80048; 80053; 80307; 81001; 85025; 93005; 96361; 96374; 96375; 99284; J1790; J2250; J3480

== ENCOUNTER → 2025-05-02 21:37 | Outpatient (BNV) | payer OTHER, SELFPAY | PROVIDERS: Emergency Provider Emergency Medicine Emergency Medical Services; PCP Nurse Practitioner Family; Visit Provider Internal Medicine Cardiovascular Disease | DX: I51.7 Cardiomegaly (principal) | CPT/HCPCS: 93010 ==

== ENCOUNTER 2025-05-06 14:14 | Emergency (ER) | payer OTHER, SELFPAY ==
--- NOTE | ~2025-05-06 | US_ITS ---
Exam: Right right lower quadrant abdomen ultrasound INDICATION: Right lower quadrant tenderness COMPARISON: May 01, 2025 CT TECHNIQUE: Scale and color Doppler imaging was performed in the right upper quadrant of the abdomen FINDINGS: No free fluid is demonstrated. Images with both gas-filled and fluid-filled bowel are demonstrated. However, deeper structures are obscured by bowel gas. No tubular structure suggesting appendix is imaged. US/US appendix IMPRESSION: Nonvisualized appendix Electronically signed by: Ceferino Cramer MD 05/06/2025 03:42 PM EDT
--- NOTE | ~2025-05-06 | CT_ITS ---
EXAMINATION: CT ABDOMEN AND PELVIS WITH CONTRAST CLINICAL INFORMATION: Right lower quadrant abdominal pain. COMPARISON: 05/01/2025, 03/08/2024, 10/17/2023. TECHNIQUE: Multidetector volumetric images were obtained from the superior aspect of the liver through the pubic symphysis following administration 85 mL of Omnipaque 350 intravenous contrast. Sagittal and coronal reformatted images were obtained on the technologist's workstation. Oral contrast: No This CT examination was performed using dose optimization techniques as appropriate, variously including the following: *Automated exposure control *Adjustment of mA and/or kV according to patient size (this includes techniques or standardized protocols for targeted exams where dose is matched to indication/reason for exam; i.e. extremities or head) *Use of iterative reconstruction technique FINDINGS: LUNG BASES: Lung bases are clear bilaterally. There are no effusions. LIVER, GALLBLADDER, AND BILIARY TREE: The liver is normal in size, shape, and attenuation. No focal hepatic lesion or biliary ductal dilatation is present. The gallbladder is unremarkable with no evidence of radiopaque gallstones, gallbladder wall thickening, or obvious pericholecystic inflammatory changes. PANCREAS: Unremarkable. SPLEEN: Unremarkable. ADRENAL GLANDS: Unremarkable. KIDNEYS AND URETERS: The kidneys are normal in size, shape, and attenuation. No hydronephrosis, hydroureter, or calculi seen. No perinephric stranding. BLADDER: Unremarkable. GASTROINTESTINAL TRACT: Normal appendix. Normal small bowel. Normal colon and rectum. Stomach is somewhat decompressed but otherwise normal. Normal duodenal sweep. ABDOMINAL WALL: No significant hernia is appreciated. LYMPH NODES: Normal. VASCULAR: Normal. There is a retroaortic left renal vein. PELVIC VISCERA: Unremarkable. OSSEOUS STRUCTURES: There is no suspicious lytic or blastic bone lesion. There is transitional lumbosacral anatomy redemonstrated. CT/CT abdomen pelvis w IV con IMPRESSION: No acute findings in the abdomen or pelvis. Electronically signed by: Ever Singh MD 05/06/2025 04:49 PM EDT
--- NOTE | 2025-05-06 14:19 | ED.GENADULT ---
HPI - General Adult General Chief complaint: Nausea/Vomiting/Diarrhea Stated complaint: N/V for days Time Seen by Provider: 05/06/25 14:17 Source: patient, EMS, RN notes reviewed and old records reviewed Mode of arrival: EMS Limitations: no limitations History of Present Illness ED Provider: Wilmer VIZCARRA narrative: Patient is a 34 y/o male with pmhx of HIV, cannabinoid hyperemesis syndrome, and GERD who presents with nausea/vomiting x 5 days. Pt was seen here on Tuesday 05/01 for nausea/vomiting with hematemesis. He was given fluids and medication which helped. Pt states he had abnormal lab values and was told to come back if symptoms continue. Pt came back to the ED 05/02 for nausea and vomiting with hematemesis when he was also given fluids and medication. He reports symptoms continued on Tuesday but were tolerable. Pt reports feeling well yesterday, he was able to eat and had a BM. Symptoms restarted this morning around 8AM. He reports feeling nauseous and vomiting saliva. Denies alcohol use. Admits to marijuana use but states his last use was 7 days ago. No recent sickness, fever, chill, or cough. complaint: nausea, vomiting Onset (ago): day(s) Related Data Home Medications ?Medication ?Instructions ?Recorded ?Confirmed dolutegravir 50 mg-lamivudine 300 1 tab PO DAILY 09/02/20 12/27/24 mg tablet (Dovato) cholecalciferol (vitamin D3) 25 25 mcg PO DAILY 12/27/24 12/27/24 mcg (1,000 unit) capsule cyanocobalamin (vitamin B-12) 1,000 mcg PO DAILY 12/27/24 12/27/24 1,000 mcg tablet duloxetine 60 mg capsule,delayed 60 mg PO DAILY 12/27/24 12/27/24 release famotidine 40 mg tablet 40 mg PO BID 12/27/24 12/27/24 Allergies Allergy/AdvReac Type Severity Reaction Status Date / Time No Known Allergies Allergy Verified 05/06/25 14:58 Review of Systems Review of Systems: As per HPI Yes all other systems are reviewed and are negative Constitutional: Constitutional: Reports as per HPI PMFSH Past Medical History Medical History Cannabis abuse HIV disease Acute renal failure Fibromyalgia HIV (human immunodeficiency virus infection) GERD (gastroesophageal reflux disease) Family History Family History Mother HIV (human immunodeficiency virus infection) Social History Social History Household Members: None Housing: Apartment Do you presently have visiting nurse or other home services: No Unable to assess alcohol history related to: Unknown Alcohol intake: current Alcohol intake frequency: does not drink Patient Tobacco Use Status: Never used Tobacco Tobacco use type: Cigarette Cigarettes Per Day: 10 e-Cigarette/Vaping Use: Never Used Second Hand Smoke Exposure: Yes Substance Use Type: Marijuana Advance Directives: Yes Advance Directives on File: Yes Advance Directives Date on File: 09/29/22 service: No Current occupational status: employed Physical Exam ED Vital Signs: Vital Signs - 24 hr 05/06/25 14:55 05/06/25 16:11 Temperature 98.2 F 98.1 F Pulse Rate 78 68 Respiratory Rate 16 16 Blood Pressure 113/60 106/66 Pulse Oximetry 99 99 Oxygen Delivery Method Room Air Room Air BMI result Body Mass Index 20.2 Vital signs have been reviewed and appear to be correct. Blood pressure normal. Heart rate normal. Respiratory rate normal. Temperature normal. Oxygen saturation normal. Const General: cooperative, healthy appearing and no acute distress Orientation/consciousness: oriented to person, oriented to place, oriented to time and patient oriented x3 Limitations: no limitations HENMT Head: Yes normocephalic and Yes atraumatic Ears: external ears normal General nose exam: Normal external nose present Face and sinus: Yes face symmetric Mouth: oropharynx normal and moist mucous membranes Throat: Yes uvula midline Eyes Pupils: Equal, round and reactive pupils present Neck Neck: Yes normal visual inspection and Yes supple Resp Effort & Inspection: normal respiratory effort and able to speak in complete sentences Auscultation: clear to auscultation bilaterally Cardio Rate: regular rate Rhythm: regular rhythm Heart sounds: S1 normal heart sound present and S2 normal heart sound present GI Palpation (GI): Soft to palpation, Tenderness to palpation present (GI) in the RLQ and Rovsing's sign positive and no guarding Auscultation: normoactive bowel sounds General: Yes no CVA tenderness Back/Spine/Pelvis Back: no CVA tenderness Skin General skin exam: elasticity normal and turgor normal Neuro General: oriented to person, oriented to place, oriented to time, patient oriented x3, moves all extremities, no focal motor deficits and CN's II-XI intact bilaterally Cranial nerves: Yes Equal, round and reactive pupils present Cognition (Neuro): normal cognition Extrem General: Yes full ROM, Yes no pedal edema and Yes no calf tenderness Psych Mental Status: mental status grossly normal Affect: normal affect Thought process: Normal thought process present Medications Administered Discontinued Medications Generic Name Dose Route Start Last Admin Trade Name Sita PRN Reason Stop Dose Admin Haloperidol Lactate 2.5 mg 05/06/25 14:47 05/06/25 15:27 Haloperidol Lactate 5 Mg/Ml Vial IVPUSH 05/06/25 14:48 2.5 mg ONCE ONE Administration Magnesium Sulfate 2 gm in 50 mls @ 25 mls/hr 05/06/25 14:47 05/06/25 15:28 Magnesium Sulfate/H2o IV 05/06/25 16:46 25 mls/hr ONCE ONE Administration Sodium Chloride 1,000 mls @ 999 mls/hr 05/06/25 15:00 05/06/25 15:27 Ns IV 05/06/25 16:00 999 mls/hr .Q1H1M WAYNE Administration Iohexol 100 ml 05/06/25 16:30 05/06/25 16:31 Iohexol 350 Mg/Ml 100 Ml Infus..Btl IV 05/06/25 16:31 85 ml ONCE ONE Administration Medical Decision Making Medical Decision Making [facility] Narrative: Patient is a 34 y/o male with pmhx of HIV, cannabinoid hyperemesis syndrome, and GERD who presents with nausea/vomiting x 5 days. On exam patient is awake, A+Ox3, VS WNL, afebrile, normal neurological exam without focal deficits, physical exam findings as above. Given reported symptoms and physical exam findings, initial differential includes but is not limited to cannabinoid hyperemesis, gastritis, electrolyte abnormality, appendicits. Labs notable for no leukocytosis which is improved since visits on 05/01, 05/02, 3 pt drop in Hgb since 05/02, normal transaminases, no significant electrolyte abnormalities. He denies any hematochezia or melena. IV mag given on arrival for prolonged QTc of 479ms. EKG shows NSR. Appendix unable to be visualized on U/S, CT A/P ordered. CT A/P is without acute abnormalities. My interpretation is in agreement with the radiologist's interpretation. Patient reports improvement in symptoms with IV fluids, Haldol. He was able to tolerate ice chips in the ED. All results discussed with patient and all questions answered. Did advised patient that it can take up to a month clear al cannabis out of his system and this could still be contributing to his symptoms. Will refer to GI for further evaluation. Return precautions discussed. Patient verbalized understanding of and agreement with plan. Differential Diagnosis Differential Diagnoses: The differential diagnosis associated with the presentation includes As per [facility] Admission/Observation Consideration of admission/observation: Escalation of care including admission/observation considered Patient would have been admitted to the hospital had their clinical presentation warranted hospital admission. Lab Data [facility] Lab Attestation statement: I reviewed the patient's lab results. As per [facility] 05/06/25 14:41 05/06/25 14:41 Labs: Lab Results 05/06/25 Range/Units 14:41 WBC 9.8 (4.8-10.8) X10*3/uL RBC 4.06 L D (4.60-5.80) X10*6/uL Hgb 12.2 L D (14.0-18.0) g/dl Hct 34.3 L D (42.0-52.0) % MCV 84.5 (80.0-98.0) fL MCH 30.0 (27.0-33.0) pg MCHC 35.6 (31.0-36.0) g/dl RDW 12.6 (11.0-16.0) % Plt Count 244 (160-400) X10*3/uL MPV 9.8 (9.4-12.4) fL Immature Gran % (Auto) 0.7 H (0.0-0.4) % Neut % (Auto) 81.1 H (45-73) % Lymph % (Auto) 12.8 L (20-40) % Glynn % (Auto) 5.1 (2-11) % Eos % (Auto) 0.0 (0-4) % Baso % (Auto) 0.3 (0-2) % Lymph # (Auto) 1.3 (1.2-4.9) X10*3/uL Glynn # (Auto) 0.5 (0.1-1.2) X10*3/uL Eos # (Auto) 0.0 (0.0-0.4) X10*3/uL Baso # (Auto) 0.0 (0.0-0.2) X10*3/uL Abs Immat Gran (auto) 0.07 H (0.00-0.03) X10*3/uL Absolute Neuts (auto) 7.9 (2.0-8.3) x10*3/uL Absolute Nucleated RBC 0.000 (0.0-0.012) X10*3/uL Nucleated RBC % (auto) 0.0 (0.0-0.2) /100WBC Sodium 143 (135-145) mmol/L Potassium 3.4 (3.3-5.1) mmol/L Chloride 111 H (96-108) mmol/L Carbon Dioxide 22 (22-29) mmol/L Anion Gap 13 (12-20) BUN 23 H (9-16) mg/dL Creatinine 0.98 (0.5-1.4) mg/dL Estim Creat Clear Calc 84.5 Estimated GFR > 60 Random Glucose 107 (60-115) mg/dL Calcium 9.9 D (8.4-10.2) mg/dL Magnesium 2.1 (1.6-2.6) mg/dL Total Bilirubin 0.4 (0.0-1.0) mg/dL AST 31 (5-37) U/L ALT 25 (0-40) U/L Alkaline Phosphatase 64 (39-117) U/L Total Protein 6.9 (6.5-8.0) g/dL Albumin 4.8 (3.5-5.0) g/dL Lipase 23 (8-78) U/L Independent Interpretation I performed an independent interpretation of an: EKG (Normal sinus rhythm, rate 76 beats per minute, normal OH interval, prolonged QTC, no significant change from prior) and Ultrasound (Appendix unable to be visualized on ultrasound) Radiology Impression Discussion of test interpretation with radiology: I have reviewed the radiologist's reading. Radiologist Impression: US/US appendix IMPRESSION: Nonvisualized appendix External Record Review External record reviewed: Inpatient record, Office record and Outpatient record Discharge Plan Discharge Clinical Impression: Cannabinoid hyperemesis syndrome Patient Disposition: Home, Self-Care Instructions: Acute Nausea and Vomiting (DC) Additional Instructions: You were evaluated in the emergency department today for abdominal pain, nausea and vomiting which is most likely due to irritation of the lining of your stomach. It is likely this is due to your prior cannabis use, and it can take up to a month to clear from your system after you have stopped using cannabis. Your symptoms improved with medication in the ED. Avoid spicy or acidic foods. Please follow up with your primary care physician within two days for a recheck of your hematocrit and hemoglobin. Follow-up with gastroenterology for further evaluation of your symptoms. Return to the emergency department if you experience shortness of breath, worsening or uncontrolled abdominal pain, chest pain, light headedness, faiting, persistent nausea and vomiting, bloody vomit or stools, black, tarry stools, or any other concerning symptoms. Prescriptions: No Action Dovato 50-300 mg Tablet 1 tab PO DAILY famotidine 40 mg tablet 40 mg PO BID cyanocobalamin (vitamin B-12) 1,000 mcg Tablet 1,000 mcg PO DAILY cholecalciferol (vitamin D3) 25 mcg (1,000 unit) Capsule 25 mcg PO DAILY duloxetine 60 mg capsule,delayed release(DR/EC) 60 mg PO DAILY Referrals: [facility] [Provider Group, Gastroenterology] Clinical Impression: Cannabinoid hyperemesis syndrome Print Language: Samoan
--- NOTE | 2025-05-06 14:20 | ECG_ITS ---
Test Reason : check QT Blood Pressure : */* mmHG Vent. Rate : 76 BPM Atrial Rate : 76 BPM P-R Int : 132 ms QRS Dur : 80 ms QT Int : 426 ms P-R-T Axes : 68 84 69 degrees QTcB Int : 479 ms Artifact in tracing Normal sinus rhythm Due to artifact, cannot assess further When compared with ECG of 02-May-2025 21:37, No significant change was found Referred By: Padmini Guillen Electronically Signed By: ROWDY HENRIQUEZ
[2025-05-06 14:32] VITALS: BP 152/90; PULSE 77; O2SAT 100
[2025-05-06 14:46] LABS: MANUAL DIFF FLAG NO
[2025-05-06 14:47] LABS: Hematocrit 34.3 % (42.0-52.0); Hemoglobin 12.2 g/dl (14.0-18.0); Imm Gran Abs Auto 0.07 X10*3/uL (0.00-0.03); Imm Gran Pct Auto 0.7 % (0.0-0.4); Lymphocytes Absolute Auto 1.3 X10*3/uL (1.2-4.9); Mean Corpuscular HGB Conc 35.6 g/dl (31.0-36.0); Mean Corpuscular Hemoglobin 30.0 pg (27.0-33.0); Mean Corpuscular Volume 84.5 fL (80.0-98.0); NRBC Abs Auto 0.000 X10*3/uL (0.0-0.012); NRBC Pct Auto 0.0 /100WBC (0.0-0.2); Platelet Count 244 X10*3/uL (160-400); Red Blood Count 4.06 X10*6/uL (4.60-5.80); White Blood Count 9.8 X10*3/uL (4.8-10.8)
[2025-05-06 14:55] VITALS: BP 113/60; PULSE 78; RESP 16; TEMP 36.8; O2SAT 99; BMI 20.2
--- NOTE | 2025-05-06 14:59 | PC.NURSE ---
Pt roomed anc placed on monitor- VSS States Zofran by EMS helped and not nauseas at this time.
[2025-05-06 15:01] LABS: Alanine Aminotransferase 25 U/L (0-40); Albumin Level 4.8 g/dL (3.5-5.0); Alkaline Phosphatase 64 U/L (39-117); Anion Gap 13 (12-20); Aspartate Amino Transferase 31 U/L (5-37); Blood Urea Nitrogen 23 mg/dL (9-16); Calcium 9.9 mg/dL (8.4-10.2); Carbon Dioxide 22 mmol/L (22-29); Chloride 111 mmol/L (96-108); Creatinine Clr Calc Pharmacy 84.5; Estimated Glomerular Filt Rate > 60; Lipase 23 U/L (8-78); Magnesium 2.1 mg/dL (1.6-2.6); Potassium 3.4 mmol/L (3.3-5.1); Sodium 143 mmol/L (135-145); Total Protein 6.9 g/dL (6.5-8.0)
[2025-05-06] MEDS: Magnesium Sulfate/H2O 2 GM/50 ML PIGGYBACK IV (15:28)
--- NOTE | 2025-05-06 15:33 | PC.NURSE ---
Addendum entered by Kalyani Suarez RN 05/06/25 15:34: Patient is a 34 y/o male with pmhx of HIV and GERD who presents with nausea/vomiting x 5 days. Pt was seen here on Tuesday 05/01 for nausea/vomiting with hematemesis. He was given fluids and medication which helped. Pt states he had abnormal lab values and was told to come back if symptoms continue. Pt came back to the ED 05/02 for nausea and vomiting with hematemesis when he was also given fluids and medication. He reports symptoms continued on Tuesday but were tolerable. Pt reports feeling well yesterday, he was able to eat and had a BM. Symptoms restarted this morning around 8AM. He reports feeling nauseous and vomiting saliva. Admits to marijuana use but states his last use was 7 days ago. Patient alert and oriented. Lungs clear bilat. Respirations even and non-labored. Abdomen soft with positive bowel sounds. c/o right sided epigastric pain. Appendix U/S completed. Positive pedal pulses with no edema noted. Original Note: Medical History Cannabis abuse HIV disease Acute renal failure Fibromyalgia HIV (human immunodeficiency virus infection) GERD (gastroesophageal reflux disease)
[2025-05-06 16:11] VITALS: BP 106/66; PULSE 68; RESP 16; TEMP 36.7; O2SAT 99
[2025-05-06] MEDS: iohexoL 350 MG/ML 100 ML INFUS..BTL IV (16:31)
--- OUTSIDE RECORDS SUMMARY | 2025-05-06 17:07 | XMS_ITS | Clinical Summary ---
Author Organization [facility] Facility Address [address] [address] Care Team Providers Care Subway Conductor Name Role Phone Unavailable Primary Care Provider [...] age to complete this topic Insurance [facility]
--- OUTSIDE RECORDS SUMMARY | 2025-05-06 17:08 | XMS_ITS | Data Portability ---
Author Organization CRYSTAL - MAUREEN GRAMAJO MD [facility], Main Office Address [address] [place] [address] Assessment Encounter Date Assessment Date Assessment LastModified by Organization Details LastModified Time 10/21/2023 10/21/2023 telemedicine. audio. pt home in [place]. 18 min [email or web address] Not available 10/21/2023 13:33:24 01/17/2024 01/17/2024 telemedicine. audio. [place] at [place] in [place] 16 min [email or web address] Not available 01/17/2024 14:15:13 07/27/2024 07/27/2024 telemedicine. audio. [place] at work in [place] 17 min [email or web address] Not available 07/27/2024 14:08:10 [...] Go To The Location Of Their Choice, [id number] 11:29:03 AST/SGOT (aspartat e aminotran sferase), serum [...] Their Choice, 11:29:04 CBC w/ diff 2023 Revegy [facility] (Centralized Electronic Ordering - All Locations), Patient Can Go To The Location Of Their Choice, 11:15:05 electroly jennifer panel, blood 2023 024 [email or web address] [facility] (Centralized Electronic Ordering - All Locations), Patient Can Go To The Location Of Their Choice, 11:15:05 ALT (alanine aminotran sferase), serum or plasma 2023 024 [facility] (Centralized Electronic Ordering - All Locations), Patient Can Go To The Location Of Their Choice, 11:15:06 AST/SGOT (aspartat e aminotran sferase), serum or plasma 2023 024 [email or web address] [facility] (Centralized Electronic Ordering - All Locations), Patient Can Go To The Location Of Their Choice, 11:15:06 CT + NG DNA, PCR, unspecifi ed specimen 2023 024 Revegy [facility] (Centralized Electronic Ordering - All Locations), Patient Can Go To The Location Of Their Choice, 11:15:06 creatinin e w/ estimated GFR (eGFR), serum or plasma 2023 024 [email or web address] [facility] (Centralized Electronic Ordering - All Locations), Patient Can Go To The Location Of Their Choice, 11:15:06 hepatitis C virus Ab, serum 2023 024 Revegy [facility] (Centralized Electronic Ordering - All Locations), Patient Can Go To The Location Of Their Choice, 11:15:06 RPR (rapid plasma reagin), serum 2023 024 Revegy [facility] (Centralized Electronic Ordering - All Locations), Patient Can Go To The Location Of Their Choice, 11:15:06 T-cell regulator y subsets panel, blood 2023 024 [email or web address] [facility] (Centralized Electronic Ordering - All Locations), Patient Can Go To The Location Of Their Choice, 4 11:15:06 HBsAg (hepatiti s B surface Ag), serum 2023 024 [email or web address] [facility] (Centralized Electronic Ordering - All Locations), Patient Can Go To The Location Of Their Choice, 4 11:15:07 HIV-1 RNA, quantitat rajiv, PCR, serum or plasma - HIV VL PCR QUANTITAV RAJIV 2023 024 [email or web address] [facility] (Centralized Electronic Ordering - All Locations), Patient Can Go To The Location Of Their Choice, 11:15:07 CBC w/ diff 2022 023 [email or web address] [facility] (Centralized Electronic Ordering - All Locations), Patient Can Go To The Location Of Their Choice, 00:48:01 electroly jennifer panel, blood 2022 023 [facility] (Centralized Electronic Ordering - All Locations), Patient Can Go To The Location Of Their Choice, 4 00:48:02 ALT (alanine aminotran sferase), serum or plasma 2022 023 [email or web address] [facility] (Centralized Electronic Ordering - All Locations), Patient Can Go To The Location Of Their Choice, 4 00:48:02 AST/SGOT (aspartat e aminotran sferase), serum or plasma 2022 023 [email or web address] [facility] (Centralized Electronic Ordering - All Locations), Patient Can Go To The Location Of Their Choice, 4 00:48:02 CT + NG DNA, PCR, unspecifi ed specimen 2022 023 [email or web address] [facility] (Centralized Electronic Ordering - All Locations), Patient Can Go To The Location Of Their Choice, 4 00:48:03 creatinin e w/ estimated GFR (eGFR), serum or plasma 2022 023 [email or web address] [facility] (Centralized Electronic Ordering - All Locations), Patient Can Go To The Location Of Their Choice, 00:48:03 hepatitis C virus Ab, serum 2022 023 [email or web address] [facility] (Centralized Electronic Ordering - All Locations), Patient Can Go To The Location Of Their Choice, 00:48:04 HIV-1 RNA, quantitat rajiv, PCR, serum or plasma 2022 023 [email or web address] [facility] (Centralized Electronic Ordering - All Locations), Patient Can Go To The Location Of Their Choice, 00:48:04 RPR (rapid plasma reagin), serum 2022 023 [email or web address] [facility] (Centralized Electronic Ordering - All Locations), Patient Can Go To The Location Of Their Choice, 00:48:05 T-cell regulator y subsets panel, blood 2022 023 [email or web address] [facility] (Centralized Electronic Ordering - All Locations), Patient Can Go To The Location Of Their Choice, 00:48:05 HBsAg (hepatiti s B surface Ag), serum 2022 023 [email or web address] [facility] (Centralized Electronic Ordering - All Locations), Patient Can Go To The Location Of Their Choice, 00:48:05 Referral None recorded. Procedures None recorded. Surgeries None recorded. Imaging None recorded. Medication Orders Dovato 50 mg-300 mg tablet 2023 024 JER [id number], [address] [place], [address], 4 11:42:02 Dovato 50 mg-300 mg tablet 2023 024 [email or web address] [id number], [address] [place], [address], 4 14:14:11 Patient TargetsNo targets recorded. Patient InstructionsNo instructions recorded. Reason for Referral None Reported. Problems Name Problem SNOMED Code Status Onset Date Resolution Date Notes Provider Name and Address Organization Details Recorded Time History of syphilis [id number] [id number] Active 2022 Maureen Al MD [address] [place] [address] [place], [address] , CRYSTAL AL MD [facility] 3 23:47:13 Human immunodef iciency virus infection 72283197 Active 2022 Maureen Al MD [address] [place] [address] [place], [address] , CRYSTAL AL MD [facility] 3 10:09:28 Syphilis 61497105 Active 2019 Syphilis, unspecifi ed; snomeddes cription: Syphilis; Report Immunity to Registry: Yes; Notes: 2008. tx IM [facility]; Not Available [facility] 4 06:58:56 Neuropath y 079563099 Active 2019 Neuropath y; snomeddes cription: Neuropath y; Report Immunity to Registry: Yes; Not Available [facility] 4 06:58:56 Anogenita l herpesvir al infection 552525647 Active 2019 Anogenita l herpesvir al infection , unspecifi ed; snomeddes cription: Genital herpes simplex; Report Immunity to Registry: Yes; Not Available [facility] 4 06:58:[address] pylori-as sociated gastritis 114119205 Active [address] pylori-as sociated gastritis ; snomeddes cription: Helicobac ter pylori-as sociated gastritis ; Report Immunity to Registry: Yes; Notes: 07/2019 s/p treated. post tx H pylori negative 10/2019; Not Available [facility] 4 06:58:56 Spasm 94437218 Active 2019 Spasm; snomeddes cription: Spasm; Report Immunity to Registry: Yes; Notes: upper back/neck chronic pain; Cramp and spasm; snomeddes cription: Spasm; Report Immunity to Registry: Yes; Notes: upper back/neck chronic pain; Not Available [facility] 4 06:58:57 Irritable bowel syndrome 86909826 Active 2021 Irritable bowel syndrome; snomeddes cription: Irritable bowel syndrome; Report Immunity to Registry: Yes; Irritabl e bowel syndrome without diarrhea; snomeddes cription: Irritable bowel syndrome; Report Immunity to Registry: Yes; Not Available [facility] 4 06:58:57 Genital herpes simplex 29372460 Active 2019 Genital herpes simplex; snomeddes cription: Genital herpes simplex; Report Immunity to Registry: Yes; Not Available [facility] 4 06:58:57 Polyneuro colleen 71818493 Active 2019 Polyneuro colleen, unspecifi ed; snomeddes cription: Neuropath y; Report Immunity to Registry: Yes; Not Available [facility] 4 06:58:57 Notes:Gastritis, unspecified , without bleeding [...] virus, quadrivalent, preservative 1 completed Not Available [facility] 12/14/2023 06:54:31 Influenza, split virus, quadrivalent, preservative 9 completed Not Available [facility] 12/14/2023 06:54:31 Past Encounters Encounter ID Performer Location Encounter Start Date Encounter Closed Date Diagnosis/Indication Diagnosis SNOMED-CT Code Diagnosis ICD10 Code Diagnosis Note [id number] Maureen Al MD Main Office [address] [place] [phone] 10/21/2023 13:30:34 10/21/2023 15:53:10 Human immunodeficiency virus infection [id number] B20 HIV.Contin ue Dovato 1 tab po qd. 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 condom use reviewed for STI prevention ; PrePlabs ordered.wi ll request Payette Discharge summary and labsplan of care reviewed. questions and concerns addressed. Questions and concerns addressed History of syphilis 1087 [id number] 258069 Z86.19 2009. tx IM PNCRPR screen [id number] Maureen Al MD Main Office [address] [facility] [place] [address] 01/17/2024 12:37:08 01/17/2024 16:13:47 Human immunodeficiency virus infection 89150621 B20 HIV.Contin ue Dovato 1 tab po qd. Strict compliance reviewed to prevent viral resistance and keep viral suppressio n, and prevent viral transmissi on.U=U. condom use reviewed for STI prevention ; PrePlabs ordered.pl an of care reviewed. questions and concerns addressed. Questions and concerns addressed [id number] Maureen Al MD Main Office [address] [facility] [place] [address] 07/27/2024 13:40:43 08/13/2024 11:44:54 Human immunodeficiency virus infection 48957518 B20 HIV.Contin ue Dovato 1 tab po [...] Martell Member ID Guarantor Name 08/17/2024 1 [facility] [id number] Darvin Lowery [id number] 04/04/2024 1 [facility] NET PLAN (MEDICAID HMO) [facility] Darvin Lowery [id number] Notes Date Note Type Note Provider Name and Address Organization Details Recorded Time 10/21/2023 text/html F/U HIV.On Dovat o 1 tab po qd.reports compliance.no recent HIV labsCompliant.likes regimen. no side effectsmed list reviewedsome insurance barriers, so did miss one appointment.[facility] 09/2021 HIV vL nondetected; CD4= 1238; eGFR>60; ALt/AST WNL; HCV neg01/2023 HIV VL nondetected; Cd4>1000; ALt/AST wnl; eGFR>60; no STI.no STI sx. no rash; no penile discharge. no chills. no sweats.Reports got out of the hospital earlier today; was at [facility] for 2 days or so with a gastroenteritis, vomiting and w diarrhea; got electrolytes replacements. doing well now. Maureen Al MD [address] [place] [address], [phone], CRYSTAL AL MD [facility] 10/21/2023 13:35:01 01/17/2024 text/html F/U HIV.On [...] no chills. no sweats. Maureen Al MD [address] [place] [address], [phone], CRYSTAL AL MD [facility] 01/17/2024 14:15:34 07/27/2024 text/html F/U HIV.On [...] no chills. no sweats. Maureen Al MD [address] [place] [address], [phone], CRYSTAL AL MD [facility] 08/13/2024 11:41:57
[2025-05-06 18:12] VITALS: BP 106/66; PULSE 68; RESP 16; TEMP 36.7; O2SAT 99
== END 2025-05-06 18:13 | disposition home or self-care (01) ==
PROVIDERS: Registered Nurse Emergency; Emergency Provider Emergency Medicine
DX: R10.31 Right lower quadrant pain (principal); R11.2 Nausea with vomiting, unspecified; B20 Human immunodeficiency virus [HIV] disease; Z79.899 Other long term (current) drug therapy
CPT/HCPCS: 36415; 74177; 76705; 80053; 83690; 83735; 85025; 93005; 96361; 96365; 96375; 99284; J1630; J3475; Q9967

== ENCOUNTER → 2025-05-06 14:20 | Outpatient (BNV) | payer OTHER, SELFPAY | PROVIDERS: Emergency Provider Emergency Medicine; Visit Provider Internal Medicine | DX: Z13.6 Encounter for screening for cardiovascular disorders (principal) | CPT/HCPCS: 93010 ==

== ENCOUNTER → 2025-05-06 14:59 | Outpatient (BNV) | payer OTHER, SELFPAY | PROVIDERS: Emergency Provider Emergency Medicine; Visit Provider Radiology Diagnostic Radiology | DX: R10.31 Right lower quadrant pain (principal) | CPT/HCPCS: 74177 ==

== ENCOUNTER 2025-05-07 08:58 | Emergency (ER) | payer OTHER, SELFPAY ==
--- OUTSIDE RECORDS SUMMARY | 2025-05-07 10:52 | XMS_ITS | Encounter Summary ---
Author Organization [facility] Address [address] [place] [address] Care Team Providers Care Cabin Equipment Supervisor Name Role Phone Raúl Mcclain NP Primary Care Provider [phone] Reason for Visit * Reason Comments Abdominal Pain Encounter Details Date Type Department Care Team ([facility] st Contact Info) Description 05/07/2025 10:52 AM EDT Emergency [facility] Emergency [address] [place] [address] Social History Tobacco Use Types Packs/Day Years Used Date Smoking Tobacco: Every Day Cigarettes Smokeless Tobacco: Never Tobacco Cessation:Ready to Q uit: Not Asked; Counseling Given: Not Answered Alcohol Use Standard Drinks/Week Comments Never 0 (1 standard drink = 0.6 oz pur e alcohol) Sex and Gender Information Value Date Recorded Sex Assigned at Not on file Legal Sex Male 5:37 AM EST Gender Identity Not on file Sexual Orientation Not on file documented as of this encounter Last Filed Vital Signs Vital Sign Reading Time Taken Comments Blood Pressure 139/86 05/07/2025 11:03 AM EDT Pulse 83 05/07/2025 11:03 AM EDT Temperature 37 C (98.6 F) 05/07/2025 11:03 AM EDT Respiratory Rate 28 05/07/2025 11:03 AM EDT Oxygen Saturation 100% 05/07/2025 11:03 AM EDT Inhaled Oxygen Concentration - - Weight 54.4 kg (120 lb) 05/07/2025 11:03 AM EDT Height 167.6 cm (5' 6 ) 05/07/2025 11:03 AM EDT Body Mass Index 19.37 05/07/2025 11:03 AM EDT documented in this encounter Progress Notes * Quincy Cosme MD - 05/07/2025 11:05 AM EDT 34-year-old male presents for abdominal pain nausea vomiting. Patient has a history of cannabis hyperemesis treated at [facility]. Last May use cannabis 8 days ago. Describes midepigastric nonradiating pain. Unable to tolerate any p.o. intake. Abdomen soft nontender nondistended on exam. * Adina Sandy RN - 05/07/2025 10:53 AM EDT States since last Tuesday been having severe episodes of nausea, seen at [facility] multiple times, last visit yesterday. Reports he took sip of water and had severe episode of nausea. documented in this encounter Plan of Treatment Pending Results Name Type Priority Associated Diagnoses Date /Time CBC and differential Lab STAT 04/23 11:01 AM EDT Comprehensive metabolic panel Lab STAT 05/07/2025 11:01 AM EDT Lipase Lab STAT 05/07/2025 11: 01 AM EDT CBC auto differential Lab STAT 11:01 AM EDT Scheduled Orders Name Type Priority Associated Diagnoses Orde r Schedule CBC and differential Lab STAT STAT for 1 Occurrences starting 05/07/2025 until 05/07/2025 Comprehensive metabolic panel Lab STAT STAT for 1 Occur rences starting 05/07/2025 until 05/07/2025 Lipase Lab STAT STAT for 1 Occ urrences starting 05/07/2025 until 05/07/2025 CBC auto differential Lab Routine Onc e for 1 Occurrences starting 05/07/2025 until 05/07/2025 documented as of this encounter Visit Diagnoses Not on filedocumented in this encounter Orders Medications Ordered That Ajit ht Not Have Been Administered Count Last Ordered Date First Ordered Date droPERidol (INAPSINE) injection 1.25 mg 1 0 05/07/2025 sodium chloride 0.9 % bolus 1,000 mL 1 04/23 Diet Count Last Ordered Date First Orde red Date ADULT NPO DIET 1 05/07/2025 documented in this encounter Care Teams Cabin Equipment Supervisor Relationship Specialty Start Date End Date Rúal Mcclain NP [address] [facility] CRYSTAL Carballo PCP - General Family Medicine 05/07/25 documented as of this encounter
--- OUTSIDE RECORDS SUMMARY | 2025-05-07 11:57 | XMS_ITS | Clinical Summary ---
Author Organization [facility] Facility Address [address] [address] Care Team Providers Care Agitator Operator Name Role Phone Unavailable Primary Care Provider [...] patient's age to complete this topic Insurance [facility]
== END 2025-05-07 10:44 | disposition left against medical advice (07) ==
LOC: HO.ED 10:39
PROVIDERS: Emergency Provider Emergency Medicine
DX: R53.1 Weakness (principal); R11.2 Nausea with vomiting, unspecified; Z53.21 Procedure and treatment not carried out due to patient leaving prior to being seen by health care provider